=== PATIENT | female | born 1950 | race Caucasian/White ===

== ENCOUNTER 2016-09-11 10:51 | Inpatient (IN) | payer MEDICARE, OTHER ==
[~2016-09-11] VITALS: Ht 165.1 cm; Wt 36.0 kg
[2016-09-11] MEDS: LEVETIRACETAM IV 500 MG in DEXTROSE 5% 100 ML IVPB SCH (05:14)
[~2016-09-11 10:51] MED LIST: ACET500C5 PO; CALC-143 PO; CARV12.579 GTB; CLON-379 PO; DOCU-144 GTB; ESOM20CA PO; FER325 GTB; HEPA100D39 IV; INDA2.5T GTB; INSU100C SQ; LACTINEX PO; LANT3I SC; LEVE-5 PO; LISI20TA11 PO; METF500T4 PO; MIN25 GTB; MORP1DIS4 IV; ONDA4SOL IV*; PANT40TA3 PO; PARO40TA79 PO; SENN-53 PO
[2016-09-11 11:08] VITALS: Ht 165.1 cm; Wt 36.0 kg
--- NOTE | 2016-09-11 12:29 | RADRPT ---
PROCEDURE: XR Abdomen. CLINICAL INDICATION: Check gastrostomy tube position. TECHNIQUE: AP supine abdomen x-ray. The image was obtained following injection of 60 ml of Gastrog rafin into the gastrostomy tube. COMPARISON: None. FINDINGS: There is a Rubio catheter with the tip in the transverse colon. Contrast is present in the catheter and the transverse colon. The bowel gas pattern is normal with no evidence of obstruction. There are degenerative changes of the spine. IMPRESSION: 1. Rubio catheter tip in the transverse colon. Call report: A call report of the findings was made to Dr. Gonsalez on 09/11/2016 at 1220 hours. RPTAT: QQ .Shahid Archer MD, MD Date Time Electronically viewed and signed by .Shahid Archer MD, on 09/11/2016 12:29 .R/
[2016-09-11 12:53] LABS: ADD SCAN DIFF NO
[2016-09-11 12:55] LABS: BASOPHILS % 0.3 % (0.0-2.0); EOSINOPHILS # 0.4 10^3/ul (0.0-0.5); EOSINOPHILS % 3.3 % (0.0-7.0); HEMOGLOBIN 7.8 g/dl (12.0-16.0); LYMPHOCYTES # 2.4 10^3/ul (0.8-2.9); LYMPHOCYTES % 20.8 % (15.0-51.0); MEAN CORPUSCULAR HEMOGLOBIN 30.6 pg (29.0-33.0); MEAN PLATELET VOLUME 11.7 fl (7.4-10.4); MONOCYTE # 1.1 10^3/ul (0.3-0.9); MONOCYTES % 9.6 % (0.0-11.0); NEUTROPHIL # 7.6 10^3/ul (1.6-7.5); NEUTROPHILS % 65.3 % (39.0-77.0); PLATELET COUNT 599 10^3/UL (140-415); RED BLOOD COUNT 2.55 10^6/ul (4.20-5.40); RED CELL DISTRIBUTION WIDTH 14.6 % (11.5-14.5); WHITE BLOOD COUNT 11.7 10^3/ul (4.8-10.8)
[2016-09-11] MEDS ORDERED: ACETAMINOPHEN 325 MG TAB PO PRN (13:00)
[2016-09-11] MEDS ORDERED: ONDANSETRON 4 MG INJ IV PRN ×2 (13:00→14:00)
[2016-09-11 13:08] LABS: INR 1.11; POTASSIUM 3.8 mmol/L (3.5-5.1); PROTIME 14.3 Sec (12.2-14.2); PT RATIO 1.1
[2016-09-11 13:11] LABS: CREATININE 1.8 mg/dl (0.44-1.00)
[2016-09-11 13:12] LABS: CALCIUM 8.5 mg/dl (8.4-10.2)
[2016-09-11 13:23] LABS: TROPONIN-I 0.015 ng/ml (0.00-0.12)
[2016-09-11] MEDS ORDERED: SOD CHLORIDE 0.9% 1,000 ML IV STA ×2 (13:27)
[2016-09-11] MEDS ORDERED: SOD CHLORIDE 0.9% 250 ML IV ONE (13:36)
[2016-09-11] MEDS ORDERED: NS + KCL 20 MEQ 1,000 ML IV SCH (13:42)
--- NOTE | 2016-09-11 13:42 | ERA ---
ER Documentation Chief Complaint Date/Time DATE: 09/11/16 TIME: 13:37 Chief Complaint g-tube leaking need new replacement HPI Basement. Please note the history and physical exam is limited secondary to the patient's mental status at baseline. The patient had a leaking 20 Chinese G- tube and was sent for G-tube replacement. She is a full code. I cannot obtain history otherwise. Her primary doctor is Dr. Simon Graff. ROS All systems reviewed and are negative except as per history of present illness. Medications Home Meds Active Scripts Metformin* (Glucophage*) 500 Mg Tab, 500 MG PO WITH BREAKFAST, #30 TAB Prov:ALAINA OVIEDO V. DISEASE INTERVENTION SPECIALIST 08/18/15 Reported Medications Esomeprazole Mag Trihydrate (Nexium) 20 Mg Capsule.dr, 20 MG PO AC BREAKFAST, # 30 CAP 03/28/16 Calcium Citrate/Vitamin D (Citracal-Vitamin D 200 MG-250) 1 Each Tablet, 1 EACH PO DAILY, TAB 03/28/16 Sennosides* (Senna Lax*) 8.6 Mg Tablet, 1 TAB PO BID, TAB 03/28/16 Paroxetine Hcl* (Paroxetine*) 40 Mg Tablet, 40 MG PO DAILY, TAB 03/28/16 Ondansetron Hcl* (Ondansetron Hcl* Liq) 4 Mg/5 Ml Solution, 4 MG IV* Q6H Y for NAUSEA AND/OR VOMITING, ML 03/28/16 Morphine (Morphine) 1 Mg/1 Ml Disp.syrin, 2 MG IV Q2H Y for PAIN, EA 2-6 MG Q2H PRN 03/28/16 Levetiracetam* (Keppra*) 500 Mg Tablet, 500 MG PO BID, TAB 03/28/16 Insulin Lispro (Humalog) 100 Unit/1 Ml Cartridge, 5 UNIT SQ TID 03/28/16 Insulin Lispro (Humalog) 100 Unit/1 Ml Cartridge, 12 UNIT SQ QID 150-200=2units 201-250=4units 251-300=6units 301-350=8units 351-400=10units 400=12units 03/28/16 Insulin Glargine* (Lantus*) 100 Unit/Ml Soln, 15 UNIT SC QHS, #1 VIAL 03/28/16 Indapamide* (Indapamide*) 2.5 Mg Tablet, 2.5 MG PO DAILY, TAB 03/28/16 Heparin Sodium,Porcine/Pf (Heparin 1,000 Unit/10 (100/ml)) 1,000 Unit/10 Ml Syringe, 5000 UNIT IV BID 03/28/16 Ferrous Sulfate* (Ferrous Sulfate*) 325 Mg Tabec, 325 MG PO TID, TAB 03/28/16 Clonidine Hcl* (Clonidine Hcl*) 0.1 Mg Tab, 0.1 MG PO QHS, TAB 03/28/16 Acetaminophen* (Tylophen*) 500 Mg Capsule, 1000 MG PO Q4 Y for FOR PAIN, TAB 11/08/15 Pantoprazole* (Protonix*) 40 Mg Tablet.dr, 40 MG PO DAILY, TAB 08/17/15 Minoxidil* (Lonitin*) 2.5 Mg Tab, 2.5 MG PO DAILY, TAB HOLD IF SBP BELOW 110, HR BELOW 60 1TAB 08/17/15 Lactobacillus Acidophilus* (Lactinex*) 1 Tab Chew, 1 TAB PO BID, TAB 08/17/15 Docusate Sodium* (Colace*) 100 Mg Capsule, 100 MG PO BID, #30 CAP 08/17/15 Carvedilol* (Carvedilol*) 12.5 Mg Tablet, 12.5 MG PO BID, #60 TAB 08/17/15 Lisinopril* (Lisinopril*) 20 Mg Tablet, 20 MG PO DAILY, #30 TAB 08/17/15 Allergies Allergies: Coded Allergies: No Known Drug Allergy (Verified Allergy, Mild, 03/28/16) PMhx/Soc History of Surgery: Yes (AVF placement ) Hx Neurological Disorder: Yes (Chronic encephalopathy, dysphagia, dementia, hemiplegia, hx of CVA L side) Hx Respiratory Disorders: Yes (Hx. of acute pulmonary edema ) Hx Cardiac Disorders: Yes (hx of CAD with NSTEMI, HTN, cardiomegaly) Hx Psychiatric Problems: Yes (Dementia, depression, ENCEPHALOPATHY ) Hx Miscellaneous Medical Probl: No Smoking Status: Unknown if ever smoked FmHx Unable to obtain Physical Exam Vitals Vital Signs Date Time Temp Pulse Resp B/P Pulse Ox O2 Delivery O2 Flow Rate FiO2 09/11/16 11:08 98.2 98 18 102/53 99 Physical Exam Const: Pale and cachectic Head: Atraumatic Eyes: Normal Conjunctiva ENT: Normal External Ears, Nose and Mouth. Neck: Full range of motion..~ No meningismus. Resp: Clear to auscultation bilaterally Cardio: Regular rate and rhythm, no murmurs Abd: G-tube in place with leakage around it appears to be tube feeding Skin: Pale Back: No midline or flank tenderness Ext: No cyanosis, or edema Neur: Awake but encephalopathic at baseline Result Diagram: 09/11/16 1245 09/11/16 1245 Results 24 hrs Laboratory Tests Test 09/11/16 12:45 White Blood Count 11.710^3/ul Red Blood Count 2.5510^6/ul Hemoglobin 7.8g/dl Hematocrit 26.0% Mean Corpuscular Volume 102.0fl Mean Corpuscular Hemoglobin 30.6pg Mean Corpuscular Hemoglobin Concent 30.0g/dl Red Cell Distribution Width 14.6% Platelet Count 51518^3/UL Mean Platelet Volume 11.7fl Neutrophils % 65.3% Lymphocytes % 20.8% Monocytes % 9.6% Eosinophils % 3.3% Basophils % 0.3% Nucleated Red Blood Cells % 0.0/100WBC Neutrophils # 7.610^3/ul Lymphocytes # 2.410^3/ul Monocytes # 1.110^3/ul Eosinophils # 0.410^3/ul Basophils # 0.010^3/ul Nucleated Red Blood Cells # 0.010^3/ul Prothrombin Time 14.3Sec Prothrombin Time Ratio 1.1 INR International Normalized Ratio 1.11 Activated Partial Thromboplast Time 23.0Sec Sodium Level 160mmol/L Potassium Level 3.8mmol/L Chloride Level 114mmol/L Carbon Dioxide Level 27mmol/L Anion Gap 23 Blood Urea Nitrogen 92mg/dl Creatinine 1.80mg/dl Glucose Level 189mg/dl Calcium Level 8.5mg/dl Troponin I 0.015ng/ml Current Medications Medications (Trade) Dose Ordered Sig/Candace Route PRN Reason Start Time Stop Time Status Last Admin Dose Admin Ondansetron HCl (Zofran Inj) 4 mg BRIDGE ORDER PRN IV NAUSEA AND/OR VOMITING 09/11/16 13:00 09/12/16 12:59 Acetaminophen 650 mg 650 mg ER BRIDGE PRN PO MILD PAIN/FEVER 09/11/16 13:00 09/12/16 12:59 Sodium Chloride 1,000 ml @ 1,000 mls/hr Q1H STAT IV 09/11/16 13:27 09/11/16 14:26 Sodium Chloride 1,000 ml @ 1,000 mls/hr Q1H STAT IV 09/11/16 13:27 09/11/16 14:26 Sodium Chloride (NS) 250 ml @ 0 mls/hr Q0M ONCE IV 09/11/16 13:36 09/11/16 13:37 DC Procedures/MDM G-tube Insertion by me: Sterile technique, local prep and lubrication, time out performed. Location: Epigastrum Device: 20 Chinese G-tube Technique: Ann pressure with twisting motion. Balloon inflation Results: Tube feeding contents expressed. Compl: On x-ray the G-tube appears to be in the transverse colon X-ray Abdomen 1V Interpreted by me: Free Air: None Bowel Gas: Nonspecific Contrast: Unfortunately it appears that the G-tube is in the transverse colon Chest x-ray pending. EKG read by me: Rate/Rhythm: Regular rate and rhythm at a normal rate Intervals: Normal Impression: No evidence of ischemia or arrhythmia Patient is a 66-year-old female presents for G-tube replacement. I replaced the G-tube at the bedside and a confirmatory x-ray shows that the G-tube is actually in the transverse colon. Unfortunately I believe that when the G-tube was placed recently and must been placed erroneously in the transverse colon. I looked back at previous visits to the hospital and I do not see that this G- tube was placed at [facility]. Therefore I spoke with Dr. Louis our general surgeon on-call who will see the patient in consultation. The patient had laboratory studies done which show hypernatremia and dehydration most likely because this patient has been getting tube feedings into her colon and is not being nourished correctly. The patient will be given 2 L of normal saline for fluid resuscitation. She was also found to have anemia with a hemoglobin of 7.8 and will require transfusion. I have ordered 2 units of packed red blood cells. The patient will be admitted to the care of Dr. Dimas from the panel team to a medical surgical bed. Critical Care: Time: 35 minutes excluding all billable procedures. Treatments/Evaluations: Close monitoring and treatment of unstable vital signs, cardiorespiratory, and neurologic status, while maintaining tight balance of fluid, respiratory, and cardiac interventions. Departure Diagnosis: Primary Impression: Hypernatremia Additional Impressions: Gastrostomy tube dysfunction Anemia Qualified Code: D64.9 - Anemia, unspecified type Encounter for feeding tube placement Dehydration Condition: Fair Patient Instructions: Feeding Tube Replacement Referrals: SIMON GRAFF MD (PCP) Additional Instructions: Llame al doctor MAANA y nicole linda NITZA PARA DENTRO DE 1-2 KHOURY.Dgale a la secretaria que nosotros le instruimos hacer esta nitza.Avise o llame si page condicin se empeora antes de la nitza. Regresa aqui si peor o no mejor. KWABENA HORAN MD Sep 11, 2016 13:42
[2016-09-11] MEDS ORDERED: NACL 0.9% 3 ML SYG IV SCH (14:00)
[2016-09-11] MEDS ORDERED: morphine 2 MG INJ IV PRN (14:00)
[2016-09-11] MEDS: INSULIN ASPART [NOVOLOG] 3 ML PEN SC SCH ×3 (14:00→18:00)
[2016-09-11] MEDS ORDERED: LATA2.5D9 BOTH EYES (14:06)
--- NOTE | 2016-09-11 14:06 | RADRPT ---
PROCEDURE: XR Chest. CLINICAL INDICATION: Shortness of breath. TECHNIQUE: Single frontal view. COMPARISON: 01/27/2016. FINDINGS: The lungs are clear. The heart is enlarged. There is no pleural effusion or pneumothorax. Surgical clips are present in the left upper extremity soft tissues medially. IMPRESSION: 1. Cardiomegaly. 2. Prior left arm surgery. 3. Otherwise normal chest radiograph. 4. No change from 03/28/2016. RPTAT: QQ .Shahid Archer MD, MD Date Time Electronically viewed and signed by .Shahid Archer MD, MD on 09/11/2016 14:06 .R/
[2016-09-11] MEDS ORDERED: CRAN3875 GTB (14:08)
[2016-09-11] MEDS ORDERED: ACET-2047 GTB (14:10)
[2016-09-11] MEDS ORDERED: OMEP20CA16 GTB (14:10)
[2016-09-11] MEDS ORDERED: MULTI GTB (14:11)
[2016-09-11] MEDS ORDERED: BENA5TAB2 GTB (14:12)
[2016-09-11] MEDS ORDERED: MAGN400O4 PO (14:12)
[2016-09-11] MEDS ORDERED: LEVE-5 GTB (14:13)
[2016-09-11] MEDS ORDERED: NA P135E RC (14:16)
[2016-09-11] MEDS ORDERED: FAMO20TA18 GTB (14:17)
[2016-09-11] MEDS ORDERED: LACT1CAP4 GTB (14:19)
[2016-09-11] MEDS ORDERED: DULR PR (14:21)
[2016-09-11] MEDS ORDERED: CRAN425C GTB (14:21)
[2016-09-11] MEDS ORDERED: ACET-141 GTB (14:23)
[2016-09-11] MEDS ORDERED: CLON-379 GTB (14:24)
[2016-09-11] MEDS ORDERED: AMIN30LI GTB (14:27)
[2016-09-11] MEDS ORDERED: DEXTROSE 50% 50 ML SYRINGE IV PRN ×2 (14:30)
[2016-09-11] MEDS ORDERED: GLUCOSE GEL 15 GRAM TUBE BUCCAL PRN (14:30)
[2016-09-11] MEDS ORDERED: GLUCAGON 1 MG INJ IM PRN (14:30)
[2016-09-11] MEDS ORDERED: GLUCOSE GEL 15 GRAM TUBE PO PRN ×2 (14:30)
[2016-09-11] MEDS: POTASSIUM CHLORIDE 10 MEQ in SOD CHLORIDE 0.45% 1,000 ML IV SCH (15:00)
[2016-09-11] MEDS: FAMOTIDINE 20 MG INJ IV SCH (15:00)
[2016-09-11] MEDS ORDERED: FERR220S3 GTB (15:42)
[2016-09-11 16:30] LABS: IRON 28 ug/dl (35-150)
[2016-09-11 16:40] LABS: TOTAL IRON BINDING CAPACITY 213 ug/dl (241-421)
--- NOTE | 2016-09-11 16:41 | HP ---
DATE OF ADMISSION: 09/11/2016 TIME OF EVALUATION: 1300 REASON FOR ADMISSION: [facility] because of G- tube site. CONSULTATIONS: Dr. Yunior Louis, surgery. HISTORY OF PRESENT ILLNESS: This is a 66-year-old female with chronic encephalopathy who is bedbound along with dysphagia status post G-tube placement , also with a past medical history of essential hypertension, type 2 diabetes mellitus, pulmonary hypertension, chronic kidney disease, seizure disorder and left hemiparesis secondary to subdural hematoma who is a alf resident who was transferred from [facility] to [facility] for further evaluation of leaking G-tube. In the emergency room, the patient underwent an abdominal x-ray that showed tip of the G-tube in the transverse colon. As per reports this G-tube was recently placed on September 02 2016 at [facility]. The patient's lab work showed that the patient has some anemia with a hemoglobin and hematocrit of 7.8 and 26.0 respectively. The patient was noticed to have hypernatremia with a sodium of 160. After review of the patient 's abdominal x-ray, the ER physician has called the surgeon diamond cutter regarding the G-tube misplacement. PAST MEDICAL HISTORY: Type 2 diabetes mellitus, dysphagia, essential hypertension, pulmonary hypertension, chronic kidney disease, CAD, subdural hematoma, seizure disorder, chronic encephalopathy. PAST SURGICAL HISTORY: G-tube placement. CORRECTION MEDICATIONS 1. Metformin 500 mg via G-tube with breakfast and dinner. 2. Nexium 20 mg p.o. before breakfast. 3. Calcium citrate 1 tablet via G-tube daily. 4. Paroxetine 40 mg via G-tube daily. 5. Keppra 500 mg via G-tube b.i.d. 6. Humalog insulin as per sliding scale. 7. Lantus insulin 15 units subcutaneous at bedtime. 8. Indapamide 2.5 mg via G-tube daily. 9. Ferrous sulfate 325 mg via G-tube t.i.d. 10. Minoxidil 2.5 mg via G-tube daily. 11. Coreg 12.5 mg via G-tube b.i.d. 12. Lisinopril 20 mg via G-tube daily. ALLERGIES: NO KNOWN DRUG ALLERGIES. SOCIAL HISTORY: The patient is a alf resident. The patient has chronic encephalopathy. REVIEW OF SYSTEMS: Unable to obtain a review of systems because of underlying encephalopathy. PHYSICAL EXAMINATION: VITAL SIGNS: Temperature 98.2, pulse rate 90, respiratory rate 18, blood pressure 102/53, oxygen saturation 97% on room air. GENERAL: This is a thin frail-looking female lying in bed in no apparent distress. HEENT: Head normocephalic and atraumatic. Eyes: Anicteric sclerae. Conjunctivae clear. ENT: Nasal septum is midline. Oral mucosa is dry. NECK: Supple. No JVD noticed. RESPIRATORY: Bilaterally diminished breath sounds. No adventitious breath sounds. No use of accessory muscles of respiration. CARDIAC: Regular rate and rhythm. S1, S2 heard. ABDOMEN: Left-sided G-tube in place with leaking around the G-tube site. Bowel sounds positive in all 4 quadrants. GENITOURINARY: Deferred. EXTREMITIES: No cyanosis, no clubbing, no edema. Peripheral pulses palpable. Muscle wasting of bilateral upper and lower extremities. NEUROLOGIC: The patient is awake. non-verbal. LABORATORY AND DIAGNOSTIC DATA: WBC 11.7, hemoglobin 7.8, hematocrit 26.0, platelet 599. Sodium 160, potassium 3.8, chloride 114, carbon dioxide 27, anion gap 10, BUN 92, creatinine 1.80, glucose 189, calcium 8.5. Troponin 0.015, PT 14.3, INR 1.18, PTT 23.0. Abdominal x-ray: Tip of the G-tube in the transverse colon. Chest x-ray: Cardiomegaly. Prior left arm surgery. ASSESSMENT AND PLAN: 1. Leaking G-tube site. Malposition of the G-tube evident on radiographic examination. We will hold any G-tube feedings or medications through the G- tube. General surgery consult has been called regarding this. 2. Essential hypertension. The patient will be maintained on p.r.n. antihypertensives. The patient's routine antihypertensives will be put on hold. 3. Dysphagia. The patient will be maintained on n.p.o. Will avoid any G-tube feedings because of the malposition of the G-tube. 4. Hypernatremia, most probably secondary to dehydration. The patient will be provided with IV fluid half normal saline. 5. Type 2 diabetes mellitus. Random blood glucose 189. The patient will be started on sliding scale insulin. Will avoid any dextrose containing fluids because of the current hyperglycemia. 6. Chronic kidney disease. We will monitor BUN and creatinine closely. We will avoid nephrotoxic medications. 7. Seizure disorder. The patient will be maintained on anticonvulsants. 8. Pulmonary hypertension. The patient will be maintained on supplemental oxygen. PA pressure of 42 mmHg as per 2D echocardiogram on 11/09/2015. 9. Macrocytic anemia. Hemoglobin and hematocrit of 7.8 and 26.0 respectively. We will order an iron panel on this patient. The ER physician has ordered blood transfusion on this patient. No evidence of any acute bleeding. Plan. The patient will be admitted to inpatient medical/surgical floor. The patient will be kept n.p.o. The patient will be started on IV fluids. The patient will remain a FULL CODE. The patient's POLST was reviewed and the patient is a FULL CODE as per the POLST. The patient will be started on DVT prophylaxis and gastrointestinal prophylaxis. The rest of the patient's management will be based on clinical course, the results of diagnostic studies and inputs from the consultants. Based on the patient's clinical presentation, she most probably requires at least 2 midnights' stay for further management and evaluation of her clinical presentation. The case and management of this patient was fully discussed with Dr. Lang. RIGOBERTO LANG MD, AM/LIZBET Conf#: [id number] DID#: [id number] MTDD
--- NOTE | 2016-09-11 20:52 | CONS ---
[facility] INITIAL INPATIENT CONSULTATION NOTE PLACE OF SERVICE: [facility] Emergency Department DATE OF CONSULTATION: 09/11/2016 ASSESSMENT AND PLAN: A very pleasant but unfortunate 66-year-old lady with multiple comorbid issues including chronic encephalopathy and complete dependence of activities of daily living, living in a alf and dependent on tube feeding, appears to have had a tube placed in the transverse colon. This tube certainly cannot be used for feedings and needs to be removed. A new gastrostomy tube, likely with the help of gastroenterology as well as interventional radiology should be placed. 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 The patient has a few electrolyte issues that need to be stabilized prior to intervention. The appropriate consultations with gastroenterology as well as discussions with interventional radiology needs to be held. I do not believe that this will require surgical intervention, but if it does, we are certainly available and capable of carrying this out. I discussed this with the ER staff and conveyed my thoughts and answered all questions. The patient herself is noncommunicative and therefore, I did not have any current discussions with her and I did not have a chance to discuss with family. With above assessment, I have recommend the followin. Agree with admission. 2. Gastroenterology consultation for PEG placement in conjunction with interventional radiology. 3. Once electrolyte abnormalities have been corrected, medical issues have been optimized and adequate time (e.g. one more week) has passed we can plan on readmitting the patient inhouse for removal of the transverse colon tube to observe and make sure there is no leak or abscess/problems post removal. 4. I will continue to follow the patient along with you. Thank you again for allowing us to participate in the care of this very pleasant but unfortunate lady and I am certain her wonderful family. If there are any questions, please call me at [phone]. TOTAL VISIT TIME: 45 minutes of which more than half was spent at bedside as well as coordination of care between multiple physicians and providers. UPDATED CLINICAL HISTORY: The patient is a very pleasant but unfortunate 66- year-old lady with comorbidities including a BMI of 16.5 as well as history of chronic encephalopathy and debility who was found to have a G-tube placement, unfortunately, into her transverse colon when she was seen in our emergency department today for replacement of a displaced G-tube. COMORBIDITIES: 1. BMI 16.5. 2. Chronic encephalopathy. 3. Diabetes mellitus type 2. 4. Dysphagia. 5. Essential hypertension. 6. Pulmonary hypertension. 7. Chronic kidney disease. 8. Coronary artery disease. 9. Subdural hematoma. 10. Seizure disorder. 11. Chronic encephalopathy. DATE OF ADMISSION: 09/11/2016 HISTORY OF PRESENT ILLNESS: The patient is a very pleasant 66-year-old lady with multiple comorbid issues as mentioned above who I was kindly asked to consult regarding management of newly discovered G-tube that appears to have been placed in the transverse colon. She was evaluated in our emergency department for a displaced G-tube and on reinsertion and checking of the tube, it appears that the transverse colon is opacified at the location where the G- tube is inserted. The G-tube does not appear to be in the stomach. I was kindly asked to consult. At my visit, the patient did not have any family present at bedside. She was transferred from [facility] to [facility]. She is encephalopathic and noncommunicative and I gathered my information through discussions with colleagues as well as careful review of the available data. ALLERGIES: NO KNOWN DRUG ALLERGIES. MEDICATIONS: Include metformin, Nexium, calcium citrate, paroxetine, Keppra, Humalog, Lantus, indapamide, ferrous sulfate, minoxidil, Coreg and lisinopril. SOCIAL HISTORY: The patient is living in a alf and is completely dependent on all activities of daily living. She is chronically encephalopathic. There is no report of issues with chronic smoking, drinking, or intravenous drug use. REVIEW OF SYSTEMS: Unable to obtain due to patient's mental status. PHYSICAL EXAMINATION: GENERAL: The patient appears to be a very pleasant and frail lady of descent, appearing older than stated age, lying in bed comfortably and in no acute distress. BMI is 16.5. VITAL SIGNS: She is afebrile with temperature of 96.0, blood pressure 146/66, pulse 96, respiratory rate 20, pulse oximetry 100% on 3 liters of nasal cannula. HEENT: Normocephalic and atraumatic. Extraocular muscles and hearing are grossly intact bilaterally and symmetrically. Sclerae are nonicteric. Oral cavity is clear; oral mucosa appeared to be pink and moist. Dentition: poor. NECK: Supple. There is no lymphadenopathy or JVD. There is no submental, submandibular or supraclavicular lymphadenopathy. CHEST: Rises symmetrically with each breath; patient is breathing comfortably. There are no audible wheezes, rales or rhonchi on the gross exam. HEART: Pulse is regular and palpable on the left wrist. Capillary refill was normal. Carotid pulses are palpable bilaterally and symmetrically in the neck. EXTREMITIES: Lower extremities contain no pitting edema around the ankles bilaterally and symmetrically. ABDOMEN: Soft, nontender and nondistended. There is a new tube that is coming out of the anterior abdominal wall and there is no erythema or edema around the tube itself. There are no peritoneal signs or guarding. SKIN: Appears to be pink and feels warm to touch. NEUROLOGIC: Awake, alert, and follows commands appropriately. LABORATORY DATA: White blood cell count 11.7, hemoglobin 7.8, platelets 599. Electrolytes show sodium 160, potassium 3.8, chloride 114, CO2 27, creatinine 1.80. INR 1.11. IMAGING: Abdominal x-rays as above and reviewed by me personally. I agree in general with their overall reported findings. Dictated By: YOSEPH PATEL/LIZBET Conf#: [id number] DID#: [id number] MTDD
[2016-09-11 22:00] VITALS: TEMP 98
[2016-09-12 05:05] LABS: ADD SCAN DIFF NO
[2016-09-12 05:13] LABS: BASOPHIL # 0.1 10^3/ul (0.0-0.1); BASOPHILS % 0.6 % (0.0-2.0); EOSINOPHILS # 0.6 10^3/ul (0.0-0.5); EOSINOPHILS % 5.8 % (0.0-7.0); HEMATOCRIT 36.6 % (37.0-47.0); HEMOGLOBIN 11.6 g/dl (12.0-16.0); LYMPHOCYTES # 2.6 10^3/ul (0.8-2.9); LYMPHOCYTES % 24.9 % (15.0-51.0); MEAN CORPUSCULAR HEMOGLOBIN 29.4 pg (29.0-33.0); MEAN CORPUSCULAR HGB CONC 31.7 g/dl (32.0-37.0); MEAN CORPUSCULAR VOLUME 92.7 fl (82.0-101.0); MEAN PLATELET VOLUME 11.2 fl (7.4-10.4); MONOCYTE # 0.9 10^3/ul (0.3-0.9); MONOCYTES % 8.3 % (0.0-11.0); NEUTROPHIL # 6.3 10^3/ul (1.6-7.5); NEUTROPHILS % 59.6 % (39.0-77.0); PLATELET COUNT 613 10^3/UL (140-415); RED BLOOD COUNT 3.95 10^6/ul (4.20-5.40); RED CELL DISTRIBUTION WIDTH 18.5 % (11.5-14.5); WHITE BLOOD COUNT 10.6 10^3/ul (4.8-10.8)
[2016-09-12] MEDS: POTASSIUM CHLORIDE 10 MEQ in SOD CHLORIDE 0.45% 1,000 ML IV SCH (05:39)
[2016-09-12] MEDS: INSULIN ASPART [NOVOLOG] 3 ML PEN SC SCH ×5 (06:00→20:56)
[2016-09-12 06:40] LABS: ALBUMIN 2.9 g/dl (3.3-4.9); POTASSIUM 3.8 mmol/L (3.5-5.1)
[2016-09-12 06:42] LABS: BILIRUBIN,INDIRECT 0.1 mg/dl (0-1.1); BILIRUBIN,TOTAL 0.1 mg/dl (0.2-1.3); CREATININE 1.31 mg/dl (0.44-1.00)
[2016-09-12 06:43] LABS: ALBUMIN/GLOBULIN RATIO 0.67; TOTAL PROTEIN 7.2 g/dl (6.1-8.1)
[2016-09-12 07:05] LABS: PHOSPHORUS 4.9 mg/dl (2.5-4.9)
[2016-09-12 07:06] LABS: CHOL/HDL RATIO 4.1 RATIO
[2016-09-12 07:35] LABS: THYROID STIMULATING HORMONE 0.653 MIU/L (0.465-4.680)
[2016-09-12 08:18] VITALS: BP 143/68; RESP 16
[2016-09-12] MEDS: FAMOTIDINE 20 MG INJ IV SCH (10:02)
[2016-09-12] MEDS: LEVETIRACETAM IV 500 MG in DEXTROSE 5% 100 ML IVPB SCH ×2 (10:02→20:55)
[2016-09-12] MEDS: POTASSIUM CHLORIDE 10 MEQ in DEXTROSE 5% 1,000 ML IV SCH (14:28)
[2016-09-12] MEDS: INSULIN GLARGINE [LANtus] 3 ML PEN SC SCH (14:31)
--- NOTE | 2016-09-12 16:47 | PN ---
DATE: 09/12/2016 TIME OF EVALUATION: 1300. SUBJECTIVE DATA: The patient's blood sugars have been running high. No other changes in the patient's clinical status. OBJECTIVE DATA: VITAL SIGNS: Temperature 98.2, pulse rate 94, respiratory rate 16, blood pressure 142/68, oxygen saturation 94% on low flow O2. GENERAL: This is a thin, frail-looking, malnourished female, lying in bed in no apparent distress. HEENT: Head is normocephalic and atraumatic. Eyes, anicteric sclerae. Conjunctivae are clear. ENT: Nasal septum is midline. Oral mucosa is dry. NECK: Supple. No JVD noticed. RESPIRATORY: Bilaterally diminished breath sounds. No adventitious breath sounds heard. No use of accessory muscles of respiration. CARDIAC: Regular rate and rhythm. S1 and S2 heard. ABDOMEN: Left-sided G-tube in place, with leaking from the G-tube site. Bowel sounds are hypoactive in all 4 quadrants. GENITOURINARY: Deferred. EXTREMITIES: No cyanosis, no clubbing, no edema. Peripheral pulses palpable. Muscle wasting of the bilateral upper and lower extremities. NEUROLOGIC: The patient is awake and alert. Nonverbal. LABORATORY AND DIAGNOSTIC DATA: WBC 10.6, hemoglobin 11.6, hematocrit 36.6, platelet count 613. Sodium 164, potassium 3.8, chloride 123, carbon dioxide 23 , anion gap 22, BUN 75, creatinine 1.2, glucose 231, calcium 9.0. ASSESSMENT AND PLAN: 1. Leaking of G-tube site. Malposition of the G-tube evident on radiographic examination. G-tube feedings and medications on hold. A general surgery consult has been obtained. General surgery recommending a gastroenterology evaluation for a new PEG tube placement in conjunction with interventional radiology and removal of the G-tube from the transverse colon once the patient' s electrolyte abnormalities are corrected and when the patient is more stable. Hence, a gastroenterology consult will be obtained. 2. Essential hypertension. The patient will be maintained on p.r.n. antihypertensives. The patient's routine antihypertensives are on hold. 3. Dysphagia. The patient will be continued n.p.o., including any G-tube feedings because of malposition of the G-tube. 4. Hypernatremia, most probably secondary to dehydration. The patient is currently on half normal saline. This will be switched to D5W. A nephrology consult will be obtained. 5. Type 2 diabetes mellitus, uncontrolled. Hemoglobin A1c is 8.2. The patient is currently on sliding scale insulin. The patient will also be started on basal insulin and the patient's sliding scale will be changed to q.4h. 6. Chronic kidney disease. Will monitor the BUN and creatinine closely. Will avoid nephrotoxic medications. 7. Seizure disorder. The patient will be maintained on anticonvulsants. 8. Pulmonary hypertension. PA pressure of 42 mmHg as per 2D echocardiogram on 11/09/2015. Continue supplemental oxygen. 9. Macrocytic anemia. Status post 2 units of PRBC transfusion, with improvement in the patient's H and H. The patient's iron panel is showing iron deficiency. Will start the patient on iron supplements. 10. Iron deficiency. Will start the patient on iron supplements. 11. Dyslipidemia. Fasting lipid panel is showing suboptimal triglycerides and suboptimal HDL. Will resume the patient's statins once the patient's G-tube malpositioning is corrected. 12. History of coronary artery disease, with details unclear. Will avoid any aspirin at this time because of underlying anemia. 13. Fluids, electrolytes and nutrition. N.p.o. IV fluids as per nephrology. 14. Deep vein thrombosis prophylaxis. We will add bilateral sequential compression devices. 15. Gastrointestinal prophylaxis with intravenous histamine 2 receptor blockers. 16. Plan. Obtain a gastroenterology evaluation and a nephrology evaluation. Keep the patient in house. Change IV fluids to dextrose containing fluids. The case was discussed with Dr. Lang. RIGOBERTO LANG MD, AM/LIZBET Conf#: [id number] DID#: [id number] MTDD
--- NOTE | 2016-09-12 16:59 | PN ---
Date/Time of Note Date/Time of Note DATE: 09/12/16 TIME: 16:55 Assessment/Plan Lines/Catheters IV Catheter Type (from [facility]): Peripheral IV Rubio in Place (from [facility]): No Assessment/Plan Assessment/Plan [facility] Progress Note Date of Service: 09/12/16 Today's Impression & Plan: Overall remained stable. I spoke with Dr. Forman and updated him on my thought process. Since the tube was placed approximately a week ago per report, I would like to keep the tube in place for at least another week to make sure that there is no leakage of stool material freely in the intraperitoneal cavity. In the meantime, the patient will need access to her stomach in order to feed as well as to get medications. For this reason, the patient will need evaluation for attempt at PEG placement. Currently there is no indication for acute surgical intervention. No family present during my visit with the patient. With above assessment, I've recommended the following for today: 1. GI evaluation (much appreciated Dr. Forman's input) 2. Consideration for PEG placement 3. Keep the existing percutaneous tube in place but do not use 4. I will follow the patient with you Thank you again for your great care of this very pleasant patient and wonderful family. If there are any questions, please feel free to call me at [phone]. TOTAL VISIT TIME: 20 minutes of which more than half was spent in [id number] discussion with the patient, possibly including family, as well as coordination of care between multiple physicians and providers. Disclaimer: Inadvertent spelling or grammatical errors are likely due to EHR/ dictation software use and do not reflect on the overall quality of patient care. Updated Clinical Summary: The patient is a very pleasant but unfortunate 66-year-old lady with comorbidities including a BMI of 16.5 as well as history of chronic encephalopathy and debility who was found to have a G-tube placement, unfortunately, into her transverse colon when she was seen in our emergency department today for replacement of a displaced G-tube. COMORBIDITIES: 1. BMI 16.5. 2. Chronic encephalopathy. 3. Diabetes mellitus type 2. 4. Dysphagia. 5. Essential hypertension. 6. Pulmonary hypertension. 7. Chronic kidney disease. 8. Coronary artery disease. 9. Subdural hematoma. 10. Seizure disorder. 11. Chronic encephalopathy. Subjective: No major events or complaints per report. Patient remains noncommunicative. Indicates he has 2 questions regarding abdominal pain presents. - BM; - activity Objective: Vitals: See below Exam: GENERAL: On exam, the patient was laying in bed and appeared to be comfortable and in no acute distress. ABDOMEN: Soft, nontender and nondistended. Percutaneous drain in place and skin around it nonerythematous. There are no peritoneal signs or guarding. SKIN: Skin appears to be pink and feels warm to touch. NEUROLOGIC: Patient is awake, alert, and does not follow commands appropriately. Exam/Review of Systems Vital Signs Vitals Vital Signs Date Time Temp Pulse Resp B/P Pulse Ox O2 Delivery O2 Flow Rate FiO2 09/12/16 08:18 98.2 94 16 143/68 95 09/11/16 23:08 Nasal Cannula 2.0 Results Result Diagram: 09/12/16 0451 09/12/16 0451 YOSEPH TALAMANTES M.D. Sep 12, 2016 16:59
--- NOTE | 2016-09-12 18:23 | CONS ---
DATE OF ADMISSION: 09/11/2016 DATE OF CONSULTATION: 09/12/2016 REFERRING PHYSICIAN: Dr. Peck TYPE OF CONSULTATION: Nephrology. REASON FOR CONSULTATION: Acute hypernatremia, sodium 164, BUN 75, acute kidney injury. HISTORY OF PRESENT ILLNESS: This is a 66-year-old female who has a past medical history of chronic encephalopathy who is bed bound along with dysphagia status post G-tube placement. 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 The patient was sent from [employer] to [facility] because of G-tube site malfunction. The patient is noted to have a n x-ray abdomen which showed that the tip of the G-tube was in the transverse colon. The patient muhammad d a hemoglobin of 7.8, with a hematocrit 26. She was also noted to have hypernatremia with a sodiu m of 168. She gets admitted to the telemetry floor by hospitalist team. General surgery, Dr. Chivo Louis has been consulted and renal was consulted because of having acute kidney injury, acute hyp ernatremia with a sodium of 168. REVIEW OF SYSTEMS: Unable to obtain from the patient since the patient has chronic encephalopathy. PAST MEDICAL HISTORY: Notable for hypertension, type 2 diabetes mellitus, pulmonary hypertension, p ossible history of chronic kidney disease secondary to diabetic nephropathy, coronary artery disease , history of a left hemiparesis secondary to subdural hematoma, seizure disorder, chronic encephalop athy. PAST SURGICAL HISTORY: G-tube placement. INTERMEDIATE MEDICATIONS: Include: 1. Metformin. 2. Nexium. 3. Calcium acetate. 4. Paroxetine. 5. Keppra. 6. Humalog insulin. 7. Lantus insulin. 8. Indapamide. 9. Ferrous sulfate. 10. Minoxidil. 11. Coreg. 12. Lisinopril. ALLERGIES: NO KNOWN DRUG ALLERGIES. 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 REVIEW OF SYSTEMS: Unable to obtain from the patient because of underlying chronic encephalopathy. PHYSICAL EXAMINATION: VITAL SIGNS: Temperature 98.2, heart rate 94, respirations 16, blood pressure 143/68, saturation is 95% on 3 liters nasal cannula. GENERAL: This is a thin, frail-looking female lying in bed in no apparent distress. HEENT: Normocephalic, atraumatic. Anicteric sclerae. Conjunctivae clear. NECK: Supple, no JVD. ENT: Nasal septum is midline. Oral mucosa is dry. RESPIRATORY: Bilaterally diminished breath sounds. No adventitious breath sounds. Bilateral bases with wheezing present. HEART: S1, S2, tachycardia, no murmur. ABDOMEN: Soft, left-sided G-tube in place with leaking around the G-tube site. Bowel sounds are po sitive in all 4 quadrants. GENITOURINARY: Deferred. EXTREMITIES: The patient has a muscle resting of her bilateral upper and lower extremities. Periph eral pulses are palpable. No clubbing, no cyanosis. NEUROLOGICAL: The patient is awake, alert, and oriented to self, but not oriented to the place and person. SKIN: Not able to assess due to currently getting studies done. LABORATORY DATA/DIAGNOSTIC IMAGIN. Sodium 164, potassium 3.8, chloride 123, bicarbonate 23, BUN 75, creatinine 1.3, glucose 231, ca lcium 9.9. 2. LFTs are normal. Alkaline phosphatase 130, albumin 2.9. 3. PT 14.3, PTT 23, INR 1.1. 4. WBC 10.6, hemoglobin 11.6, platelet count 6.3. 5. Urinalysis shows a ____ and sodium is 135. 6. Chest x-ray shows cardiomegaly, prior left arm surgery, otherwise normal chest radiograph. 7. Abdominal x-ray shows a possible G-tube in the transverse colon. 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 because of having a G-tube malfunction and she is noted to have a G-tube in the transverse colon. General surg anny and GI has been consulted. The patient is also noted to have acute kidney injury with hypernatr emia, sodium of 164. 1. Acute hypernatremia, likely secondary to severe prerenal state causing large volume of free wate r deficits. 2. Acute kidney injury on chronic kidney disease secondary to severe prerenal azotemia causing isch emic acute tubular necrosis. 3. History of chronic kidney disease, unknown stage, undiagnosed secondary to diabetic nephropathy. 4. History of hypertension. 5. History of hyperlipidemia. 6. History of left hemiparesis secondary to subdural hematoma. 7. 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 PLAN: 1. Thank you, Dr. Peck, for this consultation. I will order the patient's urine studies including a urine sodium, urine osmolality, serum osmolality, TSH, free T4, and cortisol. 2. I will continue the patient on D5W with potassium chloride 10 to 20 mEq to run at 75 mL per hour . 3. Other medications have been changed to IV due to the G-tube malfunction. 4. I will also order a uric acid and CK total, with a.m. labs. 5. The patient is expecting to have her BUN and creatinine improvement with IV fluid hydration, hussain ecially the D5W due to large free water deficits. I will also order the patient's renal ultrasounds since she has no other history of workup done and diagnosis of any chronic kidney disease. The patient is currently seen on the telemetry floor and she will be followed up along with her cour se in the hospital. Total time spent in this patient's evaluation, making assessment and plan, updating the patient's f amily at bedside, communicating with the nursing staff to more than 90 minutes and more than 50% of time spent in education. Dictated By: EDY MACARIO MD, KP/LIZBET Conf#: [id number] DID#: [id number]
--- NOTE | 2016-09-12 19:08 | RADRPT ---
PROCEDURE: Renal US. CLINICAL INDICATION: Renal dysfunction. TECHNIQUE: Multiple sonographic images of the kidneys and urinary bladder were obtained. The imag es were reviewed on a PACS workstation. COMPARISON: No prior studies are available for comparison. FINDINGS: The right kidney measures 9.7 x 4.0 x 3.6 cm. The left kidney measures 9.6 x 4.3 x 5.3 cm. There is no renal mass. There is mild bilateral hydronephrosis. There is no renal calculus. Both kidneys are hyperechoic consistent with medical renal disease. The perirenal regions are normal with no fluid collection or mass. The urinary bladder is unremarkable. IMPRESSION: 1. Bilateral hyperechoic kidneys consistent with medical renal disease. 2. Mild bilateral hydronephrosis. Clinical correlation advised. 3. Otherwise normal renal ultrasound. RPTAT: QQ .Shahid Archer MD, Date Time Electronically viewed and signed by .Shahid Archer MD, on 09/12/2016 19:08 .R/
--- NOTE | 2016-09-12 19:48 | CONS ---
Date/Time of Note Date/Time of Note DATE: 09/12/16 TIME: 19:48 Consultation Date/Type/Reason Admit Date/Time Sep 11, 2016 at 12:47 Social History Smoking Status: Unknown if ever smoked Exam/Review of Systems Vital Signs Vitals Vital Signs Date Time Temp Pulse Resp B/P Pulse Ox O2 Delivery O2 Flow Rate FiO2 09/12/16 08:18 98.2 94 16 143/68 95 09/11/16 23:08 Nasal Cannula 2.0 Results Result Diagram: 09/12/16 0451 09/12/16 0451 Results 24 hrs Laboratory Tests Test 09/12/16 02:42 09/12/16 04:51 09/12/16 05:58 09/12/16 12:00 Bedside Glucose 220 105 244 H White Blood Count 10.6 Red Blood Count 3.95 #L Hemoglobin 11.6 #L Hematocrit 36.6 #L Mean Corpuscular Volume 92.7 Mean Corpuscular Hemoglobin 29.4 Mean Corpuscular Hemoglobin Concent 31.7 L Red Cell Distribution Width 18.5 #H Platelet Count 613 H Mean Platelet Volume 11.2 H Neutrophils % 59.6 Lymphocytes % 24.9 Monocytes % 8.3 Eosinophils % 5.8 Basophils % 0.6 Nucleated Red Blood Cells % 0.0 Neutrophils # 6.3 Lymphocytes # 2.6 Monocytes # 0.9 Eosinophils # 0.6 H Basophils # 0.1 Nucleated Red Blood Cells # 0.0 Sodium Level 164 *H Potassium Level 3.8 Chloride Level 123 H Carbon Dioxide Level 23 Anion Gap 22 H Blood Urea Nitrogen 75 H Creatinine 1.31 H Glucose Level 231 H Hemoglobin A1c 8.2 H Calcium Level 9.0 Phosphorus Level 4.9 Magnesium Level 3.0 H Total Bilirubin 0.1 L Direct Bilirubin 0.00 Indirect Bilirubin 0.1 Aspartate Amino Transf (AST/SGOT) 30 Alanine Aminotransferase (ALT/SGPT) 19 Alkaline Phosphatase 130 H Total Protein 7.2 Albumin 2.9 L Globulin 4.30 H Albumin/Globulin Ratio 0.67 Triglycerides Level 169 H Cholesterol Level 121 LDL Cholesterol, Calculated 58 HDL Cholesterol 29 L Cholesterol/HDL Ratio 4.1 Thyroid Stimulating Hormone (TSH) 0.653 Free Thyroxine 1.61 Test 09/12/16 14:55 09/12/16 16:05 Urine Random Sodium 135 H Bedside Glucose 197 Medications Medications Current Medications Ondansetron HCl (Zofran Inj) 4 mg Q6H PRN IV NAUSEA AND/OR VOMITING; Start at 14:00 Morphine Sulfate (morphine) 2 mg Q4H PRN IV SEVERE PAIN LEVEL 7-10; Start 09/11 at 14:00 Famotidine (Pepcid Iv) 20 mg DAILY IV Last administered on 09/12/16 10:02; Admin Dose 20 MG; Start 09/11/16 at 14:00 Hydralazine HCl (Apresoline) 10 mg Q6H PRN IV SBP>160; Start 09/11/16 at 14:00 Miscellaneous Information 1 ea NOTE XX ; Start 09/11/16 at 14:30 Glucose (Glutose) 15 gm Q15M PRN PO DECREASED GLUCOSE; Start 09/11/16 at 14:30 Glucose (Glutose) 22.5 gm Q15M PRN PO DECREASED GLUCOSE; Start 09/11/16 at 14: 30 Dextrose (D50w Syringe) 25 ml Q15M PRN IV DECREASED GLUCOSE; Start 09/11/16 at 14:30 Dextrose (D50w Syringe) 50 ml Q15M PRN IV DECREASED GLUCOSE; Start 09/11/16 at 14:30 Glucagon (Glucagen) 1 mg Q15M PRN IM DECREASED GLUCOSE; Start 09/11/16 at 14:30 Glucose 15 gm 15 gm Q15M PRN BUCCAL DECREASED GLUCOSE; Start 09/11/16 at 14:30 Levetiracetam/ Dextrose (Keppra Iv/D5W) 105 ml @ 420 mls/hr Q12 IVPB Last administered on 09/12/16 10:02; Admin Dose 420 MLS/HR; Start 09/11/16 at 21:00 Influenza Virus Vaccine (Fluzone) 0.5 ml ONCE ONCE IM* ; Start 09/14/16 at 09:00 ; Stop 09/14/16 at 09:01 Insulin Aspart (Novolog Insulin Pen) NOVOLOG *MILD* ALGORITHM Q4H SC Last administered on 09/12/16 16:12; Admin Dose 2 UNIT; Start 09/12/16 at 16:00 Insulin Glargine 7 unit 7 unit DAILY@08 SC Last administered on 09/12/16 14:31 ; Admin Dose 7 UNIT; Start 09/12/16 at 12:30 Potassium Chloride/Dextrose (KCl/D5W) 1,005 ml @ 75 mls/hr [id number] IV Last administered on 09/12/16t 14:28; Admin Dose 75 MLS/HR; Start 09/12/16 at 13:30 KIMBERLEY PACK Sep 12, 2016 19:48
--- NOTE | 2016-09-12 19:57 | CONS ---
Date/Time of Note Date/Time of Note DATE: 09/12/16 TIME: 19:55 Assessment/Plan Assessment/Plan Additional Assessment/Plan Dysphagia Order Nutrition consult to determine rate and type of G tube feed EGD + PEG, pt's son advised of R/B/A of procedure and provides informed consent to procedures Monitor tube feed Q6hrs, hold for residuals greater 150 mL Cleanse site and change dressing daily G-tube malfunction Per x-ray abdomen, Rubio catheter tip in the transverse colon. Surgery following History of seizure disorder Management per Primary Hypertension Management per Primary Type 2 diabetes Management per Primary Further recommendations depend on clinical course Patient seen in collaboration with Dr. Forman Consultation Date/Type/Reason Admit Date/Time Sep 11, 2016 at 12:47 Hx of Present Illness Mrs Astorga is a 66-year-old woman that was transferred from from [employer] [facility] to [facility] because of G-tube site malfunction. Per family, patient had G-tube placed 1 week ago at [facility] with . Per medical record, uneventful PEG + EGD was completed. Presently x-ray of abdomen notes: Rubio catheter tip in the transverse colon. Presently, patient not receiving any nourishment. EGD plus PEG recommended by Dr. Forman after consultation with . 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 Advised patient son of recommendation for EGD plus PEG and he provides informed consent to proceed with procedure. Past Medical History Medical History: diabetes, hypertension, other Social History Alcohol Use: none Smoking Status: Unknown if ever smoked Exam/Review of Systems Vital Signs Vitals Vital Signs Date Time Temp Pulse Resp B/P Pulse Ox O2 Delivery O2 Flow Rate FiO2 09/12/16 08:18 98.2 94 16 143/68 95 09/11/16 23:08 Nasal Cannula 2.0 Exam Constitutional: Confused, awake Psych: nl mood/affect Head: normocephalic Eyes: EOMI, nl conjunctiva, nl lids ENMT: nl external ears & nose, nl lips & teeth, nl nasal mucosa & septum Respiratory: clear to auscultation, normal air movement Cardiovascular: regular rate and rhythm Gastrointestinal: soft, non-tender Musculoskeletal: nl extremities to inspection Results Result Diagram: 09/12/16 0451 09/12/16 0451 Results 24 hrs Laboratory Tests Test 09/12/16 02:42 09/12/16 04:51 09/12/16 05:58 09/12/16 12:00 Bedside Glucose 220 105 244 H White Blood Count 10.6 Red Blood Count 3.95 #L Hemoglobin 11.6 #L Hematocrit 36.6 #L Mean Corpuscular Volume 92.7 Mean Corpuscular Hemoglobin 29.4 Mean Corpuscular Hemoglobin Concent 31.7 L Red Cell Distribution Width 18.5 #H Platelet Count 613 H Mean Platelet Volume 11.2 H Neutrophils % 59.6 Lymphocytes % 24.9 Monocytes % 8.3 Eosinophils % 5.8 Basophils % 0.6 Nucleated Red Blood Cells % 0.0 Neutrophils # 6.3 Lymphocytes # 2.6 Monocytes # 0.9 Eosinophils # 0.6 H Basophils # 0.1 Nucleated Red Blood Cells # 0.0 Sodium Level 164 *H Potassium Level 3.8 Chloride Level 123 H Carbon Dioxide Level 23 Anion Gap 22 H Blood Urea Nitrogen 75 H Creatinine 1.31 H Glucose Level 231 H Hemoglobin A1c 8.2 H Calcium Level 9.0 Phosphorus Level 4.9 Magnesium Level 3.0 H Total Bilirubin 0.1 L Direct Bilirubin 0.00 Indirect Bilirubin 0.1 Aspartate Amino Transf (AST/SGOT) 30 Alanine Aminotransferase (ALT/SGPT) 19 Alkaline Phosphatase 130 H Total Protein 7.2 Albumin 2.9 L Globulin 4.30 H Albumin/Globulin Ratio 0.67 Triglycerides Level 169 H Cholesterol Level 121 LDL Cholesterol, Calculated 58 HDL Cholesterol 29 L Cholesterol/HDL Ratio 4.1 Thyroid Stimulating Hormone (TSH) 0.653 Free Thyroxine 1.61 Test 09/12/16 14:55 09/12/16 16:05 Urine Random Sodium 135 H Bedside Glucose 197 Medications Medications Current Medications Ondansetron HCl (Zofran Inj) 4 mg Q6H PRN IV NAUSEA AND/OR VOMITING; Start at 14:00 Morphine Sulfate (morphine) 2 mg Q4H PRN IV SEVERE PAIN LEVEL 7-10; Start 09/11 at 14:00 Famotidine (Pepcid Iv) 20 mg DAILY IV Last administered on 09/12/16t 10:02; Admin Dose 20 MG; Start 09/11/16 at 14:00 Hydralazine HCl (Apresoline) 10 mg Q6H PRN IV SBP>160; Start 09/11/16 at 14:00 Miscellaneous Information 1 ea NOTE XX ; Start 09/11/16 at 14:30 Glucose (Glutose) 15 gm Q15M PRN PO DECREASED GLUCOSE; Start 09/11/16 at 14:30 Glucose (Glutose) 22.5 gm Q15M PRN PO DECREASED GLUCOSE; Start 09/11/16 at 14: 30 Dextrose (D50w Syringe) 25 ml Q15M PRN IV DECREASED GLUCOSE; Start 09/11/16 at 14:30 Dextrose (D50w Syringe) 50 ml Q15M PRN IV DECREASED GLUCOSE; Start 09/11/16 at 14:30 Glucagon (Glucagen) 1 mg Q15M PRN IM DECREASED GLUCOSE; Start 09/11/16 at 14:30 Glucose 15 gm 15 gm Q15M PRN BUCCAL DECREASED GLUCOSE; Start 09/11/16 at 14:30 Levetiracetam/ Dextrose (Keppra Iv/D5W) 105 ml @ 420 mls/hr Q12 IVPB Last administered on 09/12/16 10:02; Admin Dose 420 MLS/HR; Start 09/11/16 at 21:00 Influenza Virus Vaccine (Fluzone) 0.5 ml ONCE ONCE IM* ; Start 09/14/16 at 09:00 ; Stop 09/14/16 at 09:01 Insulin Aspart (Novolog Insulin Pen) NOVOLOG *MILD* ALGORITHM Q4H SC Last administered on 09/12/16 16:12; Admin Dose 2 UNIT; Start 09/12/16 at 16:00 Insulin Glargine 7 unit 7 unit DAILY@08 SC Last administered on 09/12/16 14:31 ; Admin Dose 7 UNIT; Start 09/12/16 at 12:30 Potassium Chloride/Dextrose (KCl/D5W) 1,005 ml @ 75 mls/hr [id number] IV Last administered on 09/12/16 14:28; Admin Dose 75 MLS/HR; Start 09/12/16 at 13:30 KIMBERLEY PACK Sep 12, 2016 19:57 KIMBERLEY PACK Sep 12, 2016 19:57
[2016-09-12 20:18] VITALS: BP 198/93; RESP 16
[2016-09-12] MEDS: hydrALAzine 20 MG INJ IV PRN (20:55)
[2016-09-12 21:30] VITALS: BP 156/74; PULSE 76
[2016-09-13] VITALS (21 sets, daily range): BP systolic 134–197; BP diastolic 60–86; PULSE 70–86; RESP 16–30
[2016-09-13] MEDS: INSULIN ASPART [NOVOLOG] 3 ML PEN SC SCH ×6 (04:24→20:00)
[2016-09-13] MEDS: POTASSIUM CHLORIDE 10 MEQ in DEXTROSE 5% 1,000 ML IV SCH ×2 (04:27→16:18)
[2016-09-13 05:52] LABS: ADD SCAN DIFF NO
[2016-09-13 06:12] LABS: BASOPHILS % 0.4 % (0.0-2.0); EOSINOPHILS # 0.9 10^3/ul (0.0-0.5); HEMATOCRIT 37.8 % (37.0-47.0); HEMOGLOBIN 11.9 g/dl (12.0-16.0); INR 1.06; LYMPHOCYTES # 2.6 10^3/ul (0.8-2.9); MEAN CORPUSCULAR HEMOGLOBIN 29.6 pg (29.0-33.0); MEAN CORPUSCULAR HGB CONC 31.5 g/dl (32.0-37.0); MEAN PLATELET VOLUME 11.5 fl (7.4-10.4); MONOCYTE # 0.8 10^3/ul (0.3-0.9); MONOCYTES % 8.3 % (0.0-11.0); NEUTROPHIL # 4.7 10^3/ul (1.6-7.5); NEUTROPHILS % 51.4 % (39.0-77.0); PLATELET COUNT 554 10^3/UL (140-415); PROTIME 13.8 Sec (12.2-14.2); PT RATIO 1.1; RED BLOOD COUNT 4.02 10^6/ul (4.20-5.40); RED CELL DISTRIBUTION WIDTH 17.7 % (11.5-14.5); WHITE BLOOD COUNT 9.1 10^3/ul (4.8-10.8)
[2016-09-13 06:13] LABS: PARTIAL THROMBOPLASTIN TIME 34.9 Sec (25.0-35.0)
[2016-09-13 06:17] LABS: CREATININE 0.9 mg/dl (0.44-1.00)
[2016-09-13 06:18] LABS: CALCIUM 8.9 mg/dl (8.4-10.2)
[2016-09-13 06:24] LABS: URIC ACID 9.9 mg/dl (3.1-7.9)
[2016-09-13 07:40] LABS: MAGNESIUM 2.6 mg/dl (1.7-2.5); PHOSPHORUS 2.8 mg/dl (2.5-4.9)
[2016-09-13] MEDS: FAMOTIDINE 20 MG INJ IV SCH (08:39)
[2016-09-13] MEDS: hydrALAzine 20 MG INJ IV PRN ×2 (08:40→19:56)
[2016-09-13] MEDS: INSULIN GLARGINE [LANtus] 3 ML PEN SC SCH (08:42)
[2016-09-13] MEDS: LEVETIRACETAM IV 500 MG in DEXTROSE 5% 100 ML IVPB SCH ×2 (08:52→22:07)
[2016-09-13 09:12] LABS: THYROID STIMULATING HORMONE 2.33 MIU/L (0.465-4.680)
[2016-09-13] MEDS ORDERED: NPH, HUMAN INSULIN ISOPHANE 3ML VIAL SC ONE (10:30)
--- NOTE | 2016-09-13 10:38 | PN ---
Date/Time of Note Date/Time of Note DATE: 09/13/16 TIME: 10:32 Assessment/Plan VTE Prophylaxis VTE Prophylaxis Intervention: SCD's Lines/Catheters IV [facility]atheter Type (from [facility]): Peripheral IV Urinary Cath still in place: No Assessment/Plan Chief Complaint/Hosp Course 1. Leaking of G-tube site. Malposition of the G-tube evident on radiographic examination. G-tube feedings and medications on hold. General surgery consult has been obtained. General surgery recommended gastroenterology evaluation for a new PEG tube placement in conjunction with interventional radiology and removal of the G-tube from the transverse colon once the patient's electrolyte abnormalities are corrected and when the patient is more stable. Hence, a gastroenterology consult was obtained. The patient is scheduled for PEG tube placement. 2. Essential hypertension. The patient will be maintained on p.r.n. antihypertensives. The patient's routine antihypertensives are on hold. 3. Dysphagia. The patient will be continued n.p.o. Hold any G-tube feedings because of malposition of the G-tube. 4. Hypernatremia, most probably secondary to dehydration. Improving with correction of free water deficit. 5. Type 2 diabetes mellitus, uncontrolled. Hemoglobin A1c is 8.2. The patient is currently on sliding scale insulin and basal insulin. The patient's insulin dosing will be adjusted to obtain optimal blood sugar control. 6. Acute on chronic kidney disease. Will monitor the BUN and creatinine closely. Will avoid nephrotoxic medications. 7. Seizure disorder. The patient will be maintained on anticonvulsants. 8. Pulmonary hypertension. PA pressure of 42 mmHg as per 2D echocardiogram on 11/09/2015. Continue supplemental oxygen. 9. Macrocytic anemia. Status post 2 units of PRBC transfusion, with improvement in the patient's H and H. The patient's iron panel is showing iron deficiency. Will continue the patient on iron supplements. 10. Iron deficiency. Will continue the patient on iron supplements. 11. Dyslipidemia. Fasting lipid panel showing suboptimal triglycerides and suboptimal HDL. Will resume the patient's statins once the patient's NG tube malpositioning is corrected. 12. History of coronary artery disease, with details unclear. Will avoid any aspirin at this time because of underlying anemia. 13. Fluids, electrolytes and nutrition. N.p.o. IV fluids as per nephrology. 14. Deep vein thrombosis prophylaxis. Continue bilateral sequential compression devices. 15. Gastrointestinal prophylaxis with intravenous histamine 2 receptor blockers. 16. Plan. Await G-tube placement. Monitoring in-house. The case was discussed with Dr. Peck. Problems: Subjective 24 Hr Interval Summary Free Text/Dictation No changes in status. Exam/Review of Systems Vital Signs Vitals Vital Signs Date Time Temp Pulse Resp B/P Pulse Ox O2 Delivery O2 Flow Rate FiO2 09/13/16 08:54 98.3 85 16 189/86 96 09/11/16 23:08 Nasal Cannula 2.0 Intake and Output 09/12/16 09/12/16 09/13/16 15:00 23:00 07:00 Intake Total 405 ml 255 ml 895 ml Balance 405 ml 255 ml 895 ml Exam GENERAL: This is a thin, frail-looking, malnourished female, lying in bed in no apparent distress. HEENT: Head is normocephalic and atraumatic. Eyes, anicteric sclerae. Conjunctivae are clear. ENT: Nasal septum is midline. Oral mucosa is dry. NECK: Supple. No JVD noticed. RESPIRATORY: Bilaterally diminished breath sounds. No adventitious breath sounds heard. No use of accessory muscles of respiration. CARDIAC: Regular rate and rhythm. S1 and S2 heard. ABDOMEN: Left-sided G-tube in place, with leaking from the G-tube site. Bowel sounds are hypoactive in all 4 quadrants. GENITOURINARY: Deferred. EXTREMITIES: No cyanosis, no clubbing, no edema. Peripheral pulses palpable. Muscle wasting of the bilateral upper and lower extremities. NEUROLOGIC: The patient is awake and alert. Nonverbal. Results Result Diagram: 09/13/16 0450 09/13/16 0450 Results 24 hrs Laboratory Tests Test 09/12/16 12:00 09/12/16 14:55 09/12/16 16:05 09/12/16 20:34 Bedside Glucose 244 H 197 184 Urine Osmolality 642 Urine Random Sodium 135 H Test 09/13/16 00:45 09/13/16 04:20 09/13/16 04:50 09/13/16 08:33 Bedside Glucose 178 248 H 272 H White Blood Count 9.1 Red Blood Count 4.02 L Hemoglobin 11.9 L Hematocrit 37.8 Mean Corpuscular Volume 94.0 Mean Corpuscular Hemoglobin 29.6 Mean Corpuscular Hemoglobin Concent 31.5 L Red Cell Distribution Width 17.7 H Platelet Count 554 H Mean Platelet Volume 11.5 H Neutrophils % 51.4 Lymphocytes % 29.0 Monocytes % 8.3 Eosinophils % 10.0 H Basophils % 0.4 Nucleated Red Blood Cells % 0.0 Neutrophils # 4.7 Lymphocytes # 2.6 Monocytes # 0.8 Eosinophils # 0.9 H Basophils # 0.0 Nucleated Red Blood Cells # 0.0 Prothrombin Time 13.8 Prothrombin Time Ratio 1.1 INR International Normalized Ratio 1.06 Activated Partial Thromboplast Time 34.9 Sodium Level 158 H Potassium Level 4.0 Chloride Level 120 H Carbon Dioxide Level 25 Anion Gap 17 H Blood Urea Nitrogen 50 H Creatinine 0.90 Glucose Level 259 H Osmolality 340 H Uric Acid 9.9 H Calcium Level 8.9 Phosphorus Level 2.8 # Magnesium Level 2.6 H Creatine Kinase 42 Thyroid Stimulating Hormone (TSH) 2.330 Free Thyroxine 1.82 Random Cortisol 19.3 Medications Medications Current Medications Ondansetron HCl (Zofran Inj) 4 mg Q6H PRN IV NAUSEA AND/OR VOMITING; Start at 14:00 Morphine Sulfate (morphine) 2 mg Q4H PRN IV SEVERE PAIN LEVEL 7-10; Start 09/11 at 14:00 Famotidine (Pepcid Iv) 20 mg DAILY IV Last administered on 09/13/16 08:39; Admin Dose 20 MG; Start 09/11/16 at 14:00 Hydralazine HCl (Apresoline) 10 mg Q6H PRN IV SBP>160 Last administered on 09/13 08:40; Admin Dose 10 MG; Start 09/11/16 at 14:00 Miscellaneous Information 1 ea NOTE XX ; Start 09/11/16 at 14:30 Glucose (Glutose) 15 gm Q15M PRN PO DECREASED GLUCOSE; Start 09/11/16 at 14:30 Glucose (Glutose) 22.5 gm Q15M PRN PO DECREASED GLUCOSE; Start 09/11/16 at 14: 30 Dextrose (D50w Syringe) 25 ml Q15M PRN IV DECREASED GLUCOSE; Start 09/11/16 at 14:30 Dextrose (D50w Syringe) 50 ml Q15M PRN IV DECREASED GLUCOSE; Start 09/11/16 at 14:30 Glucagon (Glucagen) 1 mg Q15M PRN IM DECREASED GLUCOSE; Start 09/11/16 at 14:30 Glucose 15 gm 15 gm Q15M PRN BUCCAL DECREASED GLUCOSE; Start 09/11/16 at 14:30 Levetiracetam/ Dextrose (Keppra Iv/D5W) 105 ml @ 420 mls/hr Q12 IVPB Last administered on 09/13/16 08:52; Admin Dose 420 MLS/HR; Start 09/11/16 at 21:00 Influenza Virus Vaccine (Fluzone) 0.5 ml ONCE ONCE IM* ; Start 09/14/16 at 09:00 ; Stop 09/14/16 at 09:01 Insulin Aspart (Novolog Insulin Pen) NOVOLOG *MILD* ALGORITHM Q4H SC Last administered on 09/13/16 08:42; Admin Dose 4 UNIT; Start 09/12/16 at 16:00 Insulin Glargine 7 unit 7 unit DAILY@08 SC Last administered on 09/13/16 08:42 ; Admin Dose 7 UNIT; Start 09/12/16 at 12:30 Potassium Chloride/Dextrose (KCl/D5W) 1,005 ml @ 75 mls/hr [id number] IV Last administered on 09/13/16 04:27; Admin Dose 75 MLS/HR; Start 09/12/16 at 13:30 RIGOBERTO JORDAN NP Sep 13, 2016 10:38
--- NOTE | 2016-09-13 10:57 | CONS ---
Date/Time of Note Date/Time of Note DATE: 09/13/16 TIME: 10:54 Assessment/Plan Assessment/Plan Additional Assessment/Plan 1. Acute hypernatremia, likely secondary to severe prerenal state causing large volume of free water deficits. 2. Acute kidney injury on chronic kidney disease secondary to severe prerenal azotemia causing ischemic acute tubular necrosis. 3. History of chronic kidney disease, unknown stage, undiagnosed secondary to diabetic nephropathy. 4. History of hypertension. 5. History of hyperlipidemia. 6. History of left hemiparesis secondary to subdural hematoma. 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 PLAN: continue D5W with KCL, Cr improved much better plan for PEG replacement will follow up and monitor Na Consultation Date/Type/Reason Admit Date/Time Sep 11, 2016 at 12:47 Initial Consult Date Type of Consultation: NEPHROLOGY Reason for Consultation Hypernatermia Referring Provider: MARY VILLANUEVA MD 24 HR Interval Summary Free Text/Dictation Na 158, BP stable Exam/Review of Systems Vital Signs Vitals Vital Signs Date Time Temp Pulse Resp B/P Pulse Ox O2 Delivery O2 Flow Rate FiO2 09/13/16 08:54 98.3 85 16 189/86 96 09/11/16 23:08 Nasal Cannula 2.0 Intake and Output 09/12/16 09/12/16 09/13/16 15:00 23:00 07:00 Intake Total 405 ml 255 ml 895 ml Balance 405 ml 255 ml 895 ml Exam GENERAL: This is a thin, frail-looking female lying in bed in no apparent distress. HEENT: Normocephalic, atraumatic. Anicteric sclerae. Conjunctivae clear. NECK: Supple, no JVD. ENT: Nasal septum is midline. Oral mucosa is dry. RESPIRATORY: Bilaterally diminished breath sounds. No adventitious breath sounds. Bilateral bases with wheezing present. HEART: S1, S2, tachycardia, no murmur. ABDOMEN: Soft, left-sided G-tube in place with leaking around the G-tube site. Bowel sounds are positive in all 4 quadrants. GENITOURINARY: Deferred. EXTREMITIES: The patient has a muscle resting of her bilateral upper and lower extremities. Peripheral pulses are palpable. No clubbing, no cyanosis. NEUROLOGICAL: The patient is awake, alert, and oriented to self, but not oriented to the place and person. Results Result Diagram: 09/13/16 0450 09/13/16 0450 Results 24 hrs Laboratory Tests Test 09/12/16 12:00 09/12/16 14:55 09/12/16 16:05 09/12/16 20:34 Bedside Glucose 244 H 197 184 Urine Osmolality 642 Urine Random Sodium 135 H Test 09/13/16 00:45 09/13/16 04:20 09/13/16 04:50 09/13/16 08:33 Bedside Glucose 178 248 H 272 H White Blood Count 9.1 Red Blood Count 4.02 L Hemoglobin 11.9 L Hematocrit 37.8 Mean Corpuscular Volume 94.0 Mean Corpuscular Hemoglobin 29.6 Mean Corpuscular Hemoglobin Concent 31.5 L Red Cell Distribution Width 17.7 H Platelet Count 554 H Mean Platelet Volume 11.5 H Neutrophils % 51.4 Lymphocytes % 29.0 Monocytes % 8.3 Eosinophils % 10.0 H Basophils % 0.4 Nucleated Red Blood Cells % 0.0 Neutrophils # 4.7 Lymphocytes # 2.6 Monocytes # 0.8 Eosinophils # 0.9 H Basophils # 0.0 Nucleated Red Blood Cells # 0.0 Prothrombin Time 13.8 Prothrombin Time Ratio 1.1 INR International Normalized Ratio 1.06 Activated Partial Thromboplast Time 34.9 Sodium Level 158 H Potassium Level 4.0 Chloride Level 120 H Carbon Dioxide Level 25 Anion Gap 17 H Blood Urea Nitrogen 50 H Creatinine 0.90 Glucose Level 259 H Osmolality 340 H Uric Acid 9.9 H Calcium Level 8.9 Phosphorus Level 2.8 # Magnesium Level 2.6 H Creatine Kinase 42 Thyroid Stimulating Hormone (TSH) 2.330 Free Thyroxine 1.82 Random Cortisol 19.3 Medications Medications Current Medications Ondansetron HCl (Zofran Inj) 4 mg Q6H PRN IV NAUSEA AND/OR VOMITING; Start at 14:00 Morphine Sulfate (morphine) 2 mg Q4H PRN IV SEVERE PAIN LEVEL 7-10; Start 09/11 at 14:00 Famotidine (Pepcid Iv) 20 mg DAILY IV Last administered on 09/13/16 08:39; Admin Dose 20 MG; Start 09/11/16 at 14:00 Hydralazine HCl (Apresoline) 10 mg Q6H PRN IV SBP>160 Last administered on 3/24 /17at 08:40; Admin Dose 10 MG; Start 09/11/16 at 14:00 Miscellaneous Information 1 ea NOTE XX ; Start 09/11/16 at 14:30 Glucose (Glutose) 15 gm Q15M PRN PO DECREASED GLUCOSE; Start 09/11/16 at 14:30 Glucose (Glutose) 22.5 gm Q15M PRN PO DECREASED GLUCOSE; Start 09/11/16 at 14: 30 Dextrose (D50w Syringe) 25 ml Q15M PRN IV DECREASED GLUCOSE; Start 09/11/16 at 14:30 Dextrose (D50w Syringe) 50 ml Q15M PRN IV DECREASED GLUCOSE; Start 09/11/16 at 14:30 Glucagon (Glucagen) 1 mg Q15M PRN IM DECREASED GLUCOSE; Start 09/11/16 at 14:30 Glucose 15 gm 15 gm Q15M PRN BUCCAL DECREASED GLUCOSE; Start 09/11/16 at 14:30 Levetiracetam/ Dextrose (Keppra Iv/D5W) 105 ml @ 420 mls/hr Q12 IVPB Last administered on 09/13/16 08:52; Admin Dose 420 MLS/HR; Start 09/11/16 at 21:00 Influenza Virus Vaccine (Fluzone) 0.5 ml ONCE ONCE IM* ; Start 09/14/16 at 09:00 ; Stop 09/14/16 at 09:01 Insulin Aspart NOVOLOG *MILD* ALGORITHM Q4H SC Last administered on 09/13/16 08:42; Admin Dose 4 UNIT; Start 09/12/16 at 16:00 Potassium Chloride/Dextrose (KCl/D5W) 1,005 ml @ 75 mls/hr [id number] IV Last administered on 09/13/16 04:27; Admin Dose 75 MLS/HR; Start 09/12/16 at 13:30 Insulin Glargine (Lantus) 9 unit DAILY@08 SC ; Start 09/14/16 at 08:00 EDY MACARIO MD Sep 13, 2016 10:57
[2016-09-13] MEDS ORDERED: CEFAZOLIN 1 GM/50 ML (PMX) 50 ML IVPB ONE (14:00)
--- NOTE | 2016-09-13 16:36 | PN ---
Date/Time of Note Date/Time of Note DATE: 09/12/16 TIME: 16:33 Assessment/Plan Lines/Catheters IV Catheter Type (from Nrsg): Peripheral IV Rubio in Place (from Nrsg): No Assessment/Plan Assessment/Plan [facility] Progress Note (late entry) Date of Service: 09/12/16 Today's Impression & Plan: Overall stable. No indication for acute surgical intervention. Discussed case with Dr. Forman. With above assessment, I've recommended the following for today: 1. PEG placement 2. Keep old feeding tube in but not use 3. Once medically stable, d/c back to SNF with plans to readmit for removal of old tube from transverse colon with observation overnight or longer to make sure patient is stable and fistula is controlled prior to d/c back to SNF Thank you again for your great care of this very pleasant patient and wonderful family. If there are any questions, please feel free to call me at [phone]. TOTAL VISIT TIME: 20 minutes of which more than half was spent in [id number] discussion with the patient, possibly including family, as well as coordination of care between multiple physicians and providers. Disclaimer: Inadvertent spelling or grammatical errors are likely due to EHR/ dictation software use and do not reflect on the overall quality of patient care. Updated Clinical Summary: The patient is a very pleasant but unfortunate 66-year-old lady with comorbidities including a BMI of 16.5 as well as history of chronic encephalopathy and debility who was found to have a G-tube placement, unfortunately, into her transverse colon when she was seen in our emergency department today for replacement of a displaced G-tube. COMORBIDITIES: 1. BMI 16.5. 2. Chronic encephalopathy. 3. Diabetes mellitus type 2. 4. Dysphagia. 5. Essential hypertension. 6. Pulmonary hypertension. 7. Chronic kidney disease. 8. Coronary artery disease. 9. Subdural hematoma. 10. Seizure disorder. 11. Chronic encephalopathy. Subjective: No major events or complaints; no major reported abd pain and appears to be under control with medications; no reported n/v/d; no reported sob or cp; + bowel activity; - activity Objective: Vitals: See below Exam: GENERAL: On exam, the patient was laying in bed and appeared to be comfortable and in no acute distress. ABDOMEN: Soft, nontender and nondistended. Perc tube dressing clean. There are no peritoneal signs or guarding. SKIN: Skin appears to be pink and feels warm to touch. NEUROLOGIC: Patient is awake, alert, and does not follow simple commands appropriately. Exam/Review of Systems Vital Signs Vitals Vital Signs Date Time Temp Pulse Resp B/P Pulse Ox O2 Delivery O2 Flow Rate FiO2 09/13/16 09:19 70 134/60 09/13/16 08:54 98.3 16 96 09/11/16 23:08 Nasal Cannula 2.0 Intake and Output 09/12/16 09/12/16 09/13/16 15:00 23:00 07:00 Intake Total 405 ml 255 ml 895 ml Balance 405 ml 255 ml 895 ml Results Result Diagram: 09/13/16 0450 09/13/16 0450 YOSEPH TALAMANTES M.D. Sep 13, 2016 16:36
--- NOTE | 2016-09-13 16:37 | PN ---
Date/Time of Note Date/Time of Note DATE: 09/13/16 TIME: 16:36 Assessment/Plan Lines/Catheters IV Catheter Type (from Nrs): Peripheral IV Rubio in Place (from Nrs): No Assessment/Plan Assessment/Plan [facility] Progress Note Date of Service: 09/13/16 Today's Impression & Plan: Overall stable. No indication for acute surgical intervention. Discussed case with patient's family and answered all questions. With above assessment, I've recommended the following for today: 1. PEG placement 2. Keep old feeding tube in but not use 3. Once medically stable, d/c back to SNF with plans to readmit for removal of old tube from transverse colon with observation overnight or longer to make sure patient is stable and fistula is controlled prior to d/c back to SNF Thank you again for your great care of this very pleasant patient and wonderful family. If there are any questions, please feel free to call me at [phone]. TOTAL VISIT TIME: 20 minutes of which more than half was spent in [id number] discussion with the patient, possibly including family, as well as coordination of care between multiple physicians and providers. Disclaimer: Inadvertent spelling or grammatical errors are likely due to EHR/ dictation software use and do not reflect on the overall quality of patient care. Updated Clinical Summary: The patient is a very pleasant but unfortunate 66-year-old lady with comorbidities including a BMI of 16.5 as well as history of chronic encephalopathy and debility who was found to have a G-tube placement, unfortunately, into her transverse colon when she was seen in our emergency department today for replacement of a displaced G-tube. COMORBIDITIES: 1. BMI 16.5. 2. Chronic encephalopathy. 3. Diabetes mellitus type 2. 4. Dysphagia. 5. Essential hypertension. 6. Pulmonary hypertension. 7. Chronic kidney disease. 8. Coronary artery disease. 9. Subdural hematoma. 10. Seizure disorder. 11. Chronic encephalopathy. Subjective: No major events or complaints; no major reported abd pain and appears to be under control with medications; no reported n/v/d; no reported sob or cp; + bowel activity; - activity Objective: Vitals: See below Exam: GENERAL: On exam, the patient was laying in bed and appeared to be comfortable and in no acute distress. ABDOMEN: Soft, nontender and nondistended. Perc tube dressing clean. There are no peritoneal signs or guarding. SKIN: Skin appears to be pink and feels warm to touch. NEUROLOGIC: Patient is awake, alert, and does not follow simple commands appropriately. Patient at baseline neurologic state per family. Exam/Review of Systems Vital Signs Vitals Vital Signs Date Time Temp Pulse Resp B/P Pulse Ox O2 Delivery O2 Flow Rate FiO2 09/13/16 09:19 70 134/60 09/13/16 08:54 98.3 16 96 09/11/16 23:08 Nasal Cannula 2.0 Intake and Output 09/12/16 09/12/16 09/13/16 15:00 23:00 07:00 Intake Total 405 ml 255 ml 895 ml Balance 405 ml 255 ml 895 ml Results Result Diagram: 09/13/16 0450 09/13/16 0450 YOSEPH TALAMANTES M.D. Sep 13, 2016 16:37
[2016-09-13] MEDS ORDERED: FENTAnyl 50 MCG/ML VIAL ONE (18:11)
[2016-09-13] MEDS ORDERED: PROPOFOL 20 ML ONE (18:13)
[2016-09-13] MEDS: SOD FERRIC GLUC COMPLX 125 MG in SOD CHLORIDE 0.9% 100 ML IVPB SCH (20:44)
[2016-09-14] MEDS ORDERED: INSULIN ASPART [NOVOLOG] 3 ML PEN SC SCH
[2016-09-14] MEDS: Insulin NOVOLOG SS MILD Algorithm (NPO/TPN/ENTERAL FEEDS) SC SCH ×4 (00:03→17:06)
[2016-09-14] MEDS: ACETAMINOPHEN 650MG/20.3ML CUP GTB PRN ×2 (00:20→20:48)
[2016-09-14] MEDS: POTASSIUM CHLORIDE 10 MEQ in DEXTROSE 5% 1,000 ML IV SCH ×3 (02:12→20:49)
[2016-09-14 06:03] LABS: ADD SCAN DIFF NO
[2016-09-14 06:04] LABS: BASOPHILS % 0.3 % (0.0-2.0); EOSINOPHILS # 1.2 10^3/ul (0.0-0.5); EOSINOPHILS % 11.8 % (0.0-7.0); HEMATOCRIT 35.8 % (37.0-47.0); HEMOGLOBIN 11.4 g/dl (12.0-16.0); LYMPHOCYTES # 2.6 10^3/ul (0.8-2.9); MEAN CORPUSCULAR HEMOGLOBIN 29.9 pg (29.0-33.0); MEAN CORPUSCULAR HGB CONC 31.8 g/dl (32.0-37.0); MEAN PLATELET VOLUME 10.9 fl (7.4-10.4); MONOCYTE # 0.5 10^3/ul (0.3-0.9); MONOCYTES % 4.8 % (0.0-11.0); NEUTROPHILS % 57.5 % (39.0-77.0); PLATELET COUNT 505 10^3/UL (140-415); RED BLOOD COUNT 3.81 10^6/ul (4.20-5.40); RED CELL DISTRIBUTION WIDTH 16.3 % (11.5-14.5); WHITE BLOOD COUNT 10.3 10^3/ul (4.8-10.8)
[2016-09-14 06:25] LABS: POTASSIUM 3.8 mmol/L (3.5-5.1)
[2016-09-14 06:27] LABS: CREATININE 0.85 mg/dl (0.44-1.00)
[2016-09-14 06:28] LABS: CALCIUM 8.3 mg/dl (8.4-10.2)
[2016-09-14] MEDS ORDERED: INSULIN GLARGINE [LANtus] 3 ML PEN SC SCH (08:00)
[2016-09-14 08:18] VITALS: BP 139/63; PULSE 65; RESP 20
[2016-09-14] MEDS: FAMOTIDINE 20 MG INJ IV SCH (08:23)
[2016-09-14] MEDS: LEVETIRACETAM IV 500 MG in DEXTROSE 5% 100 ML IVPB SCH ×2 (08:26→21:00)
[2016-09-14] MEDS ORDERED: INFLUENZA VIRUS VACCINE 0.5 ML (DISPENSING) IM* ONE (09:00)
--- NOTE | 2016-09-14 11:22 | PN ---
Date/Time of Note Date/Time of Note DATE: 09/14/16 TIME: 11:17 Assessment/Plan VTE Prophylaxis VTE Prophylaxis Intervention: SCD's Lines/Catheters IV [facility]ter [facility] (from [facility] Peripheral IV Urinary Cath still in place: No Assessment/Plan Chief Complaint/Hosp Course 1. Leaking of G-tube site. Malposition of the G-tube evident on radiographic examination. G-tube feedings and medications on hold. General surgery consult has been obtained. General surgery recommended gastroenterology evaluation for a new PEG tube placement in conjunction with interventional radiology and removal of the G-tube from the transverse colon once the patient's electrolyte abnormalities are corrected and when the patient is more stable. Hence, a gastroenterology consult was obtained. The patient is status post a new PEG tube placement on 09/13/2016. Plan is to discharge patient to care home facility with tube feedings through the new PEG tube and to bring the patient back for removal of the old G-tube from the transverse colon. 2. Essential hypertension. The patient will be maintained on p.r.n. antihypertensives. The patient's routine antihypertensives will be resumed. 3. Dysphagia. Continue G-tube feedings. 4. Hypernatremia, most probably secondary to dehydration. Improving with correction of free water deficit. 5. Type 2 diabetes mellitus, uncontrolled. Hemoglobin A1c is 8.2. The patient is currently on sliding scale insulin and basal insulin. The patient's insulin dosing will be adjusted to obtain optimal blood sugar control. 6. Acute on chronic kidney disease. Will monitor the BUN and creatinine closely. Will avoid nephrotoxic medications. 7. Seizure disorder. The patient will be maintained on anticonvulsants. 8. Pulmonary hypertension. PA pressure of 42 mmHg as per 2D echocardiogram on 11/09/2015. Continue supplemental oxygen. 9. Macrocytic anemia. Status post 2 units of PRBC transfusion, with improvement in the patient's H and H. The patient's iron panel is showing iron deficiency. Will continue the patient on iron supplements. 10. Iron deficiency. Will continue the patient on iron supplements. 11. Dyslipidemia. Fasting lipid panel showing suboptimal triglycerides and suboptimal HDL. Will resume the patient's statins. 12. History of coronary artery disease, with details unclear. Will avoid any aspirin at this time because of underlying anemia. 13. Fluids, electrolytes and nutrition. Continue G-tube feedings. Increase the rate to attain the goal. 14. Deep vein thrombosis prophylaxis. Continue bilateral sequential compression devices. 15. Gastrointestinal prophylaxis with intravenous histamine 2 receptor blockers. 16. Plan. Plan is to discharge patient to care home facility with tube feedings through the new PEG tube and to bring the patient back for removal of the old G-tube from the transverse colon. Await until the patient has reached the tube feeding goal rate. Resume routine medications. The case was discussed with Dr. Peck. Problems: Subjective 24 Hr Interval Summary Free Text/Dictation Patient getting tube feedings through the new G-tube. So far tolerating the tube feedings. Exam/Review of Systems Vital Signs Vitals Vital Signs Date Time Temp Pulse Resp B/P Pulse Ox O2 Delivery O2 Flow Rate FiO2 09/14/16 08:18 98.8 65 20 139/63 93 Room Air 09/13/16 18:37 10 Intake and Output 09/13/16 09/13/16 09/14/16 15:00 23:00 07:00 Intake Total 105 ml 1115 ml 1485 ml Balance 105 ml 1115 ml 1485 ml Exam GENERAL: This is a thin, frail-looking, malnourished female, lying in bed in no apparent distress. HEENT: Head is normocephalic and atraumatic. Eyes, anicteric sclerae. Conjunctivae are clear. ENT: Nasal septum is midline. Oral mucosa is dry. NECK: Supple. No JVD noticed. RESPIRATORY: Bilaterally diminished breath sounds. No adventitious breath sounds heard. No use of accessory muscles of respiration. CARDIAC: Regular rate and rhythm. S1 and S2 heard. ABDOMEN: New G-tube with dressings clean, dry, and intact. Left-sided G-tube in place, with leaking from the G-tube site. Bowel sounds are hypoactive in all 4 quadrants. GENITOURINARY: Deferred. EXTREMITIES: No cyanosis, no clubbing, no edema. Peripheral pulses palpable. Muscle wasting of the bilateral upper and lower extremities. NEUROLOGIC: The patient is awake and alert. Nonverbal. Results Result Diagram: 09/14/16 0453 09/14/16 0453 Results 24 hrs Laboratory Tests Test 09/13/16 12:31 09/13/16 16:25 09/13/16 20:00 09/13/16 20:38 Bedside Glucose 218 182 105 98 Test 09/13/16 23:59 09/14/16 04:53 09/14/16 05:43 09/14/16 07:48 Bedside Glucose 188 224 H 190 White Blood Count 10.3 Red Blood Count 3.81 L Hemoglobin 11.4 L Hematocrit 35.8 L Mean Corpuscular Volume 94.0 Mean Corpuscular Hemoglobin 29.9 Mean Corpuscular Hemoglobin Concent 31.8 L Red Cell Distribution Width 16.3 H Platelet Count 505 H Mean Platelet Volume 10.9 H Neutrophils % 57.5 Lymphocytes % 25.0 Monocytes % 4.8 Eosinophils % 11.8 H Basophils % 0.3 Nucleated Red Blood Cells % 0.0 Neutrophils # 6.0 Lymphocytes # 2.6 Monocytes # 0.5 Eosinophils # 1.2 H Basophils # 0.0 Nucleated Red Blood Cells # 0.0 Sodium Level 145 H Potassium Level 3.8 Chloride Level 112 H Carbon Dioxide Level 23 Anion Gap 14 Blood Urea Nitrogen 36 #H Creatinine 0.85 Glucose Level 253 H Calcium Level 8.3 L Magnesium Level 2.2 Medications Medications Current Medications Ondansetron HCl (Zofran Inj) 4 mg Q6H PRN IV NAUSEA AND/OR VOMITING; Start at 14:00 Morphine Sulfate (morphine) 2 mg Q4H PRN IV SEVERE PAIN LEVEL 7-10 Last administered on 09/13/16 23:17; Admin Dose 2 MG; Start 09/11/16 at 14:00 Famotidine (Pepcid Iv) 20 mg DAILY IV Last administered on 09/14/16 08:23; Admin Dose 20 MG; Start 09/11/16 at 14:00 Hydralazine HCl (Apresoline) 10 mg Q6H PRN IV SBP>160 Last administered on 09/13 19:56; Admin Dose 10 MG; Start 09/11/16 at 14:00 Miscellaneous Information 1 ea NOTE XX ; Start 09/11/16 at 14:30 Glucose (Glutose) 15 gm Q15M PRN PO DECREASED GLUCOSE; Start 09/11/16 at 14:30 Glucose (Glutose) 22.5 gm Q15M PRN PO DECREASED GLUCOSE; Start 09/11/16 at 14: 30 Dextrose (D50w Syringe) 25 ml Q15M PRN IV DECREASED GLUCOSE; Start 09/11/16 at 14:30 Dextrose (D50w Syringe) 50 ml Q15M PRN IV DECREASED GLUCOSE; Start 09/11/16 at 14:30 Glucagon (Glucagen) 1 mg Q15M PRN IM DECREASED GLUCOSE; Start 09/11/16 at 14:30 Glucose 15 gm 15 gm Q15M PRN BUCCAL DECREASED GLUCOSE; Start 09/11/16 at 14:30 Levetiracetam 500 mg/Dextrose 105 ml @ 420 mls/hr Q12 IVPB Last administered on 09/14/16 08:26; Admin Dose 420 MLS/HR; Start 09/11/16 at 21:00 Potassium Chloride/Dextrose (KCl/D5W) 1,005 ml @ 75 mls/hr [id number] IV Last administered on 09/14/16 02:12; Admin Dose 75 MLS/HR; Start 09/12/16 at 13:30 Insulin Glargine 9 unit 9 unit DAILY@08 SC Last administered on 09/14/16 08:24 ; Admin Dose 9 UNIT; Start 09/14/16 at 08:00 Ferric Sodium Gluconate Complex/ Sodium Chloride (Ferrlecit/NS) 110 ml @ 100 mls/hr Q24H IVPB Last administered on 09/13/16 20:44; Admin Dose 100 MLS/HR; Start 09/13/16 at 17:00; Stop 09/15/16 at 18:05 Insulin Aspart (Novolog Insulin Pen) (Adult SC Insulin - Mild Algorithm)... Q6 SC Last administered on 09/14/16 05:47; Admin Dose 3 UNIT; Start 09/14/16 at 00:00 Acetaminophen (Tylenol Liquid) 650 mg Q6H PRN GTB PAIN AND OR ELEVATED TEMP Last administered on 09/14/16 00:20; Admin Dose 650 MG; Start 09/14/16 at 00:30 RIGOBERTO JORDAN NP Sep 14, 2016 11:22
[2016-09-14] MEDS ORDERED: BISACODYL 10 MG SUPP PR PRN (11:30)
--- NOTE | 2016-09-14 12:06 | CONS ---
Date/Time of Note Date/Time of Note DATE: 09/14/16 TIME: 12:04 Assessment/Plan Assessment/Plan Additional Assessment/Plan 1. Acute hypernatremia, likely secondary to severe prerenal state causing large volume of free water deficits. 2. Acute kidney injury on chronic kidney disease secondary to severe prerenal azotemia causing ischemic acute tubular necrosis. 3. History of chronic kidney disease, unknown stage, undiagnosed secondary to diabetic nephropathy. 4. History of hypertension. 5. History of hyperlipidemia. 6. History of left hemiparesis secondary to subdural hematoma. 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 PLAN: continue D5W with KCL, Cr improved much better ,Na 145 PEG will follow up and monitor Na plan is to d/c IVF on friday Consultation Date/Type/Reason Admit Date/Time Sep 11, 2016 at 12:47 Type of Consultation: NEPHROLOGY Referring Provider: MARY VILLANUEVA MD 24 HR Interval Summary Free Text/Dictation Na 145,K 3.8, BP stable Exam/Review of Systems Vital Signs Vitals Vital Signs Date Time Temp Pulse Resp B/P Pulse Ox O2 Delivery O2 Flow Rate FiO2 09/14/16 08:18 98.8 65 20 139/63 93 Room Air 09/13/16 18:37 10 Intake and Output 09/13/16 09/13/16 09/14/16 15:00 23:00 07:00 Intake Total 105 ml 1115 ml 1485 ml Balance 105 ml 1115 ml 1485 ml Exam GENERAL: This is a thin, frail-looking female lying in bed in no apparent distress. HEENT: Normocephalic, atraumatic. Anicteric sclerae. Conjunctivae clear. NECK: Supple, no JVD. ENT: Nasal septum is midline. Oral mucosa is dry. RESPIRATORY: Bilaterally diminished breath sounds. No adventitious breath sounds. Bilateral bases with wheezing present. HEART: S1, S2, tachycardia, no murmur. ABDOMEN: Soft, left-sided G-tube in place with leaking around the G-tube site. Bowel sounds are positive in all 4 quadrants. GENITOURINARY: Deferred. EXTREMITIES: The patient has a muscle resting of her bilateral upper and lower extremities. Peripheral pulses are palpable. No clubbing, no cyanosis. NEUROLOGICAL: The patient is awake, alert, and oriented to self, but not oriented to the place and person. Results Result Diagram: 09/14/16 0453 09/14/16 0453 Results 24 hrs Laboratory Tests Test 09/13/16 12:31 09/13/16 16:25 09/13/16 20:00 09/13/16 20:38 Bedside Glucose 218 182 105 98 Test 09/13/16 23:59 09/14/16 04:53 09/14/16 05:43 09/14/16 07:48 Bedside Glucose 188 224 H 190 White Blood Count 10.3 Red Blood Count 3.81 L Hemoglobin 11.4 L Hematocrit 35.8 L Mean Corpuscular Volume 94.0 Mean Corpuscular Hemoglobin 29.9 Mean Corpuscular Hemoglobin Concent 31.8 L Red Cell Distribution Width 16.3 H Platelet Count 505 H Mean Platelet Volume 10.9 H Neutrophils % 57.5 Lymphocytes % 25.0 Monocytes % 4.8 Eosinophils % 11.8 H Basophils % 0.3 Nucleated Red Blood Cells % 0.0 Neutrophils # 6.0 Lymphocytes # 2.6 Monocytes # 0.5 Eosinophils # 1.2 H Basophils # 0.0 Nucleated Red Blood Cells # 0.0 Sodium Level 145 H Potassium Level 3.8 Chloride Level 112 H Carbon Dioxide Level 23 Anion Gap 14 Blood Urea Nitrogen 36 #H Creatinine 0.85 Glucose Level 253 H Calcium Level 8.3 L Magnesium Level 2.2 Test 09/14/16 11:30 Bedside Glucose 239 H Medications Medications Current Medications Ondansetron HCl (Zofran Inj) 4 mg Q6H PRN IV NAUSEA AND/OR VOMITING; Start at 14:00 Morphine Sulfate (morphine) 2 mg Q4H PRN IV SEVERE PAIN LEVEL 7-10 Last administered on 09/13/16 23:17; Admin Dose 2 MG; Start 09/11/16 at 14:00 Famotidine (Pepcid Iv) 20 mg DAILY IV Last administered on 09/14/16 08:23; Admin Dose 20 MG; Start 09/11/16 at 14:00 Hydralazine HCl (Apresoline) 10 mg Q6H PRN IV SBP>160 Last administered on 09/13 19:56; Admin Dose 10 MG; Start 09/11/16 at 14:00 Miscellaneous Information 1 ea NOTE XX ; Start 09/11/16 at 14:30 Glucose (Glutose) 15 gm Q15M PRN PO DECREASED GLUCOSE; Start 09/11/16 at 14:30 Glucose (Glutose) 22.5 gm Q15M PRN PO DECREASED GLUCOSE; Start 09/11/16 at 14: 30 Dextrose (D50w Syringe) 25 ml Q15M PRN IV DECREASED GLUCOSE; Start 09/11/16 at 14:30 Dextrose (D50w Syringe) 50 ml Q15M PRN IV DECREASED GLUCOSE; Start 09/11/16 at 14:30 Glucagon (Glucagen) 1 mg Q15M PRN IM DECREASED GLUCOSE; Start 09/11/16 at 14:30 Glucose 15 gm 15 gm Q15M PRN BUCCAL DECREASED GLUCOSE; Start 09/11/16 at 14:30 Levetiracetam 500 mg/Dextrose 105 ml @ 420 mls/hr Q12 IVPB Last administered on 09/14/16 08:26; Admin Dose 420 MLS/HR; Start 09/11/16 at 21:00 Potassium Chloride 10 meq/ Dextrose 1,005 ml @ 75 mls/hr [id number] IV Last administered on 09/14/16 02:12; Admin Dose 75 MLS/HR; Start 09/12/16 at 13:30 Ferric Sodium Gluconate Complex/ Sodium Chloride (Ferrlecit/NS) 110 ml @ 100 mls/hr Q24H IVPB Last administered on 09/13/16 20:44; Admin Dose 100 MLS/HR; Start 09/13/16 at 17:00; Stop 09/15/16 at 18:05 Insulin Aspart (Novolog Insulin Pen) (Adult SC Insulin - Mild Algorithm)... Q6 SC Last administered on 09/14/16 11:32; Admin Dose 3 UNIT; Start 09/14/16 at 00:00 Acetaminophen (Tylenol Liquid) 650 mg Q6H PRN GTB PAIN AND OR ELEVATED TEMP Last administered on 09/14/16 00:20; Admin Dose 650 MG; Start 09/14/16 at 00:30 Benazepril HCl (Lotensin) 5 mg BID GTB ; Start 09/14/16 at 21:00 Bisacodyl (Dulcolax Supp) 10 mg PRN PRN [place] CONSTIPATION; Start 09/14/16 at 11: 30 Carvedilol (Coreg) 12.5 mg BID GTB ; Start 09/14/16 at 21:00 Ferrous Sulfate (Feosol Liquid Cup) 300 mg DAILY GTB ; Start 09/16/16 at 09:00 Latanoprost (Xalatan) 1 drop QHS BOTH EYES ; Start 09/14/16 at 21:00 Minoxidil (Loniten) 2.5 mg DAILY GTB ; Start 09/15/16 at 09:00 Multivitamins Therapeutic (Theragran) 1 tab DAILY GTB ; Start 09/15/16 at 09:00 Atorvastatin Calcium (Lipitor) 20 mg HS GTB ; Start 09/14/16 at 21:00 Insulin Glargine (Lantus) 10 unit DAILY@08 SC ; Start 09/15/16 at 08:00 EDY MACARIO MD Sep 14, 2016 12:06
--- NOTE | 2016-09-14 15:21 | CONS ---
Date/Time of Note Date/Time of Note DATE: 09/14/16 TIME: 15:17 Assessment/Plan Assessment/Plan Chief Complaint/Hosp Course Mrs Astorga is a 66-year-old woman that was transferred from from [facility] to [facility] because of G-tube site malfunction. Per family, patient had G-tube placed 1 week ago at [facility] with . Per medical record, uneventful PEG + EGD was completed. Presently x-ray of abdomen notes: Rubio catheter tip in the transverse colon. Presently, patient not receiving any nourishment. EGD plus PEG recommended by Dr. Forman after consultation with . 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 Advised patient son of recommendation for EGD plus PEG and he provides informed consent to proceed with procedure. Problems: Additional Assessment/Plan Dysphagia Order Nutrition consult to determine rate and type of G tube feed EGD + PEG 09-13-16: 1. Evidence of previous ostomy partially close, uneventful PEG, plan start feeding in a.m. Monitor tube feed Q6hrs, hold for residuals greater 150 mL Cleanse site and change dressing daily G-tube malfunction Per x-ray abdomen, Rubio catheter tip in the transverse colon. Surgery following History of seizure disorder Management per Primary Hypertension Management per Primary Type 2 diabetes Management per Primary Further recommendations depend on clinical course Patient seen in collaboration with Dr. Forman Consultation Date/Type/Reason Admit Date/Time Sep 11, 2016 at 12:47 Initial Consult Date Type of Consultation: Gi Referring Provider: MARY VILLANUEVA MD 24 HR Interval Summary Free Text/Dictation Tube feed restarted Minimal residual noted Exam/Review of Systems Vital Signs Vitals Vital Signs Date Time Temp Pulse Resp B/P Pulse Ox O2 Delivery O2 Flow Rate FiO2 09/14/16 08:18 98.8 65 20 139/63 93 Room Air 09/13/16 18:37 10 Intake and Output 09/13/16 09/13/16 09/14/16 15:00 23:00 07:00 Intake Total 105 ml 1115 ml 1485 ml Balance 105 ml 1115 ml 1485 ml Exam Constitutional: Confused, awake Psych: nl mood/affect Head: normocephalic Eyes: EOMI, nl conjunctiva, nl lids ENMT: nl external ears & nose, nl lips & teeth, nl nasal mucosa & septum Respiratory: clear to auscultation, normal air movement Cardiovascular: regular rate and rhythm Gastrointestinal: soft, non-tender Musculoskeletal: nl extremities to inspection Results Result Diagram: 09/14/16 0453 09/14/16 0453 Results 24 hrs Laboratory Tests Test 09/13/16 16:25 09/13/16 20:00 09/13/16 20:38 09/13/16 23:59 Bedside Glucose 182 105 98 188 Test 09/14/16 04:53 09/14/16 05:43 09/14/16 07:48 09/14/16 11:30 White Blood Count 10.3 Red Blood Count 3.81 L Hemoglobin 11.4 L Hematocrit 35.8 L Mean Corpuscular Volume 94.0 Mean Corpuscular Hemoglobin 29.9 Mean Corpuscular Hemoglobin Concent 31.8 L Red Cell Distribution Width 16.3 H Platelet Count 505 H Mean Platelet Volume 10.9 H Neutrophils % 57.5 Lymphocytes % 25.0 Monocytes % 4.8 Eosinophils % 11.8 H Basophils % 0.3 Nucleated Red Blood Cells % 0.0 Neutrophils # 6.0 Lymphocytes # 2.6 Monocytes # 0.5 Eosinophils # 1.2 H Basophils # 0.0 Nucleated Red Blood Cells # 0.0 Sodium Level 145 H Potassium Level 3.8 Chloride Level 112 H Carbon Dioxide Level 23 Anion Gap 14 Blood Urea Nitrogen 36 #H Creatinine 0.85 Glucose Level 253 H Calcium Level 8.3 L Magnesium Level 2.2 Bedside Glucose 224 H 190 239 H Medications Medications Current Medications Ondansetron HCl (Zofran Inj) 4 mg Q6H PRN IV NAUSEA AND/OR VOMITING; Start at 14:00 Morphine Sulfate (morphine) 2 mg Q4H PRN IV SEVERE PAIN LEVEL 7-10 Last administered on 09/13/16 23:17; Admin Dose 2 MG; Start 09/11/16 at 14:00 Famotidine (Pepcid Iv) 20 mg DAILY IV Last administered on 09/14/16 08:23; Admin Dose 20 MG; Start 09/11/16 at 14:00 Hydralazine HCl (Apresoline) 10 mg Q6H PRN IV SBP>160 Last administered on 09/13 19:56; Admin Dose 10 MG; Start 09/11/16 at 14:00 Miscellaneous Information 1 ea NOTE XX ; Start 09/11/16 at 14:30 Glucose (Glutose) 15 gm Q15M PRN PO DECREASED GLUCOSE; Start 09/11/16 at 14:30 Glucose (Glutose) 22.5 gm Q15M PRN PO DECREASED GLUCOSE; Start 09/11/16 at 14: 30 Dextrose (D50w Syringe) 25 ml Q15M PRN IV DECREASED GLUCOSE; Start 09/11/16 at 14:30 Dextrose (D50w Syringe) 50 ml Q15M PRN IV DECREASED GLUCOSE; Start 09/11/16 at 14:30 Glucagon (Glucagen) 1 mg Q15M PRN IM DECREASED GLUCOSE; Start 09/11/16 at 14:30 Glucose 15 gm 15 gm Q15M PRN BUCCAL DECREASED GLUCOSE; Start 09/11/16 at 14:30 Levetiracetam 500 mg/Dextrose 105 ml @ 420 mls/hr Q12 IVPB Last administered on 09/14/16 08:26; Admin Dose 420 MLS/HR; Start 09/11/16 at 21:00 Potassium Chloride 10 meq/ Dextrose 1,005 ml @ 75 mls/hr [id number] IV Last administered on 09/14/16 02:12; Admin Dose 75 MLS/HR; Start 09/12/16 at 13:30 Ferric Sodium Gluconate Complex/ Sodium Chloride (Ferrlecit/NS) 110 ml @ 100 mls/hr Q24H IVPB Last administered on 09/13/16 20:44; Admin Dose 100 MLS/HR; Start 09/13/16 at 17:00; Stop 09/15/16 at 18:05 Insulin Aspart (Novolog Insulin Pen) (Adult SC Insulin - Mild Algorithm)... Q6 SC Last administered on 09/14/16 11:32; Admin Dose 3 UNIT; Start 09/14/16 at 00:00 Acetaminophen (Tylenol Liquid) 650 mg Q6H PRN GTB PAIN AND OR ELEVATED TEMP Last administered on 09/14/16 00:20; Admin Dose 650 MG; Start 09/14/16 at 00:30 Benazepril HCl (Lotensin) 5 mg BID GTB ; Start 09/14/16 at 21:00 Bisacodyl (Dulcolax Supp) 10 mg PRN PRN [place] CONSTIPATION; Start 09/14/16 at 11: 30 Carvedilol (Coreg) 12.5 mg BID GTB ; Start 09/14/16 at 21:00 Ferrous Sulfate (Feosol Liquid Cup) 300 mg DAILY GTB ; Start 09/16/16 at 09:00 Latanoprost (Xalatan) 1 drop QHS BOTH EYES ; Start 09/14/16 at 21:00 Minoxidil (Loniten) 2.5 mg DAILY GTB ; Start 09/15/16 at 09:00 Multivitamins Therapeutic (Theragran) 1 tab DAILY GTB ; Start 09/15/16 at 09:00 Atorvastatin Calcium (Lipitor) 20 mg HS GTB ; Start 09/14/16 at 21:00 Insulin Glargine (Lantus) 10 unit DAILY@08 SC ; Start 09/15/16 at 08:00 KIMBERLEY PACK Sep 14, 2016 15:21
--- NOTE | 2016-09-14 16:02 | RADRPT ---
PROCEDURE: Upper GI series. 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 TECHNIQUE: Music Minister radiograph prior to upper GI series. COMPARISON: Plain film dated 09/11/2016. FINDINGS: There is residual contrast throughout the colon to the level of the rectum, which will obscure evalu ation of the upper GI tract and not allow for proper evaluation of a gastrocolonic fistula. IMPRESSION: 1. Residual contrast material throughout the colon to the level of the rectum, which will obscure th e upper GI series for evaluation of the gastrocolonic fistula. Therefore, upper GI series was not p erformed. Follow-up plain film in 1-2 days is recommended to assess for movement of contrast and to assess if an upper GI series can be performed. RPTAT: QQ .Antoine Langley MD, Date Time Electronically viewed and signed by .Antoine Langley MD, on 09/14/2016 16:02 .P/
[2016-09-14] MEDS: SOD FERRIC GLUC COMPLX 125 MG in SOD CHLORIDE 0.9% 100 ML IVPB SCH (17:07)
--- NOTE | 2016-09-14 17:13 | PN ---
Date/Time of Note Date/Time of Note DATE: 09/14/16 TIME: 17:11 Assessment/Plan Lines/Catheters IV Catheter Type (from Nrs): Peripheral IV Rubio in Place (from Nrs): No Assessment/Plan Assessment/Plan [facility] Progress Note Date of Service: 09/14/16 Today's Impression & Plan: Overall stable. No indication for acute surgical intervention. Seems to have tolerated PEG. I tightened the original tube a bit to see if it would help with decreasing the stool leak around it. Patient other carranza doing reasonably well. With above assessment, I've recommended the following for today: 1. Agree with upper GI through PEG 2. Keep old feeding tube in but not use 3. Once medically stable, d/c back to SNF with plans to readmit for removal of old tube from transverse colon with observation overnight or longer to make sure patient is stable and fistula is controlled prior to d/c back to SNF Thank you again for your great care of this very pleasant patient and wonderful family. If there are any questions, please feel free to call me at [phone]. TOTAL VISIT TIME: 20 minutes of which more than half was spent in [id number] discussion with the patient, possibly including family, as well as coordination of care between multiple physicians and providers. Disclaimer: Inadvertent spelling or grammatical errors are likely due to EHR/ dictation software use and do not reflect on the overall quality of patient care. Updated Clinical Summary: The patient is a very pleasant but unfortunate 66-year-old lady with comorbidities including a BMI of 16.5 as well as history of chronic encephalopathy and debility who was found to have a G-tube placement, unfortunately, into her transverse colon when she was seen in our emergency department today for replacement of a displaced G-tube. COMORBIDITIES: 1. BMI 16.5. 2. Chronic encephalopathy. 3. Diabetes mellitus type 2. 4. Dysphagia. 5. Essential hypertension. 6. Pulmonary hypertension. 7. Chronic kidney disease. 8. Coronary artery disease. 9. Subdural hematoma. 10. Seizure disorder. 11. Chronic encephalopathy. Subjective: No major events or complaints; no major reported abd pain and appears to be under control with medications; no reported n/v/d; no reported sob or cp; + bowel activity; - activity Objective: Vitals: See below Exam: GENERAL: On exam, the patient was laying in bed and appeared to be comfortable and in no acute distress. ABDOMEN: Soft, nontender and nondistended. Original perc tube dressing clean; I tightened the tube slightly to make it snug against the abdominal wall. New PEG tube dressing c/d/i. There are no peritoneal signs or guarding. SKIN: Skin appears to be pink and feels warm to touch. NEUROLOGIC: Patient is awake, alert, and does not follow simple commands appropriately. Exam/Review of Systems Vital Signs Vitals Vital Signs Date Time Temp Pulse Resp B/P Pulse Ox O2 Delivery O2 Flow Rate FiO2 09/14/16 08:18 98.8 65 20 139/63 93 Room Air 09/13/16 18:37 10 Intake and Output 09/13/16 09/13/16 09/14/16 15:00 23:00 07:00 Intake Total 105 ml 1115 ml 1485 ml Balance 105 ml 1115 ml 1485 ml Results Result Diagram: 09/14/16 0453 09/14/16 0453 YOSEPH TALAMANTES M.D. Sep 14, 2016 17:13
[2016-09-14 20:08] VITALS: BP 149/66; RESP 18
[2016-09-14] MEDS: BENAZEPRIL 5 MG TAB GTB SCH (20:47)
[2016-09-14] MEDS ORDERED: LATANOPROST 0.005% 2.5 ML OPH BOTH EYES SCH (21:00)
[2016-09-14] MEDS ORDERED: ATORVASTATIN 20 MG TAB GTB SCH (21:00)
[2016-09-15] MEDS: Insulin NOVOLOG SS MILD Algorithm (NPO/TPN/ENTERAL FEEDS) SC SCH ×3 (00:18→11:45)
[2016-09-15] MEDS ORDERED: INSULIN GLARGINE [LANtus] 3 ML PEN SC SCH (08:00)
[2016-09-15] MEDS: FAMOTIDINE 20 MG INJ IV SCH (08:42)
[2016-09-15] MEDS: LEVETIRACETAM IV 500 MG in DEXTROSE 5% 100 ML IVPB SCH (08:42)
[2016-09-15 08:47] VITALS: BP 140/61; RESP 20
[2016-09-15] MEDS: BENAZEPRIL 5 MG TAB GTB SCH (08:50)
[2016-09-15] MEDS ORDERED: MULTIVITAMINS THERAPEUTIC TAB GTB SCH (09:00)
[2016-09-15] MEDS ORDERED: MINOXIDIL 2.5 MG TAB GTB SCH (09:00)
[2016-09-15 09:09] LABS: ADD SCAN DIFF NO
[2016-09-15 09:20] LABS: BASOPHILS % 0.2 % (0.0-2.0); EOSINOPHILS # 1.1 10^3/ul (0.0-0.5); EOSINOPHILS % 9.8 % (0.0-7.0); HEMATOCRIT 37.2 % (37.0-47.0); HEMOGLOBIN 11.6 g/dl (12.0-16.0); LYMPHOCYTES # 2.5 10^3/ul (0.8-2.9); LYMPHOCYTES % 21.7 % (15.0-51.0); MEAN CORPUSCULAR HEMOGLOBIN 29.2 pg (29.0-33.0); MEAN CORPUSCULAR HGB CONC 31.2 g/dl (32.0-37.0); MEAN CORPUSCULAR VOLUME 93.7 fl (82.0-101.0); MEAN PLATELET VOLUME 11.1 fl (7.4-10.4); MONOCYTE # 0.7 10^3/ul (0.3-0.9); MONOCYTES % 6.2 % (0.0-11.0); NEUTROPHIL # 6.9 10^3/ul (1.6-7.5); PLATELET COUNT 382 10^3/UL (140-415); RED BLOOD COUNT 3.97 10^6/ul (4.20-5.40); RED CELL DISTRIBUTION WIDTH 15.3 % (11.5-14.5); WHITE BLOOD COUNT 11.4 10^3/ul (4.8-10.8)
[2016-09-15 09:41] LABS: CREATININE 0.69 mg/dl (0.44-1.00)
[2016-09-15 09:42] LABS: CALCIUM 8.6 mg/dl (8.4-10.2)
--- NOTE | 2016-09-15 09:48 | PN ---
Date/Time of Note Date/Time of Note DATE: 09/15/16 TIME: 09:46 Assessment/Plan Lines/Catheters IV Catheter Type (from Nrs): Peripheral IV Rubio in Place (from Nrs): No Assessment/Plan Assessment/Plan [facility] Progress Note Date of Service: 09/15/16 Today's Impression & Plan: Overall stable. No indication for acute surgical intervention. No further reported stool leak around old tube after tightening yesterday. With above assessment, I've recommended the following for today: 1. Awaiting upper GI through PEG 2. Keep old feeding tube in but not use 3. Once medically stable, d/c back to SNF with plans to readmit for removal of old tube from transverse colon with observation overnight or longer to make sure patient is stable and fistula is controlled prior to d/c back to SNF Thank you again for your great care of this very pleasant patient and wonderful family. If there are any questions, please feel free to call me at [phone]. TOTAL VISIT TIME: 20 minutes of which more than half was spent in [id number] discussion with the patient, possibly including family, as well as coordination of care between multiple physicians and providers. Disclaimer: Inadvertent spelling or grammatical errors are likely due to EHR/ dictation software use and do not reflect on the overall quality of patient care. Updated Clinical Summary: The patient is a very pleasant but unfortunate 66-year-old lady with comorbidities including a BMI of 16.5 as well as history of chronic encephalopathy and debility who was found to have a G-tube placement, unfortunately, into her transverse colon when she was seen in our emergency department today for replacement of a displaced G-tube. COMORBIDITIES: 1. BMI 16.5. 2. Chronic encephalopathy. 3. Diabetes mellitus type 2. 4. Dysphagia. 5. Essential hypertension. 6. Pulmonary hypertension. 7. Chronic kidney disease. 8. Coronary artery disease. 9. Subdural hematoma. 10. Seizure disorder. 11. Chronic encephalopathy. Subjective: No major events or complaints; no major reported abd pain and appears to be under control with medications; no reported n/v/d; no reported sob or cp; + bowel activity; - activity Objective: Vitals: See below Exam: GENERAL: On exam, the patient was laying in bed and appeared to be comfortable and in no acute distress. ABDOMEN: Soft, nontender and nondistended. Original perc tube dressing clean. New PEG tube dressing c/d/i. There are no peritoneal signs or guarding. SKIN: Skin appears to be pink and feels warm to touch. NEUROLOGIC: Patient is awake, alert, and does not follow simple commands appropriately. Exam/Review of Systems Vital Signs Vitals Vital Signs Date Time Temp Pulse Resp B/P Pulse Ox O2 Delivery O2 Flow Rate FiO2 09/15/16 08:47 98.7 70 20 140/61 95 09/14/16 08:18 Room Air 09/13/16 18:37 10 Intake and Output 09/14/16 09/14/16 09/15/16 15:00 23:00 07:00 Intake Total 855 ml 1655 ml 830 ml Balance 855 ml 1655 ml 830 ml Results Result Diagram: 09/14/16 0453 09/15/16 0850 YOSEPH TALAMANTES M.D. Sep 15, 2016 09:48
--- NOTE | 2016-09-15 11:10 | CONS ---
Date/Time of Note Date/Time of Note DATE: 09/15/16 TIME: 11:07 Assessment/Plan Assessment/Plan Additional Assessment/Plan 1. Acute hypernatremia, likely secondary to severe prerenal state causing large volume of free water deficits. 2. Acute kidney injury on chronic kidney disease secondary to severe prerenal azotemia causing ischemic acute tubular necrosis. 3. History of chronic kidney disease, unknown stage, undiagnosed secondary to diabetic nephropathy. 4. History of hypertension. 5. History of hyperlipidemia. 6. History of left hemiparesis secondary to subdural hematoma. 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 PLAN: d/leroy IVF D5W, Cr improved much better ,Na normal s/p new PEG Tube will follow up and monitor Na Consultation Date/Type/Reason Admit Date/Time Sep 11, 2016 at 12:47 Type of Consultation: NEPHROLOGY Referring Provider: MARY VILLANUEVA MD 24 HR Interval Summary Free Text/Dictation Na improving, G tube changed Exam/Review of Systems Vital Signs Vitals Vital Signs Date Time Temp Pulse Resp B/P Pulse Ox O2 Delivery O2 Flow Rate FiO2 09/15/16 08:47 98.7 70 20 140/61 95 09/14/16 08:18 Room Air 09/13/16 18:37 10 Intake and Output 09/14/16 09/14/16 09/15/16 15:00 23:00 07:00 Intake Total 855 ml 1655 ml 830 ml Balance 855 ml 1655 ml 830 ml Exam GENERAL: This is a thin, frail-looking female lying in bed in no apparent distress. HEENT: Normocephalic, atraumatic. Anicteric sclerae. Conjunctivae clear. NECK: Supple, no JVD. ENT: Nasal septum is midline. Oral mucosa is dry. RESPIRATORY: Bilaterally diminished breath sounds. No adventitious breath sounds. Bilateral bases with wheezing present. HEART: S1, S2, tachycardia, no murmur. ABDOMEN: Soft, left-sided G-tube in place with leaking around the G-tube site. Bowel sounds are positive in all 4 quadrants. GENITOURINARY: Deferred. EXTREMITIES: The patient has a muscle resting of her bilateral upper and lower extremities. Peripheral pulses are palpable. No clubbing, no cyanosis. NEUROLOGICAL: The patient is awake, alert, and oriented to self, but not oriented to the place and person. Results Result Diagram: 09/15/16 0850 09/15/16 0850 Results 24 hrs Laboratory Tests Test 09/14/16 11:30 09/14/16 16:53 09/15/16 00:16 09/15/16 05:22 Bedside Glucose 239 H 150 221 H 164 Test 09/15/16 07:55 09/15/16 08:50 Bedside Glucose 215 White Blood Count 11.4 H Red Blood Count 3.97 L Hemoglobin 11.6 L Hematocrit 37.2 Mean Corpuscular Volume 93.7 Mean Corpuscular Hemoglobin 29.2 Mean Corpuscular Hemoglobin Concent 31.2 L Red Cell Distribution Width 15.3 H Platelet Count 382 # Mean Platelet Volume 11.1 H Neutrophils % 61.0 Lymphocytes % 21.7 Monocytes % 6.2 Eosinophils % 9.8 H Basophils % 0.2 Nucleated Red Blood Cells % 0.0 Neutrophils # 6.9 Lymphocytes # 2.5 Monocytes # 0.7 Eosinophils # 1.1 H Basophils # 0.0 Nucleated Red Blood Cells # 0.0 Sodium Level 137 Potassium Level 5.0 Chloride Level 106 Carbon Dioxide Level 24 Anion Gap 12 Blood Urea Nitrogen 28 H Creatinine 0.69 Glucose Level 260 H Calcium Level 8.6 Magnesium Level 2.1 Medications Medications Current Medications Ondansetron HCl (Zofran Inj) 4 mg Q6H PRN IV NAUSEA AND/OR VOMITING; Start at 14:00 Morphine Sulfate (morphine) 2 mg Q4H PRN IV SEVERE PAIN LEVEL 7-10 Last administered on 09/13/16 23:17; Admin Dose 2 MG; Start 09/11/16 at 14:00 Famotidine (Pepcid Iv) 20 mg DAILY IV Last administered on 09/15/16 08:42; Admin Dose 20 MG; Start 09/11/16 at 14:00 Hydralazine HCl (Apresoline) 10 mg Q6H PRN IV SBP>160 Last administered on 09/13 19:56; Admin Dose 10 MG; Start 09/11/16 at 14:00 Miscellaneous Information 1 ea NOTE XX ; Start 09/11/16 at 14:30 Glucose (Glutose) 15 gm Q15M PRN PO DECREASED GLUCOSE; Start 09/11/16 at 14:30 Glucose (Glutose) 22.5 gm Q15M PRN PO DECREASED GLUCOSE; Start 09/11/16 at 14: 30 Dextrose (D50w Syringe) 25 ml Q15M PRN IV DECREASED GLUCOSE; Start 09/11/16 at 14:30 Dextrose (D50w Syringe) 50 ml Q15M PRN IV DECREASED GLUCOSE; Start 09/11/16 at 14:30 Glucagon (Glucagen) 1 mg Q15M PRN IM DECREASED GLUCOSE; Start 09/11/16 at 14:30 Glucose 15 gm 15 gm Q15M PRN BUCCAL DECREASED GLUCOSE; Start 09/11/16 at 14:30 Levetiracetam 500 mg/Dextrose 105 ml @ 420 mls/hr Q12 IVPB Last administered on 09/15/16 08:42; Admin Dose 420 MLS/HR; Start 09/11/16 at 21:00 Ferric Sodium Gluconate Complex/ Sodium Chloride (Ferrlecit/NS) 110 ml @ 100 mls/hr Q24H IVPB Last administered on 09/14/16 17:07; Admin Dose 100 MLS/HR; Start 09/13/16 at 17:00; Stop 09/15/16 at 18:05 Insulin Aspart (Novolog Insulin Pen) (Adult SC Insulin - Mild Algorithm)... Q6 SC Last administered on 09/15/16 05:24; Admin Dose 1 UNIT; Start 09/14/16 at 00:00 Acetaminophen (Tylenol Liquid) 650 mg Q6H PRN GTB PAIN AND OR ELEVATED TEMP Last administered on 09/14/16 20:48; Admin Dose 650 MG; Start 09/14/16 at 00:30 Benazepril HCl (Lotensin) 5 mg BID GTB Last administered on 09/15/16 08:50; Admin Dose 5 MG; Start 09/14/16 at 21:00 Bisacodyl (Dulcolax Supp) 10 mg PRN PRN [place] CONSTIPATION; Start 09/14/16 at 11: 30 Carvedilol (Coreg) 12.5 mg BID GTB Last administered on 09/15/16 08:50; Admin Dose 12.5 MG; Start 09/14/16 at 21:00 Ferrous Sulfate (Feosol Liquid Cup) 300 mg DAILY GTB ; Start 09/16/16 at 09:00 Latanoprost (Xalatan) 1 drop QHS BOTH EYES Last administered on 09/14/16 20:47 ; Admin Dose 1 DROP; Start 09/14/16 at 21:00 Minoxidil (Loniten) 2.5 mg DAILY GTB Last administered on 09/15/16 08:49; Admin Dose 2.5 MG; Start 09/15/16 at 09:00 Multivitamins Therapeutic (Theragran) 1 tab DAILY GTB Last administered on 09/15 08:42; Admin Dose 1 TAB; Start 09/15/16 at 09:00 Atorvastatin Calcium (Lipitor) 20 mg HS GTB Last administered on 09/14/16 20: 47; Admin Dose 20 MG; Start 09/14/16 at 21:00 Insulin Glargine (Lantus) 10 unit DAILY@08 SC Last administered on 09/15/16 08 :45; Admin Dose 10 UNIT; Start 09/15/16 at 08:00 Diphenhydramine HCl (Benadryl) 25 mg Q6H PRN IV Pruritus; Start 09/15/16 at 11: 30 EDY MACARIO MD Sep 15, 2016 11:10
[2016-09-15] MEDS ORDERED: DIPHENHYDRAMINE 50 MG INJ IV PRN (11:30)
--- NOTE | 2016-09-15 11:54 | PDOCDIS ---
Discharge Instructions DIAGNOSIS Discharge Diagnosis: Displaced G-tube. CONDITION Patient Condition: Stable HOME CARE INSTRUCTIONS: Special Diet: Gtube feeding OTHER ORDERS: Other Orders: 1. Resume medications. Use the G-tube in the stomach for medications and feedings. Do not use the G-tube in the transverse colon. 2. The patient needs to come back to [facility] in 1 week for removal of the G-tube from the transverse colon. RIGOBERTO JORDAN NP Sep 15, 2016 11:54
--- NOTE | 2016-09-15 13:19 | PN ---
Date/Time of Note Date/Time of Note DATE: 09/15/16 TIME: 13:17 Assessment/Plan VTE Prophylaxis VTE Prophylaxis Intervention: SCD's Lines/Catheters IV Catheter Type (from [facility] Peripheral IV Urinary Cath still in place: No Assessment/Plan Chief Complaint/Hosp Course 1. Leaking of G-tube site. Malposition of the G-tube evident on radiographic examination. G-tube feedings and medications on hold. General surgery consult has been obtained. General surgery recommended gastroenterology evaluation for a new PEG tube placement in conjunction with interventional radiology and removal of the G-tube from the transverse colon once the patient's electrolyte abnormalities are corrected and when the patient is more stable. Hence, a gastroenterology consult was obtained. The patient is status post a new PEG tube placement on 09/13/2016. Plan is to [facility] with tube feedings through the new PEG tube and to bring the patient back for removal of the old G-tube from the transverse colon. 2. Essential hypertension. Continue antihypertensives. 3. Dysphagia. Continue G-tube feedings. 4. Hypernatremia, most probably secondary to dehydration. Resolved. 5. Type 2 diabetes mellitus, uncontrolled. Hemoglobin A1c is 8.2. The patient is currently on sliding scale insulin and basal insulin. The patient's insulin dosing will be adjusted to obtain optimal blood sugar control. 6. Acute on chronic kidney disease. Will monitor the BUN and creatinine closely. Will avoid nephrotoxic medications. 7. Seizure disorder. The patient will be maintained on anticonvulsants. 8. Pulmonary hypertension. PA pressure of 42 mmHg as per 2D echocardiogram on 11/09/2015. Continue supplemental oxygen. 9. Macrocytic anemia. Status post 2 units of PRBC transfusion, with improvement in the patient's H and H. The patient's iron panel is showing iron deficiency. Will continue the patient on iron supplements. 10. Iron deficiency. Will continue the patient on iron supplements. 11. Dyslipidemia. Fasting lipid panel showing suboptimal triglycerides and suboptimal HDL. Continue statins. 12. History of coronary artery disease, with details unclear. Will avoid any aspirin at this time because of underlying anemia. 13. Fluids, electrolytes and nutrition. Continue G-tube feedings. Increase the rate to attain the goal. 14. Deep vein thrombosis prophylaxis. Continue bilateral sequential compression devices. 15. Gastrointestinal prophylaxis with intravenous histamine 2 receptor blockers. 16. Plan. Plan is to [facility] with tube feedings through the new PEG tube and to bring the patient back for removal of the old G-tube from the transverse colon. The case was discussed with Dr. Peck. Problems: Subjective 24 Hr Interval Summary Free Text/Dictation Patient tolerating G-tube feeds. Exam/Review of Systems Vital Signs Vitals Vital Signs Date Time Temp Pulse Resp B/P Pulse Ox O2 Delivery O2 Flow Rate FiO2 09/15/16 08:47 98.7 70 20 140/61 95 09/14/16 08:18 Room Air 09/13/16 18:37 10 Intake and Output 09/14/16 09/14/16 09/15/16 15:00 23:00 07:00 Intake Total 855 ml 1655 ml 830 ml Balance 855 ml 1655 ml 830 ml Exam GENERAL: This is a thin, frail-looking, malnourished female, lying in bed in no apparent distress. HEENT: Head is normocephalic and atraumatic. Eyes, anicteric sclerae. Conjunctivae are clear. ENT: Nasal septum is midline. Oral mucosa is dry. NECK: Supple. No JVD noticed. RESPIRATORY: Bilaterally diminished breath sounds. No adventitious breath sounds heard. No use of accessory muscles of respiration. CARDIAC: Regular rate and rhythm. S1 and S2 heard. ABDOMEN: New G-tube with dressings clean, dry, and intact. Left-sided G-tube in place, with leaking from the G-tube site. Bowel sounds are hypoactive in all 4 quadrants. GENITOURINARY: Deferred. EXTREMITIES: No cyanosis, no clubbing, no edema. Peripheral pulses palpable. Muscle wasting of the bilateral upper and lower extremities. NEUROLOGIC: The patient is awake and alert. Nonverbal. Results Result Diagram: 09/15/16 0850 09/15/16 0850 Results 24 hrs Laboratory Tests Test 09/14/16 16:53 09/15/16 00:16 09/15/16 05:22 09/15/16 07:55 Bedside Glucose 150 221 H 164 215 Test 09/15/16 08:50 09/15/16 11:27 White Blood Count 11.4 H Red Blood Count 3.97 L Hemoglobin 11.6 L Hematocrit 37.2 Mean Corpuscular Volume 93.7 Mean Corpuscular Hemoglobin 29.2 Mean Corpuscular Hemoglobin Concent 31.2 L Red Cell Distribution Width 15.3 H Platelet Count 382 # Mean Platelet Volume 11.1 H Neutrophils % 61.0 Lymphocytes % 21.7 Monocytes % 6.2 Eosinophils % 9.8 H Basophils % 0.2 Nucleated Red Blood Cells % 0.0 Neutrophils # 6.9 Lymphocytes # 2.5 Monocytes # 0.7 Eosinophils # 1.1 H Basophils # 0.0 Nucleated Red Blood Cells # 0.0 Sodium Level 137 Potassium Level 5.0 Chloride Level 106 Carbon Dioxide Level 24 Anion Gap 12 Blood Urea Nitrogen 28 H Creatinine 0.69 Glucose Level 260 H Calcium Level 8.6 Magnesium Level 2.1 Bedside Glucose 243 H Medications Medications Current Medications Ondansetron HCl (Zofran Inj) 4 mg Q6H PRN IV NAUSEA AND/OR VOMITING; Start at 14:00 Morphine Sulfate (morphine) 2 mg Q4H PRN IV SEVERE PAIN LEVEL 7-10 Last administered on 09/13/16 23:17; Admin Dose 2 MG; Start 09/11/16 at 14:00 Famotidine (Pepcid Iv) 20 mg DAILY IV Last administered on 09/15/16 08:42; Admin Dose 20 MG; Start 09/11/16 at 14:00 Hydralazine HCl (Apresoline) 10 mg Q6H PRN IV SBP>160 Last administered on 09/13 19:56; Admin Dose 10 MG; Start 09/11/16 at 14:00 Miscellaneous Information 1 ea NOTE XX ; Start 09/11/16 at 14:30 Glucose (Glutose) 15 gm Q15M PRN PO DECREASED GLUCOSE; Start 09/11/16 at 14:30 Glucose (Glutose) 22.5 gm Q15M PRN PO DECREASED GLUCOSE; Start 09/11/16 at 14: 30 Dextrose (D50w Syringe) 25 ml Q15M PRN IV DECREASED GLUCOSE; Start 09/11/16 at 14:30 Dextrose (D50w Syringe) 50 ml Q15M PRN IV DECREASED GLUCOSE; Start 09/11/16 at 14:30 Glucagon (Glucagen) 1 mg Q15M PRN IM DECREASED GLUCOSE; Start 09/11/16 at 14:30 Glucose 15 gm 15 gm Q15M PRN BUCCAL DECREASED GLUCOSE; Start 09/11/16 at 14:30 Levetiracetam 500 mg/Dextrose 105 ml @ 420 mls/hr Q12 IVPB Last administered on 09/15/16 08:42; Admin Dose 420 MLS/HR; Start 09/11/16 at 21:00 Ferric Sodium Gluconate Complex/ Sodium Chloride (Ferrlecit/NS) 110 ml @ 100 mls/hr Q24H IVPB Last administered on 09/14/16 17:07; Admin Dose 100 MLS/HR; Start 09/13/16 at 17:00; Stop 09/15/16 at 18:05 Insulin Aspart (Novolog Insulin Pen) (Adult SC Insulin - Mild Algorithm)... Q6 SC Last administered on 09/15/16 11:45; Admin Dose 3 UNIT; Start 09/14/16 at 00:00 Acetaminophen (Tylenol Liquid) 650 mg Q6H PRN GTB PAIN AND OR ELEVATED TEMP Last administered on 09/14/16 20:48; Admin Dose 650 MG; Start 09/14/16 at 00:30 Benazepril HCl (Lotensin) 5 mg BID GTB Last administered on 09/15/16 08:50; Admin Dose 5 MG; Start 09/14/16 at 21:00 Bisacodyl (Dulcolax Supp) 10 mg PRN PRN [place] CONSTIPATION; Start 09/14/16 at 11: 30 Carvedilol (Coreg) 12.5 mg BID GTB Last administered on 09/15/16 08:50; Admin Dose 12.5 MG; Start 09/14/16 at 21:00 Ferrous Sulfate (Feosol Liquid Cup) 300 mg DAILY GTB ; Start 09/16/16 at 09:00 Latanoprost (Xalatan) 1 drop QHS BOTH EYES Last administered on 09/14/16 20:47 ; Admin Dose 1 DROP; Start 09/14/16 at 21:00 Minoxidil (Loniten) 2.5 mg DAILY GTB Last administered on 09/15/16 08:49; Admin Dose 2.5 MG; Start 09/15/16 at 09:00 Multivitamins Therapeutic (Theragran) 1 tab DAILY GTB Last administered on 09/15 08:42; Admin Dose 1 TAB; Start 09/15/16 at 09:00 Atorvastatin Calcium (Lipitor) 20 mg HS GTB Last administered on 09/14/16 20: 47; Admin Dose 20 MG; Start 09/14/16 at 21:00 Insulin Glargine (Lantus) 10 unit DAILY@08 SC Last administered on 09/15/16 08 :45; Admin Dose 10 UNIT; Start 09/15/16 at 08:00 Diphenhydramine HCl (Benadryl) 25 mg Q6H PRN IV Pruritus; Start 09/15/16 at 11: 30 RIGOBERTO JORDAN NP Sep 15, 2016 13:19
--- NOTE | 2016-09-15 14:55 | DS ---
DATE OF ADMISSION: 09/11/2016 DATE OF DISCHARGE: 09/15/2016 FINAL DIAGNOSES: 1. Malpositioning of gastrostomy tube. Status post insertion of a new gastrostomy tube. Malpositioned G-tube to be removed at a later date. 2. Essential hypertension. 3. Dysphagia. 4. Hypernatremia, resolved. 5. Type 2 diabetes mellitus. 6. Acute on chronic kidney disease. 7. Seizure disorder. 8. Pulmonary hypertension. 9. Macrocytic anemia. 10. Iron deficiency. 11. Dyslipidemia. 12. History of coronary artery disease with details unclear. 13. History of subdural hemorrhage with chronic bedbound condition. 14. Chronic encephalopathy. CONSULTANTS: 1. Yunior Louis MD, general surgery. 2. Liz Forman, gastroenterology. 3. Shelton Graff MD, nephrology. HOSPITAL COURSE: This is a 66-year-old female with chronic encephalopathy who is bedbound, along with dysphagia status post G-tube placement, also with a past medical history of essential hypertension, type 2 diabetes mellitus, pulmonary hypertension, chronic kidney disease, seizure disorder and left hemiparesis secondary to subdural hematoma who is a [facility] resident and was transferred from [facility] to [facility] for further evaluation of a leaking G- tube. In the emergency room, the patient underwent an abdominal x-ray that showed the tip of the G-tube in the transverse colon. As per report, this G- tube was recently placed on 09/02/2016, at [facility]. The patient' s lab work also showed that the patient has some anemia with hemoglobin and hematocrit of 7.6 and 26.0 respectively. The patient was noticed to have hypernatremia with a sodium of 160. After review of the patient's abdominal x- ray, the ER physician called the surgeon on-call regarding the G-tube displacement. The patient was admitted to inpatient medical/surgical floor. All the G-tube feedings were put on hold. No medications were given through the G-tube. All the medications were changed to parenteral form, as necessary. General surgery evaluated the patient and recommended insertion of a G-tube into the stomach and to keep the G-tube in the transverse colon, and to wait 1 week before removing this from the transverse colon. The patient also had some electrolyte imbalances that made her not an appropriate candidate for any emergent surgical intervention. Because of this, a gastroenterology consult was called. The patient had a G- tube placed on 09/13/2016. The patient was started on feedings via the new G- tube. The patient's feeding rate was increased slowly to obtain the goal rate. The patient had no evidence of any leakage from the new G-tube site. Meanwhile, a nephrology consult was called on this patient because of the patient's acute kidney injury, as well as significant hypernatremia. The patient was initially maintained on half-NS which was later switched to D5W with improvement in the patient's sodium. The patient's hypernatremia could have been most probably secondary to free water deficit. The patient has history of chronic kidney disease with evidence of worsening kidney function. This was improved with hydration and avoidance of any nephrotoxic medications. The patient also had anemia on arrival, and the patient received 2 units of PRBCs. The patient was also noted to have iron deficiency. Hence, the patient was maintained on parenteral iron supplements. The patient's H and H remained stable after the patient's blood transfusion. The patient has underlying history of subdural hematoma with left hemiparesis. The patient was on anticonvulsants for the same. The patient's anticonvulsants were switched to parenteral form because the old G-tube could not be used. The patient has underlying pulmonary hypertension with a PA pressure of 42 mmHg on 2D echocardiogram on 11/09/2015. The patient was maintained on supplemental oxygen. The patient has underlying dyslipidemia. The patient's fasting lipid panel showed suboptimal triglycerides and suboptimal HDL. The patient's statin was resumed once the patient had a new G-tube in place. The patient has history of coronary artery disease, with details unclear. Aspirin was avoided in this patient because of underlying anemia that required blood transfusion. The patient had a stable hospital course. The patient was cleared by consultants to be discharged provided the patient needs to be brought back to the hospital in 1 week for removal of the G-tube that is in the transverse colon. DISCHARGE DISPOSITION/PLAN: The patient will be discharged to [facility] nursing [facility]. The patient will resume her medications through the new G-tube. The old G-tube will not be used. This will be clamped and labeled "not be used." This was discussed with nursing and supportive employment case manager to inform the patient's [facility] about the presence of 2 G-tubes, only 1 of which is malpositioned, and not to be used for any medications or feeding. Nursing and case management were instructed that the patient needs to be brought back to the hospital for removal of G-tube from the transverse colon. CONDITION AT DISCHARGE: Stable. DISCHARGE MEDICATIONS: 1. Benazepril 5 mg via G-tube b.i.d. 2. Coreg 12.5 mg via G-tube b.i.d. 3. Clonidine 1 mg via G-tube q.6 hours p.r.n. elevated blood pressure. 4. Iron sulfate 330 mg via G-tube daily. 5. Heparin 5000 units subcutaneously b.i.d. 6. Indapamide 2.5 mg via G-tube daily. 7. Insulin Lantus 9 units subcutaneous at bedtime. 8. Humalog insulin subcutaneously q.i.d. as per sliding scale. 9. Keppra 500 mg via G-tube b.i.d. 10. Minoxidil 2.5 mg via G-tube daily. PERTINENT LABORATORY, DIAGNOSTIC DATA AND PROCEDURES: 1. Insertion of PEG tube on 09/13/2016. 2. Abdominal x-ray on 09/16/2016; catheter tip in the transverse colon. 3. Renal ultrasound; mild bilateral hyperechoic kidneys, consistent with medicorenal disease. Mild bilateral hydronephrosis. 4. Latest CBC: WBC 11.4, hemoglobin 11.6, hematocrit 37.2, platelet count 82. 5. Latest BMP: Sodium 137, potassium 5.0, chloride 106, carbon dioxide 25, BUN 20, creatinine 0.67, glucose 250. 6. Hemoglobin A1c 8.3. 7. Lipid panel: Triglycerides 169, total cholesterol 121, LDL 58, HDL 29. At this time, I would like to thank all the consultants for seeing the patient, doing the necessary procedures, and providing clinical recommendations. The case and management of this patient was fully discussed with Dr. Lang. Approximately 40 minutes were spent on coordinating the discharge of this patient. RIGOBERTO LANG MD, AM/LIZBET Conf#: [id number] DID#: [id number] MTDD
--- NOTE | 2016-09-15 14:57 | CONS ---
Date/Time of Note Date/Time of Note DATE: 09/15/16 TIME: 14:53 Assessment/Plan Assessment/Plan Chief Complaint/Hosp Course Mrs Astorga is a 66-year-old woman that was transferred from from [facility] to [facility] because of G-tube site malfunction. Per family, patient had G-tube placed 1 week ago at [facility] with . Per medical record, uneventful PEG + EGD was completed. Presently x-ray of abdomen notes: Rubio catheter tip in the transverse colon. Presently, patient not receiving any nourishment. EGD plus PEG recommended by Dr. Forman after consultation with . 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 Advised patient son of recommendation for EGD plus PEG and he provides informed consent to proceed with procedure. Problems: Additional Assessment/Plan Dysphagia EGD + PEG 09-13-16: 1. Evidence of previous ostomy partially close, uneventful PEG, plan start feeding in a.m. Monitor tube feed Q6hrs, hold for residuals greater 150 mL Cleanse site and change dressing daily G-tube malfunction Per x-ray abdomen, Rubio catheter tip in the transverse colon. Surgery following History of seizure disorder Management per Primary Hypertension Management per Primary Type 2 diabetes Management per Primary Further recommendations depend on clinical course Patient seen in collaboration with Dr. Forman Consultation Date/Type/Reason Admit Date/Time Sep 11, 2016 at 12:47 Type of Consultation: GI Referring Provider: MARY VILLANUEVA MD 24 HR Interval Summary Free Text/Dictation Status post EGD plus PEG Tube feed running with minimal residual Plan to check discharge to SNF Exam/Review of Systems Vital Signs Vitals Vital Signs Date Time Temp Pulse Resp B/P Pulse Ox O2 Delivery O2 Flow Rate FiO2 09/15/16 08:47 98.7 70 20 140/61 95 09/14/16 08:18 Room Air 09/13/16 18:37 10 Intake and Output 09/14/16 09/14/16 09/15/16 15:00 23:00 07:00 Intake Total 855 ml 1655 ml 830 ml Balance 855 ml 1655 ml 830 ml Exam Constitutional: Confused, awake Psych: nl mood/affect Head: normocephalic Eyes: EOMI, nl conjunctiva, nl lids ENMT: nl external ears & nose, nl lips & teeth, nl nasal mucosa & septum Respiratory: clear to auscultation, normal air movement Cardiovascular: regular rate and rhythm Gastrointestinal: soft, non-tender Musculoskeletal: nl extremities to inspection Results Result Diagram: 09/15/16 0850 09/15/16 0850 Results 24 hrs Laboratory Tests Test 09/14/16 16:53 09/15/16 00:16 09/15/16 05:22 09/15/16 07:55 Bedside Glucose 150 221 H 164 215 Test 09/15/16 08:50 09/15/16 11:27 White Blood Count 11.4 H Red Blood Count 3.97 L Hemoglobin 11.6 L Hematocrit 37.2 Mean Corpuscular Volume 93.7 Mean Corpuscular Hemoglobin 29.2 Mean Corpuscular Hemoglobin Concent 31.2 L Red Cell Distribution Width 15.3 H Platelet Count 382 # Mean Platelet Volume 11.1 H Neutrophils % 61.0 Lymphocytes % 21.7 Monocytes % 6.2 Eosinophils % 9.8 H Basophils % 0.2 Nucleated Red Blood Cells % 0.0 Neutrophils # 6.9 Lymphocytes # 2.5 Monocytes # 0.7 Eosinophils # 1.1 H Basophils # 0.0 Nucleated Red Blood Cells # 0.0 Sodium Level 137 Potassium Level 5.0 Chloride Level 106 Carbon Dioxide Level 24 Anion Gap 12 Blood Urea Nitrogen 28 H Creatinine 0.69 Glucose Level 260 H Calcium Level 8.6 Magnesium Level 2.1 Bedside Glucose 243 H Medications Medications Current Medications Ondansetron HCl (Zofran Inj) 4 mg Q6H PRN IV NAUSEA AND/OR VOMITING; Start at 14:00 Morphine Sulfate (morphine) 2 mg Q4H PRN IV SEVERE PAIN LEVEL 7-10 Last administered on 09/13/16 23:17; Admin Dose 2 MG; Start 09/11/16 at 14:00 Famotidine (Pepcid Iv) 20 mg DAILY IV Last administered on 09/15/16 08:42; Admin Dose 20 MG; Start 09/11/16 at 14:00 Hydralazine HCl (Apresoline) 10 mg Q6H PRN IV SBP>160 Last administered on 09/13 19:56; Admin Dose 10 MG; Start 09/11/16 at 14:00 Miscellaneous Information 1 ea NOTE XX ; Start 09/11/16 at 14:30 Glucose (Glutose) 15 gm Q15M PRN PO DECREASED GLUCOSE; Start 09/11/16 at 14:30 Glucose (Glutose) 22.5 gm Q15M PRN PO DECREASED GLUCOSE; Start 09/11/16 at 14: 30 Dextrose (D50w Syringe) 25 ml Q15M PRN IV DECREASED GLUCOSE; Start 09/11/16 at 14:30 Dextrose (D50w Syringe) 50 ml Q15M PRN IV DECREASED GLUCOSE; Start 09/11/16 at 14:30 Glucagon (Glucagen) 1 mg Q15M PRN IM DECREASED GLUCOSE; Start 09/11/16 at 14:30 Glucose 15 gm 15 gm Q15M PRN BUCCAL DECREASED GLUCOSE; Start 09/11/16 at 14:30 Levetiracetam 500 mg/Dextrose 105 ml @ 420 mls/hr Q12 IVPB Last administered on 09/15/16 08:42; Admin Dose 420 MLS/HR; Start 09/11/16 at 21:00 Ferric Sodium Gluconate Complex/ Sodium Chloride (Ferrlecit/NS) 110 ml @ 100 mls/hr Q24H IVPB Last administered on 09/14/16 17:07; Admin Dose 100 MLS/HR; Start 09/13/16 at 17:00; Stop 09/15/16 at 18:05 Insulin Aspart (Novolog Insulin Pen) (Adult SC Insulin - Mild Algorithm)... Q6 SC Last administered on 09/15/16 11:45; Admin Dose 3 UNIT; Start 09/14/16 at 00:00 Acetaminophen (Tylenol Liquid) 650 mg Q6H PRN GTB PAIN AND OR ELEVATED TEMP Last administered on 09/14/16 20:48; Admin Dose 650 MG; Start 09/14/16 at 00:30 Benazepril HCl (Lotensin) 5 mg BID GTB Last administered on 09/15/16 08:50; Admin Dose 5 MG; Start 09/14/16 at 21:00 Bisacodyl (Dulcolax Supp) 10 mg PRN PRN RI CONSTIPATION; Start 09/14/16 at 11: 30 Carvedilol (Coreg) 12.5 mg BID GTB Last administered on 09/15/16 08:50; Admin Dose 12.5 MG; Start 09/14/16 at 21:00 Ferrous Sulfate (Feosol Liquid Cup) 300 mg DAILY GTB ; Start 09/16/16 at 09:00 Latanoprost (Xalatan) 1 drop QHS BOTH EYES Last administered on 09/14/16 20:47 ; Admin Dose 1 DROP; Start 09/14/16 at 21:00 Minoxidil (Loniten) 2.5 mg DAILY GTB Last administered on 09/15/16 08:49; Admin Dose 2.5 MG; Start 09/15/16 at 09:00 Multivitamins Therapeutic (Theragran) 1 tab DAILY GTB Last administered on 09/15 08:42; Admin Dose 1 TAB; Start 09/15/16 at 09:00 Atorvastatin Calcium (Lipitor) 20 mg HS GTB Last administered on 09/14/16 20: 47; Admin Dose 20 MG; Start 09/14/16 at 21:00 Insulin Glargine (Lantus) 10 unit DAILY@08 SC Last administered on 09/15/16 08 :45; Admin Dose 10 UNIT; Start 09/15/16 at 08:00 Diphenhydramine HCl (Benadryl) 25 mg Q6H PRN IV Pruritus Last administered on 14:46; Admin Dose 25 MG; Start 09/15/16 at 11:30 KIMBERLEY PACK Sep 15, 2016 14:57
[2016-09-16] MEDS ORDERED: FERROUS SULFATE 60 MG/ML 5ML CUP GTB SCH (09:00)
--- NOTE | 2016-09-17 04:01 | GILP ---
DATE OF PROCEDURE: 09/13/2016 PROCEDURE: Esophagogastroduodenoscopy with percutaneous endoscopic gastrostomy tube placement. BRIEF HISTORY AND INDICATIONS: The patient has been noticed to have gastrostomy tube replaced which is located in what appears to be the colon. PREMEDICATION: Monitored anesthesia care by anesthesiologist. SURGEON: Liz Forman MD. TECHNIQUE: After informed consent, with the patient and/or family members understanding the procedur e, its indications, potential risks and complications, including but not limited to: allergic reacti on, bleeding, perforation, infection or leakage, and after all pertinent questions were answered to the patient and/or family members satisfaction, the patient and/or family member signed witnessed in formed consent. Following this, premedication was administered slowly IV push, under careful cardiovascular and resp iratory monitoring with pulse oximetry, blood pressure and court monitor. Once the sedative effect was achieved the patient was place in the supine position, the panendoscope was introduced and advanced under visual guidance. Careful examination of the upper gastrointestinal tract, on insertion as well as withdrawal of the i nstrument disclosed the following findings: ESOPHAGUS: The mucosa of the entire esophagus appears within normal limits. There is no evidence of esophagitis, varices, neoplasm or stricture. STOMACH: Upon entrance to the stomach, air was insufflated, the gastric todd distended normally. There is an area that appears to represent a previous ostomy which is partially healed and closed. PYLORUS: The pylorus appears patent and within normal limits, with no evidence of gastric outlet ob struction. DUODENUM: The duodenal mucosa was carefully examined in the duodenal bulb as well as the second por tion of the duodenum and appears unremarkable with no evidence of duodenitis, ulcer or neoplasm. The instrument was then brought back to the stomach and the anterior wall mid-body was identified by transillumination and "finger indentation", this area was then marked in the anterior wall of the a bdomen, it was cleansed with Betadine and infiltrated with Xylocaine 1%. Following this a trocar nee dle was introduced into the gastric lumen under visual control with the endoscope, once in the gastr ic lumen a guide wire was advanced and secured with a polypectomy snare, at this point the endoscope was withdrawn bringing the guide wire out through the patients mouth. Following this a gastrostomy tube was introduced over the guide wire, with the Karen-Jean technique without difficulty, a small incision was performed in the skin to allow easy passage of the G-tube, once the position of the gas trostomy tube was confirmed, the external stopper and connectors were installed, and a clean dressin g applied. The patient tolerated the procedure well and was transferred out of the endoscopy suite awake, and i n good condition to continue recovery under observation, feedings will started in the next 12-24h an d gastrostomy care will be instituted. IMPRESSION: 1. Evidence of previous ostomy which is partially healed. 2. Uneventful percutaneous endoscopic gastrostomy tube placement. PLAN: An upper GI series will be obtained to rule out gastric colonic fistula. Once we have this i nformation, feedings will be started. Further recommendation will depend on the patient's clinical course. Eventually the tube in the colon needs to be removed as per the direction of the surgeon, Quincy Louis. Dictated By: LIZ MALDONADO Conf#: [id number] DID#: [id number]
== END 2016-09-15 17:20 | DRG 393 ==
LOC: E/R 10:51 → PP2 12:47
PROVIDERS: ADMIT Family Medicine; ATTEND Family Medicine
PROC: 30233N1 Transfusion of Nonautologous Red Blood Cells into Peripheral Vein, Percutaneous Approach (ICD-10-PCS; 2016-09-11)
PROC: 0DH63UZ Insertion of Feeding Device into Stomach, Percutaneous Approach (ICD-10-PCS; principal; 2016-09-13 22:30)
DX: Z43.1 Encounter for attention to gastrostomy (principal); G93.40 Encephalopathy, unspecified; N17.0 Acute kidney failure with tubular necrosis; E87.0 Hyperosmolality and hypernatremia; Z68.1 Body mass index [BMI] 19.9 or less, adult; I69.854 Hemiplegia and hemiparesis following other cerebrovascular disease affecting left non-dominant side; Z46.59 Encounter for fitting and adjustment of other gastrointestinal appliance and device; E86.0 Dehydration; E11.22 Type 2 diabetes mellitus with diabetic chronic kidney disease; I12.9 Hypertensive chronic kidney disease with stage 1 through stage 4 chronic kidney disease, or unspecified chronic kidney disease; N18.9 Chronic kidney disease, unspecified; I27.2 Other secondary pulmonary hypertension; G40.909 Epilepsy, unspecified, not intractable, without status epilepticus
CPT/HCPCS: 36430; 71010; 74000; 74240; 76775; 80048; 80053; 80061; 82533; 82550; 82553; 82728; 82962; 83036; 83540; 83735; 83930; 83935; 84100; 84300; 84439; 84443; 84484; 84560; 85025; 85610; 85730; 86850; 86900; 86901; 86920; 87070; 90686; 93005; 96372; 96374; A4310; J0360; J0690; J1200; J1815; J1953; J2270; J2916; J3010; J3480; J7030; J7040; J7070; P9016

== ENCOUNTER 2016-09-24 17:26 | Inpatient (IN) | payer MEDICARE, OTHER ==
[~2016-09-24] VITALS: Ht 165.1 cm; Wt 34.0 kg
[~2016-09-24 17:26] MED LIST changes: +ACET-141 GTB; +ACET-2047 GTB; -ACET500C5 PO; +AMIN30LI GTB; +BENA5TAB2 GTB; +BISA10SU75 PR; -CALC-143 PO; +CLON-379 GTB; -CLON-379 PO; +CRAN3875 GTB; +CRAN425C GTB; -ESOM20CA PO; +FAMO20TA18 GTB; -FER325 GTB; +FERR220S3 GTB; +LACT1CAP4 GTB; -LACTINEX PO; +LATA2.5D9 BOTH EYES; +LEVE-5 GTB; -LEVE-5 PO; -LISI20TA11 PO; +MAGN400O4 PO; -METF500T4 PO; -MIN25 GTB; +MINO2.5T16 GTB; -MORP1DIS4 IV; +MULTI GTB; +NA P135E RC; +OMEP20CA16 GTB; -PANT40TA3 PO; -PARO40TA79 PO; -SENN-53 PO
[2016-09-25 13:17] VITALS: BP 109/55; PULSE 90; RESP 18
[2016-09-25] MEDS ORDERED: D5W-0.45 NACL + KCL 20 MEQ 1,000 ML IV SCH (16:15)
[2016-09-25] MEDS ORDERED: BISACODYL 10 MG SUPP PR PRN (16:30)
[2016-09-25] MEDS ORDERED: INSULIN ASPART [NOVOLOG] 3 ML PEN SC SCH (16:30)
[2016-09-25] MEDS ORDERED: HYDROmorphONE 1 MG/ML SYG IV PRN ×2 (16:30)
[2016-09-25] MEDS ORDERED: HYDROCODONE/APAP (5/325) TAB PO PRN ×2 (16:30)
[2016-09-25] MEDS ORDERED: DOCUSATE SODIUM 100 MG CAP PO PRN (16:30)
[2016-09-25] MEDS ORDERED: hydrALAzine 20 MG INJ IV PRN (16:30)
[2016-09-25] MEDS ORDERED: NA PHOSPHATE/BIPHOS 133 ML ENEMA PR PRN (16:30)
[2016-09-25] MEDS: Insulin NOVOLOG SS MILD Algorithm (NPO/TPN/ENTERAL FEEDS) SC SCH ×2 (17:00→20:26)
--- NOTE | 2016-09-25 17:36 | CONS ---
DATE OF ADMISSION: 09/25/2016 DATE OF CONSULTATION: 09/25/2016 CONSULTING PHYSICIAN: Dr. Ash Lang from internal medicine. REQUESTING PHYSICIAN: Dr. Yunior Louis, general surgery. REASON FOR CONSULTATION: Medical management. HISTORY OF PRESENT ILLNESS: This is a 66-year-old female with chronic encephalopathy who is bedbound along with dysphagia status post G-tube placement , also with past medical history of essential hypertension, type 2 diabetes mellitus, pulmonary hypertension, chronic kidney disease, seizure disorder and left hemiparesis secondary to subdural hematoma who is a [facility] resident who was recently admitted to [facility] from 09/11/2016 to because of a malpositioned gastrostomy tube. The patient's gastrostomy tube that was inserted at [facility] on 09/02/2016, was found to be in the transverse colon. During the previous admission to [facility], a clinical decision was made to insert a new G-tube for feeding the patient and transfer the patient to [facility] and bring her back for removal of the misplaced tube that was in the colon. Hence, the patient is coming back today on 09/25/2016 for removal of the misplaced G-tube by the surgeon. PAST MEDICAL HISTORY: Type 2 diabetes mellitus, dysphagia, essential hypertension, pulmonary hypertension, chronic kidney disease, CAD, subdural hematoma, seizure disorder, chronic encephalopathy. PAST SURGICAL HISTORY: G-tube placement. GROUP HOME MEDICATIONS: 1. Metformin 500 mg via G-tube with breakfast and dinner. 2. Nexium 20 mg via G-tube before breakfast. 3. Calcium citrate 1 tablet via G-tube daily. 4. Paroxetine 40 mg via G-tube daily. 5. Keppra 500 mg via G-tube b.i.d. 6. Humalog insulin sliding scale insulin. 7. Lantus insulin 15 units subcutaneous at bedtime. 8. Indapamide 2.5 mg via G-tube daily. 9. Ferrous sulfate 325 mg via G-tube t.i.d. 10. Minoxidil 2.5 mg via G-tube daily. 11. Coreg 12.5 mg via G-tube b.i.d. 12. Lisinopril 20 mg via G-tube daily. ALLERGIES: NO KNOWN DRUG ALLERGIES. SOCIAL HISTORY: The patient is a [facility] resident. The patient has chronic encephalopathy. REVIEW OF SYSTEMS: Unable to obtain review of systems because of underlying encephalopathy. PHYSICAL EXAMINATION: GENERAL: This is a thin, frail-looking female lying in bed in no apparent distress. HEENT: Head normocephalic and atraumatic. Anicteric sclerae. Conjunctivae clear. ENT: Nasal septum is midline. Oral mucosa is dry. Right parotid area swelling with erythema and tenderness. NECK: Supple. No JVD noticed. RESPIRATORY: Bilaterally diminished breath sounds. No adventitious breath sounds. No use of accessory muscles of respiration. CARDIAC: Regular rate and rhythm. S1, S2 heard. ABDOMEN: Left-sided G-tube in place with a second G-tube. Both the G-tubes are clamped. One of the G-tubes is draining brown color fluid. GENITOURINARY: Deferred. EXTREMITIES: No cyanosis, no clubbing, no edema. Peripheral pulses palpable. Muscle wasting of bilateral upper and lower extremities. NEUROLOGIC: The patient is in awake. The patient is nonverbal. LABORATORY AND DIAGNOSTIC DATA: None. IMPRESSION: This is a 66-year-old female with multiple comorbidities who happened to have a misplaced G-tube in the transverse colon, who is [facility] of the G-tube. ASSESSMENT AND PLAN: 1. Malpositioned G-tube. Radiographic examination showing evidence of G-tube in the transverse colon. General surgery on board. 2. Essential hypertension. The patient will be maintained on p.r.n. antihypertensives. The patient's routine antihypertensives will be put on hold. 3. Dysphagia. The patient will be maintained n.p.o. We will avoid NG tube feedings since the patient is scheduled for removal of G-tube. 4. Type 2 diabetes mellitus. The patient will be started on sliding scale insulin with Lantus insulin. 5. Chronic kidney disease. We will monitor the BUN and creatinine closely. We will avoid nephrotoxic medications. 6. Seizure disorder. The patient will be maintained on parental anticonvulsants. 7. Pulmonary hypertension. The patient has a PA pressure of 42 mmHg as per 2D echocardiogram finding 11/09/2015. The patient will be provided with supplemental oxygen. 8. Macrocytic anemia. The patient has evidence of iron deficiency. The patient's H and H will be monitored closely. The patient will transfuse as needed. Additional diagnostic and therapeutic orders will be as clinically indicated. The case and management of this patient was fully discussed with Dr. Lang. We will continue to follow the patient along with you. Thank you for the consult. RIGOBERTO LANG MD, AM/LIZBET Conf#: [id number] DID#: [id number] MTDD
[2016-09-25] MEDS ORDERED: PENDING SANTYL ORDER FOR WOUND CARE XX PRN (19:30)
[2016-09-25 19:40] LABS: ADD SCAN DIFF NO
[2016-09-25 19:42] LABS: ABNORMAL IP MESSAGE 1; MEAN CORPUSCULAR HEMOGLOBIN 29.4 pg (29.0-33.0); MEAN CORPUSCULAR HGB CONC 30.8 g/dl (32.0-37.0); MEAN CORPUSCULAR VOLUME 95.6 fl (82.0-101.0); MEAN PLATELET VOLUME 12.1 fl (7.4-10.4); RED BLOOD COUNT 4.08 10^6/ul (4.20-5.40); RED CELL DISTRIBUTION WIDTH 15.2 % (11.5-14.5); WHITE BLOOD COUNT 35.2 10^3/ul (4.8-10.8)
[2016-09-25 19:51] LABS: INR 1.1; PARTIAL THROMBOPLASTIN TIME 25.2 Sec (25.0-35.0); POTASSIUM 4.1 mmol/L (3.5-5.1); PROTIME 14.2 Sec (12.2-14.2); PT RATIO 1.1
[2016-09-25 19:54] LABS: CREATININE 1.07 mg/dl (0.44-1.00)
[2016-09-25 19:55] LABS: CALCIUM 9.2 mg/dl (8.4-10.2); MAGNESIUM 2.8 mg/dl (1.7-2.5); PHOSPHORUS 4.1 mg/dl (2.5-4.9)
[2016-09-25 20:26] LABS: PLATELET COUNT 238 10^3/UL (140-415)
[2016-09-25] MEDS: INSULIN GLARGINE [LANtus] 3 ML PEN SC SCH (20:29)
--- NOTE | 2016-09-25 20:45 | HP ---
Date/Time of Note Date/Time of Note DATE: 09/25/16 TIME: 20:39 Assessment/Plan VTE Prophylaxis VTE Prophylaxis Intervention: heparin (N) Assessment/Plan Assessment/Plan [facility] INITIAL INPATIENT CONSULTATION NOTE PLACE OF SERVICE: [facility] Emergency Department DATE OF CONSULTATION: 09/25/2016 ASSESSMENT AND PLAN: A very pleasant but unfortunate 66-year-old lady, well known to me from prior admission, being admitted for observed removal of transverse colon percutaneous tube. With above assessment, I have recommend the followin. Remove perc tube from transverse colon (done at bedside today) 2. Observe carefully inhouse for any signs of sepsis or ongoing stool leak from the skin opening 3. Hope to d/c home after a few days of observation and if no evidence of sepsis Thank you again for allowing us to participate in the care of this very pleasant but unfortunate lady and I am certain her wonderful family. If there are any questions, please call me at [phone]. TOTAL VISIT TIME: 45 minutes of which more than half was spent at bedside as well as coordination of care between multiple physicians and providers. UPDATED CLINICAL HISTORY: The patient is a very pleasant but unfortunate 66- year-old lady with comorbidities including a BMI of 16.5 as well as history of chronic encephalopathy and debility who was found to have a G-tube placement, unfortunately, into her transverse colon when she was seen in our emergency department today for replacement of a displaced G-tube. S/p PEG 09/13/16. COMORBIDITIES: 1. BMI 16.5. 2. Chronic encephalopathy. 3. Diabetes mellitus type 2. 4. Dysphagia. 5. Essential hypertension. 6. Pulmonary hypertension. 7. Chronic kidney disease. 8. Coronary artery disease. 9. Subdural hematoma. 10. Seizure disorder. 11. Chronic encephalopathy. DATE OF ADMISSION: 09/25/2016 HISTORY OF PRESENT ILLNESS: The patient is a very pleasant but unfortunate 66- year-old lady, well known to me from prior admission, being admitted for observed removal of transverse colon percutaneous tube. She is encephalopathic and noncommunicative and I gathered my information through discussions with colleagues as well as careful review of the available data. ALLERGIES: NO KNOWN DRUG ALLERGIES. MEDICATIONS: Include metformin, Nexium, calcium citrate, paroxetine, Keppra, Humalog, Lantus, indapamide, ferrous sulfate, minoxidil, Coreg and lisinopril. SOCIAL HISTORY: The patient is living in a [facility] and is completely dependent on all activities of daily living. She is chronically encephalopathic. There is no report of issues with chronic smoking, drinking, or intravenous drug use. REVIEW OF SYSTEMS: Unable to obtain due to patient's mental status. PHYSICAL EXAMINATION: GENERAL: The patient appears to be a very pleasant and frail lady of descent, appearing older than stated age, lying in bed comfortably and in no acute distress. BMI is 16.5. VITAL SIGNS: AVSS HEENT: Normocephalic and atraumatic. Extraocular muscles and hearing are grossly intact bilaterally and symmetrically. Sclerae are nonicteric. Oral cavity is clear; oral mucosa appeared to be pink and moist. Dentition: poor. NECK: Supple. There is no lymphadenopathy or JVD. There is no submental, submandibular or supraclavicular lymphadenopathy. CHEST: Rises symmetrically with each breath; patient is breathing comfortably. There are no audible wheezes, rales or rhonchi on the gross exam. HEART: Pulse is regular and palpable on the left wrist. Capillary refill was normal. Carotid pulses are palpable bilaterally and symmetrically in the neck. EXTREMITIES: Lower extremities contain no pitting edema around the ankles bilaterally and symmetrically. ABDOMEN: Soft, nontender and nondistended. There is a new tube that is coming out of the anterior abdominal wall and there is no erythema or edema around the tube itself. There are no peritoneal signs or guarding. SKIN: Appears to be pink and feels warm to touch. NEUROLOGIC: Awake, alert, and follows commands appropriately. LABORATORY DATA: See EHR; previously in august 2016: White blood cell count 11.7 , hemoglobin 7.8, platelets 599. Electrolytes show sodium 160, potassium 3.8, chloride 114, CO2 27, creatinine 1.80. INR 1.11. IMAGING: None today. HPI/ROS Admit Date/Time Admit Date/Time Sep 25, 2016 at 12:16 PMH/Family/Social Social History Smoking Status: Unknown if ever smoked Exam/Review of Systems Vital Signs Vitals Vital Signs Date Time Temp Pulse Resp B/P Pulse Ox O2 Delivery O2 Flow Rate FiO2 09/25/16 13:17 97.2 90 18 109/55 95 Nasal Cannula 3.0 Labs Result Diagram: 09/25/16192909/25/161929 Medications Medications Current Medications Potassium Chloride/Dextrose/ Sod Cl (D5-1/2ns + KCl 20 Meq) 1,000 ml @ 100 mls/ hr Q10H IV Last administered on 09/25/16 18:13; Admin Dose 100 MLS/HR; Start at 16:15 Acetaminophen/ Hydrocodone Bitart (Apison (5/325)) 1 tab Q4H PRN PO PAIN LEVEL 4 -7; Start 09/25/16 at 16:30 Acetaminophen/ Hydrocodone Bitart (Apison (5/325)) 2 tab Q4H PRN PO PAIN LEVEL 7 -10; Start 09/25/16 at 16:30 Hydromorphone HCl (Dilaudid) 0.5 mg Q2 PRN IV PAIN; Start 09/25/16 at 16:30 Hydromorphone HCl (Dilaudid) 1 mg Q2 PRN IV PAIN; Start 09/25/16 at 16:30 Docusate Sodium (Colace) 100 mg BID PRN PO CONSTIPATION; Start 09/25/16 at 16:30 Bisacodyl (Dulcolax Supp) 10 mg BID PRN [place] CONSTIPATION; Start 09/25/16 at 16:30 Sodium Biphosphate/ Sodium Phosphate (Fleet Enema) 133 ml BID PRN [place] CONSTIPATION; Start 09/25/16 at 16:30 Famotidine (Pepcid Iv) 20 mg DAILY IV ; Start 09/26/16 at 09:00 Enoxaparin Sodium (Lovenox) 40 mg DAILY SC ; Start 09/26/16 at 09:00 Insulin Glargine (Lantus) 9 unit DAILY@20 SC Last administered on 09/25/16 20: 29; Admin Dose 9 UNIT; Start 09/25/16 at 20:00 Hydralazine HCl (Apresoline) 10 mg Q6H PRN IV SBP>160; Start 09/25/16 at 16:30 Insulin Aspart (Adult SC Insulin - Mild Algorithm)... Q4 SC Last administered on 09/25/16 20:26; Admin Dose 7 UNIT; Start 09/25/16 at 17:00 Levetiracetam (Keppra 500 Mg/ 100ml (Pmx)) 100 ml @ 400 mls/hr Q12 IVPB ; Start 09/25/16 at 21:00 Miscellaneous Information (Pending Santyl Order For Wound Care) This patient muhammad... PRN PRN XX WOUND CARE; Start 09/25/16 at 19:30 YOSEPH TALAMANTES M.D. Sep 25, 2016 20:45
[2016-09-25 20:52] VITALS: BP 137/62; RESP 19
[2016-09-25] MEDS ORDERED: INSULIN GLARGINE [LANtus] 3 ML PEN SC ONE (21:00)
[2016-09-25] MEDS: LEVETIRACETAM 500 MG (PMX) 100 ML IVPB SCH (21:25)
[2016-09-25 21:53] LABS: LYMPHOCYTES # 1.4 10^3/ul (0.8-2.9); MONOCYTE # 1.4 10^3/ul (0.3-0.9); NEUTROPHIL # 31.7 10^3/ul (1.6-7.5)
[2016-09-25 21:54] LABS: ANISOCYTOSIS 1+
[2016-09-25 21:55] LABS: PLATELET ESTIMATE PLT APPEAR ADEQUATE
[2016-09-25] MEDS: 1/2 NS + KCL 20 MEQ 1,000 ML IV SCH (22:52)
[2016-09-26] MEDS: Insulin NOVOLOG SS MILD Algorithm (NPO/TPN/ENTERAL FEEDS) SC SCH ×7 (01:00→21:51)
[2016-09-26 05:18] LABS: ADD SCAN DIFF NO
[2016-09-26 05:30] LABS: ABNORMAL IP MESSAGE 1; HEMATOCRIT 37.4 % (37.0-47.0); HEMOGLOBIN 11.6 g/dl (12.0-16.0); MEAN CORPUSCULAR VOLUME 96.6 fl (82.0-101.0); MEAN PLATELET VOLUME 12.2 fl (7.4-10.4); PLATELET COUNT 251 10^3/UL (140-415); RED BLOOD COUNT 3.87 10^6/ul (4.20-5.40); RED CELL DISTRIBUTION WIDTH 15.1 % (11.5-14.5); WHITE BLOOD COUNT 36.7 10^3/ul (4.8-10.8)
[2016-09-26 05:49] LABS: PHOSPHORUS 3.1 mg/dl (2.5-4.9)
[2016-09-26 05:50] LABS: MAGNESIUM 2.8 mg/dl (1.7-2.5)
[2016-09-26 05:55] LABS: POTASSIUM 3.8 mmol/L (3.5-5.1)
[2016-09-26 05:58] LABS: CREATININE 1.13 mg/dl (0.44-1.00)
[2016-09-26 05:59] LABS: CALCIUM 9.4 mg/dl (8.4-10.2)
[2016-09-26] MEDS ORDERED: GLUCOSE GEL 15 GRAM TUBE BUCCAL PRN (07:00)
[2016-09-26] MEDS ORDERED: GLUCAGON 1 MG INJ IM PRN (07:00)
[2016-09-26] MEDS ORDERED: DEXTROSE 50% 50 ML SYRINGE IV PRN ×2 (07:00)
[2016-09-26] MEDS ORDERED: GLUCOSE GEL 15 GRAM TUBE PO PRN ×2 (07:00)
[2016-09-26 07:27] VITALS: BP 150/68; RESP 18
[2016-09-26] MEDS: FAMOTIDINE 20 MG INJ IV SCH (08:44)
[2016-09-26] MEDS: ENOXAPARIN 40 MG/0.4 ML SYG SC SCH (08:46)
[2016-09-26] MEDS: LEVETIRACETAM 500 MG (PMX) 100 ML IVPB SCH ×2 (10:30→21:52)
--- NOTE | 2016-09-26 12:40 | PN ---
Date/Time of Note Date/Time of Note DATE: 09/26/16 TIME: 12:36 Assessment/Plan Assessment/Plan Assessment/Plan [facility] Progress Note Date of Service: 09/26/16 Today's Impression & Plan: Overall stable but with continued altered mental status as well as elevated white blood cell count. Her right side of the face is swollen and is suspicious for an infection. Abdomen remains benign and there is no drainage from the previous percutaneous tube that was removed from the transverse colon yesterday by me. No major wound problems. With above assessment, I've recommended the following for today: 1. Broad-spectrum antimicrobials 2. Head and neck CT, and will do abdomen and pelvis without contrast as well 3. Possible need for ENT consultation after above 4. Continue careful observation in hospital low threshold to transfer to telemetry 5. Labs in a.m. Thank you again for your great care of this very pleasant patient and wonderful family. If there are any questions, please feel free to call me at [phone]. TOTAL VISIT TIME: 20 minutes of which more than half was spent in [id number] discussion with the patient, possibly including family, as well as coordination of care between multiple physicians and providers. Disclaimer: Inadvertent spelling or grammatical errors are likely due to EHR/ dictation software use and do not reflect on the overall quality of patient care. UPDATED CLINICAL HISTORY: The patient is a very pleasant but unfortunate 66- year-old lady with comorbidities including a BMI of 16.5 as well as history of chronic encephalopathy and debility who was found to have a G-tube placement, unfortunately, into her transverse colon when she was seen in our emergency department today for replacement of a displaced G-tube. S/p PEG 09/13/16. Readmitted to the hospital electively 09/25/2016 for removal of old percutaneous tube that was in the transverse colon (done by me at bedside on 09/25/2016). White blood cell count elevation noted with swollen right side of the face and broad-spectrum antimicrobials and workup started. COMORBIDITIES: 1. BMI 16.5. 2. Chronic encephalopathy. 3. Diabetes mellitus type 2. 4. Dysphagia. 5. Essential hypertension. 6. Pulmonary hypertension. 7. Chronic kidney disease. 8. Coronary artery disease. 9. Subdural hematoma. 10. Seizure disorder. 11. Chronic encephalopathy. Subjective: No major reported events or complaints; no abd pain or drainage; no n/v/d; no sob or cp; + signs of bowel activity; - activity; family worried about the right side of the face Objective: Vitals: See below Exam: GENERAL: On exam, the patient was laying in bed and not communicative but otherwise appeared to be comfortable and in no acute distress. ABDOMEN: Soft, nontender and nondistended. Site of previous percutaneous drain without any significant drainage and mild staining on the dressings. There are no peritoneal signs or guarding. SKIN: Skin appears to be pink and feels warm to touch. NEUROLOGIC: Patient is not awake, not alert, and does not follow commands appropriately. Right side of face appears to be swollen and there appears to be some tenderness in the region Exam/Review of Systems Vital Signs Vitals Vital Signs Date Time Temp Pulse Resp B/P Pulse Ox O2 Delivery O2 Flow Rate FiO2 09/26/16 09:03 2.0 09/26/16 07:27 99.8 98 18 150/68 92 09/25/16 13:17 Nasal Cannula Intake and Output 09/25/16 09/25/16 09/26/16 15:00 23:00 07:00 Intake Total 400 ml 1080 ml Balance 400 ml 1080 ml Results Result Diagram: 09/26/16 0443 09/26/16 0444 YOSEPH TALAMANTES M.D. Sep 26, 2016 12:40
[2016-09-26 12:44] LABS: EOSINOPHILS # 0.7 10^3/ul (0.0-0.5); LYMPHOCYTES # 3.7 10^3/ul (0.8-2.9); MONOCYTE # 1.1 10^3/ul (0.3-0.9); NEUTROPHIL # 28.6 10^3/ul (1.6-7.5)
[2016-09-26] MEDS ORDERED: VANCOMYCIN IV PER PHARMACY XX SCH (14:00)
--- NOTE | 2016-09-26 14:04 | CONS ---
DATE OF ADMISSION: 09/25/2016 DATE OF CONSULTATION: 09/26/2016 TYPE OF CONSULTATION: Infectious disease. REASON FOR CONSULTATION: Antibiotic management. HISTORY OF PRESENT ILLNESS: Joceline Astorga is a 66-year-old female who was admitted with numerous problems and is being seen for antibiotic management. Past problems include: 1. Adult-onset diabetes mellitus. 2. Dysphagia, status post G-tube placement. 3. Essential hypertension. 4. Pulmonary hypertension. 5. Chronic renal disease. 6. Coronary artery disease. 7. Subdural hematoma. 8. Seizure disorders. 9. Chronic encephalopathy. The patient is bed-bound, with aforementioned problems. The gastrostomy tube that was inserted at [facility] was found to be in the transverse colon. During the previous admission to [facility] a decision was made to insert a new G-tube for feeding the patient and transfer the patient t o a residential and bring her back for removal of the misplaced tube. She comes back on 09/25/2016 for removal of the misplaced G-tube. She is seen by Dr. Yunior Louis. The patient is stable. Th e right side of her face is swollen, suspicious for infection. The abdomen remains benign. There is no drainage from the previous percutaneous tube that was removed from the transverse colon on 09/25 by myself, Dr. Louis. The patient is on broad-spectrum antimicrobials. Head and neck CT an d will do abdomen and pelvis without contrast as well. Possible need for ENT consultation. [facility] Zosyn. White count on admission was 35.2, H and H of 12 and 39, platelet count of 238,000. Today white count 36.7, significantly elevated. BUN and creatinine are 75/1.07, and g lucose on admission was 438. PAST MEDICAL HISTORY: Operations as outlined. FAMILY HISTORY: Noncontributory. SOCIAL HISTORY: She does lives in a residential; has chronic encephalopathy. PHYSICAL EXAMINATION: GENERAL: She is a thin, frail female lying in bed, in no acute distress. VITAL SIGNS: Stable. She is afebrile. SKIN: Without generalized rash. HEENT: Within normal limits. Her face, as noted, she has some facial swelling on the right side. Ot herwise within normal limits. NECK: Supple. LYMPH NODES: None palpable. CHEST: Decreased breath sounds at the bases. HEART: Without murmur or gallop. ABDOMEN: Soft, nontender, without organosplenomegaly or masses. She has a G-tube in place. One G-t ube has been removed from the transverse colon. EXTREMITIES: Without cyanosis, clubbing, or edema. RECTAL AND GENITAL EXAM: Deferred. NEUROLOGIC EVALUATION: No focal neurological abnormality. IMPRESSION AND PLAN: The patient had a misplaced G-tube in the transverse colon. Now she has what appears to be some swelling of the facial area. We may want to add vancomycin to her regimen. I wi ll dictate my findings to Dr. Louis and the hospitalist. Dictated By: CARON CARDOZA MD, JD/LIZBET Conf#: [id number] DID#: [id number]
[2016-09-26] MEDS ORDERED: VANCOMYCIN 750 MG in SOD CHLORIDE 0.9% 150 ML IVPB SCH (15:00)
[2016-09-26] MEDS: ACETAMINOPHEN 500 MG TAB PO PRN (15:18)
[2016-09-26] MEDS: PIPER-TAZO 3.375 GM IV (PMX) 100 ML IVPB SCH ×2 (15:18→21:43)
[2016-09-26] MEDS: 1/2 NS + KCL 20 MEQ 1,000 ML IV SCH (16:03)
[2016-09-26] MEDS ORDERED: BISACODYL 10 MG SUPP PR PRN (16:30)
--- NOTE | 2016-09-26 16:40 | PN ---
DATE: 09/26/2016 SUBJECTIVE DATA: The patient continues to have a fever. WBC trending up. Blood pressure within normal limits. OBJECTIVE DATA: VITAL SIGNS: Temperature 98.8, pulse rate 90, respiratory rate 18, blood pressure 130/68, oxygen saturation 98% on low flow O2. GENERAL: This is a thin, frail-looking female lying in bed in no apparent distress. HEENT: Head normocephalic and atraumatic. Right parotid area enlargement with erythema and redness. ENT: Nasal septum is midline. Oral mucosa is dry. NECK: Supple. The swelling and erythema is on the right side. RESPIRATORY: Bilaterally diminished breath sounds. No adventitious breath sounds. No use of accessory muscles of respiration. CARDIAC: Regular rate and rhythm. S1 and S2 heard. ABDOMEN: Left-sided G-tube in place. The second G-tube has been removed. GENITOURINARY: Deferred. EXTREMITIES: No cyanosis, clubbing, no edema. Peripheral pulses palpable. Muscle wasting of bilateral upper and lower extremities. NEUROLOGIC: The patient is awake. The patient is nonverbal. SKIN: Multiple maculopapular rashes on her trunk and bilateral upper and lower extremities. LABORATORY AND DIAGNOSTIC DATA: WBC 36.7, hemoglobin 11.6, hematocrit 37.4, platelet count 251. Sodium 140, potassium 3.8, chloride 99, carbon dioxide 33, anion gap 20, BUN 79, creatinine 1.13, glucose 138, calcium 9.4. ASSESSMENT AND PLAN: 1. Systemic inflammatory response syndrome with leukocytosis and febrile illness. Etiology unclear. Pancultures ordered. The patient was started on empiric antibiotics. An infectious disease consult was called. We will obtain a chest x-ray to evaluate for any underlying respiratory involvement. The patient has a swelling over the parotid area. We will order imaging studies to evaluate for any underlying infectious etiology. 3. Malpositioned G-tube. Radiographic examination showing G-tube in the transverse colon. Status post removal by general surgery. 4. Essential hypertension. The patient will be maintained on antihypertensives including p.r.n. antihypertensives for any systolic blood pressure readings greater than 160 mmHg. 5. Dysphagia. The patient will be continued on G-tube feedings. 6. Type 2 diabetes mellitus, uncontrolled. Hemoglobin A1c from last visit on 09/11/2016 was 8.2. Adjust insulin dosing to obtain optimal blood sugar control. 7. Chronic kidney disease. We will monitor BUN and creatinine closely. Avoid nephrotoxic medications. 8. Seizure disorder. Continue anticonvulsants. 9. Pulmonary hypertension. Continue supplemental oxygen 10. Microcytic anemia with underlying iron deficiency. Continue iron supplements. Monitor hemoglobin and hematocrit closely. Transfuse as needed. 11. Chronic encephalopathy. Continue supportive care. 12. Fluid, electrolytes and nutrition. Continue G-tube feedings. 13. Deep venous thrombosis prophylaxis. Bilateral sequential compression devices. 14. Gastrointestinal prophylaxis. Histamine 2 receptor blockers. PLAN: Continue empiric antibiotics. Await pancultures. Obtain a CT scan of the face and head. Obtain infectious disease consult. The case was discussed with Dr. Lang. The case was discussed with the patient's surgeon. RIGOBERTO LANG MD, AM/LIZBET Conf#: [id number] DID#: [id number] MTDD
--- NOTE | 2016-09-26 19:31 | RADRPT ---
PROCEDURE: CT Brain without contrast. CLINICAL INDICATION: Neurologic deficit TECHNIQUE: A CT of the brain was performed on multidetector high-resolution CT scanner utilizing a xial sections from the skull base through the vertex without contrast. One or more of the following dose reduction techniques were used: Automated exposure control, Adjustment of the mA and/or kV acc ording to patient size, and/or use of iterative reconstruction technique. DOSE: CTDI = 44 mGy and the DLP = 720 mGy-cm. COMPARISON: Head CT 08/17/2015 FINDINGS: No acute intracranial hemorrhage, significant mass effect or midline shift. Patchy hypoattenuation o f the cerebral white matter is compatible with moderate to severe chronic microvascular ischemic iris nges. Chronic right cerebral cortical infarction involving the right frontal lobe, right parietal lo be, right operculum and right temporal lobe. Vascular calcifications. Prominence of the cortical page lci and ventricles are related to moderate cerebral volume loss. Paranasal sinus mucosal thickening with opacified left sphenoid sinus and chronic red-osteogenesis of the left sphenoid sinus IMPRESSION: No significant interval change identified. No acute intracranial hemorrhage or significant mass effect. Moderate to severe chronic microvascular disease and intracranial atherosclerosis. Chronic right cerebral infarction. 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 RPTAT: AA .Houston Fajardo MD, MD Date Time Electronically viewed and signed by .Houston Fajardo MD, on 09/26/2016 19:30 .T/
--- NOTE | 2016-09-26 19:45 | RADRPT ---
PROCEDURE: CT scan of the neck without contrast. CLINICAL INDICATION: Neck swelling TECHNIQUE: CT scan of the neck was performed. The patient was examined without the use of intrave nous iodinated contrast. No reported complications occurred. One or more of the following dose re duction techniques were used: Automated exposure control, Adjustment of the mA and/or kV according t o patient size, and/or use of iterative reconstruction technique. DOSE: CTDI = 9 mGy and the DLP = 169 mGy-cm. COMPARISON: None available FINDINGS: Evaluation of the soft tissues and vasculature is limited without contrast. Marked enlargement of the right parotid gland. No obstructing stone is seen within the right paroti d duct. There is extensive inflammatory stranding extending to involve the subcutaneous soft tissue s of the submental region and the anterior neck. There is an abnormal thickened and edematous appea neto of the epiglottis and right aryepiglottic fold with effacement of the right piriform sinus and edema of the right pharyngeal space. There is resulting mild narrowing of the lower right orophary nx and hypopharynx. No significant tracheal narrowing is visualized. Inflammatory stranding also in volves the submandibular space bilaterally. Prominent right greater than left cervical lymph nodes are seen which are probably reactive. There is a small amount of fluid in the retropharyngeal space . The left parotid gland is unremarkable The thyroid gland is unremarkable. Opacified left sphenoid sinus with chronic red-osteogenesis. There is also trace fluid in the right mastoid. The mastoids tips are sclerotic bilaterally. Left upper lobe pleural parenchymal nodularity is incompletely imaged. IMPRESSION: Right parotitis and right neck cellulitis extends to the deep spaces of the neck. There is also an a bnormal thickened and edematous appearance of the epiglottis and right aryepiglottic fold. An underl cayden mucosal based mass or acute epiglottitis is not excluded. Consider correlation with direct visu alization. There is resulting mild narrowing of the lower right oropharynx and hypopharynx. There is a small amount of fluid in the retropharyngeal space. No significant tracheal narrowing is visualized. Prominent right greater than left cervical lymph nodes are seen which are probably reactive. Left upper lobe pleural parenchymal nodularity is incompletely imaged. Chest CT would be helpful for further evaluation. Chronic left sphenoid sinusitis. RPTAT: AA .Houston Fajardo MD, MD Date Time Electronically viewed and signed by .Houston Fajardo MD, MD on 09/26/2016 19:45 .T/
--- NOTE | 2016-09-26 19:48 | RADRPT ---
PROCEDURE: CT abdomen and pelvis without IV contrast. CLINICAL INDICATION: Abdominal pain TECHNIQUE: CT scan of the abdomen and pelvis without contrast was performed on the [employer] volumetric [address] scanner. The patient was scanned without intravenous contrast. Coronal and sagittal refo rmatted images were obtained from the axial source images. The CTDI vol is 7.56 mGy and the DLP is 3 67.56 mGy-cm. COMPARISON: None. FINDINGS: CT abdomen: Bibasilar air space disease is seen. Aortic and coronary vascular calcifications are seen. The heart size is mild enlarged and is without pericardial thickening or effusion. The liver is normal in size and density and is without focal mass or intrahepatic biliary dilatation . The spleen is normal in size and homogeneous in density. A gastrostomy tube is seen. The stomach is otherwise grossly unremarkable. The pancreas as visualized is normal. The gallbladder and bilia ry tree are unremarkable and there is no evidence for common bile duct dilatation. The adrenal glan ds are symmetric and normal. The kidneys are symmetrically unremarkable as well. No renal calculus or obstructive uropathy or mass lesion is seen. The aorta is of normal in caliber. Aortic calcifications are seen. There is no retroperitoneal lymph adenopathy. The paddy hepatis region is clear. The large bowel is stool-filled. The small and larg e bowel and mesentery, as visualized, are otherwise unremarkable. No inflammatory changes in the per iappendiceal region is seen. CT pelvis: The uterus is absent. A fat containing right inguinal hernia is seen with mild inflammatory changes in the fat. The pelvic sidewalls are clear. No pelvic mass, lymphadenopathy, or free fluid is seen . No acute inflammation is seen. The urinary bladder is within normal limits. Diffuse osteopenia is seen. Degenerative spondylosis of the lumbar spine is seen. No osteolytic or osteoblastic lesion is detected. IMPRESSION: 1. Bibasilar air space disease. 2. Fat-containing right inguinal hernia with inflammatory changes within the inguinal fat. 3. Stool filled large bowel. 4. Gastrostomy tube identified. RPTAT: HPNM Physician [place]by Date Time Electronically viewed and signed by Garrett Ferrer Physician on 09/26/2016 19:48 /
[2016-09-26 21:00] VITALS: BP 89/54; RESP 18
[2016-09-26] MEDS: BENAZEPRIL 5 MG TAB GTB SCH (21:00)
[2016-09-26] MEDS: LATANOPROST 0.005% 2.5 ML OPH BOTH EYES SCH (21:47)
[2016-09-26] MEDS: INSULIN GLARGINE [LANtus] 3 ML PEN SC SCH (21:50)
[2016-09-27] MEDS: PIPER-TAZO 3.375 GM IV (PMX) 100 ML IVPB SCH ×4 (00:07→17:36)
[2016-09-27] MEDS: Insulin NOVOLOG SS MILD Algorithm (NPO/TPN/ENTERAL FEEDS) SC SCH ×6 (01:30→20:59)
[2016-09-27 05:49] LABS: ADD SCAN DIFF NO
[2016-09-27 05:54] LABS: BASOPHILS % 0.2 % (0.0-2.0); EOSINOPHILS # 0.2 10^3/ul (0.0-0.5); EOSINOPHILS % 0.9 % (0.0-7.0); HEMATOCRIT 38.6 % (37.0-47.0); HEMOGLOBIN 11.6 g/dl (12.0-16.0); LYMPHOCYTES # 1.4 10^3/ul (0.8-2.9); LYMPHOCYTES % 8.6 % (15.0-51.0); MEAN CORPUSCULAR HEMOGLOBIN 29.8 pg (29.0-33.0); MEAN CORPUSCULAR HGB CONC 30.1 g/dl (32.0-37.0); MEAN CORPUSCULAR VOLUME 99.2 fl (82.0-101.0); MEAN PLATELET VOLUME 12.6 fl (7.4-10.4); MONOCYTE # 0.5 10^3/ul (0.3-0.9); MONOCYTES % 3.2 % (0.0-11.0); NEUTROPHIL # 14.4 10^3/ul (1.6-7.5); PLATELET COUNT 188 10^3/UL (140-415); RED BLOOD COUNT 3.89 10^6/ul (4.20-5.40); RED CELL DISTRIBUTION WIDTH 15.4 % (11.5-14.5); WHITE BLOOD COUNT 16.7 10^3/ul (4.8-10.8)
[2016-09-27 06:02] LABS: INR 1.03; PROTIME 13.5 Sec (12.2-14.2); PT RATIO 1.1
[2016-09-27 06:03] LABS: PARTIAL THROMBOPLASTIN TIME 33.7 Sec (25.0-35.0)
[2016-09-27 07:22] VITALS: BP 137/64; RESP 18
[2016-09-27 07:28] LABS: ALBUMIN 3.1 g/dl (3.3-4.9); ALBUMIN/GLOBULIN RATIO 0.7; BILIRUBIN,INDIRECT 0.2 mg/dl (0-1.1); BILIRUBIN,TOTAL 0.2 mg/dl (0.2-1.3); CALCIUM 8.7 mg/dl (8.4-10.2); CREATININE 0.82 mg/dl (0.44-1.00); MAGNESIUM 2.8 mg/dl (1.7-2.5); PHOSPHORUS 2.6 mg/dl (2.5-4.9); POTASSIUM 4.6 mmol/L (3.5-5.1); TOTAL PROTEIN 7.5 g/dl (6.1-8.1)
[2016-09-27] MEDS: ACETAMINOPHEN 500 MG TAB PO PRN (08:28)
[2016-09-27] MEDS: FAMOTIDINE 20 MG INJ IV SCH (08:28)
[2016-09-27] MEDS: ENOXAPARIN 40 MG/0.4 ML SYG SC SCH (08:28)
[2016-09-27] MEDS: BENAZEPRIL 5 MG TAB GTB SCH ×2 (08:29→21:12)
[2016-09-27] MEDS: MULTIVITAMINS 5 ML CUP GTB SCH (08:30)
[2016-09-27] MEDS: LEVETIRACETAM 500 MG (PMX) 100 ML IVPB SCH ×2 (08:31→20:59)
[2016-09-27] MEDS: FERROUS SULFATE 60 MG/ML 5ML CUP GTB SCH (08:31)
[2016-09-27] MEDS ORDERED: INDAPAMIDE 2.5 MG GTB SCH (09:00)
[2016-09-27] MEDS ORDERED: MULTIVITAMINS THERAPEUTIC TAB GTB SCH (09:00)
--- NOTE | 2016-09-27 09:43 | PN ---
Date/Time of Note Date/Time of Note DATE: 09/27/16 TIME: 09:38 Assessment/Plan Lines/Catheters IV Catheter Type (from Nrs): Peripheral IV Assessment/Plan Assessment/Plan [facility] Progress Note Date of Service: 09/27/16 Today's Impression & Plan: Overall stable and slightly improved. WBC down with antimicrobial coverage. Abd remains benign, but some drainage of stool noted from prior tube placement site. Her right side of the face is swollen and is suspicious for an infection. With above assessment, I've recommended the following for today: 1. Cont broad-spectrum antimicrobials (appreciate Dr. Jackson and team's input) 2. Chest CT as recommended for eval nodularity seen in upper lung freeman from neck CT 3. ENT consultation 4. Continue careful observation in hospital low threshold to transfer to telemetry 5. Labs in a.m. 6. Possible surgical intervention next week if drainage of stool from the old drain site continues Thank you again for your great care of this very pleasant patient and wonderful family. If there are any questions, please feel free to call me at [phone]. TOTAL VISIT TIME: 20 minutes of which more than half was spent in [id number] discussion with the patient, possibly including family, as well as coordination of care between multiple physicians and providers. Disclaimer: Inadvertent spelling or grammatical errors are likely due to EHR/ dictation software use and do not reflect on the overall quality of patient care. UPDATED CLINICAL HISTORY: The patient is a very pleasant but unfortunate 66- year-old lady with comorbidities including a BMI of 16.5 as well as history of chronic encephalopathy and debility who was found to have a G-tube placement, unfortunately, into her transverse colon when she was seen in our emergency department today for replacement of a displaced G-tube. S/p PEG 09/13/16. Readmitted to the hospital electively 09/25/2016 for removal of old percutaneous tube that was in the transverse colon (done by me at bedside on 09/25/2016). White blood cell count elevation noted with swollen right side of the face and broad-spectrum antimicrobials and workup started. Head and neck CT scan demonstrated enlarged glands in the right side of the face and possibility of malignancy could not be ruled out but it was more consistent with an infection. Patient's white blood cell count came down with initiation of broad-spectrum antimicrobial coverage. Nodularities in lung freeman were noted on the neck CT and therefore chest CT was ordered. Patient started having some stool drainage from the prior percutaneous tube placement site but abdomen remained benign. COMORBIDITIES: 1. BMI 16.5. 2. Chronic encephalopathy. 3. Diabetes mellitus type 2. 4. Dysphagia. 5. Essential hypertension. 6. Pulmonary hypertension. 7. Chronic kidney disease. 8. Coronary artery disease. 9. Subdural hematoma. 10. Seizure disorder. 11. Chronic encephalopathy. Subjective: No major reported events or complaints other than above; no abd pain with drainage noted from the old drain site; no n/v/d; no sob or cp; + signs of bowel activity; - activity Objective: Vitals: See below Exam: GENERAL: On exam, the patient was laying in bed and not communicative but otherwise appeared to be comfortable and in no acute distress. ABDOMEN: Soft, nontender and nondistended. Site of previous percutaneous drain with staining on the dressings. Skin around it is slightly erythematous. There are no peritoneal signs or guarding. SKIN: Skin appears to be pink and feels warm to touch. NEUROLOGIC: Patient is not awake, not alert, and does not follow commands appropriately. Right side of face appears to be swollen and there appears to be some tenderness in the region Exam/Review of Systems Vital Signs Vitals Vital Signs Date Time Temp Pulse Resp B/P Pulse Ox O2 Delivery O2 Flow Rate FiO2 09/27/16 07:22 101.7 98 18 137/64 94 09/26/16 20:00 2.0 09/25/16 13:17 Nasal Cannula Intake and Output 09/26/16 09/26/16 09/27/16 15:00 23:00 07:00 Intake Total 100 ml 1650 ml 1630 ml Balance 100 ml 1650 ml 1630 ml Results Result Diagram: 09/27/16 0420 09/27/16 0420 YOSEPH TALAMANTES M.D. Sep 27, 2016 09:43
--- NOTE | 2016-09-27 12:48 | PN ---
Date/Time of Note Date/Time of Note DATE: 09/27/16 TIME: 12:48 Assessment/Plan VTE Prophylaxis VTE Prophylaxis Intervention: LMWH Lines/Catheters IV Catheter Type (from [facility]): Peripheral IV Assessment/Plan Chief Complaint/Hosp Course 1. Sepsis secondary to underlying urinary tract infection and aspiration pneumonia along with right parotitis. Continue antibiotics as per infectious diseases. No evidence of any septic shock. 2. Right parotitis and right neck cellulitis. Continue antibiotics as per infectious diseases. ENT consult was called. 3. Malpositioned G-tube. Radiographic examination showing G-tube in the transverse colon. Status post removal by general surgery. 4. Essential hypertension. The patient will be maintained on antihypertensives including p.r.n. antihypertensives for any systolic blood pressure readings greater than 160 mmHg. 5. Dysphagia. The patient will be continued on G-tube feedings. 6. Type 2 diabetes mellitus, uncontrolled. Hemoglobin A1c from last visit on 09/11/2016 was 8.2. Adjust insulin dosing to obtain optimal blood sugar control. 7. Chronic kidney disease. We will monitor BUN and creatinine closely. Avoid nephrotoxic medications. 8. Seizure disorder. Continue anticonvulsants. 9. Pulmonary hypertension. Continue supplemental oxygen 10. Microcytic anemia with underlying iron deficiency. Continue iron supplements. Monitor hemoglobin and hematocrit closely. Transfuse as needed. 11. Chronic encephalopathy. Continue supportive care. 12. Fluid, electrolytes and nutrition. Continue G-tube feedings. 13. Deep venous thrombosis prophylaxis. Subcutaneous Lovenox. 14. Gastrointestinal prophylaxis. Histamine 2 receptor blockers. PLAN: Continue antibiotics as per infectious diseases. Monitor in house. Obtain ENT consult. ENT consult was called with the ENT panel on 09/27/2016 at around 8:45 AM. The case was discussed with Dr. Peck. Problems: Subjective 24 Hr Interval Summary Free Text/Dictation The patient continues to have febrile episodes. Exam/Review of Systems Vital Signs Vitals Vital Signs Date Time Temp Pulse Resp B/P Pulse Ox O2 Delivery O2 Flow Rate FiO2 09/27/16 09:14 2.0 09/27/16 07:22 101.7 98 18 137/64 94 09/25/16 13:17 Nasal Cannula Intake and Output 09/26/16 09/26/16 09/27/16 15:00 23:00 07:00 Intake Total 100 ml 1650 ml 1630 ml Balance 100 ml 1650 ml 1630 ml Exam GENERAL: This is a thin, frail-looking female lying in bed in no apparent distress. HEENT: Head normocephalic and atraumatic. Right parotid area enlargement with erythema and redness. ENT: Nasal septum is midline. Oral mucosa is dry. NECK: Supple. There is erythema and edema on the right side. RESPIRATORY: Bilaterally diminished breath sounds. No adventitious breath sounds. No use of accessory muscles of respiration. CARDIAC: Regular rate and rhythm. S1 and S2 heard. ABDOMEN: Left-sided G-tube in place. The second G-tube has been removed. GENITOURINARY: Deferred. EXTREMITIES: No cyanosis, clubbing, no edema. Peripheral pulses palpable. Muscle wasting of bilateral upper and lower extremities. NEUROLOGIC: The patient is awake. The patient is nonverbal. SKIN: Multiple maculopapular rashes on her trunk and bilateral upper and lower extremities. Results Result Diagram: 09/27/16 0420 09/27/16 0420 Results 24 hrs Laboratory Tests Test 09/26/16 17:21 09/26/16 18:10 09/26/16 21:49 09/27/16 01:20 Bedside Glucose 285 H 257 H 264 H Lactic Acid Level 1.4 Test 09/27/16 04:20 09/27/16 05:24 09/27/16 08:24 09/27/16 12:14 White Blood Count 16.7 #H Red Blood Count 3.89 L Hemoglobin 11.6 L Hematocrit 38.6 Mean Corpuscular Volume 99.2 Mean Corpuscular Hemoglobin 29.8 Mean Corpuscular Hemoglobin Concent 30.1 L Red Cell Distribution Width 15.4 H Platelet Count 188 # Mean Platelet Volume 12.6 H Neutrophils % 86.0 H Lymphocytes % 8.6 L Monocytes % 3.2 Eosinophils % 0.9 Basophils % 0.2 Nucleated Red Blood Cells % 0.0 Neutrophils # 14.4 H Lymphocytes # 1.4 Monocytes # 0.5 Eosinophils # 0.2 Basophils # 0.0 Nucleated Red Blood Cells # 0.0 Prothrombin Time 13.5 Prothrombin Time Ratio 1.1 INR International Normalized Ratio 1.03 Activated Partial Thromboplast Time 33.7 Sodium Level 142 Potassium Level 4.6 Chloride Level 103 Carbon Dioxide Level 29 Anion Gap 15 Blood Urea Nitrogen 66 H Creatinine 0.82 Glucose Level 297 #H Lactic Acid Level 2.8 H Calcium Level 8.7 Phosphorus Level 2.6 Magnesium Level 2.8 H Total Bilirubin 0.2 Direct Bilirubin 0.00 Indirect Bilirubin 0.2 Aspartate Amino Transf (AST/SGOT) 52 H Alanine Aminotransferase (ALT/SGPT) 17 Alkaline Phosphatase 150 H B-Type Natriuretic Peptide 1080 H Total Protein 7.5 Albumin 3.1 L Globulin 4.40 H Albumin/Globulin Ratio 0.70 Bedside Glucose 265 H 261 H 155 Medications Medications Current Medications Acetaminophen/ Hydrocodone Bitart ([place] (5/325)) 1 tab Q4H PRN PO PAIN LEVEL 4 -7; Start 09/25/16 at 16:30 Acetaminophen/ Hydrocodone Bitart ([place] (5/325)) 2 tab Q4H PRN PO PAIN LEVEL 7 -10; Start 09/25/16 at 16:30 Hydromorphone HCl (Dilaudid) 0.5 mg Q2 PRN IV PAIN; Start 09/25/16 at 16:30 Hydromorphone HCl (Dilaudid) 1 mg Q2 PRN IV PAIN; Start 09/25/16 at 16:30 Docusate Sodium (Colace) 100 mg BID PRN PO CONSTIPATION; Start 09/25/16 at 16:30 Bisacodyl (Dulcolax Supp) 10 mg BID PRN MO CONSTIPATION; Start 09/25/16 at 16:30 Sodium Biphosphate/ Sodium Phosphate (Fleet Enema) 133 ml BID PRN MO CONSTIPATION; Start 09/25/16 at 16:30 Famotidine (Pepcid Iv) 20 mg DAILY IV Last administered on 09/27/16 08:28; Admin Dose 20 MG; Start 09/26/16 at 09:00 Enoxaparin Sodium (Lovenox) 40 mg DAILY SC Last administered on 09/27/16 08:28 ; Admin Dose 40 MG; Start 09/26/16 at 09:00 Insulin Glargine (Lantus) 9 unit DAILY@20 SC Last administered on 09/26/16 21: 50; Admin Dose 9 UNIT; Start 09/25/16 at 20:00 Hydralazine HCl (Apresoline) 10 mg Q6H PRN IV SBP>160; Start 09/25/16 at 16:30 Insulin Aspart (Adult SC Insulin - Mild Algorithm)... Q4 SC Last administered on 09/27/16 12:19; Admin Dose 1 UNIT; Start 09/25/16 at 17:00 Levetiracetam (Keppra 500 Mg/ 100ml (Pmx)) 100 ml @ 400 mls/hr Q12 IVPB Last administered on 09/27/16 08:31; Admin Dose 400 MLS/HR; Start 09/25/16 at 21:00 Miscellaneous Information This patient muhammad... PRN PRN XX WOUND CARE; Start at 19:30 Potassium Chloride/Sodium Chloride (1/2 NS + KCl 20 Meq) 1,000 ml @ 50 mls/hr Q20H IV Last administered on 09/26/16 16:03; Admin Dose 50 MLS/HR; Start at 22:00 Miscellaneous Information 1 ea NOTE XX ; Start 09/26/16 at 07:00 Glucose (Glutose) 15 gm Q15M PRN PO DECREASED GLUCOSE; Start 09/26/16 at 07:00 Glucose (Glutose) 22.5 gm Q15M PRN PO DECREASED GLUCOSE; Start 09/26/16 at 07:00 Dextrose (D50w Syringe) 25 ml Q15M PRN IV DECREASED GLUCOSE; Start 09/26/16 at 07:00 Dextrose (D50w Syringe) 50 ml Q15M PRN IV DECREASED GLUCOSE; Start 09/26/16 at 07:00 Glucagon (Glucagen) 1 mg Q15M PRN IM DECREASED GLUCOSE; Start 09/26/16 at 07:00 Glucose 15 gm 15 gm Q15M PRN BUCCAL DECREASED GLUCOSE; Start 09/26/16 at 07:00 Piperacillin Sod/ Tazobactam Sod 100 ml @ 200 mls/hr Q6 IVPB Last administered on 09/27/16 12:19; Admin Dose 200 MLS/HR; Start 09/26/16 at 13:00 Vancomycin HCl (Vancocin) 100 ml @ 100 mls/hr Q24H IVPB ; Start 09/27/16 at 16: 00 Acetaminophen (Tylenol Tab) 500 mg Q6H PRN PO PAIN AND OR ELEVATED TEMP Last administered on 09/27/16 08:28; Admin Dose 500 MG; Start 09/26/16 at 15:30 Benazepril HCl (Lotensin) 5 mg BID GTB Last administered on 09/27/16 08:29; Admin Dose 5 MG; Start 09/26/16 at 21:00 Carvedilol (Coreg) 12.5 mg BID GTB Last administered on 09/27/16 08:29; Admin Dose 12.5 MG; Start 09/26/16 at 21:00 Ferrous Sulfate (Feosol Liquid Cup) 300 mg DAILY GTB Last administered on 08:31; Admin Dose 300 MG; Start 09/27/16 at 09:00 Latanoprost (Xalatan) 1 drop QHS BOTH EYES Last administered on 09/26/16 21:47 ; Admin Dose 1 DROP; Start 09/26/16 at 21:00 Multivitamins (Thera-Plus) 5 ml DAILY GTB Last administered on 09/27/16 08:30; Admin Dose 5 ML; Start 09/27/16 at 09:00 RIGOBERTO JORDAN NP Sep 27, 2016 12:48
[2016-09-27] MEDS: 1/2 NS + KCL 20 MEQ 1,000 ML IV SCH (13:12)
--- NOTE | 2016-09-27 15:44 | RADRPT ---
PROCEDURE: CT Chest. CLINICAL INDICATION: Dyspnea and shortness of breath TECHNIQUE: CT scan of the chest without contrast was performed on the [employer] [place] volumetric [address] [facility] without contrast. Coronal and sagittal reformatted images were obtained from the axial source images. The CTDI vol is 3.89 mGy and the DLP is 157.22 mGy-cm. COMPARISON: CT chest from 11/08/2015 FINDINGS: Complete opacification of the left lung is seen secondary to consolidation with air bronchograms as well as a left pleural effusion. Leftward mediastinal shift is seen. Very mild right lower lobe ate lectasis is seen. The mediastinum and hilum are unremarkable without evidence for mass or lymphaden opathy. Aortic and coronary vascular calcifications are seen. The vascular structures of the medias tinum are otherwise unremarkable in course and caliber. The heart size is borderline in size and is without evidence for pericardial thickening or effusion. The axillary regions, subpectoral regions , and supraclavicular regions are all unremarkable. A gastrostomy tube is identified. Imaging obtain ed through the upper abdomen reveals no acute abnormality. Degenerative spondylosis of the thoracic spine is seen. No osteolytic or osteoblastic lesion is detected. IMPRESSION: 1. Complete opacification of the left lung secondary to consolidation as well as a left pleural eff usion with left lower mediastinal shift. 2. Gastrostomy tube identified. RPTAT: HPNM Physician Fabby Date Time Electronically viewed and signed by Physician Fabby on 09/27/2016 15:44 /
[2016-09-27] MEDS ORDERED: VANCOMYCIN 500MG/NS (PMX) 100 ML IVPB SCH (16:00)
--- NOTE | 2016-09-27 16:04 | PN ---
DATE: 09/27/2016 SUBJECTIVE: No acute changes. The patient is lying comfortably in bed, spiking fevers with a temperature of 101.7. LABORATORY DATA: WBC 16.7, H and H 11.6 and 38.6, platelets 188, neutrophils 86 , no bands. BUN 66, creatinine 0.82. MICROBIOLOGY: Nares swab positive for MRSA. Urine culture growing gram- negative rods. Blood cultures negative. Sputum culture growing Staphylococcus aureus and gram-negative rods. DIAGNOSTICS: Neck CT revealed right parotitis and right neck cellulitis extending to the deep spaces of the neck. There is also abnormal thickened and edematous appearance of epiglottitis and right epiglottic fold. No significant tracheal narrowing. CT of the brain revealed no acute intracranial hemorrhage or significant mass effect. 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 CT of the abdomen and pelvis revealed bibasilar airspace disease, stool filled large bowel, NG tube. ANTIMICROBIALS: The patient is on: 1. IV vancomycin. 2. Topical Bactroban to nares. 3. Zosyn. INDWELLINGS: The patient has PEG. PHYSICAL EXAMINATION: GENERAL: This is a chronically ill-appearing, cachectic, elderly woman who is lying comfortably in bed. HEENT: Head atraumatic, normocephalic. Sclerae anicteric. Buccal mucosa dry. NECK: Supple, trachea midline. The patient has right-sided jaw swelling and erythema extending to the neck. CHEST: Rise symmetrical. Breath sounds diminished to bases. ABDOMEN: Soft. G-tube site clear. Bowel sounds present. EXTREMITIES: Without cyanosis. SKIN: With multiple scratches and maculopapular rash in of various stages of healing. ASSESSMENT: 1. Sepsis. 2. Right parotitis with right neck cellulitis and possible abscess. 3. Methicillin-resistant Staphylococcus aureus nares colonization. 4. Gram-negative rods urinary tract infection. 5. Rash, possible scabies. 6. Fecal impaction. 7. Dysphagia. 8. Diabetes. 9. Hypertension. PLAN: We are going to treat with Elimite cream tonight and give her a dose of ivermectin. Continue on current antibiotics. Continue Bactroban to nares. Follow surgical recommendations and await for ENT evaluation. Dictated By: MEL OLEARY PRODUCE WEIGHER for CARON OLIVIA/LIZBET Conf#: [id number] [facility]#: [id number] MTDD
[2016-09-27] MEDS ORDERED: IVERMECTIN 3 MG TAB PO ONE (17:00)
[2016-09-27] MEDS: MUPIROCIN 2% 22 GM OINT TOP SCH (17:36)
[2016-09-27] MEDS ORDERED: INSULIN GLARGINE [LANtus] 3 ML PEN SC SCH (20:00)
[2016-09-27 20:01] VITALS: BP 147/62; RESP 18
[2016-09-27] MEDS ORDERED: PERMETHRIN 5% 60 GM CR TOP ONE (21:00)
[2016-09-27] MEDS: LATANOPROST 0.005% 2.5 ML OPH BOTH EYES SCH (21:00)
[2016-09-28] MEDS: PIPER-TAZO 3.375 GM IV (PMX) 100 ML IVPB SCH ×2 (00:40→06:00)
[2016-09-28] MEDS: MUPIROCIN 2% 22 GM OINT TOP SCH ×3 (00:41→21:42)
[2016-09-28] MEDS: Insulin NOVOLOG SS MILD Algorithm (NPO/TPN/ENTERAL FEEDS) SC SCH ×6 (00:45→20:58)
[2016-09-28] MEDS: DIPHENHYDRAMINE 50 MG INJ IV PRN (04:26)
[2016-09-28 05:19] LABS: ADD SCAN DIFF NO
[2016-09-28 05:30] LABS: ABNORMAL IP MESSAGE 1; BASOPHILS % 0.2 % (0.0-2.0); EOSINOPHILS # 0.9 10^3/ul (0.0-0.5); EOSINOPHILS % 9.4 % (0.0-7.0); HEMATOCRIT 38.5 % (37.0-47.0); HEMOGLOBIN 11.6 g/dl (12.0-16.0); LYMPHOCYTES # 1.5 10^3/ul (0.8-2.9); LYMPHOCYTES % 15.9 % (15.0-51.0); MEAN CORPUSCULAR HEMOGLOBIN 29.5 pg (29.0-33.0); MEAN CORPUSCULAR HGB CONC 30.1 g/dl (32.0-37.0); MEAN PLATELET VOLUME 12.4 fl (7.4-10.4); MONOCYTE # 0.5 10^3/ul (0.3-0.9); NEUTROPHIL # 6.5 10^3/ul (1.6-7.5); NEUTROPHILS % 69.1 % (39.0-77.0); PLATELET COUNT 235 10^3/UL (140-415); RED BLOOD COUNT 3.93 10^6/ul (4.20-5.40); RED CELL DISTRIBUTION WIDTH 15.2 % (11.5-14.5); WHITE BLOOD COUNT 9.4 10^3/ul (4.8-10.8)
[2016-09-28 05:37] LABS: POTASSIUM 3.8 mmol/L (3.5-5.1)
[2016-09-28 05:39] LABS: CREATININE 0.76 mg/dl (0.44-1.00)
[2016-09-28 05:40] LABS: CALCIUM 8.5 mg/dl (8.4-10.2)
--- NOTE | 2016-09-28 05:44 | CONS ---
DATE OF ADMISSION: 09/27/2016 DATE OF CONSULTATION: 09/27/2016 TYPE OF CONSULTATION: Ear, Nose and Throat REFERRING PHYSICIAN: Dr. Louis REASON FOR CONSULTATION: Parotitis and cellulitis. INDICATIONS FOR PROCEDURE: The patient is a 66-year-old female who was admitted for numerous problems and who was found to have right facial swelling and pain. A CT scan was obtained which demonstrated a scan consistent with a right parotitis, lymphadenitis and cellulitis of the right neck. There was also some concern of airway edema and ENT was consulted. The patient is unable to give any history and the consultation is based upon chart review. PAST MEDICAL HISTORY: Diabetes, dysphagia with G-tube, hypertension, chronic renal disease, coronary artery disease, history of subdural hematoma, history of seizures, history of encephalopathy. PAST SURGICAL HISTORY: G-tube. ALLERGIES: NO KNOWN DRUG ALLERGIES. MEDICATIONS: 1. Insulin. 2. Vancomycin. 3. Mupirocin 4. Ivermectin. 5. Benazepril. 6. Carvedilol. 7. Zosyn. 8. Pepcid. FAMILY HISTORY: Noncontributory. SOCIAL HISTORY: The patient was in a assisted for chronic encephalopathy. PHYSICAL EXAMINATION: GENERAL: The patient is awake, not oriented, and mildly cachectic. She is in no acute distress. EARS: Exam demonstrates patent external canals. No auricular swelling or drainage from either ear canal. NOSE: Nasal exam with patent nares bilaterally, no epistaxis or purulence. MOUTH: Oral cavity with minimal saliva seen emanating from the right Stensen duct. No pus is seen emanating from right Stensen duct. NECK: Shows a tense and tender right parotid with mild to moderate erythema overlying the right parotid gland. There is slightly less induration and erythema extending down with some palpable adenopathy, right greater than left. PROCEDURE: Flexible laryngoscopy was performed. Lidocaine and Afrin nasal spray were placed in the patient's nares. The flexible laryngoscope was advanced down into the larynx. The exam is limited due to patient noncompliance , but the supraglottis was noted to be minimally edematous with no significant obstruction of the airway. ASSESSMENT: The patient is a 66-year-old female with right parotitis with adjacent cellulitis and lymphadenitis. There is minimal to no airway obstruction from her infection. Continue IV antibiotics per infectious disease consultation. The likely etiology for the parotitis is poor oral hygiene in an encephalopathic patient in a assisted. There is the possibility of mumps. However, even if the titer was elevated for mumps, I would still likely recommend continued IV antibiotics due to the concern that there may be a bacterial superinfection. I will continue to follow, to ensure that her cellulitis resolves and that abscess formation does not occur. At this time, there are no current surgical indications in this patient. Thank you for referring this patient. Dictated By: ART GROVER MD, [facility]/LIZBET Conf#: [id number] DID#: [id number] MTDD
[2016-09-28 07:41] VITALS: BP 152/66; RESP 19
[2016-09-28 07:45] LABS: MAGNESIUM 2.5 mg/dl (1.7-2.5); PHOSPHORUS 1.5 mg/dl (2.5-4.9)
[2016-09-28] MEDS: ENOXAPARIN 40 MG/0.4 ML SYG SC SCH (08:44)
[2016-09-28] MEDS: MULTIVITAMINS 5 ML CUP GTB SCH (08:45)
[2016-09-28] MEDS: FERROUS SULFATE 60 MG/ML 5ML CUP GTB SCH (08:45)
[2016-09-28] MEDS: FAMOTIDINE 20 MG INJ IV SCH (08:46)
[2016-09-28] MEDS: BENAZEPRIL 5 MG TAB GTB SCH ×2 (08:46→21:41)
[2016-09-28] MEDS: LEVETIRACETAM 500 MG (PMX) 100 ML IVPB SCH ×2 (12:31→21:00)
[2016-09-28] MEDS: 1/2 NS + KCL 20 MEQ 1,000 ML IV SCH (12:32)
--- NOTE | 2016-09-28 13:20 | PN ---
Date/Time of Note Date/Time of Note DATE: 09/28/16 TIME: 13:13 Assessment/Plan VTE Prophylaxis VTE Prophylaxis Intervention: LMWH Lines/Catheters IV Catheter Type (from [facility]): Peripheral IV Assessment/Plan Chief Complaint/Hosp Course 1. Sepsis secondary to underlying urinary tract infection and aspiration pneumonia along with right parotitis. Continue antibiotics as per infectious diseases. No evidence of any septic shock. 2. Aspiration pneumonia with E. coli ESBL. Continue antibiotics as per infectious diseases. Isolation precautions. 3. Right parotitis and right neck cellulitis. Continue antibiotics as per infectious diseases. S/P ENT evaluation. Continue antibiotics. 4. Malpositioned G-tube. Radiographic examination showing G-tube in the transverse colon. Status post removal by general surgery. 5. Essential hypertension. The patient will be maintained on antihypertensives including p.r.n. antihypertensives for any systolic blood pressure readings greater than 160 mmHg. 6. Complete opacification of the left lung with underlying consolidation. Will involve pulmonology on the case. Continue antibiotics as per ID. 7. Dysphagia. The patient will be continued on G-tube feedings. 8. Type 2 diabetes mellitus, uncontrolled. Hemoglobin A1c from last visit on 09/11/2016 was 8.2. Adjust insulin dosing to obtain optimal blood sugar control. 9. Chronic kidney disease. We will monitor BUN and creatinine closely. Avoid nephrotoxic medications. 10. Seizure disorder. Continue anticonvulsants. 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 Continue Bactroban. 12. Pulmonary hypertension. Continue supplemental oxygen 13. Microcytic anemia with underlying iron deficiency. Continue iron supplements. Monitor hemoglobin and hematocrit closely. Transfuse as needed. 14. Chronic encephalopathy. Continue supportive care. 15. Fluid, electrolytes and nutrition. Continue G-tube feedings. 16. Deep venous thrombosis prophylaxis. Subcutaneous Lovenox. 17. Gastrointestinal prophylaxis. Histamine 2 receptor blockers. PLAN: Continue antibiotics as per infectious diseases. Monitor in house. Obtain pulmonary consult. Obtain a PICC line because of poor IV access. The case was discussed with Dr. Peck. Problems: Subjective 24 Hr Interval Summary Free Text/Dictation Low grade fever in the AM. Exam/Review of Systems Vital Signs Vitals Vital Signs Date Time Temp Pulse Resp B/P Pulse Ox O2 Delivery O2 Flow Rate FiO2 09/28/16 10:40 2.0 09/28/16 07:41 99.7 70 19 152/66 99 4/5/17 13:17 Nasal Cannula Intake and Output 09/27/16 09/27/16 09/28/16 15:00 23:00 07:00 Intake Total 500 ml 1400 ml 1300 ml Balance 500 ml 1400 ml 1300 ml Exam GENERAL: This is a thin, frail-looking female lying in bed in no apparent distress. HEENT: Head normocephalic and atraumatic. Right parotid area enlargement with erythema and redness. ENT: Nasal septum is midline. Oral mucosa is dry. NECK: Supple. There is erythema and edema on the right side. RESPIRATORY: Bilaterally diminished breath sounds. No adventitious breath sounds. No use of accessory muscles of respiration. CARDIAC: Regular rate and rhythm. S1 and S2 heard. ABDOMEN: Left-sided G-tube in place. The second G-tube has been removed. GENITOURINARY: Deferred. EXTREMITIES: No cyanosis, clubbing, no edema. Peripheral pulses palpable. Muscle wasting of bilateral upper and lower extremities. NEUROLOGIC: The patient is awake. The patient is nonverbal. SKIN: Multiple maculopapular rashes on her trunk and bilateral upper and lower extremities. Results Result Diagram: 09/28/16 0420 09/28/16 0420 Results 24 hrs Laboratory Tests Test 09/27/16 16:47 09/27/16 20:53 09/28/16 00:43 09/28/16 04:20 Bedside Glucose 275 H 354 H 285 H White Blood Count 9.4 # Red Blood Count 3.93 L Hemoglobin 11.6 L Hematocrit 38.5 Mean Corpuscular Volume 98.0 Mean Corpuscular Hemoglobin 29.5 Mean Corpuscular Hemoglobin Concent 30.1 L Red Cell Distribution Width 15.2 H Platelet Count 235 # Mean Platelet Volume 12.4 H Neutrophils % 69.1 Lymphocytes % 15.9 Monocytes % 5.0 Eosinophils % 9.4 H Basophils % 0.2 Nucleated Red Blood Cells % 0.0 Neutrophils # 6.5 Lymphocytes # 1.5 Monocytes # 0.5 Eosinophils # 0.9 H Basophils # 0.0 Nucleated Red Blood Cells # 0.0 Sodium Level 147 H Potassium Level 3.8 Chloride Level 104 Carbon Dioxide Level 30 Anion Gap 17 H Blood Urea Nitrogen 45 #H Creatinine 0.76 Glucose Level 203 Calcium Level 8.5 Phosphorus Level 1.5 #L Magnesium Level 2.5 Test 09/28/16 05:42 09/28/16 08:31 09/28/16 12:53 Bedside Glucose 223 H 159 208 Medications Medications Current Medications Acetaminophen/ Hydrocodone Bitart ([place] (5/325)) 1 tab Q4H PRN PO PAIN LEVEL 4 -7; Start 09/25/16 at 16:30 Acetaminophen/ Hydrocodone Bitart ([place] (5/325)) 2 tab Q4H PRN PO PAIN LEVEL 7 -10; Start 09/25/16 at 16:30 Hydromorphone HCl (Dilaudid) 0.5 mg Q2 PRN IV PAIN; Start 09/25/16 at 16:30 Hydromorphone HCl (Dilaudid) 1 mg Q2 PRN IV PAIN; Start 09/25/16 at 16:30 Docusate Sodium (Colace) 100 mg BID PRN PO CONSTIPATION; Start 09/25/16 at 16:30 Bisacodyl (Dulcolax Supp) 10 mg BID PRN [place] CONSTIPATION; Start 09/25/16 at 16:30 Sodium Biphosphate/ Sodium Phosphate (Fleet Enema) 133 ml BID PRN [place] CONSTIPATION; Start 09/25/16 at 16:30 Famotidine (Pepcid Iv) 20 mg DAILY IV Last administered on 09/27/16 08:28; Admin Dose 20 MG; Start 09/26/16 at 09:00 Enoxaparin Sodium (Lovenox) 40 mg DAILY SC Last administered on 09/28/16 08:44 ; Admin Dose 40 MG; Start 09/26/16 at 09:00 Hydralazine HCl (Apresoline) 10 mg Q6H PRN IV SBP>160; Start 09/25/16 at 16:30 Insulin Aspart (Adult SC Insulin - Mild Algorithm)... Q4 SC Last administered on 09/28/16 13:01; Admin Dose 2 UNIT; Start 09/25/16 at 17:00 Levetiracetam (Keppra 500 Mg/ 100ml (Pmx)) 100 ml @ 400 mls/hr Q12 IVPB Last administered on 09/28/16 12:31; Admin Dose 400 MLS/HR; Start 09/25/16 at 21:00 Miscellaneous Information This patient muhammad... PRN PRN XX WOUND CARE; Start at 19:30 Potassium Chloride/Sodium Chloride (1/2 NS + KCl 20 Meq) 1,000 ml @ 50 mls/hr Q20H IV Last administered on 09/28/16 12:32; Admin Dose 50 MLS/HR; Start at 22:00 Miscellaneous Information 1 ea NOTE XX ; Start 09/26/16 at 07:00 Glucose (Glutose) 15 gm Q15M PRN PO DECREASED GLUCOSE; Start 09/26/16 at 07:00 Glucose (Glutose) 22.5 gm Q15M PRN PO DECREASED GLUCOSE; Start 09/26/16 at 07:00 Dextrose (D50w Syringe) 25 ml Q15M PRN IV DECREASED GLUCOSE; Start 09/26/16 at 07:00 Dextrose (D50w Syringe) 50 ml Q15M PRN IV DECREASED GLUCOSE; Start 09/26/16 at 07:00 Glucagon (Glucagen) 1 mg Q15M PRN IM DECREASED GLUCOSE; Start 09/26/16 at 07:00 Glucose 15 gm 15 gm Q15M PRN BUCCAL DECREASED GLUCOSE; Start 09/26/16 at 07:00 Vancomycin HCl (Vancocin) 100 ml @ 100 mls/hr Q24H IVPB Last administered on 17:02; Admin Dose 100 MLS/HR; Start 09/27/16 at 16:00 Acetaminophen (Tylenol Tab) 500 mg Q6H PRN PO PAIN AND OR ELEVATED TEMP Last administered on 09/27/16 08:28; Admin Dose 500 MG; Start 09/26/16 at 15:30 Benazepril HCl (Lotensin) 5 mg BID GTB Last administered on 09/28/16 08:46; Admin Dose 5 MG; Start 09/26/16 at 21:00 Carvedilol (Coreg) 12.5 mg BID GTB Last administered on 09/28/16 08:46; Admin Dose 12.5 MG; Start 09/26/16 at 21:00 Ferrous Sulfate (Feosol Liquid Cup) 300 mg DAILY GTB Last administered on 08:45; Admin Dose 300 MG; Start 09/27/16 at 09:00 Latanoprost (Xalatan) 1 drop QHS BOTH EYES Last administered on 09/27/16 21:00 ; Admin Dose 1 DROP; Start 09/26/16 at 21:00 Multivitamins (Thera-Plus) 5 ml DAILY GTB Last administered on 09/28/16 08:45; Admin Dose 5 ML; Start 09/27/16 at 09:00 Insulin Glargine (Lantus) 11 unit DAILY@20 SC Last administered on 09/27/16 20: 58; Admin Dose 11 UNIT; Start 09/27/16 at 20:00 Mupirocin (Bactroban) 1 applic BID TOP Last administered on 09/28/16 08:48; Admin Dose 1 APPLIC; Start 09/27/16 at 15:00 Diphenhydramine HCl 25 mg 25 mg Q4H PRN IV itching Last administered on 04:26; Admin Dose 25 MG; Start 09/28/16 at 04:00 Piperacillin Sod/ Tazobactam Sod (Zosyn 3.375gm/ 100 ml (Pmx)) 100 ml @ 200 mls /hr Q8 IVPB ; Start 09/28/16 at 14:00 RIGOBERTO JORDAN JAWBONE PULLER Sep 28, 2016 13:20
--- NOTE | 2016-09-28 13:49 | PN ---
Date/Time of Note Date/Time of Note DATE: 09/28/16 TIME: 13:44 Assessment/Plan Lines/Catheters IV [facility]ter Type (from [facility]): Peripheral IV Assessment/Plan Assessment/Plan [facility] Progress Note Date of Service: 09/28/16 Today's Impression & Plan: Overall stable and improving. Antimicrobial therapy seems to be helping with R face infection as well as E-coli UTI; sputum also with multiple organisms. Abd remains benign, but some drainage of stool noted from prior tube placement site. Appreciate Dr. Doan's input. Discussed with her sister and answered all questions. With above assessment, I've recommended the following for today: 1. Cont broad-spectrum targeted antimicrobial therapy 2. Continue careful observation in hospital low threshold to transfer to telemetry 3. Labs in a.m. 4. Continued non-surgical management of the old perc tube site (most will heal spontaneously with adequate care and nutrition) Thank you again for your great care of this very pleasant patient and wonderful family. If there are any questions, please feel free to call me at [phone]. TOTAL VISIT TIME: 20 minutes of which more than half was spent in [id number] discussion with the patient, possibly including family, as well as coordination of care between multiple physicians and providers. Disclaimer: Inadvertent spelling or grammatical errors are likely due to EHR/ dictation software use and do not reflect on the overall quality of patient care. UPDATED CLINICAL HISTORY: The patient is a very pleasant but unfortunate 66- year-old lady with comorbidities including a BMI of 16.5 as well as history of chronic encephalopathy and debility who was found to have a G-tube placement, unfortunately, into her transverse colon when she was seen in our emergency department today for replacement of a displaced G-tube. S/p PEG 09/13/16. Readmitted to the hospital electively 09/25/2016 for removal of old percutaneous tube that was in the transverse colon (done by me at bedside on 09/25/2016). White blood cell count elevation noted with swollen right side of the face and broad-spectrum antimicrobials and workup started. Head and neck CT scan demonstrated enlarged glands in the right side of the face and possibility of malignancy could not be ruled out but it was more consistent with an infection. Patient's white blood cell count came down with initiation of broad-spectrum antimicrobial coverage. Nodularities in lung freeman were noted on the neck CT and therefore chest CT was ordered. Patient started having some stool drainage from the prior percutaneous tube placement site but abdomen remained benign. COMORBIDITIES: 1. BMI 16.5. 2. Chronic encephalopathy. 3. Diabetes mellitus type 2. 4. Dysphagia. 5. Essential hypertension. 6. Pulmonary hypertension. 7. Chronic kidney disease. 8. Coronary artery disease. 9. Subdural hematoma. 10. Seizure disorder. 11. Chronic encephalopathy. Subjective: No major reported events or complaints other than above; no abd pain with drainage noted from the old drain site; no n/v/d; no sob or cp; + signs of bowel activity; - activity Objective: Vitals: See below Exam: GENERAL: On exam, the patient was laying in bed and not communicative but otherwise appeared to be comfortable and in no acute distress. ABDOMEN: Soft, nontender and nondistended. Site of previous percutaneous drain with staining on the dressings. Skin around it is slightly erythematous. There are no peritoneal signs or guarding. SKIN: Skin appears to be pink and feels warm to touch. NEUROLOGIC: Patient is more awake than the last 2 days, more alert, and does not follow commands appropriately. Right side of face appears to be less swollen and there appears to be some tenderness in the region Exam/Review of Systems Vital Signs Vitals Vital Signs Date Time Temp Pulse Resp B/P Pulse Ox O2 Delivery O2 Flow Rate FiO2 09/28/16 10:40 2.0 09/28/16 07:41 99.7 70 19 152/66 99 09/25/16 13:17 Nasal Cannula Intake and Output 09/27/16 09/27/16 09/28/16 15:00 23:00 07:00 Intake Total 500 ml 1400 ml 1300 ml Balance 500 ml 1400 ml 1300 ml Results Result Diagram: 09/28/16 0420 09/28/16 0420 YOSEPH TALAMANTES M.D. Sep 28, 2016 13:49
[2016-09-28] MEDS ORDERED: PIPER-TAZO 3.375 GM IV (PMX) 100 ML IVPB SCH (14:00)
[2016-09-28] MEDS ORDERED: LIDOCAINE 1% (MDV) 20 ML INJ SC ONE (14:30)
[2016-09-28] MEDS ORDERED: POTASSIUM PHOSPHATE 15 MM in SOD CHLORIDE 0.9% 250 ML IVPB ONE (14:30)
[2016-09-28] MEDS ORDERED: FOSFOMYCIN 3 GM PACKET GTB ONE (15:30)
--- NOTE | 2016-09-28 15:46 | CONS ---
Date/Time of Note Date/Time of Note DATE: 09/28/16 TIME: 15:18 Assessment/Plan Assessment/Plan Chief Complaint/Hosp Course ID PROGRESS NOTE CURRENT ABX=> Vanco IV + Zosyn s/p Elimite/ ivermectin x1 09/27/16 24H INTERVAL SUMMARY * Low grade temps, lost peripheral IV access, not been able to administer IV ABX , RN paged me for recommendations * s/p Elimite for pruritic rash presumptive scabies, (+)Peg + (+) NGT * CT CHEST: IMPRESSION:1. Complete opacification of the left lung secondary to consolidation as well as a left pleural effusion with left lower mediastinal shift. 2. Gastrostomy tube identified. * CT ABD: IMPRESSION:1. Bibasilar air space disease.2. Fat-containing right inguinal hernia with inflammatory changes within the inguinal fat.3. Stool filled large bowel.4. Gastrostomy tube identified. * MICRO RESULTS * Urine (+) E.Coli, Sputum (+)MRSA + E.Coli-ESBL * RESPIRATORY CULTURE Preliminary Organism 1 ESCHERICHIA COLI (ESBL) QUANTITY SCANT GROWTH Organism 2 METHICILLIN RESISTANT S.AUREUS QUANTITY 3+ PHYSICAL EXAMINATION: GENERAL: VSS, NAD, Afebrile HEENT: Unremarkable NECK: Supple, trachea midline. CHEST: Rise symmetrical, without dyspnea on observation HEART: Pulse RRR ABDOMEN: Soft (+)Peg EXTREMITIES: Warm + multiple scratches and maculopapular rash in of various stages of healing. ID ASSESSMENT 66 yo M admit with: 1. Sepsis w/fevers, leukocytosis on admission due to below 2. Right parotitis with right neck cellulitis and possible abscess. 3. HCAP w/(+)MRSA=resistant to Clindamycin, and (+)E.Coli ESBL = "Scant" 4. Gram-negative rods urinary tract infection = E.Coli (not MDRO) 5. Rash, possible scabies. 6. PEG malfx-> stool drainage from the prior percutaneous tube placement 7. Dysphagia. 8. Diabetes. 9. Hypertension. 10. Fecal impaction. (+)MRSA Nares ->Bactroban INVASIVES: PIV ABX ALLERGY: KNDA CURRENT ABX: Vanco IV + Zosyn => DC Today s/p Elimite/ ivermectin x1 09/27/16 ID RECOMMENDATIONS 1. DC IV ABX at this time => Pt lost IV access * Rx either Doxy vs Zyvox per GT whichever is least toxic drug-drug interactions for MRSA COVERAGE * Start Colistin INH for concern E.Coli-ESBL sputum cx 2. Give Fosfomycin 3gm via NGT vs GT x1 today to treat E.Coli UTI 3. Follow surgical recommendations and await for ENT evaluation. 4. Hibiclens bath head-toe QPM x 3 days 5. Bactroban to bilateral nares . Problems: Consultation Date/Type/Reason Admit Date/Time Sep 27, 2016 at 14:07 Initial Consult Date Exam/Review of Systems Vital Signs Vitals Vital Signs Date Time Temp Pulse Resp B/P Pulse Ox O2 Delivery O2 Flow Rate FiO2 09/28/16 10:40 2.0 09/28/16 07:41 99.7 70 19 152/66 99 09/25/16 13:17 Nasal Cannula Intake and Output 09/27/16 09/27/16 09/28/16 15:00 23:00 07:00 Intake Total 500 ml 1400 ml 1300 ml Balance 500 ml 1400 ml 1300 ml Results Result Diagram: 09/28/16 0420 09/28/16 0420 Results 24 hrs Laboratory Tests Test 09/27/16 16:47 09/27/16 20:53 09/28/16 00:43 09/28/16 04:20 Bedside Glucose 275 H 354 H 285 H White Blood Count 9.4 # Red Blood Count 3.93 L Hemoglobin 11.6 L Hematocrit 38.5 Mean Corpuscular Volume 98.0 Mean Corpuscular Hemoglobin 29.5 Mean Corpuscular Hemoglobin Concent 30.1 L Red Cell Distribution Width 15.2 H Platelet Count 235 # Mean Platelet Volume 12.4 H Neutrophils % 69.1 Lymphocytes % 15.9 Monocytes % 5.0 Eosinophils % 9.4 H Basophils % 0.2 Nucleated Red Blood Cells % 0.0 Neutrophils # 6.5 Lymphocytes # 1.5 Monocytes # 0.5 Eosinophils # 0.9 H Basophils # 0.0 Nucleated Red Blood Cells # 0.0 Sodium Level 147 H Potassium Level 3.8 Chloride Level 104 Carbon Dioxide Level 30 Anion Gap 17 H Blood Urea Nitrogen 45 #H Creatinine 0.76 Glucose Level 203 Calcium Level 8.5 Phosphorus Level 1.5 #L Magnesium Level 2.5 Test 09/28/16 05:42 09/28/16 08:31 09/28/16 12:53 Bedside Glucose 223 H 159 208 Medications Medications Current Medications Acetaminophen/ Hydrocodone Bitart ([place] (5/325)) 1 tab Q4H PRN PO PAIN LEVEL 4 -7; Start 09/25/16 at 16:30 Acetaminophen/ Hydrocodone Bitart ([place] (5/325)) 2 tab Q4H PRN PO PAIN LEVEL 7 -10; Start 09/25/16 at 16:30 Hydromorphone HCl (Dilaudid) 0.5 mg Q2 PRN IV PAIN; Start 09/25/16 at 16:30 Hydromorphone HCl (Dilaudid) 1 mg Q2 PRN IV PAIN; Start 09/25/16 at 16:30 Docusate Sodium (Colace) 100 mg BID PRN PO CONSTIPATION; Start 09/25/16 at 16:30 Bisacodyl (Dulcolax Supp) 10 mg BID PRN [place] CONSTIPATION; Start 09/25/16 at 16:30 Sodium Biphosphate/ Sodium Phosphate (Fleet Enema) 133 ml BID PRN [place] CONSTIPATION; Start 09/25/16 at 16:30 Famotidine (Pepcid Iv) 20 mg DAILY IV Last administered on 09/27/16 08:28; Admin Dose 20 MG; Start 09/26/16 at 09:00 Enoxaparin Sodium (Lovenox) 40 mg DAILY SC Last administered on 09/28/16 08:44 ; Admin Dose 40 MG; Start 09/26/16 at 09:00 Hydralazine HCl (Apresoline) 10 mg Q6H PRN IV SBP>160; Start 09/25/16 at 16:30 Insulin Aspart (Adult SC Insulin - Mild Algorithm)... Q4 SC Last administered on 09/28/16 13:01; Admin Dose 2 UNIT; Start 09/25/16 at 17:00 Levetiracetam (Keppra 500 Mg/ 100ml (Pmx)) 100 ml @ 400 mls/hr Q12 IVPB Last administered on 09/28/16 12:31; Admin Dose 400 MLS/HR; Start 09/25/16 at 21:00 Miscellaneous Information This patient muhammad... PRN PRN XX WOUND CARE; Start at 19:30 Potassium Chloride/Sodium Chloride (1/2 NS + KCl 20 Meq) 1,000 ml @ 50 mls/hr Q20H IV Last administered on 09/28/16 12:32; Admin Dose 50 MLS/HR; Start at 22:00 Miscellaneous Information 1 ea NOTE XX ; Start 09/26/16 at 07:00 Glucose (Glutose) 15 gm Q15M PRN PO DECREASED GLUCOSE; Start 09/26/16 at 07:00 Glucose (Glutose) 22.5 gm Q15M PRN PO DECREASED GLUCOSE; Start 09/26/16 at 07:00 Dextrose (D50w Syringe) 25 ml Q15M PRN IV DECREASED GLUCOSE; Start 09/26/16 at 07:00 Dextrose (D50w Syringe) 50 ml Q15M PRN IV DECREASED GLUCOSE; Start 09/26/16 at 07:00 Glucagon (Glucagen) 1 mg Q15M PRN IM DECREASED GLUCOSE; Start 09/26/16 at 07:00 Glucose 15 gm 15 gm Q15M PRN BUCCAL DECREASED GLUCOSE; Start 09/26/16 at 07:00 Vancomycin HCl (Vancocin) 100 ml @ 100 mls/hr Q24H IVPB Last administered on 17:02; Admin Dose 100 MLS/HR; Start 09/27/16 at 16:00 Acetaminophen (Tylenol Tab) 500 mg Q6H PRN PO PAIN AND OR ELEVATED TEMP Last administered on 09/27/16 08:28; Admin Dose 500 MG; Start 09/26/16 at 15:30 Benazepril HCl (Lotensin) 5 mg BID GTB Last administered on 09/28/16 08:46; Admin Dose 5 MG; Start 09/26/16 at 21:00 Carvedilol (Coreg) 12.5 mg BID GTB Last administered on 09/28/16 08:46; Admin Dose 12.5 MG; Start 09/26/16 at 21:00 Ferrous Sulfate (Feosol Liquid Cup) 300 mg DAILY GTB Last administered on 08:45; Admin Dose 300 MG; Start 09/27/16 at 09:00 Latanoprost (Xalatan) 1 drop QHS BOTH EYES Last administered on 09/27/16 21:00 ; Admin Dose 1 DROP; Start 09/26/16 at 21:00 Multivitamins (Thera-Plus) 5 ml DAILY GTB Last administered on 09/28/16 08:45; Admin Dose 5 ML; Start 09/27/16 at 09:00 Mupirocin (Bactroban) 1 applic BID TOP Last administered on 09/28/16 08:48; Admin Dose 1 APPLIC; Start 09/27/16 at 15:00 Diphenhydramine HCl 25 mg 25 mg Q4H PRN IV itching Last administered on 04:26; Admin Dose 25 MG; Start 09/28/16 at 04:00 Piperacillin Sod/ Tazobactam Sod 100 ml @ 200 mls/hr Q8 IVPB ; Start 09/28/16 at 14:00 Potassium Phosphate/Sodium Chloride (K Phos (Mm)/NS) 255 ml @ 63.75 mls/ hr ONCE ONCE IVPB ; Start 09/28/16 at 14:30; Stop 09/28/16 at 18:29 Insulin Glargine (Lantus) 13 unit DAILY@20 SC ; Start 09/28/16 at 20:00 Miscellaneous Information (*Rx Drug Level Order Reminder*) VANCOMYCIN TROUGH 09/29 AT 1500 ONCE ONCE XX ; Start 09/29/16 at 15:00; Stop 09/29/16 at 15:01 RUBY ASHLEY NP Sep 28, 2016 15:28
[2016-09-28] MEDS ORDERED: INSULIN GLARGINE [LANtus] 3 ML PEN SC SCH (20:00)
[2016-09-28 20:01] VITALS: BP 163/72; RESP 18
--- NOTE | 2016-09-28 20:01 | CONS ---
Date/Time of Note Date/Time of Note DATE: 09/28/16 TIME: 19:59 Assessment/Plan Assessment/Plan Additional Assessment/Plan Right parotitis and cellulitis. Clinical improvement since yesterday's examination. Continue IV abx until erythema and induration have resolved. Consultation Date/Type/Reason Admit Date/Time Sep 27, 2016 at 14:07 Initial Consult Date Type of Consultation: ENT 24 HR Interval Summary Subjective hx not possible: pt non-verbal Exam/Review of Systems Vital Signs Vitals Vital Signs Date Time Temp Pulse Resp B/P Pulse Ox O2 Delivery O2 Flow Rate FiO2 09/28/16 10:40 2.0 09/28/16 07:41 99.7 70 19 152/66 99 09/25/16 13:17 Nasal Cannula Intake and Output 09/27/16 09/27/16 09/28/16 15:00 23:00 07:00 Intake Total 500 ml 1400 ml 1300 ml Balance 500 ml 1400 ml 1300 ml Exam Constitutional: non-verbal Head: atraumatic, normocephalic Eyes: EOMI, nl conjunctiva, nl sclera ENMT: other (Mild decrease in edema, erythema and induration of right parotid) Neck: non-tender, supple Results Result Diagram: 09/28/16 0420 09/28/16 0420 Results 24 hrs Laboratory Tests Test 09/27/16 20:53 09/28/16 00:43 09/28/16 04:20 09/28/16 05:42 Bedside Glucose 354 H 285 H 223 H White Blood Count 9.4 # Red Blood Count 3.93 L Hemoglobin 11.6 L Hematocrit 38.5 Mean Corpuscular Volume 98.0 Mean Corpuscular Hemoglobin 29.5 Mean Corpuscular Hemoglobin Concent 30.1 L Red Cell Distribution Width 15.2 H Platelet Count 235 # Mean Platelet Volume 12.4 H Neutrophils % 69.1 Lymphocytes % 15.9 Monocytes % 5.0 Eosinophils % 9.4 H Basophils % 0.2 Nucleated Red Blood Cells % 0.0 Neutrophils # 6.5 Lymphocytes # 1.5 Monocytes # 0.5 Eosinophils # 0.9 H Basophils # 0.0 Nucleated Red Blood Cells # 0.0 Sodium Level 147 H Potassium Level 3.8 Chloride Level 104 Carbon Dioxide Level 30 Anion Gap 17 H Blood Urea Nitrogen 45 #H Creatinine 0.76 Glucose Level 203 Calcium Level 8.5 Phosphorus Level 1.5 #L Magnesium Level 2.5 Test 09/28/16 08:31 09/28/16 12:53 09/28/16 17:49 Bedside Glucose 159 208 239 H Medications Medications Current Medications Acetaminophen/ Hydrocodone Bitart ([place] (5/325)) 1 tab Q4H PRN PO PAIN LEVEL 4 -7; Start 09/25/16 at 16:30 Acetaminophen/ Hydrocodone Bitart ([place] (5/325)) 2 tab Q4H PRN PO PAIN LEVEL 7 -10; Start 09/25/16 at 16:30 Hydromorphone HCl (Dilaudid) 0.5 mg Q2 PRN IV PAIN; Start 09/25/16 at 16:30 Hydromorphone HCl (Dilaudid) 1 mg Q2 PRN IV PAIN; Start 09/25/16 at 16:30 Docusate Sodium (Colace) 100 mg BID PRN PO CONSTIPATION; Start 09/25/16 at 16:30 Bisacodyl (Dulcolax Supp) 10 mg BID PRN [place] CONSTIPATION; Start 09/25/16 at 16:30 Sodium Biphosphate/ Sodium Phosphate (Fleet Enema) 133 ml BID PRN [place] CONSTIPATION; Start 09/25/16 at 16:30 Famotidine (Pepcid Iv) 20 mg DAILY IV Last administered on 09/27/16 08:28; Admin Dose 20 MG; Start 09/26/16 at 09:00 Enoxaparin Sodium (Lovenox) 40 mg DAILY SC Last administered on 09/28/16 08:44 ; Admin Dose 40 MG; Start 09/26/16 at 09:00 Hydralazine HCl (Apresoline) 10 mg Q6H PRN IV SBP>160; Start 09/25/16 at 16:30 Insulin Aspart (Adult SC Insulin - Mild Algorithm)... Q4 SC Last administered on 09/28/16 17:52; Admin Dose 3 UNIT; Start 09/25/16 at 17:00 Levetiracetam (Keppra 500 Mg/ 100ml (Pmx)) 100 ml @ 400 mls/hr Q12 IVPB Last administered on 09/28/16 12:31; Admin Dose 400 MLS/HR; Start 09/25/16 at 21:00 Miscellaneous Information This patient muhammad... PRN PRN XX WOUND CARE; Start at 19:30 Potassium Chloride/Sodium Chloride (1/2 NS + KCl 20 Meq) 1,000 ml @ 50 mls/hr Q20H IV Last administered on 09/28/16 12:32; Admin Dose 50 MLS/HR; Start at 22:00 Miscellaneous Information 1 ea NOTE XX ; Start 09/26/16 at 07:00 Glucose (Glutose) 15 gm Q15M PRN PO DECREASED GLUCOSE; Start 09/26/16 at 07:00 Glucose (Glutose) 22.5 gm Q15M PRN PO DECREASED GLUCOSE; Start 09/26/16 at 07:00 Dextrose (D50w Syringe) 25 ml Q15M PRN IV DECREASED GLUCOSE; Start 09/26/16 at 07:00 Dextrose (D50w Syringe) 50 ml Q15M PRN IV DECREASED GLUCOSE; Start 09/26/16 at 07:00 Glucagon (Glucagen) 1 mg Q15M PRN IM DECREASED GLUCOSE; Start 09/26/16 at 07:00 Glucose (Glutose) 15 gm Q15M PRN BUCCAL DECREASED GLUCOSE; Start 09/26/16 at 07: 00 Acetaminophen (Tylenol Tab) 500 mg Q6H PRN PO PAIN AND OR ELEVATED TEMP Last administered on 09/27/16 08:28; Admin Dose 500 MG; Start 09/26/16 at 15:30 Benazepril HCl (Lotensin) 5 mg BID GTB Last administered on 09/28/16 08:46; Admin Dose 5 MG; Start 09/26/16 at 21:00 Carvedilol (Coreg) 12.5 mg BID GTB Last administered on 09/28/16 08:46; Admin Dose 12.5 MG; Start 09/26/16 at 21:00 Ferrous Sulfate (Feosol Liquid Cup) 300 mg DAILY GTB Last administered on 08:45; Admin Dose 300 MG; Start 09/27/16 at 09:00 Latanoprost (Xalatan) 1 drop QHS BOTH EYES Last administered on 09/27/16 21:00 ; Admin Dose 1 DROP; Start 09/26/16 at 21:00 Multivitamins (Thera-Plus) 5 ml DAILY GTB Last administered on 09/28/16 08:45; Admin Dose 5 ML; Start 09/27/16 at 09:00 Mupirocin (Bactroban) 1 applic BID TOP Last administered on 09/28/16 08:48; Admin Dose 1 APPLIC; Start 09/27/16 at 15:00 Diphenhydramine HCl (Benadryl) 25 mg Q4H PRN IV itching Last administered on 04:26; Admin Dose 25 MG; Start 09/28/16 at 04:00 Insulin Glargine (Lantus) 13 unit DAILY@20 SC ; Start 09/28/16 at 20:00 Doxycycline Hyclate (Vibramycin) 100 mg BID GTB ; Start 09/28/16 at 21:00 Linezolid (Zyvox) 600 mg BID PEG ; Start 09/28/16 at 21:00 ART GROVER MD Sep 28, 2016 20:01
[2016-09-28] MEDS: COLISTIMETHATE (25 MG/ML INHAL SYG) NEB SCH (20:12)
[2016-09-28] MEDS: ALBUTEROL/IPRATROPIUM (NEB) 3 ML AMP HHN SCH (20:12)
[2016-09-28 20:35] VITALS: BP 154/70; PULSE 80; RESP 18
--- NOTE | 2016-09-28 20:53 | CONS ---
DATE OF ADMISSION: 09/27/2016 DATE OF CONSULTATION: 09/28/2016 TYPE OF CONSULTATION: Pulmonary. PRIMARY PHYSICIAN: Werner Logan NP REASON FOR CONSULTATION: Abnormal CT chest. HISTORY OF PRESENT ILLNESS: Briefly, this is a 66-year-old female, with numerous medical problems, including hypertension, chronic kidney disease, coronary artery disease, history of subdural hematom a with seizure disorders, chronic encephalopathy, pulmonary hypertension, who was admitted earlier, approximately 3 days ago, for sepsis likely related to right parotitis and right neck cellulitis. S he has been seen by ENT, infectious disease and has been improving on antibiotics. Of note, she had a CT chest done today, which showed acute change with a complete left hemithorax opacification, wit h ipsilateral mediastinal shift, consistent with acute atelectasis. PAST MEDICAL HISTORY: As noted above. PAST SURGICAL HISTORY: G-tube. ALLERGIES: NONE. MEDICATIONS: See MAR. SOCIAL HISTORY: Lives in a assisted. No tobacco, alcohol, illicit drug use. FAMILY HISTORY: Noncontributory. REVIEW OF SYSTEMS: Unable to obtain. PHYSICAL EXAMINATION VITAL SIGNS: Temperature is 99.7, blood pressure is 152/66, oxygen saturation is 99% on 2 L nasal c annula. HEENT: Normocephalic, atraumatic. NECK: Supple is supple with midline trachea. There is some mild erythema involving a right parotid gland, some mild induration and some adenopathy. CARDIOVASCULAR: Regular rate and rhythm, S1, S2. CHEST: Absent breath sounds of the left hemithorax. ABDOMEN: Soft, nontender. EXTREMITIES: No cyanosis, clubbing or edema. LABORATORY DATA: WBC is 9.4, hemoglobin is 11.6, BUN is 45, creatinine is 0.76. Sodium is 147. COMPUTED TOMOGRAPHY: Chest CT, as noted above, shows complete left hemithorax opacification with vo lume loss, likely due to this atelectasis. Additionally, there may be some underlying consolidation ; however, most of this abnormality, especially in light of the acute change and imaging findings, i s consistent with acute atelectasis. IMPRESSION: Complete left hemithorax opacification, with ipsilateral mediastinal shift, consistent with atelectasis - likely due to mucus plugging. Cannot rule out a component of underlying infectio n, possibly an aspiration. RECOMMENDATIONS: 1. Very-aggressive chest physiotherapy with q.4h.bronchodilators focusing on the left chest. 2. Aspiration precautions. 3. Continue antibiotics per ID. Dictated By: DAPHNE MODI MD [id number] Conf#: [id number] DID#: [id number] CC: QASIM VICTOR MD;*EndCC*
[2016-09-28] MEDS: ZYVOX 600 MG TAB PEG SCH (21:37)
[2016-09-28 21:45] VITALS: BP 142/76; PULSE 76; RESP 16
[2016-09-28] MEDS: LATANOPROST 0.005% 2.5 ML OPH BOTH EYES SCH (21:50)
[2016-09-28] MEDS: DOXYCYCLINE 100 MG TAB GTB SCH (21:52)
[2016-09-29] MEDS: Insulin NOVOLOG SS MILD Algorithm (NPO/TPN/ENTERAL FEEDS) SC SCH ×6 (01:41→21:00)
[2016-09-29] MEDS: 1/2 NS + KCL 20 MEQ 1,000 ML IV SCH (06:00)
[2016-09-29 06:13] LABS: ADD SCAN DIFF NO
[2016-09-29 06:26] LABS: BASOPHILS % 0.2 % (0.0-2.0); EOSINOPHILS # 1.7 10^3/ul (0.0-0.5); EOSINOPHILS % 13.9 % (0.0-7.0); HEMATOCRIT 35.5 % (37.0-47.0); HEMOGLOBIN 10.8 g/dl (12.0-16.0); LYMPHOCYTES % 15.9 % (15.0-51.0); MEAN CORPUSCULAR HEMOGLOBIN 29.9 pg (29.0-33.0); MEAN CORPUSCULAR HGB CONC 30.4 g/dl (32.0-37.0); MEAN CORPUSCULAR VOLUME 98.3 fl (82.0-101.0); MEAN PLATELET VOLUME 12.4 fl (7.4-10.4); MONOCYTE # 0.9 10^3/ul (0.3-0.9); MONOCYTES % 6.9 % (0.0-11.0); NEUTROPHIL # 7.8 10^3/ul (1.6-7.5); NEUTROPHILS % 62.4 % (39.0-77.0); PLATELET COUNT 256 10^3/UL (140-415); RED BLOOD COUNT 3.61 10^6/ul (4.20-5.40); RED CELL DISTRIBUTION WIDTH 15.3 % (11.5-14.5); WHITE BLOOD COUNT 12.5 10^3/ul (4.8-10.8)
[2016-09-29 06:30] LABS: MAGNESIUM 2.2 mg/dl (1.7-2.5); PHOSPHORUS 1.6 mg/dl (2.5-4.9)
[2016-09-29 06:42] LABS: POTASSIUM 3.4 mmol/L (3.5-5.1)
[2016-09-29 06:44] LABS: CREATININE 0.66 mg/dl (0.44-1.00)
[2016-09-29 06:45] LABS: CALCIUM 8.6 mg/dl (8.4-10.2)
[2016-09-29 07:05] VITALS: BP 168/84; RESP 18
[2016-09-29] MEDS: ALBUTEROL/IPRATROPIUM (NEB) 3 ML AMP HHN SCH ×4 (09:07→21:00)
[2016-09-29] MEDS: COLISTIMETHATE (25 MG/ML INHAL SYG) NEB SCH ×2 (09:19→20:41)
[2016-09-29] MEDS: ENOXAPARIN 40 MG/0.4 ML SYG SC SCH (09:27)
[2016-09-29] MEDS: MULTIVITAMINS 5 ML CUP GTB SCH (09:28)
[2016-09-29] MEDS: BENAZEPRIL 5 MG TAB GTB SCH ×2 (09:28→21:00)
[2016-09-29] MEDS: DOXYCYCLINE 100 MG TAB GTB SCH (09:28)
[2016-09-29] MEDS: FERROUS SULFATE 60 MG/ML 5ML CUP GTB SCH (09:28)
[2016-09-29] MEDS: ZYVOX 600 MG TAB PEG SCH ×2 (09:28→20:47)
[2016-09-29] MEDS: FAMOTIDINE 20 MG INJ IV SCH (09:29)
[2016-09-29] MEDS: LEVETIRACETAM 500 MG (PMX) 100 ML IVPB SCH ×2 (09:29→21:00)
[2016-09-29] MEDS: MUPIROCIN 2% 22 GM OINT TOP SCH ×2 (09:30→20:50)
--- NOTE | 2016-09-29 11:11 | PN ---
Date/Time of Note Date/Time of Note DATE: 09/29/16 TIME: 11:07 Assessment/Plan VTE Prophylaxis VTE Prophylaxis Intervention: LMWH Lines/Catheters IV [facility] Peripheral IV Assessment/Plan Chief Complaint/Hosp Course 1. Sepsis secondary to underlying urinary tract infection and aspiration pneumonia along with right parotitis. Continue antibiotics as per infectious diseases. No evidence of any septic shock. 2. Aspiration pneumonia with E. coli ESBL. Continue antibiotics as per infectious diseases. Isolation precautions. 3. Right parotitis and right neck cellulitis. Continue antibiotics as per infectious diseases. S/P ENT evaluation. Continue antibiotics. 4. Malpositioned G-tube. Radiographic examination showing G-tube in the transverse colon. Status post removal by general surgery. 5. Essential hypertension. The patient will be maintained on antihypertensives including p.r.n. antihypertensives for any systolic blood pressure readings greater than 160 mmHg. 6. Complete opacification of the left lung with underlying consolidation. Pulmonology following. Continue antibiotics as per ID. Pulmonology ordered aggressive chest physical therapy. 7. Dysphagia. The patient will be continued on G-tube feedings. 8. Type 2 diabetes mellitus, uncontrolled. Hemoglobin A1c from last visit on 09/11/2016 was 8.2. Adjust insulin dosing to obtain optimal blood sugar control. 9. Chronic kidney disease. We will monitor BUN and creatinine closely. Avoid nephrotoxic medications. 10. Seizure disorder. Continue anticonvulsants. 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 Continue Bactroban. 12. Pulmonary hypertension. Continue supplemental oxygen 13. Microcytic anemia with underlying iron deficiency. Continue iron supplements. Monitor hemoglobin and hematocrit closely. Transfuse as needed. 14. Chronic encephalopathy. Continue supportive care. 15. Fluid, electrolytes and nutrition. Continue G-tube feedings. 16. Deep venous thrombosis prophylaxis. Subcutaneous Lovenox. 17. Gastrointestinal prophylaxis. Histamine 2 receptor blockers. PLAN: Continue antibiotics as per infectious diseases. Monitor in house. Obtain a PICC line because of poor IV access. The case was discussed with Dr. Peck. Problems: Subjective 24 Hr Interval Summary Free Text/Dictation Patient remains afebrile. Exam/Review of Systems Vital Signs Vitals Vital Signs Date Time Temp Pulse Resp B/P Pulse Ox O2 Delivery O2 Flow Rate FiO2 09/29/16 09:04 74 20 95 Nasal Cannula 3.0 09/29/16 07:05 98.5 168/84 Intake and Output 09/28/16 09/28/16 09/29/16 14:59 22:59 06:59 Intake Total 100 ml 920 ml 920 ml Balance 100 ml 920 ml 920 ml Exam GENERAL: This is a thin, frail-looking female lying in bed in no apparent distress. HEENT: Head normocephalic and atraumatic. Right parotid area enlargement with erythema and redness. ENT: Nasal septum is midline. Oral mucosa is dry. NECK: Supple. There is erythema and edema on the right side. RESPIRATORY: Bilaterally diminished breath sounds. No adventitious breath sounds. No use of accessory muscles of respiration. CARDIAC: Regular rate and rhythm. S1 and S2 heard. ABDOMEN: Left-sided G-tube in place. The second G-tube has been removed. GENITOURINARY: Deferred. EXTREMITIES: No cyanosis, clubbing, no edema. Peripheral pulses palpable. Muscle wasting of bilateral upper and lower extremities. NEUROLOGIC: The patient is awake. The patient is nonverbal. SKIN: Multiple maculopapular rashes on her trunk and bilateral upper and lower extremities. Results Result Diagram: 09/29/16 0530 09/29/16 0530 Results 24 hrs Laboratory Tests Test 09/28/16 12:53 09/28/16 17:49 09/28/16 20:54 09/29/16 01:39 Bedside Glucose 208 239 H 235 H 249 H Test 09/29/16 05:20 09/29/16 05:30 09/29/16 08:26 Bedside Glucose 253 H 174 White Blood Count 12.5 #H Red Blood Count 3.61 L Hemoglobin 10.8 L Hematocrit 35.5 L Mean Corpuscular Volume 98.3 Mean Corpuscular Hemoglobin 29.9 Mean Corpuscular Hemoglobin Concent 30.4 L Red Cell Distribution Width 15.3 H Platelet Count 256 Mean Platelet Volume 12.4 H Neutrophils % 62.4 Lymphocytes % 15.9 Monocytes % 6.9 Eosinophils % 13.9 H Basophils % 0.2 Nucleated Red Blood Cells % 0.0 Neutrophils # 7.8 H Lymphocytes # 2.0 Monocytes # 0.9 Eosinophils # 1.7 H Basophils # 0.0 Nucleated Red Blood Cells # 0.0 Sodium Level 148 H Potassium Level 3.4 L Chloride Level 103 Carbon Dioxide Level 33 H Anion Gap 15 Blood Urea Nitrogen 38 H Creatinine 0.66 Glucose Level 260 H Calcium Level 8.6 Phosphorus Level 1.6 L Magnesium Level 2.2 Medications Medications Current Medications Acetaminophen/ Hydrocodone Bitart ([place] (5/325)) 1 tab Q4H PRN PO PAIN LEVEL 4 -7; Start 09/25/16 at 16:30 Acetaminophen/ Hydrocodone Bitart ([place] (5/325)) 2 tab Q4H PRN PO PAIN LEVEL 7 -10; Start 09/25/16 at 16:30 Hydromorphone HCl (Dilaudid) 0.5 mg Q2 PRN IV PAIN; Start 09/25/16 at 16:30 Hydromorphone HCl (Dilaudid) 1 mg Q2 PRN IV PAIN; Start 09/25/16 at 16:30 Docusate Sodium (Colace) 100 mg BID PRN PO CONSTIPATION; Start 09/25/16 at 16:30 Bisacodyl (Dulcolax Supp) 10 mg BID PRN [place] CONSTIPATION; Start 09/25/16 at 16:30 Sodium Biphosphate/ Sodium Phosphate (Fleet Enema) 133 ml BID PRN [place] CONSTIPATION; Start 09/25/16 at 16:30 Famotidine (Pepcid Iv) 20 mg DAILY IV Last administered on 09/29/16 09:29; Admin Dose 20 MG; Start 09/26/16 at 09:00 Enoxaparin Sodium (Lovenox) 40 mg DAILY SC Last administered on 09/29/16 09:27 ; Admin Dose 40 MG; Start 09/26/16 at 09:00 Hydralazine HCl (Apresoline) 10 mg Q6H PRN IV SBP>160; Start 09/25/16 at 16:30 Insulin Aspart (Adult SC Insulin - Mild Algorithm)... Q4 SC Last administered on 09/29/16 09:26; Admin Dose 1 UNIT; Start 09/25/16 at 17:00 Levetiracetam (Keppra 500 Mg/ 100ml (Pmx)) 100 ml @ 400 mls/hr Q12 IVPB Last administered on 09/29/16 09:29; Admin Dose 400 MLS/HR; Start 09/25/16 at 21:00 Miscellaneous Information This patient muhammad... PRN PRN XX WOUND CARE; Start at 19:30 Potassium Chloride/Sodium Chloride (1/2 NS + KCl 20 Meq) 1,000 ml @ 50 mls/hr Q20H IV Last administered on 09/28/16 12:32; Admin Dose 50 MLS/HR; Start at 22:00 Miscellaneous Information 1 ea NOTE XX ; Start 09/26/16 at 07:00 Glucose (Glutose) 15 gm Q15M PRN PO DECREASED GLUCOSE; Start 09/26/16 at 07:00 Glucose (Glutose) 22.5 gm Q15M PRN PO DECREASED GLUCOSE; Start 09/26/16 at 07:00 Dextrose (D50w Syringe) 25 ml Q15M PRN IV DECREASED GLUCOSE; Start 09/26/16 at 07:00 Dextrose (D50w Syringe) 50 ml Q15M PRN IV DECREASED GLUCOSE; Start 09/26/16 at 07:00 Glucagon (Glucagen) 1 mg Q15M PRN IM DECREASED GLUCOSE; Start 09/26/16 at 07:00 Glucose (Glutose) 15 gm Q15M PRN BUCCAL DECREASED GLUCOSE; Start 09/26/16 at 07: 00 Acetaminophen (Tylenol Tab) 500 mg Q6H PRN PO PAIN AND OR ELEVATED TEMP Last administered on 09/27/16 08:28; Admin Dose 500 MG; Start 09/26/16 at 15:30 Benazepril HCl (Lotensin) 5 mg BID GTB Last administered on 09/29/16 09:28; Admin Dose 5 MG; Start 09/26/16 at 21:00 Carvedilol (Coreg) 12.5 mg BID GTB Last administered on 09/29/16 09:29; Admin Dose 12.5 MG; Start 09/26/16 at 21:00 Ferrous Sulfate (Feosol Liquid Cup) 300 mg DAILY GTB Last administered on 09:28; Admin Dose 300 MG; Start 09/27/16 at 09:00 Latanoprost (Xalatan) 1 drop QHS BOTH EYES Last administered on 09/28/16 21:50 ; Admin Dose 1 DROP; Start 09/26/16 at 21:00 Multivitamins (Thera-Plus) 5 ml DAILY GTB Last administered on 09/29/16 09:28; Admin Dose 5 ML; Start 09/27/16 at 09:00 Mupirocin (Bactroban) 1 applic BID TOP Last administered on 09/29/16 09:30; Admin Dose 1 APPLIC; Start 09/27/16 at 15:00 Diphenhydramine HCl (Benadryl) 25 mg Q4H PRN IV itching Last administered on 04:26; Admin Dose 25 MG; Start 09/28/16 at 04:00 Insulin Glargine (Lantus) 13 unit DAILY@20 SC Last administered on 09/28/16 20: 57; Admin Dose 13 UNIT; Start 09/28/16 at 20:00 Doxycycline Hyclate (Vibramycin) 100 mg BID GTB Last administered on 09/29/16 09:28; Admin Dose 100 MG; Start 09/28/16 at 21:00 Linezolid (Zyvox) 600 mg BID PEG Last administered on 09/29/16 09:28; Admin Dose 600 MG; Start 09/28/16 at 21:00 RIGOBERTO JORDAN NP Sep 29, 2016 11:11
[2016-09-29] MEDS ORDERED: MAGNESIUM SULFATE 2 GM/50 ML 50 ML IVPB ONE (12:30)
[2016-09-29] MEDS ORDERED: POTASSIUM CHLORIDE 30 MEQ in SOD CHLORIDE 0.9% 150 ML IVPB ONE (12:30)
--- NOTE | 2016-09-29 14:27 | CONS ---
Date/Time of Note Date/Time of Note DATE: 09/29/16 TIME: 14:21 Assessment/Plan Assessment/Plan Chief Complaint/Hosp Course ID PROGRESS NOTE CURRENT ABX=> s/p Fosfomycin 3gm po x1 4/8 pm + Doxycycline GT #2 + Zyvox GT #2 + Colistin INH #2 [NOTE: Vanco IV + Zosyn=> DC'd 09/28 due to lack of IV access] s/p Elimite/ ivermectin x1 09/27/16 24H INTERVAL SUMMARY * 66 yo debilitated F, calm, lethargic, Low grade temps, lost peripheral IV access -- PICC LINE PLACEMENT TODAY in IR * s/p Elimite for pruritic rash presumptive scabies, (+)Peg + (+) NGT * CT CHEST: IMPRESSION:1. Complete opacification of the left lung secondary to consolidation as well as a left pleural effusion with left lower mediastinal shift. 2. Gastrostomy tube identified. * CT ABD: IMPRESSION:1. Bibasilar air space disease.2. Fat-containing right inguinal hernia with inflammatory changes within the inguinal fat.3. Stool filled large bowel.4. Gastrostomy tube identified. * MICRO RESULTS * Urine (+) E.Coli, Sputum (+)MRSA + E.Coli-ESBL * RESPIRATORY CULTURE Preliminary Organism 1 ESCHERICHIA COLI (ESBL) QUANTITY SCANT GROWTH Organism 2 METHICILLIN RESISTANT S.AUREUS QUANTITY 3+ PHYSICAL EXAMINATION: GENERAL: VSS, NAD, Afebrile HEENT: Unremarkable NECK: Supple, trachea midline. CHEST: Rise symmetrical, without dyspnea on observation HEART: Pulse RRR ABDOMEN: Soft (+)Peg EXTREMITIES: Warm + multiple scratches and maculopapular rash in of various stages of healing. ID ASSESSMENT 66 yo M admit with: 1. Sepsis w/fevers, leukocytosis on admission due to below 2. Right parotitis with right neck cellulitis and possible abscess. 3. HCAP w/(+)MRSA=resistant to Clindamycin, and (+)E.Coli ESBL = "Scant" 4. Gram-negative rods urinary tract infection = E.Coli (not MDRO) 5. Rash, possible scabies. 6. PEG malfx-> stool drainage from the prior percutaneous tube placement 7. Dysphagia. 8. Diabetes. 9. Hypertension. 10. Fecal impaction. (+)MRSA Nares ->Bactroban INVASIVES: PIV ABX ALLERGY: KNDA CURRENT ABX: CURRENT ABX=> s/p Fosfomycin 3gm po x1 4/8 pm + Zyvox GT #2 + Colistin INH #2 [NOTE: Vanco IV + Zosyn=> DC'd 09/28 due to lack of IV access] WILL DC Doxy and keep her on Zyvox for MRSA coverage Vanco IV + Zosyn => DC'd 09/28 s/p Elimite/ ivermectin x1 09/27/16 ID RECOMMENDATIONS 1. DC IV ABX at this time => Pt lost IV access == PICC LINE PLACEMENT TODAY IN IR * Rx Zyvox per GTfor MRSA COVERAGE * Start Colistin INH for concern E.Coli-ESBL sputum cx 2. Give Fosfomycin 3gm via NGT vs GT x1 today to treat E.Coli UTI 3. Follow surgical recommendations and await for ENT evaluation. 4. Hibiclens bath head-toe QPM x 3 days 5. Bactroban to bilateral nares . Problems: Consultation Date/Type/Reason Admit Date/Time Sep 27, 2016 at 14:07 Type of Consultation: ID Exam/Review of Systems Vital Signs Vitals Vital Signs Date Time Temp Pulse Resp B/P Pulse Ox O2 Delivery O2 Flow Rate FiO2 09/29/16 09:04 74 20 95 Nasal Cannula 3.0 09/29/16 07:05 98.5 168/84 Intake and Output 09/28/16 09/28/16 09/29/16 15:00 23:00 07:00 Intake Total 100 ml 920 ml 920 ml Balance 100 ml 920 ml 920 ml Results Result Diagram: 09/29/16 0530 09/29/16 0530 Results 24 hrs Laboratory Tests Test 09/28/16 17:49 09/28/16 20:54 09/29/16 01:39 09/29/16 05:20 Bedside Glucose 239 H 235 H 249 H 253 H Test 09/29/16 05:30 09/29/16 08:26 09/29/16 12:10 White Blood Count 12.5 #H Red Blood Count 3.61 L Hemoglobin 10.8 L Hematocrit 35.5 L Mean Corpuscular Volume 98.3 Mean Corpuscular Hemoglobin 29.9 Mean Corpuscular Hemoglobin Concent 30.4 L Red Cell Distribution Width 15.3 H Platelet Count 256 Mean Platelet Volume 12.4 H Neutrophils % 62.4 Lymphocytes % 15.9 Monocytes % 6.9 Eosinophils % 13.9 H Basophils % 0.2 Nucleated Red Blood Cells % 0.0 Neutrophils # 7.8 H Lymphocytes # 2.0 Monocytes # 0.9 Eosinophils # 1.7 H Basophils # 0.0 Nucleated Red Blood Cells # 0.0 Sodium Level 148 H Potassium Level 3.4 L Chloride Level 103 Carbon Dioxide Level 33 H Anion Gap 15 Blood Urea Nitrogen 38 H Creatinine 0.66 Glucose Level 260 H Calcium Level 8.6 Phosphorus Level 1.6 L Magnesium Level 2.2 Bedside Glucose 174 206 Medications Medications Current Medications Acetaminophen/ Hydrocodone Bitart ([place] (5/325)) 1 tab Q4H PRN PO PAIN LEVEL 4 -7; Start 09/25/16 at 16:30 Acetaminophen/ Hydrocodone Bitart ([place] (5/325)) 2 tab Q4H PRN PO PAIN LEVEL 7 -10; Start 09/25/16 at 16:30 Hydromorphone HCl (Dilaudid) 0.5 mg Q2 PRN IV PAIN; Start 09/25/16 at 16:30 Hydromorphone HCl (Dilaudid) 1 mg Q2 PRN IV PAIN; Start 09/25/16 at 16:30 Docusate Sodium (Colace) 100 mg BID PRN PO CONSTIPATION; Start 09/25/16 at 16:30 Bisacodyl (Dulcolax Supp) 10 mg BID PRN [place] CONSTIPATION; Start 09/25/16 at 16:30 Sodium Biphosphate/ Sodium Phosphate (Fleet Enema) 133 ml BID PRN [place] CONSTIPATION; Start 09/25/16 at 16:30 Famotidine (Pepcid Iv) 20 mg DAILY IV Last administered on 09/29/16 09:29; Admin Dose 20 MG; Start 09/26/16 at 09:00 Enoxaparin Sodium (Lovenox) 40 mg DAILY SC Last administered on 09/29/16 09:27 ; Admin Dose 40 MG; Start 09/26/16 at 09:00 Hydralazine HCl (Apresoline) 10 mg Q6H PRN IV SBP>160; Start 09/25/16 at 16:30 Insulin Aspart (Adult SC Insulin - Mild Algorithm)... Q4 SC Last administered on 09/29/16 12:12; Admin Dose 2 UNIT; Start 09/25/16 at 17:00 Levetiracetam (Keppra 500 Mg/ 100ml (Pmx)) 100 ml @ 400 mls/hr Q12 IVPB Last administered on 09/29/16 09:29; Admin Dose 400 MLS/HR; Start 09/25/16 at 21:00 Miscellaneous Information This patient muhammad... PRN PRN XX WOUND CARE; Start at 19:30 Potassium Chloride/Sodium Chloride (1/2 NS + KCl 20 Meq) 1,000 ml @ 50 mls/hr Q20H IV Last administered on 09/28/16 12:32; Admin Dose 50 MLS/HR; Start at 22:00 Miscellaneous Information 1 ea NOTE XX ; Start 09/26/16 at 07:00 Glucose (Glutose) 15 gm Q15M PRN PO DECREASED GLUCOSE; Start 09/26/16 at 07:00 Glucose (Glutose) 22.5 gm Q15M PRN PO DECREASED GLUCOSE; Start 09/26/16 at 07:00 Dextrose (D50w Syringe) 25 ml Q15M PRN IV DECREASED GLUCOSE; Start 09/26/16 at 07:00 Dextrose (D50w Syringe) 50 ml Q15M PRN IV DECREASED GLUCOSE; Start 09/26/16 at 07:00 Glucagon (Glucagen) 1 mg Q15M PRN IM DECREASED GLUCOSE; Start 09/26/16 at 07:00 Glucose (Glutose) 15 gm Q15M PRN BUCCAL DECREASED GLUCOSE; Start 09/26/16 at 07: 00 Acetaminophen (Tylenol Tab) 500 mg Q6H PRN PO PAIN AND OR ELEVATED TEMP Last administered on 09/27/16 08:28; Admin Dose 500 MG; Start 09/26/16 at 15:30 Benazepril HCl (Lotensin) 5 mg BID GTB Last administered on 09/29/16 09:28; Admin Dose 5 MG; Start 09/26/16 at 21:00 Carvedilol (Coreg) 12.5 mg BID GTB Last administered on 09/29/16 09:29; Admin Dose 12.5 MG; Start 09/26/16 at 21:00 Ferrous Sulfate (Feosol Liquid Cup) 300 mg DAILY GTB Last administered on 09:28; Admin Dose 300 MG; Start 09/27/16 at 09:00 Latanoprost (Xalatan) 1 drop QHS BOTH EYES Last administered on 09/28/16 21:50 ; Admin Dose 1 DROP; Start 09/26/16 at 21:00 Multivitamins (Thera-Plus) 5 ml DAILY GTB Last administered on 09/29/16 09:28; Admin Dose 5 ML; Start 09/27/16 at 09:00 Mupirocin (Bactroban) 1 applic BID TOP Last administered on 09/29/16 09:30; Admin Dose 1 APPLIC; Start 09/27/16 at 15:00 Diphenhydramine HCl (Benadryl) 25 mg Q4H PRN IV itching Last administered on 04:26; Admin Dose 25 MG; Start 09/28/16 at 04:00 Doxycycline Hyclate (Vibramycin) 100 mg BID GTB Last administered on 09/29/16 09:28; Admin Dose 100 MG; Start 09/28/16 at 21:00 Linezolid 600 mg 600 mg BID PEG Last administered on 09/29/16 09:28; Admin Dose 600 MG; Start 09/28/16 at 21:00 Magnesium Sulfate 50 ml @ 25 mls/hr ONCE ONCE IVPB ; Start 09/29/16 at 12:30; Stop 09/29/16 at 14:29 Potassium Chloride/Sodium Chloride (KCl/NS) 165 ml @ 55 mls/hr ONCE ONCE IVPB ; Start 09/29/16 at 12:30; Stop 09/29/16 at 15:29 Insulin Glargine (Lantus) 15 unit DAILY@20 SC ; Start 09/29/16 at 20:00 RUBY ASHLEY NP Sep 29, 2016 14:27
--- NOTE | 2016-09-29 14:53 | CONS ---
Date/Time of Note Date/Time of Note DATE: 09/29/16 TIME: 14:50 Consult Date/Type/Reason Admit Date/Time Sep 27, 2016 at 14:07 Initial Consult Date Type of Consultation: Pulm Subjective No events. Receiving aggressive CPT. Objective Vital Signs Date Time Temp Pulse Resp B/P Pulse Ox O2 Delivery O2 Flow Rate FiO2 09/29/16 09:04 74 20 95 Nasal Cannula 3.0 09/29/16 07:05 98.5 168/84 Intake and Output 09/28/16 09/28/16 09/29/16 15:00 23:00 07:00 Intake Total 100 ml 920 ml 920 ml Balance 100 ml 920 ml 920 ml Exam HEENT: Normocephalic, atraumatic. NECK: Supple is supple with midline trachea. There is some mild erythema involving a right parotid gland, some mild induration and some adenopathy. CARDIOVASCULAR: Regular rate and rhythm, S1, S2. CHEST: Slightly reduced breath sounds of the left hemithorax with rhonchi. ABDOMEN: Soft, nontender. EXTREMITIES: No cyanosis, clubbing or edema. Results/Medications Result Diagram: 09/29/16 0530 09/29/16 0530 Results 24 hrs Laboratory Tests Test 09/28/16 17:49 09/28/16 20:54 09/29/16 01:39 09/29/16 05:20 Bedside Glucose 239 H 235 H 249 H 253 H Test 09/29/16 05:30 09/29/16 08:26 09/29/16 12:10 White Blood Count 12.5 #H Red Blood Count 3.61 L Hemoglobin 10.8 L Hematocrit 35.5 L Mean Corpuscular Volume 98.3 Mean Corpuscular Hemoglobin 29.9 Mean Corpuscular Hemoglobin Concent 30.4 L Red Cell Distribution Width 15.3 H Platelet Count 256 Mean Platelet Volume 12.4 H Neutrophils % 62.4 Lymphocytes % 15.9 Monocytes % 6.9 Eosinophils % 13.9 H Basophils % 0.2 Nucleated Red Blood Cells % 0.0 Neutrophils # 7.8 H Lymphocytes # 2.0 Monocytes # 0.9 Eosinophils # 1.7 H Basophils # 0.0 Nucleated Red Blood Cells # 0.0 Sodium Level 148 H Potassium Level 3.4 L Chloride Level 103 Carbon Dioxide Level 33 H Anion Gap 15 Blood Urea Nitrogen 38 H Creatinine 0.66 Glucose Level 260 H Calcium Level 8.6 Phosphorus Level 1.6 L Magnesium Level 2.2 Bedside Glucose 174 206 Medications Current Medications Acetaminophen/ Hydrocodone Bitart ([place] (5/325)) 1 tab Q4H PRN PO PAIN LEVEL 4 -7; Start 09/25/16 at 16:30 Acetaminophen/ Hydrocodone Bitart ([place] (5/325)) 2 tab Q4H PRN PO PAIN LEVEL 7 -10; Start 09/25/16 at 16:30 Hydromorphone HCl (Dilaudid) 0.5 mg Q2 PRN IV PAIN; Start 09/25/16 at 16:30 Hydromorphone HCl (Dilaudid) 1 mg Q2 PRN IV PAIN; Start 09/25/16 at 16:30 Docusate Sodium (Colace) 100 mg BID PRN PO CONSTIPATION; Start 09/25/16 at 16:30 Bisacodyl (Dulcolax Supp) 10 mg BID PRN [place]STIP[place]; Start 09/25/16 at 16:30 Sodium Biphosphate/ Sodium Phosphate (Fleet Enema) 133 ml BID PRN [place] CONSTIPATION; Start 09/25/16 at 16:30 Enoxaparin Sodium (Lovenox) 40 mg DAILY SC Last administered on 09/29/16 09:27 ; Admin Dose 40 MG; Start 09/26/16 at 09:00 Hydralazine HCl (Apresoline) 10 mg Q6H PRN IV SBP>160; Start 09/25/16 at 16:30 Insulin Aspart (Adult SC Insulin - Mild Algorithm)... Q4 SC Last administered on 09/29/16 12:12; Admin Dose 2 UNIT; Start 09/25/16 at 17:00 Levetiracetam (Keppra 500 Mg/ 100ml (Pmx)) 100 ml @ 400 mls/hr Q12 IVPB Last administered on 09/29/16 09:29; Admin Dose 400 MLS/HR; Start 09/25/16 at 21:00 Miscellaneous Information This patient muhammad... PRN PRN XX WOUND CARE; Start at 19:30 Potassium Chloride/Sodium Chloride (1/2 NS + KCl 20 Meq) 1,000 ml @ 50 mls/hr Q20H IV Last administered on 09/28/16 12:32; Admin Dose 50 MLS/HR; Start at 22:00 Miscellaneous Information 1 ea NOTE XX ; Start 09/26/16 at 07:00 Glucose (Glutose) 15 gm Q15M PRN PO DECREASED GLUCOSE; Start 09/26/16 at 07:00 Glucose (Glutose) 22.5 gm Q15M PRN PO DECREASED GLUCOSE; Start 09/26/16 at 07:00 Dextrose (D50w Syringe) 25 ml Q15M PRN IV DECREASED GLUCOSE; Start 09/26/16 at 07:00 Dextrose (D50w Syringe) 50 ml Q15M PRN IV DECREASED GLUCOSE; Start 09/26/16 at 07:00 Glucagon (Glucagen) 1 mg Q15M PRN IM DECREASED GLUCOSE; Start 09/26/16 at 07:00 Glucose (Glutose) 15 gm Q15M PRN BUCCAL DECREASED GLUCOSE; Start 09/26/16 at 07: 00 Acetaminophen (Tylenol Tab) 500 mg Q6H PRN PO PAIN AND OR ELEVATED TEMP Last administered on 09/27/16 08:28; Admin Dose 500 MG; Start 09/26/16 at 15:30 Benazepril HCl (Lotensin) 5 mg BID GTB Last administered on 09/29/16 09:28; Admin Dose 5 MG; Start 09/26/16 at 21:00 Carvedilol (Coreg) 12.5 mg BID GTB Last administered on 09/29/16 09:29; Admin Dose 12.5 MG; Start 09/26/16 at 21:00 Ferrous Sulfate (Feosol Liquid Cup) 300 mg DAILY GTB Last administered on 09:28; Admin Dose 300 MG; Start 09/27/16 at 09:00 Latanoprost (Xalatan) 1 drop QHS BOTH EYES Last administered on 09/28/16 21:50 ; Admin Dose 1 DROP; Start 09/26/16 at 21:00 Multivitamins (Thera-Plus) 5 ml DAILY GTB Last administered on 09/29/16 09:28; Admin Dose 5 ML; Start 09/27/16 at 09:00 Mupirocin (Bactroban) 1 applic BID TOP Last administered on 09/29/16 09:30; Admin Dose 1 APPLIC; Start 09/27/16 at 15:00 Diphenhydramine HCl (Benadryl) 25 mg Q4H PRN IV itching Last administered on 04:26; Admin Dose 25 MG; Start 09/28/16 at 04:00 Linezolid 600 mg 600 mg BID PEG Last administered on 09/29/16 09:28; Admin Dose 600 MG; Start 09/28/16 at 21:00 Potassium Chloride/Sodium Chloride (KCl/NS) 165 ml @ 55 mls/hr ONCE ONCE IVPB ; Start 09/29/16 at 12:30; Stop 09/29/16 at 15:29 Insulin Glargine (Lantus) 15 unit DAILY@20 SC ; Start 09/29/16 at 20:00 Famotidine (Pepcid) 20 mg DAILY PO ; Start 09/30/16 at 09:00 Assessment/Plan Additional Assessment/Plan IMPRESSION: 1. s/p Complete left hemithorax opacification, with ipsilateral mediastinal shift, consistent with atelectasis - likely due to mucus plugging. Now significantly improved s/p CPT 2. Left sided pneumonia RECOMMENDATIONS: 1. I would continue aggressive chest physiotherapy with q.4h.bronchodilators focusing on the left chest. 2. Aspiration precautions. 3. Continue antibiotics per ID. 4. DAPHNE Velasquez MD Sep 29, 2016 14:53
[2016-09-29] MEDS: DIPHENHYDRAMINE 50 MG INJ IV PRN (17:32)
--- NOTE | 2016-09-29 17:52 | RADRPT ---
PROCEDURE: US guidance for PICC line CLINICAL INDICATION: PICC line placement TECHNIQUE: Multiple real-time images were acquired of the patient's arm utilizing a high resolutio n transducer. This was performed by the PICC line nurse for venous access. COMPARISON: None FINDINGS: Ultrasound guidance for PICC line placement. IMPRESSION: Ultrasound guidance for PICC line placement. RPTAT: AA .Harry Gutierrez MD, MD Date Time Electronically viewed and signed by .Harry Gutierrez MD, on 09/29/2016 17:51 .S/
--- NOTE | 2016-09-29 19:44 | RADRPT ---
PROCEDURE: XR Chest. CLINICAL INDICATION: Left lung atelectasis. TECHNIQUE: Chest x-ray, single view. COMPARISON: 09/11/2016. FINDINGS: The cardiac silhouette is slightly magnified. Patchy opacification of the left mid to lower lung is observed. There is obscuration of the left hemidiaphragm with volume loss within the left hemithor ax suggesting the presence of atelectasis. Patchy airspace disease may also be present. Skeletal s tructures and upper abdomen are unremarkable. IMPRESSION: Patchy opacification of the [id number] left lung with associated volume loss suggesting the presen ce of atelectasis. Patchy airspace disease may also be present. Follow-up recommended. RPTAT: HH .Dana Lozano MD, Date Time Electronically viewed and signed by .Dana Lozano MD, on 09/29/2016 19:44 .T/
--- NOTE | 2016-09-29 19:47 | RADRPT ---
PROCEDURE: XR Chest. CLINICAL INDICATION: PICC placement. TECHNIQUE: Chest x-ray, single view. COMPARISON: 09/11/2016. FINDINGS: The cardiac silhouette is slightly magnified. Patchy opacification of the [id number] left lung is observed. Associated volume loss is present suggesting atelectasis. Patchy airspace disease may a lso be present. A right upper extremity PICC is in place and terminates at the SVC/right atrial ju nction , which is satisfactory in position. Degenerative changes of the spine are present. IMPRESSION: Satisfactory positioning of right PICC. Patchy opacification of the [id number] left lung which may reflect a combination of air space dise ase and atelectasis. RPTAT: HH .Dana Lozano MD, Date Time Electronically viewed and signed by .Dana Lozano MD, MD on 09/29/2016 19:47 .T/
[2016-09-29] MEDS: LATANOPROST 0.005% 2.5 ML OPH BOTH EYES SCH (20:47)
[2016-09-29] MEDS: INSULIN GLARGINE [LANtus] 3 ML PEN SC SCH (20:59)
[2016-09-29 21:57] VITALS: BP 151/64; RESP 18
[2016-09-30] MEDS: Insulin NOVOLOG SS MILD Algorithm (NPO/TPN/ENTERAL FEEDS) SC SCH ×7 (01:00→21:38)
[2016-09-30] MEDS: 1/2 NS + KCL 20 MEQ 1,000 ML IV SCH ×2 (02:00→18:33)
[2016-09-30 05:24] LABS: ADD SCAN DIFF NO
[2016-09-30 05:30] LABS: BASOPHILS % 0.3 % (0.0-2.0); EOSINOPHILS # 1.4 10^3/ul (0.0-0.5); EOSINOPHILS % 13.5 % (0.0-7.0); HEMOGLOBIN 9.2 g/dl (12.0-16.0); LYMPHOCYTES # 1.8 10^3/ul (0.8-2.9); LYMPHOCYTES % 17.2 % (15.0-51.0); MEAN CORPUSCULAR HEMOGLOBIN 29.9 pg (29.0-33.0); MEAN CORPUSCULAR HGB CONC 30.7 g/dl (32.0-37.0); MEAN CORPUSCULAR VOLUME 97.4 fl (82.0-101.0); MEAN PLATELET VOLUME 11.9 fl (7.4-10.4); MONOCYTE # 0.8 10^3/ul (0.3-0.9); MONOCYTES % 7.5 % (0.0-11.0); NEUTROPHIL # 6.5 10^3/ul (1.6-7.5); NEUTROPHILS % 60.7 % (39.0-77.0); NUCLEATED RED BLOOD CELLS% 0.2 /100WBC (0.0-0.0); PLATELET COUNT 277 10^3/UL (140-415); RED BLOOD COUNT 3.08 10^6/ul (4.20-5.40); RED CELL DISTRIBUTION WIDTH 14.7 % (11.5-14.5); WHITE BLOOD COUNT 10.7 10^3/ul (4.8-10.8)
[2016-09-30 05:47] LABS: CALCIUM 8.2 mg/dl (8.4-10.2); CREATININE 0.63 mg/dl (0.44-1.00); POTASSIUM 4.3 mmol/L (3.5-5.1)
[2016-09-30 05:55] LABS: MAGNESIUM 2.6 mg/dl (1.7-2.5); PHOSPHORUS 1.5 mg/dl (2.5-4.9)
[2016-09-30] MEDS: BENAZEPRIL 5 MG TAB GTB SCH ×2 (08:40→21:32)
[2016-09-30] MEDS: FAMOTIDINE 20 MG TAB PO SCH (08:40)
[2016-09-30] MEDS: MULTIVITAMINS 5 ML CUP GTB SCH (08:40)
[2016-09-30] MEDS: FERROUS SULFATE 60 MG/ML 5ML CUP GTB SCH (08:40)
[2016-09-30] MEDS: ZYVOX 600 MG TAB PEG SCH ×2 (08:40→21:32)
[2016-09-30] MEDS: ENOXAPARIN 40 MG/0.4 ML SYG SC SCH (08:41)
[2016-09-30] MEDS: LEVETIRACETAM 500 MG (PMX) 100 ML IVPB SCH ×2 (08:43→21:33)
[2016-09-30 08:46] VITALS: BP 133/56; RESP 18
[2016-09-30] MEDS: ALBUTEROL/IPRATROPIUM (NEB) 3 ML AMP HHN SCH ×4 (08:57→20:14)
[2016-09-30] MEDS: COLISTIMETHATE (25 MG/ML INHAL SYG) NEB SCH ×2 (09:09→20:14)
[2016-09-30] MEDS: MUPIROCIN 2% 22 GM OINT TOP SCH ×2 (09:22→21:42)
--- NOTE | 2016-09-30 10:46 | PN ---
Date/Time of Note Date/Time of Note DATE: 09/30/16 TIME: 10:42 Assessment/Plan VTE Prophylaxis VTE Prophylaxis Intervention: LMWH Lines/Catheters IV Catheter Type (from Nrs): PICC Line Central line still needed: Yes Assessment/Plan Chief Complaint/Hosp Course Assessment and plan 1. Sepsis secondary to UTI and aspiration pneumonia along with right parotitis. ID following. Continue on antibiotic regimen. 2. Aspiration pneumonia with sputum culture with ESBL and MRSA. Patient remains in isolation precautions. Continue antibiotic regimen 3. Right parotitis and right neck cellulitis. Patient was evaluated by ENT. Continue on antibiotics 4. Malpositioned G-tube. cont with surgeon recs. 5. Essential hypertension. Continue on antihypertensives and adjust as needed 6. Opacification of left lung with underlying consolidation and atelectasis. Mushroom Cutter following. Continue on CPT per recommendations. Appears to be improving at present. 7. Dysphagia. Patient with PEG tube placed 8. Type 2 diabetes. A1c was noted at 8.2. Continue insulin regimen 9. CKD. Medications to be renally dosed. Monitor renal panel. 10. Seizure disorder. 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 History of pulmonary hypertension. Patient on O2 as needed 13. Iron deficiency anemia. Continue iron supplement 14. Chronic encephalopathy. On aspiration precautions. DVT prophylaxis: Lovenox GERD prophylaxis: H2 jayne Disposition and plan: Continue antibiotic regimen. Follow-up with consultants. Discharge when medically stable and cleared by consultants Discussed plan of care with Dr. Young Problems: Subjective 24 Hr Interval Summary Free Text/Dictation Nonverbal during visit. No apparent distress seen. Exam/Review of Systems Vital Signs Vitals Vital Signs Date Time Temp Pulse Resp B/P Pulse Ox O2 Delivery O2 Flow Rate FiO2 09/30/16 08:57 2.0 09/30/16 08:57 72 16 94 Nasal Cannula 09/30/16 08:46 97.9 133/56 Intake and Output 09/29/16 09/29/16 09/30/16 15:00 23:00 07:00 Intake Total 995 ml 1420 ml Balance 995 ml 1420 ml Exam General: Alert to verbal response. No purposeful response Eyes: Equal round Neck: No obvious JVD Cardiac: Regular rate Pulmonary: Diminished bases. No wheezing or rhonchi GI: PEG tube in place. Extremities: No edema seen bilateral lower extremities Skin: Some scabs seen bilateral lower extremities Neurologic: Alert. Not oriented to person place and time Results Result Diagram: 09/30/16 0417 09/30/16 0417 Results 24 hrs Laboratory Tests Test 09/29/16 12:10 09/29/16 17:31 09/29/16 20:52 09/30/16 02:27 Bedside Glucose 206 116 126 146 Test 09/30/16 04:17 09/30/16 05:32 09/30/16 07:39 09/30/16 09:07 White Blood Count 10.7 Red Blood Count 3.08 L Hemoglobin 9.2 L Hematocrit 30.0 L Mean Corpuscular Volume 97.4 Mean Corpuscular Hemoglobin 29.9 Mean Corpuscular Hemoglobin Concent 30.7 L Red Cell Distribution Width 14.7 H Platelet Count 277 Mean Platelet Volume 11.9 H Neutrophils % 60.7 Lymphocytes % 17.2 Monocytes % 7.5 Eosinophils % 13.5 H Basophils % 0.3 Nucleated Red Blood Cells % 0.2 H Neutrophils # 6.5 Lymphocytes # 1.8 Monocytes # 0.8 Eosinophils # 1.4 H Basophils # 0.0 Nucleated Red Blood Cells # 0.0 Sodium Level 142 Potassium Level 4.3 Chloride Level 107 Carbon Dioxide Level 31 Anion Gap 8 Blood Urea Nitrogen 31 H Creatinine 0.63 Glucose Level 152 # Calcium Level 8.2 L Phosphorus Level 1.5 L Magnesium Level 2.6 H Bedside Glucose 150 180 194 Medications Medications Current Medications Acetaminophen/ Hydrocodone Bitart ([place] (5/325)) 1 tab Q4H PRN PO PAIN LEVEL 4 -7; Start 09/25/16 at 16:30 Acetaminophen/ Hydrocodone Bitart ([place] (5/325)) 2 tab Q4H PRN PO PAIN LEVEL 7 -10; Start 09/25/16 at 16:30 Hydromorphone HCl (Dilaudid) 0.5 mg Q2 PRN IV PAIN; Start 09/25/16 at 16:30 Hydromorphone HCl (Dilaudid) 1 mg Q2 PRN IV PAIN; Start 09/25/16 at 16:30 Docusate Sodium (Colace) 100 mg BID PRN PO CONSTIPATION; Start 09/25/16 at 16:30 Bisacodyl (Dulcolax Supp) 10 mg BID PRN [place] CONSTIPATION; Start 09/25/16 at 16:30 Sodium Biphosphate/ Sodium Phosphate (Fleet Enema) 133 ml BID PRN [place] CONSTIPATION; Start 09/25/16 at 16:30 Enoxaparin Sodium (Lovenox) 40 mg DAILY SC Last administered on 09/30/16 08:41 ; Admin Dose 40 MG; Start 09/26/16 at 09:00 Hydralazine HCl (Apresoline) 10 mg Q6H PRN IV SBP>160; Start 09/25/16 at 16:30 Insulin Aspart (Adult SC Insulin - Mild Algorithm)... Q4 SC Last administered on 09/30/16 09:20; Admin Dose 2 UNIT; Start 09/25/16 at 17:00 Levetiracetam (Keppra 500 Mg/ 100ml (Pmx)) 100 ml @ 400 mls/hr Q12 IVPB Last administered on 09/30/16 08:43; Admin Dose 400 MLS/HR; Start 09/25/16 at 21:00 Miscellaneous Information This patient muhammad... PRN PRN XX WOUND CARE; Start at 19:30 Potassium Chloride/Sodium Chloride (1/2 NS + KCl 20 Meq) 1,000 ml @ 50 mls/hr Q20H IV Last administered on 09/28/16 12:32; Admin Dose 50 MLS/HR; Start at 22:00 Miscellaneous Information 1 ea NOTE XX ; Start 09/26/16 at 07:00 Glucose (Glutose) 15 gm Q15M PRN PO DECREASED GLUCOSE; Start 09/26/16 at 07:00 Glucose (Glutose) 22.5 gm Q15M PRN PO DECREASED GLUCOSE; Start 09/26/16 at 07:00 Dextrose (D50w Syringe) 25 ml Q15M PRN IV DECREASED GLUCOSE; Start 09/26/16 at 07:00 Dextrose (D50w Syringe) 50 ml Q15M PRN IV DECREASED GLUCOSE; Start 09/26/16 at 07:00 Glucagon (Glucagen) 1 mg Q15M PRN IM DECREASED GLUCOSE; Start 09/26/16 at 07:00 Glucose (Glutose) 15 gm Q15M PRN BUCCAL DECREASED GLUCOSE; Start 09/26/16 at 07: 00 Acetaminophen (Tylenol Tab) 500 mg Q6H PRN PO PAIN AND OR ELEVATED TEMP Last administered on 09/27/16 08:28; Admin Dose 500 MG; Start 09/26/16 at 15:30 Benazepril HCl (Lotensin) 5 mg BID GTB Last administered on 09/30/16 08:40; Admin Dose 5 MG; Start 09/26/16 at 21:00 Carvedilol (Coreg) 12.5 mg BID GTB Last administered on 09/30/16 09:17; Admin Dose 12.5 MG; Start 09/26/16 at 21:00 Ferrous Sulfate (Feosol Liquid Cup) 300 mg DAILY GTB Last administered on 08:40; Admin Dose 300 MG; Start 09/27/16 at 09:00 Latanoprost (Xalatan) 1 drop QHS BOTH EYES Last administered on 09/29/16 20:47 ; Admin Dose 1 DROP; Start 09/26/16 at 21:00 Multivitamins (Thera-Plus) 5 ml DAILY GTB Last administered on 09/30/16 08:40 ; Admin Dose 5 ML; Start 09/27/16 at 09:00 Mupirocin (Bactroban) 1 applic BID TOP Last administered on 09/30/16 09:22; Admin Dose 1 APPLIC; Start 09/27/16 at 15:00 Diphenhydramine HCl (Benadryl) 25 mg Q4H PRN IV itching Last administered on 17:32; Admin Dose 25 MG; Start 09/28/16 at 04:00 Linezolid (Zyvox) 600 mg BID PEG Last administered on 09/30/16 08:40; Admin Dose 600 MG; Start 09/28/16 at 21:00 Insulin Glargine (Lantus) 15 unit DAILY@20 SC Last administered on 09/29/16 20: 59; Admin Dose 15 UNIT; Start 09/29/16 at 20:00 Famotidine (Pepcid) 20 mg DAILY PO Last administered on 09/30/16 08:40; Admin Dose 20 MG; Start 09/30/16 at 09:00 ANITA DIAZ Sep 30, 2016 10:46
--- NOTE | 2016-09-30 15:05 | CONS ---
Date/Time of Note Date/Time of Note DATE: 09/30/16 TIME: 15:03 Assessment/Plan Assessment/Plan Additional Assessment/Plan Assessment recommendations; next 1. Patient admitted for left-sided pneumonia with complete opacification with significant radiological improvement. 2. Dementia. 3. History of hypertension, diabetes, UTI, and MRSA colonization of the nares. 4. Possibly scabies. Continue current treatment. Consultation Date/Type/Reason Admit Date/Time Sep 27, 2016 at 14:07 Initial Consult Date Type of Consultation: Pulm 24 HR Interval Summary Free Text/Dictation Patient condition stable. Remains awake but is not much cooperative for examination. General exam; elderly woman, currently in no distress. Exam/Review of Systems Vital Signs Vitals Vital Signs Date Time Temp Pulse Resp B/P Pulse Ox O2 Delivery O2 Flow Rate FiO2 09/30/16 12:09 70 18 94 Nasal Cannula 2.0 09/30/16 08:46 97.9 133/56 Intake and Output 09/29/16 09/29/16 09/30/16 15:00 23:00 07:00 Intake Total 995 ml 1420 ml Balance 995 ml 1420 ml Exam HEENT exam; supple neck, no JVD. No lymphadenopathy. Midline trachea. No neck masses. Patient is edentulous. Pupils are small bilaterally. Chest examination; diminished breath sounds left lung, right lung is clear to auscultation. S1-S2 audible, no murmurs. Regular rhythm. Abdomen examination; soft, G-tube in place. Bowel sounds audible. Nondistended abdomen nontender. Extremity exam is; there are excoriation singh in all 4 extremities. No peripheral edema. BOBBIN TRUCKER exam is; patient awake and follows very simple commands. There appears to be left-sided hemiparesis. Results Result Diagram: 09/30/16 0417 09/30/16 0417 Results 24 hrs Laboratory Tests Test 09/29/16 17:31 09/29/16 20:52 09/30/16 02:27 09/30/16 04:17 Bedside Glucose 116 126 146 White Blood Count 10.7 Red Blood Count 3.08 L Hemoglobin 9.2 L Hematocrit 30.0 L Mean Corpuscular Volume 97.4 Mean Corpuscular Hemoglobin 29.9 Mean Corpuscular Hemoglobin Concent 30.7 L Red Cell Distribution Width 14.7 H Platelet Count 277 Mean Platelet Volume 11.9 H Neutrophils % 60.7 Lymphocytes % 17.2 Monocytes % 7.5 Eosinophils % 13.5 H Basophils % 0.3 Nucleated Red Blood Cells % 0.2 H Neutrophils # 6.5 Lymphocytes # 1.8 Monocytes # 0.8 Eosinophils # 1.4 H Basophils # 0.0 Nucleated Red Blood Cells # 0.0 Sodium Level 142 Potassium Level 4.3 Chloride Level 107 Carbon Dioxide Level 31 Anion Gap 8 Blood Urea Nitrogen 31 H Creatinine 0.63 Glucose Level 152 # Calcium Level 8.2 L Phosphorus Level 1.5 L Magnesium Level 2.6 H Test 09/30/16 05:32 09/30/16 07:39 09/30/16 09:07 09/30/16 13:36 Bedside Glucose 150 180 194 226 H Medications Medications Current Medications Acetaminophen/ Hydrocodone Bitart ([place] (5/325)) 1 tab Q4H PRN PO PAIN LEVEL 4 -7; Start 09/25/16 at 16:30 Acetaminophen/ Hydrocodone Bitart ([place] (5/325)) 2 tab Q4H PRN PO PAIN LEVEL 7 -10; Start 09/25/16 at 16:30 Hydromorphone HCl (Dilaudid) 0.5 mg Q2 PRN IV PAIN; Start 09/25/16 at 16:30 Hydromorphone HCl (Dilaudid) 1 mg Q2 PRN IV PAIN; Start 09/25/16 at 16:30 Docusate Sodium (Colace) 100 mg BID PRN PO CONSTIPATION; Start 09/25/16 at 16:30 Bisacodyl (Dulcolax Supp) 10 mg BID PRN [place] CONSTIPATION; Start 09/25/16 at 16:30 Sodium Biphosphate/ Sodium Phosphate (Fleet Enema) 133 ml BID PRN [place] CONSTIPATION; Start 09/25/16 at 16:30 Enoxaparin Sodium (Lovenox) 40 mg DAILY SC Last administered on 09/30/16 08:41 ; Admin Dose 40 MG; Start 09/26/16 at 09:00 Hydralazine HCl (Apresoline) 10 mg Q6H PRN IV SBP>160; Start 09/25/16 at 16:30 Insulin Aspart (Adult SC Insulin - Mild Algorithm)... Q4 SC Last administered on 09/30/16 13:38; Admin Dose 3 UNIT; Start 09/25/16 at 17:00 Levetiracetam (Keppra 500 Mg/ 100ml (Pmx)) 100 ml @ 400 mls/hr Q12 IVPB Last administered on 09/30/16 08:43; Admin Dose 400 MLS/HR; Start 09/25/16 at 21:00 Miscellaneous Information This patient muhammad... PRN PRN XX WOUND CARE; Start at 19:30 Potassium Chloride/Sodium Chloride (1/2 NS + KCl 20 Meq) 1,000 ml @ 50 mls/hr Q20H IV Last administered on 09/28/16 12:32; Admin Dose 50 MLS/HR; Start at 22:00 Miscellaneous Information 1 ea NOTE XX ; Start 09/26/16 at 07:00 Glucose (Glutose) 15 gm Q15M PRN PO DECREASED GLUCOSE; Start 09/26/16 at 07:00 Glucose (Glutose) 22.5 gm Q15M PRN PO DECREASED GLUCOSE; Start 09/26/16 at 07:00 Dextrose (D50w Syringe) 25 ml Q15M PRN IV DECREASED GLUCOSE; Start 09/26/16 at 07:00 Dextrose (D50w Syringe) 50 ml Q15M PRN IV DECREASED GLUCOSE; Start 09/26/16 at 07:00 Glucagon (Glucagen) 1 mg Q15M PRN IM DECREASED GLUCOSE; Start 09/26/16 at 07:00 Glucose (Glutose) 15 gm Q15M PRN BUCCAL DECREASED GLUCOSE; Start 09/26/16 at 07: 00 Acetaminophen (Tylenol Tab) 500 mg Q6H PRN PO PAIN AND OR ELEVATED TEMP Last administered on 09/27/16 08:28; Admin Dose 500 MG; Start 09/26/16 at 15:30 Benazepril HCl (Lotensin) 5 mg BID GTB Last administered on 09/30/16 08:40; Admin Dose 5 MG; Start 09/26/16 at 21:00 Carvedilol (Coreg) 12.5 mg BID GTB Last administered on 09/30/16 09:17; Admin Dose 12.5 MG; Start 09/26/16 at 21:00 Ferrous Sulfate (Feosol Liquid Cup) 300 mg DAILY GTB Last administered on 08:40; Admin Dose 300 MG; Start 09/27/16 at 09:00 Latanoprost (Xalatan) 1 drop QHS BOTH EYES Last administered on 09/29/16 20:47 ; Admin Dose 1 DROP; Start 09/26/16 at 21:00 Multivitamins (Thera-Plus) 5 ml DAILY GTB Last administered on 09/30/16 08:40 ; Admin Dose 5 ML; Start 09/27/16 at 09:00 Mupirocin (Bactroban) 1 applic BID TOP Last administered on 09/30/16 09:22; Admin Dose 1 APPLIC; Start 09/27/16 at 15:00 Diphenhydramine HCl (Benadryl) 25 mg Q4H PRN IV itching Last administered on 17:32; Admin Dose 25 MG; Start 09/28/16 at 04:00 Linezolid (Zyvox) 600 mg BID PEG Last administered on 09/30/16 08:40; Admin Dose 600 MG; Start 09/28/16 at 21:00 Insulin Glargine (Lantus) 15 unit DAILY@20 SC Last administered on 09/29/16 20: 59; Admin Dose 15 UNIT; Start 09/29/16 at 20:00 Famotidine (Pepcid) 20 mg DAILY PO Last administered on 09/30/16 08:40; Admin Dose 20 MG; Start 09/30/16 at 09:00 PILLO PERRY Sep 30, 2016 15:05
[2016-09-30] MEDS: PIPER-TAZO 3.375 GM IV (PMX) 100 ML IVPB SCH ×2 (15:51→22:38)
--- NOTE | 2016-09-30 16:53 | PN ---
Date/Time of Note Date/Time of Note DATE: 09/30/16 TIME: 16:49 Assessment/Plan Lines/Catheters IV C[facility]ter Type (from [facility]): PICC Line Assessment/Plan Assessment/Plan [facility] Progress Note Date of Service: 09/30/16 Today's Impression & Plan: Overall stable and improving. Minimal output from old tube site and should heal without surgery. ? malignancy as underlying cause of R face mass. May need further w/u. Appreciate ENT's input. With above assessment, I've recommended the following for today: 1. Cont broad-spectrum targeted antimicrobial therapy and clarify outpatient treatment plans 2. ENT to please clarify outpatient treatment plans or further w/u inhouse 3. Labs in a.m. 4. Continued non-surgical management of the old perc tube site (most will heal spontaneously with adequate care and nutrition) 5. ? d/c planning after acute care needs have been met Thank you again for your great care of this very pleasant patient and wonderful family. If there are any questions, please feel free to call me at [phone]. TOTAL VISIT TIME: 20 minutes of which more than half was spent in [id number] discussion with the patient, possibly including family, as well as coordination of care between multiple physicians and providers. Disclaimer: Inadvertent spelling or grammatical errors are likely due to EHR/ dictation software use and do not reflect on the overall quality of patient care. UPDATED CLINICAL HISTORY: The patient is a very pleasant but unfortunate 66- year-old lady with comorbidities including a BMI of 16.5 as well as history of chronic encephalopathy and debility who was found to have a G-tube placement, unfortunately, into her transverse colon when she was seen in our emergency department today for replacement of a displaced G-tube. S/p PEG 09/13/16. Readmitted to the hospital electively 09/25/2016 for removal of old percutaneous tube that was in the transverse colon (done by me at bedside on 09/25/2016). White blood cell count elevation noted with swollen right side of the face and broad-spectrum antimicrobials and workup started. Head and neck CT scan demonstrated enlarged glands in the right side of the face and possibility of malignancy could not be ruled out but it was more consistent with an infection. Patient's white blood cell count came down with initiation of broad-spectrum antimicrobial coverage. Nodularities in lung freeman were noted on the neck CT and therefore chest CT was ordered. Patient started having some stool drainage from the prior percutaneous tube placement site but abdomen remained benign. Sig improvement with broad spec antimicrobial management. COMORBIDITIES: 1. BMI 16.5. 2. Chronic encephalopathy. 3. Diabetes mellitus type 2. 4. Dysphagia. 5. Essential hypertension. 6. Pulmonary hypertension. 7. Chronic kidney disease. 8. Coronary artery disease. 9. Subdural hematoma. 10. Seizure disorder. 11. Chronic encephalopathy. Subjective: No major reported events or complaints other than above; no abd pain with minimal drainage (staining of the dressing and no flow outside) noted from the old drain site; no n/v/d; no sob or cp; + signs of bowel activity; - activity Objective: Vitals: See below Exam: GENERAL: On exam, the patient was laying in bed and not communicative but otherwise appeared to be comfortable and in no acute distress. ABDOMEN: Soft, nontender and nondistended. Site of previous percutaneous drain with staining on the dressings. Skin around it slightly erythematous. There are no peritoneal signs or guarding. SKIN: Skin appears to be pink and feels warm to touch. NEUROLOGIC: Patient is more awake than the last 2 days, more alert, and does not follow commands appropriately. Right side of face appears to be less swollen and skin no longer erythematous Exam/Review of Systems Vital Signs Vitals Vital Signs Date Time Temp Pulse Resp B/P Pulse Ox O2 Delivery O2 Flow Rate FiO2 09/30/16 12:09 70 18 94 Nasal Cannula 2.0 09/30/16 08:46 97.9 133/56 Intake and Output 09/29/16 09/29/16 09/30/16 15:00 23:00 07:00 Intake Total 995 ml 1420 ml Balance 995 ml 1420 ml Results Result Diagram: 09/30/16 0417 09/30/16 0417 YOSEPH TALAMANTES M.D. Sep 30, 2016 16:53
--- NOTE | 2016-09-30 17:58 | PN ---
DATE: 09/30/2016 SUBJECTIVE: Infectious disease progress note. No acute changes overnight. The patient is lying co mfortably in bed. No fevers. WBC 10.7, platelet count 277, neutrophils 60.7, BUN 31, creatinine 0. 63. MICROBIOLOGY: Sputum culture grew E. coli ESBL, MRSA. Nnares swab came back positive for MRSA. Bl ood cultures remain negative. Urine culture grew E. coli. Stool for C. diff negative. ANTIMICROBIALS: The patient is on IV Zosyn and Zyvox. PHYSICAL EXAMINATION: GENERAL: This is a well-developed, elderly woman who is in no distress. HEENT: Head atraumatic, normocephalic. Sclerae anicteric. Buccal mucosa dry. NECK: Supple, trachea midline. CHEST: Rise symmetrical. Breath sounds diminished. HEART: S1, S2. ABDOMEN: Soft. Bowel tones present. EXTREMITIES: Without cyanosis. ASSESSMENT: 1. Resolving sepsis. 2. Pneumonia. 3. Right parotitis with facial and neck cellulitis, improving. 4. Urinary tract infection. 5. Rash, status post Elimite and ivermectin. 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 PLAN: The patient remains stable, overall improving on current antimicrobials. ENT on case. No re commendations for surgical intervention. We will continue her on current regimen, continue Bactroba n to nares. Monitor platelet count closely. Dictated By: MEL OLEARY PICU NURSE for CARON CARDOZA MD NI/NTS Conf#: [id number] DID#: [id number]
[2016-09-30] MEDS: DIPHENHYDRAMINE 50 MG INJ IV PRN (18:29)
[2016-09-30 20:28] VITALS: BP 131/91; RESP 60
[2016-09-30] MEDS: INSULIN GLARGINE [LANtus] 3 ML PEN SC SCH (21:31)
[2016-09-30] MEDS: LATANOPROST 0.005% 2.5 ML OPH BOTH EYES SCH (21:44)
[2016-10-01] MEDS: Insulin NOVOLOG SS MILD Algorithm (NPO/TPN/ENTERAL FEEDS) SC SCH ×6 (01:29→21:00)
[2016-10-01] MEDS: PIPER-TAZO 3.375 GM IV (PMX) 100 ML IVPB SCH (05:20)
--- NOTE | 2016-10-01 07:37 | PN ---
Date/Time of Note Date/Time of Note DATE: 10/01/16 TIME: 07:33 Assessment/Plan Lines/Catheters IV C[facility]ter Type (from [facility]): PICC Line Assessment/Plan Assessment/Plan [facility] Progress Note Date of Service: 10/01/16 Today's Impression & Plan: Overall stable and improving. Minimal output from old tube site and should heal without surgery. R face also improved. Patient approaching point of discharge from her abdominal standpoint. Will need a plan for outpatient management of her face swelling. Patient will follow up with me as an outpatient for her abdominal old drain site. With above assessment, I've recommended the following for today: 1. Continue current cares and please educate SNF nursing staff as to the care needed for the old drain site as well as the new PEG 2. Will need plan for R face infection/mass as well as outpatient antimicrobial coverage 3. D/c to SNF once we have above 4. Follow up with my office in 2-3 weeks Thank you again for your great care of this very pleasant patient and wonderful family. If there are any questions, please feel free to call me at [phone]. TOTAL VISIT TIME: 20 minutes of which more than half was spent in [id number] discussion with the patient, possibly including family, as well as coordination of care between multiple physicians and providers. Disclaimer: Inadvertent spelling or grammatical errors are likely due to EHR/ dictation software use and do not reflect on the overall quality of patient care. UPDATED CLINICAL HISTORY: The patient is a very pleasant but unfortunate 66- year-old lady with comorbidities including a BMI of 16.5 as well as history of chronic encephalopathy and debility who was found to have a G-tube placement, unfortunately, into her transverse colon when she was seen in our emergency department today for replacement of a displaced G-tube. S/p PEG 09/13/16. Readmitted to the hospital electively 09/25/2016 for removal of old percutaneous tube that was in the transverse colon (done by me at bedside on 09/25/2016). White blood cell count elevation noted with swollen right side of the face and broad-spectrum antimicrobials and workup started. Head and neck CT scan demonstrated enlarged glands in the right side of the face and possibility of malignancy could not be ruled out but it was more consistent with an infection. Patient's white blood cell count came down with initiation of broad-spectrum antimicrobial coverage. Nodularities in lung freeman were noted on the neck CT and therefore chest CT was ordered. Patient started having some stool drainage from the prior percutaneous tube placement site but abdomen remained benign. Sig improvement with broad spec antimicrobial management. COMORBIDITIES: 1. BMI 16.5. 2. Chronic encephalopathy. 3. Diabetes mellitus type 2. 4. Dysphagia. 5. Essential hypertension. 6. Pulmonary hypertension. 7. Chronic kidney disease. 8. Coronary artery disease. 9. Subdural hematoma. 10. Seizure disorder. 11. Chronic encephalopathy. Subjective: No major reported events or complaints other than above; no abd pain with minimal drainage (staining of the dressing and no flow outside) noted from the old drain site; no n/v/d; no sob or cp; + signs of bowel activity; - activity Objective: Vitals: See below Exam: GENERAL: On exam, the patient was laying in bed and not communicative but otherwise appeared to be comfortable and in no acute distress. ABDOMEN: Soft, nontender and nondistended. Site of previous percutaneous drain with staining on the dressings. Skin around it slightly erythematous. There are no peritoneal signs or guarding. SKIN: Skin appears to be pink and feels warm to touch. NEUROLOGIC: Patient is awake, alert, and even said a word or two when prompted by voice. Right side of face appears to be less swollen and skin not erythematous Exam/Review of Systems Vital Signs Vitals Vital Signs Date Time Temp Pulse Resp B/P Pulse Ox O2 Delivery O2 Flow Rate FiO2 10/01/16 00:06 2.0 09/30/16 20:29 72 18 95 Nasal Cannula 09/30/16 20:28 99.3 131/91 Intake and Output 09/30/16 09/30/16 10/01/16 15:00 23:00 07:00 Intake Total 100 ml 1470 ml 1645 ml Balance 100 ml 1470 ml 1645 ml Results Result Diagram: 09/30/16 0417 09/30/16 0417 YOSEPH TALAMANTES M.D. Oct 01, 2016 07:37
[2016-10-01] MEDS: NYSTATIN 30 GM POWDER BTL TOP SCH (09:00)
[2016-10-01] MEDS: MUPIROCIN 2% 22 GM OINT TOP SCH ×2 (09:00→20:18)
[2016-10-01] MEDS: ALBUTEROL/IPRATROPIUM (NEB) 3 ML AMP HHN SCH ×4 (09:09→20:42)
[2016-10-01] MEDS: COLISTIMETHATE (25 MG/ML INHAL SYG) NEB SCH ×2 (09:10→20:43)
[2016-10-01] MEDS: FERROUS SULFATE 60 MG/ML 5ML CUP GTB SCH (10:11)
[2016-10-01] MEDS: FAMOTIDINE 20 MG TAB PO SCH (10:11)
[2016-10-01] MEDS: BENAZEPRIL 5 MG TAB GTB SCH ×2 (10:12→20:17)
[2016-10-01] MEDS: ZYVOX 600 MG TAB PEG SCH ×2 (10:12→20:17)
[2016-10-01] MEDS: MULTIVITAMINS 5 ML CUP GTB SCH (10:12)
[2016-10-01] MEDS: ENOXAPARIN 40 MG/0.4 ML SYG SC SCH (10:13)
[2016-10-01] MEDS: LEVETIRACETAM 500 MG (PMX) 100 ML IVPB SCH ×2 (10:15→20:17)
[2016-10-01 10:19] VITALS: BP 144/64; PULSE 73; RESP 24
--- NOTE | 2016-10-01 10:50 | PN ---
Date/Time of Note Date/Time of Note DATE: 10/01/16 TIME: 10:46 Assessment/Plan VTE Prophylaxis VTE Prophylaxis Intervention: LMWH Lines/Catheters [facility] P[facility] Line Assessment/Plan Chief Complaint/Hosp Course Assessment and plan 1. Sepsis secondary to UTI and aspiration pneumonia along with right parotitis. ID following. Continue on antibiotic regimen. stable at present. Await ID recs for duration of abx 2. Aspiration pneumonia with sputum culture with ESBL and MRSA. Patient remains in isolation precautions. Continue antibiotic regimen per ID 3. Right parotitis and right neck cellulitis. Patient was evaluated by ENT. no plan for surgical intervention at this time. Continue on antibiotics 4. Malpositioned G-tube. now with new PEG. continue care. cont with surgeon recs. 5. Essential hypertension. Continue on antihypertensives and adjust as needed 6. Opacification of left lung with underlying consolidation and atelectasis. Resort Desk Clerk following. Continue on CPT per recommendations. Appears to be improving at present. 7. Dysphagia. Patient with PEG tube placed 8. Type 2 diabetes. A1c was noted at 8.2. Continue insulin regimen 9. CKD. Medications to be renally dosed. Monitor renal panel. 10. Seizure disorder. 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 History of pulmonary hypertension. Patient on O2 as needed 13. Iron deficiency anemia. Continue iron supplement 14. Chronic encephalopathy. On aspiration precautions. DVT prophylaxis: Lovenox GERD prophylaxis: H2 jayne Disposition and plan: Continue antibiotic regimen. await ID recs for abx duration. d/c planning. Discussed plan of care with Dr. Young Problems: Subjective 24 Hr Interval Summary Free Text/Dictation no s/s of distress Exam/Review of Systems Vital Signs Vitals Vital Signs Date Time Temp Pulse Resp B/P Pulse Ox O2 Delivery O2 Flow Rate FiO2 10/01/16 09:19 71 16 96 Nasal Cannula 2.0 09/30/16 20:28 99.3 131/91 Intake and Output 09/30/16 09/30/16 10/01/16 15:00 23:00 07:00 Intake Total 100 ml 1470 ml 1645 ml Balance 100 ml 1470 ml 1645 ml Exam General: Alert to verbal response. No purposeful response. no s/s of distress Eyes: Equal round. Face: noted with mass on right side of face (parotitis) Neck: No obvious JVD Cardiac: Regular rate Pulmonary: Diminished bases. No wheezing or rhonchi GI: PEG tube in place. Extremities: No edema seen bilateral lower extremities Skin: Some scabs seen bilateral lower extremities Neurologic: Alert. Not oriented to person place and time Results Result Diagram: 09/30/16 0417 09/30/16 0417 Results 24 hrs Laboratory Tests Test 09/30/16 13:36 09/30/16 16:33 09/30/16 21:27 10/01/16 01:16 Bedside Glucose 226 H 166 172 161 Test 10/01/16 05:13 10/01/16 07:42 Bedside Glucose 136 145 Medications Medications Current Medications Acetaminophen/ Hydrocodone Bitart ([place] (5/325)) 1 tab Q4H PRN PO PAIN LEVEL 4 -7; Start 09/25/16 at 16:30 Acetaminophen/ Hydrocodone Bitart ([place] (5/325)) 2 tab Q4H PRN PO PAIN LEVEL 7 -10; Start 09/25/16 at 16:30 Hydromorphone HCl (Dilaudid) 0.5 mg Q2 PRN IV PAIN; Start 09/25/16 at 16:30 Hydromorphone HCl (Dilaudid) 1 mg Q2 PRN IV PAIN; Start 09/25/16 at 16:30 Docusate Sodium (Colace) 100 mg BID PRN PO CONSTIPATION; Start 09/25/16 at 16:30 Bisacodyl (Dulcolax Supp) 10 mg BID PRN MS CONSTIPATION; Start 09/25/16 at 16:30 Sodium Biphosphate/ Sodium Phosphate (Fleet Enema) 133 ml BID PRN MS CONSTIPATION; Start 09/25/16 at 16:30 Enoxaparin Sodium (Lovenox) 40 mg DAILY SC Last administered on 10/01/16 10:13 ; Admin Dose 40 MG; Start 09/26/16 at 09:00 Hydralazine HCl (Apresoline) 10 mg Q6H PRN IV SBP>160; Start 09/25/16 at 16:30 Insulin Aspart (Adult SC Insulin - Mild Algorithm)... Q4 SC Last administered on 10/01/16 10:16; Admin Dose 1 UNIT; Start 09/25/16 at 17:00 Levetiracetam (Keppra 500 Mg/ 100ml (Pmx)) 100 ml @ 400 mls/hr Q12 IVPB Last administered on 10/01/16 10:15; Admin Dose 400 MLS/HR; Start 09/25/16 at 21:00 Miscellaneous Information This patient muhammad... PRN PRN XX WOUND CARE; Start at 19:30 Potassium Chloride/Sodium Chloride (1/2 NS + KCl 20 Meq) 1,000 ml @ 50 mls/hr Q20H IV Last administered on 09/30/16 18:33; Admin Dose 50 MLS/HR; Start at 22:00 Miscellaneous Information 1 ea NOTE XX ; Start 09/26/16 at 07:00 Glucose (Glutose) 15 gm Q15M PRN PO DECREASED GLUCOSE; Start 09/26/16 at 07:00 Glucose (Glutose) 22.5 gm Q15M PRN PO DECREASED GLUCOSE; Start 09/26/16 at 07:00 Dextrose (D50w Syringe) 25 ml Q15M PRN IV DECREASED GLUCOSE; Start 09/26/16 at 07:00 Dextrose (D50w Syringe) 50 ml Q15M PRN IV DECREASED GLUCOSE; Start 09/26/16 at 07:00 Glucagon (Glucagen) 1 mg Q15M PRN IM DECREASED GLUCOSE; Start 09/26/16 at 07:00 Glucose (Glutose) 15 gm Q15M PRN BUCCAL DECREASED GLUCOSE; Start 09/26/16 at 07: 00 Acetaminophen (Tylenol Tab) 500 mg Q6H PRN PO PAIN AND OR ELEVATED TEMP Last administered on 09/27/16 08:28; Admin Dose 500 MG; Start 09/26/16 at 15:30 Benazepril HCl (Lotensin) 5 mg BID GTB Last administered on 10/01/16 10:12; Admin Dose 5 MG; Start 09/26/16 at 21:00 Carvedilol (Coreg) 12.5 mg BID GTB Last administered on 10/01/16 10:12; Admin Dose 12.5 MG; Start 09/26/16 at 21:00 Ferrous Sulfate (Feosol Liquid Cup) 300 mg DAILY GTB Last administered on 10:11; Admin Dose 300 MG; Start 09/27/16 at 09:00 Latanoprost (Xalatan) 1 drop QHS BOTH EYES Last administered on 09/30/16 21:44 ; Admin Dose 1 DROP; Start 09/26/16 at 21:00 Multivitamins (Thera-Plus) 5 ml DAILY GTB Last administered on 10/01/16 10:12 ; Admin Dose 5 ML; Start 09/27/16 at 09:00 Mupirocin (Bactroban) 1 applic BID TOP Last administered on 10/01/16 09:00; Admin Dose 1 APPLIC; Start 09/27/16 at 15:00 Diphenhydramine HCl (Benadryl) 25 mg Q4H PRN IV itching Last administered on 18:29; Admin Dose 25 MG; Start 09/28/16 at 04:00 Linezolid (Zyvox) 600 mg BID PEG Last administered on 10/01/16 10:12; Admin Dose 600 MG; Start 09/28/16 at 21:00 Insulin Glargine (Lantus) 15 unit DAILY@20 SC Last administered on 09/30/16 21 :31; Admin Dose 15 UNIT; Start 09/29/16 at 20:00 Famotidine 20 mg 20 mg DAILY PO Last administered on 10/01/16 10:11; Admin Dose 20 MG; Start 09/30/16 at 09:00 Piperacillin Sod/ Tazobactam Sod (Zosyn 3.375gm/ 100 ml (Pmx)) 100 ml @ 200 mls /hr Q8 IVPB Last administered on 10/01/16 05:20; Admin Dose 200 MLS/HR; Start 09/30/16 at 15:00 Nystatin (Nystatin Powder) 1 applic DAILY TOP Last administered on 10/01/16 09 :00; Admin Dose 1 APPLIC; Start 10/01/16 at 09:00 ANITA DIAZ Oct 01, 2016 10:50
--- NOTE | 2016-10-01 11:22 | CONS ---
Date/Time of Note Date/Time of Note DATE: 10/01/16 TIME: 11:20 Assessment/Plan Assessment/Plan Additional Assessment/Plan Assessment recommendations; 1. Patient admitted with severe left-sided pneumonia with significant clinical and radiological improvement. 2. Dementia. 3. History of hypertension, diabetes and seizures. Continue current treatment. Will obtain follow-up chest x-ray. Consultation Date/Type/Reason Admit Date/Time Sep 27, 2016 at 14:07 Type of Consultation: Pulm 24 HR Interval Summary Free Text/Dictation Patient condition is stable. On account of underlying dementia she is not much responsive to any commands. Patient has remained hemodynamically stable. General exam; elderly woman, currently in no distress awake. Exam/Review of Systems Vital Signs Vitals Vital Signs Date Time Temp Pulse Resp B/P Pulse Ox O2 Delivery O2 Flow Rate FiO2 10/01/16 09:19 71 16 96 Nasal Cannula 2.0 09/30/16 20:28 99.3 131/91 Intake and Output 09/30/16 09/30/16 10/01/16 15:00 23:00 07:00 Intake Total 100 ml 1470 ml 1645 ml Balance 100 ml 1470 ml 1645 ml Exam HEENT exam is; supple neck, no JVD. No lymphadenopathy. Midline trachea. No thyromegaly. She is edentulous. Chest examination clear to auscultation. S1-S2 audible, no murmurs. Regular rhythm. Abdomen examination is soft, G-tube in place. No organomegaly. Bowel sounds audible. Extremity examination; no peripheral edema. SUBSTANCE ABUSE PREVENTION COORDINATOR examination; patient is awake but does not follow any commands. Results Result Diagram: 09/30/16 0417 09/30/16 0417 Results 24 hrs Laboratory Tests Test 09/30/16 13:36 09/30/16 16:33 09/30/16 21:27 10/01/16 01:16 Bedside Glucose 226 H 166 172 161 Test 10/01/16 05:13 10/01/16 07:42 Bedside Glucose 136 145 Medications Medications Current Medications Acetaminophen/ Hydrocodone Bitart ([place] (5/325)) 1 tab Q4H PRN PO PAIN LEVEL 4 -7; Start 09/25/16 at 16:30 Acetaminophen/ Hydrocodone Bitart ([place] (5/325)) 2 tab Q4H PRN PO PAIN LEVEL 7 -10; Start 09/25/16 at 16:30 Hydromorphone HCl (Dilaudid) 0.5 mg Q2 PRN IV PAIN; Start 09/25/16 at 16:30 Hydromorphone HCl (Dilaudid) 1 mg Q2 PRN IV PAIN; Start 09/25/16 at 16:30 Docusate Sodium (Colace) 100 mg BID PRN PO CONSTIPATION; Start 09/25/16 at 16:30 Bisacodyl (Dulcolax Supp) 10 mg BID PRN [place] CONSTIPATION; Start 09/25/16 at 16:30 Sodium Biphosphate/ Sodium Phosphate (Fleet Enema) 133 ml BID PRN CO CONSTIPATION; Start 09/25/16 at 16:30 Enoxaparin Sodium (Lovenox) 40 mg DAILY SC Last administered on 10/01/16 10:13 ; Admin Dose 40 MG; Start 09/26/16 at 09:00 Hydralazine HCl (Apresoline) 10 mg Q6H PRN IV SBP>160; Start 09/25/16 at 16:30 Insulin Aspart (Adult SC Insulin - Mild Algorithm)... Q4 SC Last administered on 10/01/16 10:16; Admin Dose 1 UNIT; Start 09/25/16 at 17:00 Levetiracetam (Keppra 500 Mg/ 100ml (Pmx)) 100 ml @ 400 mls/hr Q12 IVPB Last administered on 10/01/16 10:15; Admin Dose 400 MLS/HR; Start 09/25/16 at 21:00 Miscellaneous Information This patient muhammad... PRN PRN XX WOUND CARE; Start at 19:30 Potassium Chloride/Sodium Chloride (1/2 NS + KCl 20 Meq) 1,000 ml @ 50 mls/hr Q20H IV Last administered on 09/30/16 18:33; Admin Dose 50 MLS/HR; Start at 22:00 Miscellaneous Information 1 ea NOTE XX ; Start 09/26/16 at 07:00 Glucose (Glutose) 15 gm Q15M PRN PO DECREASED GLUCOSE; Start 09/26/16 at 07:00 Glucose (Glutose) 22.5 gm Q15M PRN PO DECREASED GLUCOSE; Start 09/26/16 at 07:00 Dextrose (D50w Syringe) 25 ml Q15M PRN IV DECREASED GLUCOSE; Start 09/26/16 at 07:00 Dextrose (D50w Syringe) 50 ml Q15M PRN IV DECREASED GLUCOSE; Start 09/26/16 at 07:00 Glucagon (Glucagen) 1 mg Q15M PRN IM DECREASED GLUCOSE; Start 09/26/16 at 07:00 Glucose (Glutose) 15 gm Q15M PRN BUCCAL DECREASED GLUCOSE; Start 09/26/16 at 07: 00 Acetaminophen (Tylenol Tab) 500 mg Q6H PRN PO PAIN AND OR ELEVATED TEMP Last administered on 09/27/16 08:28; Admin Dose 500 MG; Start 09/26/16 at 15:30 Benazepril HCl (Lotensin) 5 mg BID GTB Last administered on 10/01/16 10:12; Admin Dose 5 MG; Start 09/26/16 at 21:00 Carvedilol (Coreg) 12.5 mg BID GTB Last administered on 10/01/16 10:12; Admin Dose 12.5 MG; Start 09/26/16 at 21:00 Ferrous Sulfate (Feosol Liquid Cup) 300 mg DAILY GTB Last administered on 10:11; Admin Dose 300 MG; Start 09/27/16 at 09:00 Latanoprost (Xalatan) 1 drop QHS BOTH EYES Last administered on 09/30/16 21:44 ; Admin Dose 1 DROP; Start 09/26/16 at 21:00 Multivitamins (Thera-Plus) 5 ml DAILY GTB Last administered on 10/01/16 10:12 ; Admin Dose 5 ML; Start 09/27/16 at 09:00 Mupirocin (Bactroban) 1 applic BID TOP Last administered on 10/01/16 09:00; Admin Dose 1 APPLIC; Start 09/27/16 at 15:00 Diphenhydramine HCl (Benadryl) 25 mg Q4H PRN IV itching Last administered on 18:29; Admin Dose 25 MG; Start 09/28/16 at 04:00 Linezolid (Zyvox) 600 mg BID PEG Last administered on 10/01/16 10:12; Admin Dose 600 MG; Start 09/28/16 at 21:00 Insulin Glargine (Lantus) 15 unit DAILY@20 SC Last administered on 09/30/16 21 :31; Admin Dose 15 UNIT; Start 09/29/16 at 20:00 Famotidine 20 mg 20 mg DAILY PO Last administered on 10/01/16 10:11; Admin Dose 20 MG; Start 09/30/16 at 09:00 Piperacillin Sod/ Tazobactam Sod (Zosyn 3.375gm/ 100 ml (Pmx)) 100 ml @ 200 mls /hr Q8 IVPB Last administered on 10/01/16 05:20; Admin Dose 200 MLS/HR; Start 09/30/16 at 15:00 Nystatin (Nystatin Powder) 1 applic DAILY TOP Last administered on 10/01/16 09 :00; Admin Dose 1 APPLIC; Start 10/01/16 at 09:00 PILLO PERRY Oct 01, 2016 11:22
--- NOTE | 2016-10-01 13:11 | CONS ---
Date/Time of Note Date/Time of Note DATE: 10/01/16 TIME: 13:07 Assessment/Plan Assessment/Plan Chief Complaint/Hosp Course SUBJECTIVE: No acute changes overnight. The patient is lying comfortably in bed. No fevers. MICROBIOLOGY: Sputum culture grew E. coli ESBL, MRSA. nares swab came back positive for MRSA. Blood cultures remain negative. Urine culture grew E. coli. Stool for C. diff negative. ANTIMICROBIALS: The patient is on IV Zosyn and Zyvox. PHYSICAL EXAMINATION: GENERAL: This is a well-developed, elderly woman who is in no distress. HEENT: Head atraumatic, normocephalic. Sclerae anicteric. Buccal mucosa dry. NECK: Supple, trachea midline. CHEST: Rise symmetrical. Breath sounds diminished. HEART: S1, S2. ABDOMEN: Soft. Bowel tones present. EXTREMITIES: Without cyanosis. ASSESSMENT: 1. Resolving sepsis. 2. Pneumonia. 3. Right parotitis with facial and neck cellulitis, improving. 4. Urinary tract infection. 5. Rash, status post Elimite and ivermectin. 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 PLAN: The patient remains stable, rash persists, R sided facial/neck erythema improving, will change Zosyn to Merrem, add antihistamines and repeat Ivermectin and Elimite, continue other abx, monitor for SZ, continue antiSZ Rx [facility] staff Problems: Consultation Date/Type/Reason Admit Date/Time Sep 27, 2016 at 14:07 Initial Consult Date Type of Consultation: id Exam/Review of Systems Vital Signs Vitals Vital Signs Date Time Temp Pulse Resp B/P Pulse Ox O2 Delivery O2 Flow Rate FiO2 10/01/16 12:13 10.0 10/01/16 12:13 62 18 91 Simple Mask 09/30/16 20:28 99.3 131/91 Intake and Output 09/30/16 09/30/16 10/01/16 15:00 23:00 07:00 Intake Total 100 ml 1470 ml 1645 ml Balance 100 ml 1470 ml 1645 ml Results Result Diagram: 09/30/16 0417 09/30/16 0417 Results 24 hrs Laboratory Tests Test 09/30/16 13:36 09/30/16 16:33 09/30/16 21:27 10/01/16 01:16 Bedside Glucose 226 H 166 172 161 Test 10/01/16 05:13 10/01/16 07:42 10/01/16 12:04 Bedside Glucose 136 145 144 Medications Medications Current Medications Acetaminophen/ Hydrocodone Bitart ([place] (5/325)) 1 tab Q4H PRN PO PAIN LEVEL 4 -7; Start 09/25/16 at 16:30 Acetaminophen/ Hydrocodone Bitart ([place] (5/325)) 2 tab Q4H PRN PO PAIN LEVEL 7 -10; Start 09/25/16 at 16:30 Hydromorphone HCl (Dilaudid) 0.5 mg Q2 PRN IV PAIN; Start 09/25/16 at 16:30 Hydromorphone HCl (Dilaudid) 1 mg Q2 PRN IV PAIN; Start 09/25/16 at 16:30 Docusate Sodium (Colace) 100 mg BID PRN PO CONSTIPATION; Start 09/25/16 at 16:30 Bisacodyl (Dulcolax Supp) 10 mg BID PRN [place] CONSTIPATION; Start 09/25/16 at 16:30 Sodium Biphosphate/ Sodium Phosphate (Fleet Enema) 133 ml BID PRN [place] CONSTIPATION; Start 09/25/16 at 16:30 Enoxaparin Sodium (Lovenox) 40 mg DAILY SC Last administered on 10/01/16 10:13 ; Admin Dose 40 MG; Start 09/26/16 at 09:00 Hydralazine HCl (Apresoline) 10 mg Q6H PRN IV SBP>160; Start 09/25/16 at 16:30 Insulin Aspart (Adult SC Insulin - Mild Algorithm)... Q4 SC Last administered on 10/01/16 12:59; Admin Dose 1 UNIT; Start 09/25/16 at 17:00 Levetiracetam (Keppra 500 Mg/ 100ml (Pmx)) 100 ml @ 400 mls/hr Q12 IVPB Last administered on 10/01/16 10:15; Admin Dose 400 MLS/HR; Start 09/25/16 at 21:00 Miscellaneous Information This patient muhammad... PRN PRN XX WOUND CARE; Start at 19:30 Potassium Chloride/Sodium Chloride (1/2 NS + KCl 20 Meq) 1,000 ml @ 50 mls/hr Q20H IV Last administered on 09/30/16 18:33; Admin Dose 50 MLS/HR; Start at 22:00 Miscellaneous Information 1 ea NOTE XX ; Start 09/26/16 at 07:00 Glucose (Glutose) 15 gm Q15M PRN PO DECREASED GLUCOSE; Start 09/26/16 at 07:00 Glucose (Glutose) 22.5 gm Q15M PRN PO DECREASED GLUCOSE; Start 09/26/16 at 07:00 Dextrose (D50w Syringe) 25 ml Q15M PRN IV DECREASED GLUCOSE; Start 09/26/16 at 07:00 Dextrose (D50w Syringe) 50 ml Q15M PRN IV DECREASED GLUCOSE; Start 09/26/16 at 07:00 Glucagon (Glucagen) 1 mg Q15M PRN IM DECREASED GLUCOSE; Start 09/26/16 at 07:00 Glucose (Glutose) 15 gm Q15M PRN BUCCAL DECREASED GLUCOSE; Start 09/26/16 at 07: 00 Acetaminophen (Tylenol Tab) 500 mg Q6H PRN PO PAIN AND OR ELEVATED TEMP Last administered on 09/27/16 08:28; Admin Dose 500 MG; Start 09/26/16 at 15:30 Benazepril HCl (Lotensin) 5 mg BID GTB Last administered on 10/01/16 10:12; Admin Dose 5 MG; Start 09/26/16 at 21:00 Carvedilol (Coreg) 12.5 mg BID GTB Last administered on 10/01/16 10:12; Admin Dose 12.5 MG; Start 09/26/16 at 21:00 Ferrous Sulfate (Feosol Liquid Cup) 300 mg DAILY GTB Last administered on 10:11; Admin Dose 300 MG; Start 09/27/16 at 09:00 Latanoprost (Xalatan) 1 drop QHS BOTH EYES Last administered on 09/30/16 21:44 ; Admin Dose 1 DROP; Start 09/26/16 at 21:00 Multivitamins (Thera-Plus) 5 ml DAILY GTB Last administered on 10/01/16 10:12 ; Admin Dose 5 ML; Start 09/27/16 at 09:00 Mupirocin (Bactroban) 1 applic BID TOP Last administered on 10/01/16 09:00; Admin Dose 1 APPLIC; Start 09/27/16 at 15:00 Diphenhydramine HCl (Benadryl) 25 mg Q4H PRN IV itching Last administered on 18:29; Admin Dose 25 MG; Start 09/28/16 at 04:00 Linezolid (Zyvox) 600 mg BID PEG Last administered on 10/01/16 10:12; Admin Dose 600 MG; Start 09/28/16 at 21:00 Insulin Glargine (Lantus) 15 unit DAILY@20 SC Last administered on 09/30/16 21 :31; Admin Dose 15 UNIT; Start 09/29/16 at 20:00 Famotidine 20 mg 20 mg DAILY PO Last administered on 10/01/16 10:11; Admin Dose 20 MG; Start 09/30/16 at 09:00 Piperacillin Sod/ Tazobactam Sod (Zosyn 3.375gm/ 100 ml (Pmx)) 100 ml @ 200 mls /hr Q8 IVPB Last administered on 10/01/16 05:20; Admin Dose 200 MLS/HR; Start 09/30/16 at 15:00 Nystatin (Nystatin Powder) 1 applic DAILY TOP Last administered on 10/01/16 09 :00; Admin Dose 1 APPLIC; Start 10/01/16 at 09:00 MEL OLEARY NP Oct 01, 2016 13:11
[2016-10-01] MEDS ORDERED: IVERMECTIN 3 MG TAB PO ONE (13:30)
--- NOTE | 2016-10-01 14:32 | RADRPT ---
PROCEDURE: XR Chest. CLINICAL INDICATION: Shortness of breath. TECHNIQUE: Single frontal view. COMPARISON: 09/29/2016. FINDINGS: The right arm PICC line remains in satisfactory position with the tip in the right atrium. Patchy o pacification throughout the left mid and lower lung zones is unchanged. The lungs are otherwise elijah ar. The heart is enlarged. There is no pleural effusion. There is no pneumothorax. IMPRESSION: 1. No change from 09/29/2016. RPTAT: QQ .Shahid Archer MD, MD Date Time Electronically viewed and signed by .Shahid Archer MD, MD on 10/01/2016 14:32 .R/
[2016-10-01] MEDS: 1/2 NS + KCL 20 MEQ 1,000 ML IV SCH ×2 (15:16→17:20)
[2016-10-01] MEDS: LORATADINE 10 MG TAB PO SCH (15:16)
[2016-10-01 19:30] VITALS: BP 174/73; RESP 18
[2016-10-01] MEDS: LATANOPROST 0.005% 2.5 ML OPH BOTH EYES SCH (20:15)
[2016-10-01] MEDS: INSULIN GLARGINE [LANtus] 3 ML PEN SC SCH (20:19)
[2016-10-01] MEDS ORDERED: PERMETHRIN 5% 60 GM CR TOP SCH (21:00)
[2016-10-01] MEDS: MEROPENEM 500 MG/100 ML (PMX) 100 ML IVPB SCH (21:47)
[2016-10-01] MEDS: TRIAMCINOLONE ACET 0.1% 60 ML LOT TOP SCH (21:48)
[2016-10-01 23:00] VITALS: BP 141/64; PULSE 77
[2016-10-02] MEDS: Insulin NOVOLOG SS MILD Algorithm (NPO/TPN/ENTERAL FEEDS) SC SCH ×6 (01:19→20:25)
[2016-10-02] MEDS: ALBUTEROL/IPRATROPIUM (NEB) 3 ML AMP HHN SCH ×4 (07:45→21:21)
[2016-10-02] MEDS: COLISTIMETHATE (25 MG/ML INHAL SYG) NEB SCH ×2 (07:48→21:21)
[2016-10-02] MEDS: TRIAMCINOLONE ACET 0.1% 60 ML LOT TOP SCH ×3 (09:00→20:27)
[2016-10-02] MEDS: NYSTATIN 30 GM POWDER BTL TOP SCH (09:00)
[2016-10-02] MEDS: MUPIROCIN 2% 22 GM OINT TOP SCH ×2 (09:00→20:27)
--- NOTE | 2016-10-02 09:03 | PN ---
Date/Time of Note Date/Time of Note DATE: 10/02/16 TIME: 08:58 Assessment/Plan Lines/Catheters IV C[facility] Type (from [facility]): PICC Line Assessment/Plan Assessment/Plan [facility] Progress Note Date of Service: 10/02/16 Today's Impression & Plan: Overall stable and improving. No output from old tube site and should continue to heal without surgery. R face also improved, although still with a mass-like process. Appreciate ENT's input re further inpatient w/u and plans for outpatient management and follow up. Otherwise ok from my standpoint for patient to d/c. Patient will follow up with me as an outpatient for her abdominal old drain site. With above assessment, I've recommended the following for today: 1. Continue current cares and please educate SNF nursing staff as to the care needed for the old drain site as well as the new PEG 2. Will need plan for R face infection/mass as well as outpatient antimicrobial coverage 3. D/c to SNF once we have above 4. Follow up with my office in 2-3 weeks Thank you again for your great care of this very pleasant patient and wonderful family. If there are any questions, please feel free to call me at [phone]. TOTAL VISIT TIME: 20 minutes of which more than half was spent in [id number] discussion with the patient, possibly including family, as well as coordination of care between multiple physicians and providers. Disclaimer: Inadvertent spelling or grammatical errors are likely due to EHR/ dictation software use and do not reflect on the overall quality of patient care. UPDATED CLINICAL HISTORY: The patient is a very pleasant but unfortunate 66- year-old lady with comorbidities including a BMI of 16.5 as well as history of chronic encephalopathy and debility who was found to have a G-tube placement, unfortunately, into her transverse colon when she was seen in our emergency department today for replacement of a displaced G-tube. S/p PEG 09/13/16. Readmitted to the hospital electively 09/25/2016 for removal of old percutaneous tube that was in the transverse colon (done by me at bedside on 09/25/2016). White blood cell count elevation noted with swollen right side of the face and broad-spectrum antimicrobials and workup started. Head and neck CT scan demonstrated enlarged glands in the right side of the face and possibility of malignancy could not be ruled out but it was more consistent with an infection. Patient's white blood cell count came down with initiation of broad-spectrum antimicrobial coverage. Nodularities in lung freeman were noted on the neck CT and therefore chest CT was ordered. Patient started having some stool drainage from the prior percutaneous tube placement site but abdomen remained benign. Sig improvement with broad spec antimicrobial management. COMORBIDITIES: 1. BMI 16.5. 2. Chronic encephalopathy. 3. Diabetes mellitus type 2. 4. Dysphagia. 5. Essential hypertension. 6. Pulmonary hypertension. 7. Chronic kidney disease. 8. Coronary artery disease. 9. Subdural hematoma. 10. Seizure disorder. 11. Chronic encephalopathy. Subjective: No major reported events or complaints other than above; no abd pain with minimal drainage (no staining of the dressing and no flow outside noted from the old drain site); no n/v/d; no sob or cp; + signs of bowel activity; - activity; actually had a conversation with me today. Objective: Vitals: See below Exam: GENERAL: On exam, the patient was laying in bed and much more communicative than before and otherwise appeared to be comfortable and in no acute distress. ABDOMEN: Soft, nontender and nondistended. Site of previous percutaneous drain with no staining on the dressings. Skin around it slightly erythematous. There are no peritoneal signs or guarding. SKIN: Skin appears to be pink and feels warm to touch. NEUROLOGIC: Patient is awake, alert, and exchanged a few words with me at bedside. Right side of face appears to be less swollen and skin not erythematous, but with a clear mass that does not appear to be very tender to palpation. Exam/Review of Systems Vital Signs Vitals Vital Signs Date Time Temp Pulse Resp B/P Pulse Ox O2 Delivery O2 Flow Rate FiO2 10/02/16 07:53 80 18 100 Simple Mask 10.0 10/01/16 23:00 141/64 10/01/16 19:30 99.2 Intake and Output 10/01/16 10/01/16 10/02/16 14:59 22:59 06:59 Intake Total 100 ml 1120 ml 1595 ml Balance 100 ml 1120 ml 1595 ml Results Result Diagram: 09/30/16 0417 09/30/16 0417 YOSEPH TALAMANTES M.D. Oct 02, 2016 09:03
--- NOTE | 2016-10-02 09:19 | PDOCDIS ---
Discharge Instructions DIAGNOSIS Discharge Diagnosis: 1. sepsis from uti 2. right parotitis 3. aspiration pneumonia 4. malpositio CONDITION Patient Condition: Stable HOME CARE INSTRUCTIONS: Special Diet: tube feeding FOLLOW UP/APPOINTMENTS Appointments 1. follow up with Dr. Yunior Louis in 2-3 weeks 2. Follow up with Dr. Anmol Doan in 1-2 weeks OTHER ORDERS: Other Orders: WOUND CARE RECOMMENDATIONS: - Left lower abdomen old PEG site: Clean with normal saline. Pat dry. Dust peristoma skin with Nystatin powder. Then, seal with No Sting Skin Barrier. Cover with plaint alginate. and dry dressing. Change daily. - Continue low air loss surface. - Pillow between knee. Float heels off bed with pillows. - Reposition every 2 hours. ANITA DIAZ Oct 02, 2016 09:19
[2016-10-02] MEDS ORDERED: HYDR-3498 PO (09:34)
[2016-10-02] MEDS ORDERED: LATA2.5D2 BOTH EYES (09:34)
[2016-10-02] MEDS ORDERED: MERO500V2 IV (09:34)
[2016-10-02] MEDS ORDERED: IPRA3AMP HHN (09:34)
[2016-10-02] MEDS ORDERED: MULT473L10 GTB (09:34)
[2016-10-02] MEDS ORDERED: Pending Collagenase Order XX (09:34)
[2016-10-02] MEDS ORDERED: LINE600T6 PEG (09:34)
[2016-10-02] MEDS ORDERED: LORA10TA3 PO (09:34)
[2016-10-02] MEDS ORDERED: COLI150V7 NEB (09:34)
[2016-10-02] MEDS ORDERED: MUPI22OI2 TOP (09:34)
[2016-10-02] MEDS ORDERED: ENOX40DI2 SC (09:34)
[2016-10-02] MEDS ORDERED: BENA5TAB2 GTB (09:34)
[2016-10-02] MEDS ORDERED: UDFER GTB (09:34)
[2016-10-02] MEDS ORDERED: CARV12.579 GTB (09:34)
[2016-10-02] MEDS ORDERED: TR1B60 TOP (09:34)
[2016-10-02] MEDS ORDERED: NOVO3I SC (09:34)
[2016-10-02] MEDS ORDERED: LANT3I SC (09:34)
[2016-10-02] MEDS ORDERED: NYST15PO4 TOP (09:34)
[2016-10-02] MEDS: FERROUS SULFATE 60 MG/ML 5ML CUP GTB SCH (10:31)
[2016-10-02] MEDS: MULTIVITAMINS 5 ML CUP GTB SCH (10:31)
[2016-10-02] MEDS: ZYVOX 600 MG TAB PEG SCH ×2 (10:33→20:23)
[2016-10-02] MEDS: LORATADINE 10 MG TAB PO SCH (10:33)
[2016-10-02] MEDS: FAMOTIDINE 20 MG TAB PO SCH (10:33)
[2016-10-02] MEDS: BENAZEPRIL 5 MG TAB GTB SCH ×2 (10:33→20:29)
[2016-10-02] MEDS: ENOXAPARIN 40 MG/0.4 ML SYG SC SCH (10:35)
[2016-10-02] MEDS: MEROPENEM 500 MG/100 ML (PMX) 100 ML IVPB SCH ×2 (10:38→20:38)
[2016-10-02] MEDS: LEVETIRACETAM 500 MG (PMX) 100 ML IVPB SCH ×2 (10:38→20:03)
[2016-10-02 10:39] VITALS: BP 143/62; PULSE 82
--- NOTE | 2016-10-02 14:20 | CONS ---
Date/Time of Note Date/Time of Note DATE: 10/02/16 TIME: 14:17 Assessment/Plan Assessment/Plan Additional Assessment/Plan X-ray was reviewed from yesterday which is again showing left lower lobe infiltrate of changes. Assessment recommendations; 1. Patient admitted with severe left-sided pneumonia with significant clinical improvement. 2. Likely radiological lag. 3. Seizure disorder. 4. Dementia. Continue current treatment. Consultation Date/Type/Reason Admit Date/Time Sep 27, 2016 at 14:07 Type of Consultation: Pulmonary 24 HR Interval Summary Free Text/Dictation Condition stable. Remains awake alert. Denies any shortness of breath, sputum production. Next General exam; middle-aged woman awake alert currently in no distress. Exam/Review of Systems Vital Signs Vitals Vital Signs Date Time Temp Pulse Resp B/P Pulse Ox O2 Delivery O2 Flow Rate FiO2 10/02/16 10:39 82 143/62 10/02/16 07:53 18 100 Simple Mask 10.0 10/01/16 19:30 99.2 Intake and Output 10/01/16 10/01/16 10/02/16 15:00 23:00 07:00 Intake Total 100 ml 1120 ml 1595 ml Balance 100 ml 1120 ml 1595 ml Exam HEENT exam; supple neck, no JVD. No lymphadenopathy. Midline trachea. No thyromegaly. Pharynx is clear. Chest exam; decreased breath sounds right right lung with clear left lung. S1- S2 audible, no murmurs. Regular rhythm. Abdomen examination; soft, nondistended, nontender. No organomegaly. Bowel is audible. Extremity exam; no peripheral edema. [employer] exam; no obvious focal deficit. Results Result Diagram: 09/30/16 0417 09/30/16 0417 Results 24 hrs Laboratory Tests Test 10/01/16 16:29 10/01/16 20:12 10/02/16 01:12 10/02/16 05:12 Bedside Glucose 146 139 181 160 Test 10/02/16 08:05 10/02/16 12:12 Bedside Glucose 167 157 Medications Medications Current Medications Acetaminophen/ Hydrocodone Bitart ([place] (5/325)) 1 tab Q4H PRN PO PAIN LEVEL 4 -7; Start 09/25/16 at 16:30 Acetaminophen/ Hydrocodone Bitart ([place] (5/325)) 2 tab Q4H PRN PO PAIN LEVEL 7 -10; Start 09/25/16 at 16:30 Hydromorphone HCl (Dilaudid) 0.5 mg Q2 PRN IV PAIN; Start 09/25/16 at 16:30 Hydromorphone HCl (Dilaudid) 1 mg Q2 PRN IV PAIN; Start 09/25/16 at 16:30 Docusate Sodium (Colace) 100 mg BID PRN PO CONSTIPATION; Start 09/25/16 at 16:30 Bisacodyl (Dulcolax Supp) 10 mg BID PRN [place] CONSTIPATION; Start 09/25/16 at 16:30 Sodium Biphosphate/ Sodium Phosphate (Fleet Enema) 133 ml BID PRN [place] CONSTIPATION; Start 09/25/16 at 16:30 Enoxaparin Sodium (Lovenox) 40 mg DAILY SC Last administered on 10/02/16 10:35 ; Admin Dose 40 MG; Start 09/26/16 at 09:00 Hydralazine HCl (Apresoline) 10 mg Q6H PRN IV SBP>160; Start 09/25/16 at 16:30 Insulin Aspart (Adult SC Insulin - Mild Algorithm)... Q4 SC Last administered on 10/02/16 12:19; Admin Dose 1 UNIT; Start 09/25/16 at 17:00 Levetiracetam (Keppra 500 Mg/ 100ml (Pmx)) 100 ml @ 400 mls/hr Q12 IVPB Last administered on 10/02/16 10:38; Admin Dose 400 MLS/HR; Start 09/25/16 at 21:00 Miscellaneous Information This patient muhammad... PRN PRN XX WOUND CARE; Start at 19:30 Potassium Chloride/Sodium Chloride (1/2 NS + KCl 20 Meq) 1,000 ml @ 50 mls/hr Q20H IV Last administered on 10/01/16 15:16; Admin Dose 50 MLS/HR; Start at 22:00 Miscellaneous Information 1 ea NOTE XX ; Start 09/26/16 at 07:00 Glucose (Glutose) 15 gm Q15M PRN PO DECREASED GLUCOSE; Start 09/26/16 at 07:00 Glucose (Glutose) 22.5 gm Q15M PRN PO DECREASED GLUCOSE; Start 09/26/16 at 07:00 Dextrose (D50w Syringe) 25 ml Q15M PRN IV DECREASED GLUCOSE; Start 09/26/16 at 07:00 Dextrose (D50w Syringe) 50 ml Q15M PRN IV DECREASED GLUCOSE; Start 09/26/16 at 07:00 Glucagon (Glucagen) 1 mg Q15M PRN IM DECREASED GLUCOSE; Start 09/26/16 at 07:00 Glucose (Glutose) 15 gm Q15M PRN BUCCAL DECREASED GLUCOSE; Start 09/26/16 at 07: 00 Acetaminophen (Tylenol Tab) 500 mg Q6H PRN PO PAIN AND OR ELEVATED TEMP Last administered on 09/27/16 08:28; Admin Dose 500 MG; Start 09/26/16 at 15:30 Benazepril HCl (Lotensin) 5 mg BID GTB Last administered on 10/02/16 10:33; Admin Dose 5 MG; Start 09/26/16 at 21:00 Carvedilol (Coreg) 12.5 mg BID GTB Last administered on 10/02/16 10:34; Admin Dose 12.5 MG; Start 09/26/16 at 21:00 Ferrous Sulfate (Feosol Liquid Cup) 300 mg DAILY GTB Last administered on 10:31; Admin Dose 300 MG; Start 09/27/16 at 09:00 Latanoprost (Xalatan) 1 drop QHS BOTH EYES Last administered on 10/01/16 20:15 ; Admin Dose 1 DROP; Start 09/26/16 at 21:00 Multivitamins (Thera-Plus) 5 ml DAILY GTB Last administered on 10/02/16 10:31 ; Admin Dose 5 ML; Start 09/27/16 at 09:00 Mupirocin (Bactroban) 1 applic BID TOP Last administered on 10/02/16 09:00; Admin Dose 1 APPLIC; Start 09/27/16 at 15:00 Diphenhydramine HCl (Benadryl) 25 mg Q4H PRN IV itching Last administered on 18:29; Admin Dose 25 MG; Start 09/28/16 at 04:00 Linezolid (Zyvox) 600 mg BID PEG Last administered on 10/02/16 10:33; Admin Dose 600 MG; Start 09/28/16 at 21:00 Insulin Glargine (Lantus) 15 unit DAILY@20 SC Last administered on 10/01/16 20 :19; Admin Dose 15 UNIT; Start 09/29/16 at 20:00 Famotidine (Pepcid) 20 mg DAILY PO Last administered on 10/02/16 10:33; Admin Dose 20 MG; Start 09/30/16 at 09:00 Nystatin 1 applic 1 applic DAILY TOP Last administered on 10/02/16 09:00; Admin Dose 1 APPLIC; Start 10/01/16 at 09:00 Meropenem (Merrem 500 Mg/ 100 ml (Pmx)) 100 ml @ 200 mls/hr Q12 IVPB Last administered on 10/02/16 10:38; Admin Dose 200 MLS/HR; Start 10/01/16 at 21:00 Loratadine (Claritin) 10 mg DAILY PO Last administered on 10/02/16 10:33; Admin Dose 10 MG; Start 10/01/16 at 13:30 Triamcinolone (Kenalog 0.1% Lotion) 1 applic TID TOP Last administered on 12:15; Admin Dose 1 APPLIC; Start 10/01/16 at 21:00 PILLO PERRY Oct 02, 2016 14:20
--- NOTE | 2016-10-02 15:28 | CONS ---
Date/Time of Note Date/Time of Note DATE: 10/02/16 TIME: 15:27 Assessment/Plan Assessment/Plan Chief Complaint/Hosp Course SUBJECTIVE: No acute changes overnight. No fevers. MICROBIOLOGY: Sputum culture grew E. coli ESBL, MRSA, nares swab came back positive for MRSA. Blood cultures remain negative. Urine culture grew E. coli. Stool for C. diff negative. ANTIMICROBIALS: The patient is on Merrem and Zyvox. PHYSICAL EXAMINATION: GENERAL: This is a well-developed, elderly woman who is in no distress. HEENT: Head atraumatic, normocephalic. Sclerae anicteric. Buccal mucosa dry. NECK: Supple, trachea midline. CHEST: Rise symmetrical. Breath sounds diminished. HEART: S1, S2. ABDOMEN: Soft. Bowel tones present. EXTREMITIES: Without cyanosis. ASSESSMENT: 1. Resolving sepsis. 2. Pneumonia. 3. Right parotitis with facial and neck cellulitis, improving. 4. Urinary tract infection. 5. Rash, status post Elimite and ivermectin. 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 PLAN: The patient remains stable, R sided facial/neck erythema improving, continue abx, antihistamines, monitor for SZ, continue antiSZ Rx [facility] staff Problems: Consultation Date/Type/Reason Admit Date/Time Sep 27, 2016 at 14:07 Type of Consultation: id Exam/Review of Systems Vital Signs Vitals Vital Signs Date Time Temp Pulse Resp B/P Pulse Ox O2 Delivery O2 Flow Rate FiO2 10/02/16 14:26 99 3.0 10/02/16 14:26 76 18 Nasal Cannula 10/02/16 10:39 143/62 10/01/16 19:30 99.2 Intake and Output 10/01/16 10/01/16 10/02/16 15:00 23:00 07:00 Intake Total 100 ml 1120 ml 1595 ml Balance 100 ml 1120 ml 1595 ml Results Result Diagram: 09/30/16 0417 09/30/16 0417 Results 24 hrs Laboratory Tests Test 10/01/16 16:29 10/01/16 20:12 10/02/16 01:12 10/02/16 05:12 Bedside Glucose 146 139 181 160 Test 10/02/16 08:05 10/02/16 12:12 Bedside Glucose 167 157 Medications Medications Current Medications Acetaminophen/ Hydrocodone Bitart ([place] (5/325)) 1 tab Q4H PRN PO PAIN LEVEL 4 -7; Start 09/25/16 at 16:30 Acetaminophen/ Hydrocodone Bitart ([place] (5/325)) 2 tab Q4H PRN PO PAIN LEVEL 7 -10; Start 09/25/16 at 16:30 Hydromorphone HCl (Dilaudid) 0.5 mg Q2 PRN IV PAIN; Start 09/25/16 at 16:30 Hydromorphone HCl (Dilaudid) 1 mg Q2 PRN IV PAIN; Start 09/25/16 at 16:30 Docusate Sodium (Colace) 100 mg BID PRN PO CONSTIPATION; Start 09/25/16 at 16:30 Bisacodyl (Dulcolax Supp) 10 mg BID PRN [place] CONSTIPATION; Start 09/25/16 at 16:30 Sodium Biphosphate/ Sodium Phosphate (Fleet Enema) 133 ml BID PRN [place] CONSTIPATION; Start 09/25/16 at 16:30 Enoxaparin Sodium (Lovenox) 40 mg DAILY SC Last administered on 10/02/16 10:35 ; Admin Dose 40 MG; Start 09/26/16 at 09:00 Hydralazine HCl (Apresoline) 10 mg Q6H PRN IV SBP>160; Start 09/25/16 at 16:30 Insulin Aspart (Adult SC Insulin - Mild Algorithm)... Q4 SC Last administered on 10/02/16 12:19; Admin Dose 1 UNIT; Start 09/25/16 at 17:00 Levetiracetam (Keppra 500 Mg/ 100ml (Pmx)) 100 ml @ 400 mls/hr Q12 IVPB Last administered on 10/02/16 10:38; Admin Dose 400 MLS/HR; Start 09/25/16 at 21:00 Miscellaneous Information This patient muhammad... PRN PRN XX WOUND CARE; Start at 19:30 Potassium Chloride/Sodium Chloride (1/2 NS + KCl 20 Meq) 1,000 ml @ 50 mls/hr Q20H IV Last administered on 10/01/16 15:16; Admin Dose 50 MLS/HR; Start at 22:00 Miscellaneous Information 1 ea NOTE XX ; Start 09/26/16 at 07:00 Glucose (Glutose) 15 gm Q15M PRN PO DECREASED GLUCOSE; Start 09/26/16 at 07:00 Glucose (Glutose) 22.5 gm Q15M PRN PO DECREASED GLUCOSE; Start 09/26/16 at 07:00 Dextrose (D50w Syringe) 25 ml Q15M PRN IV DECREASED GLUCOSE; Start 09/26/16 at 07:00 Dextrose (D50w Syringe) 50 ml Q15M PRN IV DECREASED GLUCOSE; Start 09/26/16 at 07:00 Glucagon (Glucagen) 1 mg Q15M PRN IM DECREASED GLUCOSE; Start 09/26/16 at 07:00 Glucose (Glutose) 15 gm Q15M PRN BUCCAL DECREASED GLUCOSE; Start 09/26/16 at 07: 00 Acetaminophen (Tylenol Tab) 500 mg Q6H PRN PO PAIN AND OR ELEVATED TEMP Last administered on 09/27/16 08:28; Admin Dose 500 MG; Start 09/26/16 at 15:30 Benazepril HCl (Lotensin) 5 mg BID GTB Last administered on 10/02/16 10:33; Admin Dose 5 MG; Start 09/26/16 at 21:00 Carvedilol (Coreg) 12.5 mg BID GTB Last administered on 10/02/16 10:34; Admin Dose 12.5 MG; Start 09/26/16 at 21:00 Ferrous Sulfate (Feosol Liquid Cup) 300 mg DAILY GTB Last administered on 10:31; Admin Dose 300 MG; Start 09/27/16 at 09:00 Latanoprost (Xalatan) 1 drop QHS BOTH EYES Last administered on 10/01/16 20:15 ; Admin Dose 1 DROP; Start 09/26/16 at 21:00 Multivitamins (Thera-Plus) 5 ml DAILY GTB Last administered on 10/02/16 10:31 ; Admin Dose 5 ML; Start 09/27/16 at 09:00 Mupirocin (Bactroban) 1 applic BID TOP Last administered on 10/02/16 09:00; Admin Dose 1 APPLIC; Start 09/27/16 at 15:00 Diphenhydramine HCl (Benadryl) 25 mg Q4H PRN IV itching Last administered on 18:29; Admin Dose 25 MG; Start 09/28/16 at 04:00 Linezolid (Zyvox) 600 mg BID PEG Last administered on 10/02/16 10:33; Admin Dose 600 MG; Start 09/28/16 at 21:00 Insulin Glargine (Lantus) 15 unit DAILY@20 SC Last administered on 10/01/16 20 :19; Admin Dose 15 UNIT; Start 09/29/16 at 20:00 Famotidine (Pepcid) 20 mg DAILY PO Last administered on 10/02/16 10:33; Admin Dose 20 MG; Start 09/30/16 at 09:00 Nystatin 1 applic 1 applic DAILY TOP Last administered on 10/02/16 09:00; Admin Dose 1 APPLIC; Start 10/01/16 at 09:00 Meropenem (Merrem 500 Mg/ 100 ml (Pmx)) 100 ml @ 200 mls/hr Q12 IVPB Last administered on 10/02/16 10:38; Admin Dose 200 MLS/HR; Start 10/01/16 at 21:00 Loratadine (Claritin) 10 mg DAILY PO Last administered on 10/02/16 10:33; Admin Dose 10 MG; Start 10/01/16 at 13:30 Triamcinolone (Kenalog 0.1% Lotion) 1 applic TID TOP Last administered on 12:15; Admin Dose 1 APPLIC; Start 10/01/16 at 21:00 MEL OLEARY NP Oct 02, 2016 15:28
--- NOTE | 2016-10-02 16:14 | PN ---
Date/Time of Note Date/Time of Note DATE: 10/02/16 TIME: 16:14 Assessment/Plan VTE Prophylaxis VTE Prophylaxis Intervention: LMWH Lines/Catheters IV Catheter Type (from [facility]): PICC Line Assessment/Plan Chief Complaint/Hosp Course Assessment and plan 1. Sepsis secondary to UTI and aspiration pneumonia along with right parotitis. ID following. Continue on antibiotic regimen. stable at present. improving 2. Aspiration pneumonia with sputum culture with ESBL and MRSA. Patient remains in isolation precautions. Continue antibiotic regimen per ID . cont aspiration precautions 3. Right parotitis and right neck cellulitis. Patient was evaluated by ENT. no plan for surgical intervention at this time. Continue on antibiotics. appears to be improving 4. Malpositioned G-tube. now with new PEG. continue care. cont with surgeon recs. 5. Essential hypertension. Continue on antihypertensives and adjust as needed 6. Opacification of left lung with underlying consolidation and atelectasis. Transmission Worker following. Continue on CPT per recommendations. improved 7. Dysphagia. Patient with PEG tube placed 8. Type 2 diabetes. A1c was noted at 8.2. Continue insulin regimen 9. CKD. Medications to be renally dosed. Monitor renal panel. 10. Seizure disorder. 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 History of pulmonary hypertension. Patient on O2 as needed 13. Iron deficiency anemia. Continue iron supplement 14. Chronic encephalopathy. On aspiration precautions.. turn q2 and prn for pressure ulcer prevention DVT prophylaxis: Lovenox GERD prophylaxis: H2 jayne Disposition and plan: Continue antibiotic regimen. follow up with case management for d/c planning. urticaria seen LUE. not improved with topical steroid. trial IV steroid. follow up for d/c Discussed plan of care with Dr. Young Problems: Subjective 24 Hr Interval Summary Free Text/Dictation no s/s of distress Exam/Review of Systems Vital Signs Vitals Vital Signs Date Time Temp Pulse Resp B/P Pulse Ox O2 Delivery O2 Flow Rate FiO2 10/02/16 14:26 99 3.0 10/02/16 14:26 76 18 Nasal Cannula 10/02/16 10:39 143/62 10/01/16 19:30 99.2 Intake and Output 10/01/16 10/01/16 10/02/16 15:00 23:00 07:00 Intake Total 100 ml 1120 ml 1595 ml Balance 100 ml 1120 ml 1595 ml Exam General: no s/s of distress Eyes: Equal round. Face: noted with mass on right side of face (parotitis) Neck: No obvious JVD Cardiac: Regular rate Pulmonary: no adventitious lung sounds GI: PEG tube in place. Extremities: No edema seen bilateral lower extremities Skin: Some scabs seen bilateral lower extremities and upper extremities Neurologic: Alert. Not oriented to person place and time Results Result Diagram: 09/30/16 0417 09/30/16 0417 Results 24 hrs Laboratory Tests Test 10/01/16 16:29 10/01/16 20:12 10/02/16 01:12 10/02/16 05:12 Bedside Glucose 146 139 181 160 Test 10/02/16 08:05 10/02/16 12:12 Bedside Glucose 167 157 Medications Medications Current Medications Acetaminophen/ Hydrocodone Bitart ([place] (5/325)) 1 tab Q4H PRN PO PAIN LEVEL 4 -7; Start 09/25/16 at 16:30 Acetaminophen/ Hydrocodone Bitart ([place] (5/325)) 2 tab Q4H PRN PO PAIN LEVEL 7 -10; Start 09/25/16 at 16:30 Hydromorphone HCl (Dilaudid) 0.5 mg Q2 PRN IV PAIN; Start 09/25/16 at 16:30 Hydromorphone HCl (Dilaudid) 1 mg Q2 PRN IV PAIN; Start 09/25/16 at 16:30 Docusate Sodium (Colace) 100 mg BID PRN PO CONSTIPATION; Start 09/25/16 at 16:30 Bisacodyl (Dulcolax Supp) 10 mg BID PRN [place] CONSTIPATION; Start 09/25/16 at 16:30 Sodium Biphosphate/ Sodium Phosphate (Fleet Enema) 133 ml BID PRN [place] CONSTIPATION; Start 09/25/16 at 16:30 Enoxaparin Sodium (Lovenox) 40 mg DAILY SC Last administered on 10/02/16 10:35 ; Admin Dose 40 MG; Start 09/26/16 at 09:00 Hydralazine HCl (Apresoline) 10 mg Q6H PRN IV SBP>160; Start 09/25/16 at 16:30 Insulin Aspart (Adult SC Insulin - Mild Algorithm)... Q4 SC Last administered on 10/02/16 12:19; Admin Dose 1 UNIT; Start 09/25/16 at 17:00 Levetiracetam (Keppra 500 Mg/ 100ml (Pmx)) 100 ml @ 400 mls/hr Q12 IVPB Last administered on 10/02/16 10:38; Admin Dose 400 MLS/HR; Start 09/25/16 at 21:00 Miscellaneous Information This patient umhammad... PRN PRN XX WOUND CARE; Start at 19:30 Potassium Chloride/Sodium Chloride (1/2 NS + KCl 20 Meq) 1,000 ml @ 50 mls/hr Q20H IV Last administered on 10/01/16 15:16; Admin Dose 50 MLS/HR; Start at 22:00 Miscellaneous Information 1 ea NOTE XX ; Start 09/26/16 at 07:00 Glucose (Glutose) 15 gm Q15M PRN PO DECREASED GLUCOSE; Start 09/26/16 at 07:00 Glucose (Glutose) 22.5 gm Q15M PRN PO DECREASED GLUCOSE; Start 09/26/16 at 07:00 Dextrose (D50w Syringe) 25 ml Q15M PRN IV DECREASED GLUCOSE; Start 09/26/16 at 07:00 Dextrose (D50w Syringe) 50 ml Q15M PRN IV DECREASED GLUCOSE; Start 09/26/16 at 07:00 Glucagon (Glucagen) 1 mg Q15M PRN IM DECREASED GLUCOSE; Start 09/26/16 at 07:00 Glucose (Glutose) 15 gm Q15M PRN BUCCAL DECREASED GLUCOSE; Start 09/26/16 at 07: 00 Acetaminophen (Tylenol Tab) 500 mg Q6H PRN PO PAIN AND OR ELEVATED TEMP Last administered on 09/27/16 08:28; Admin Dose 500 MG; Start 09/26/16 at 15:30 Benazepril HCl (Lotensin) 5 mg BID GTB Last administered on 10/02/16 10:33; Admin Dose 5 MG; Start 09/26/16 at 21:00 Carvedilol (Coreg) 12.5 mg BID GTB Last administered on 10/02/16 10:34; Admin Dose 12.5 MG; Start 09/26/16 at 21:00 Ferrous Sulfate (Feosol Liquid Cup) 300 mg DAILY GTB Last administered on 10:31; Admin Dose 300 MG; Start 09/27/16 at 09:00 Latanoprost (Xalatan) 1 drop QHS BOTH EYES Last administered on 10/01/16 20:15 ; Admin Dose 1 DROP; Start 09/26/16 at 21:00 Multivitamins (Thera-Plus) 5 ml DAILY GTB Last administered on 10/02/16 10:31 ; Admin Dose 5 ML; Start 09/27/16 at 09:00 Mupirocin (Bactroban) 1 applic BID TOP Last administered on 10/02/16 09:00; Admin Dose 1 APPLIC; Start 09/27/16 at 15:00 Diphenhydramine HCl (Benadryl) 25 mg Q4H PRN IV itching Last administered on 18:29; Admin Dose 25 MG; Start 09/28/16 at 04:00 Linezolid (Zyvox) 600 mg BID PEG Last administered on 10/02/16 10:33; Admin Dose 600 MG; Start 09/28/16 at 21:00 Insulin Glargine (Lantus) 15 unit DAILY@20 SC Last administered on 10/01/16 20 :19; Admin Dose 15 UNIT; Start 09/29/16 at 20:00 Famotidine (Pepcid) 20 mg DAILY PO Last administered on 10/02/16 10:33; Admin Dose 20 MG; Start 09/30/16 at 09:00 Nystatin 1 applic 1 applic DAILY TOP Last administered on 10/02/16 09:00; Admin Dose 1 APPLIC; Start 10/01/16 at 09:00 Meropenem (Merrem 500 Mg/ 100 ml (Pmx)) 100 ml @ 200 mls/hr Q12 IVPB Last administered on 10/02/16 10:38; Admin Dose 200 MLS/HR; Start 10/01/16 at 21:00 Loratadine (Claritin) 10 mg DAILY PO Last administered on 10/02/16 10:33; Admin Dose 10 MG; Start 10/01/16 at 13:30 Triamcinolone (Kenalog 0.1% Lotion) 1 applic TID TOP Last administered on 12:15; Admin Dose 1 APPLIC; Start 10/01/16 at 21:00 ANITA DIAZ Oct 02, 2016 16:14
[2016-10-02] MEDS: METHYLPREDNISOLONE 40 MG INJ IV SCH ×2 (17:16→23:58)
[2016-10-02] MEDS: 1/2 NS + KCL 20 MEQ 1,000 ML IV SCH (17:16)
[2016-10-02] MEDS: INSULIN GLARGINE [LANtus] 3 ML PEN SC SCH (20:26)
[2016-10-02] MEDS: LATANOPROST 0.005% 2.5 ML OPH BOTH EYES SCH (20:42)
[2016-10-02 20:50] VITALS: BP 146/65; RESP 20
[2016-10-03] MEDS: Insulin NOVOLOG SS MILD Algorithm (NPO/TPN/ENTERAL FEEDS) SC SCH ×5 (00:07→16:48)
[2016-10-03] MEDS: METHYLPREDNISOLONE 40 MG INJ IV SCH ×3 (05:11→17:20)
[2016-10-03 08:18] VITALS: BP 151/67; RESP 16
[2016-10-03] MEDS: ALBUTEROL/IPRATROPIUM (NEB) 3 ML AMP HHN SCH ×3 (08:30→17:02)
[2016-10-03] MEDS: COLISTIMETHATE (25 MG/ML INHAL SYG) NEB SCH (08:44)
[2016-10-03] MEDS ORDERED: MED4DP PO (09:25)
[2016-10-03] MEDS: FAMOTIDINE 20 MG TAB PO SCH (09:37)
[2016-10-03] MEDS: FERROUS SULFATE 60 MG/ML 5ML CUP GTB SCH (09:37)
[2016-10-03] MEDS: ZYVOX 600 MG TAB PEG SCH (09:37)
[2016-10-03] MEDS: LORATADINE 10 MG TAB PO SCH (09:37)
[2016-10-03] MEDS: MULTIVITAMINS 5 ML CUP GTB SCH (09:37)
[2016-10-03] MEDS: BENAZEPRIL 5 MG TAB GTB SCH (09:39)
[2016-10-03] MEDS: ENOXAPARIN 40 MG/0.4 ML SYG SC SCH (09:42)
[2016-10-03] MEDS: TRIAMCINOLONE ACET 0.1% 60 ML LOT TOP SCH ×2 (09:43→12:58)
[2016-10-03] MEDS: MUPIROCIN 2% 22 GM OINT TOP SCH (09:43)
[2016-10-03] MEDS: NYSTATIN 30 GM POWDER BTL TOP SCH (09:43)
[2016-10-03] MEDS: MEROPENEM 500 MG/100 ML (PMX) 100 ML IVPB SCH (09:46)
[2016-10-03] MEDS: LEVETIRACETAM 500 MG (PMX) 100 ML IVPB SCH (09:46)
[2016-10-03] MEDS: 1/2 NS + KCL 20 MEQ 1,000 ML IV SCH (09:46)
--- NOTE | 2016-10-03 14:41 | CONS ---
Date/Time of Note Date/Time of Note DATE: 10/03/16 TIME: 14:41 Assessment/Plan Assessment/Plan Chief Complaint/Hosp Course SUBJECTIVE: No acute changes overnight. No fevers. Pt is sleeping, looks comfortable MICROBIOLOGY: Sputum culture grew E. coli ESBL, MRSA, nares swab came back positive for MRSA. Blood cultures remain negative. Urine culture grew E. coli. Stool for C. diff negative. ANTIMICROBIALS: The patient is on Merrem and Zyvox. PHYSICAL EXAMINATION: GENERAL: This is a well-developed, elderly woman who is in no distress. HEENT: Head atraumatic, normocephalic. Sclerae anicteric. Buccal mucosa dry. NECK: Supple, trachea midline. CHEST: Rise symmetrical. Breath sounds diminished. HEART: S1, S2. ABDOMEN: Soft. Bowel tones present. EXTREMITIES: Without cyanosis. ASSESSMENT: 1. Resolving sepsis. 2. Pneumonia. 3. Right parotitis with facial and neck cellulitis, improving. 4. Urinary tract infection. 5. Rash, status post Elimite and ivermectin. 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 PLAN: The patient remains stable, R sided facial/neck erythema improving, continue abx, antihistamines, monitor for SZ, continue antiSZ Rx [facility] staff Problems: Consultation Date/Type/Reason Admit Date/Time Sep 27, 2016 at 14:07 Type of Consultation: id Exam/Review of Systems Vital Signs Vitals Vital Signs Date Time Temp Pulse Resp B/P Pulse Ox O2 Delivery O2 Flow Rate FiO2 10/03/16 10:13 Nasal Cannula 2.0 10/03/16 08:46 88 18 97 10/03/16 08:18 97.4 151/67 Intake and Output 10/02/16 10/02/16 10/03/16 15:00 23:00 07:00 Intake Total 200 ml 1420 ml 1470 ml Balance 200 ml 1420 ml 1470 ml Results Result Diagram: 09/30/16 0417 09/30/16 0417 Results 24 hrs Laboratory Tests Test 10/02/16 16:50 10/02/16 20:16 10/03/16 00:01 10/03/16 04:46 Bedside Glucose 155 261 H 284 H 285 H Test 10/03/16 07:37 10/03/16 12:18 Bedside Glucose 290 H 378 H Medications Medications Current Medications Acetaminophen/ Hydrocodone Bitart ([place] (5/325)) 1 tab Q4H PRN PO PAIN LEVEL 4 -7; Start 09/25/16 at 16:30 Acetaminophen/ Hydrocodone Bitart ([place] (5/325)) 2 tab Q4H PRN PO PAIN LEVEL 7 -10; Start 09/25/16 at 16:30 Hydromorphone HCl (Dilaudid) 0.5 mg Q2 PRN IV PAIN; Start 09/25/16 at 16:30 Hydromorphone HCl (Dilaudid) 1 mg Q2 PRN IV PAIN; Start 09/25/16 at 16:30 Docusate Sodium (Colace) 100 mg BID PRN PO CONSTIPATION; Start 09/25/16 at 16:30 Bisacodyl (Dulcolax Supp) 10 mg BID PRN [place] CONSTIPATION; Start 09/25/16 at 16:30 Sodium Biphosphate/ Sodium Phosphate (Fleet Enema) 133 ml BID PRN [place] CONSTIPATION; Start 09/25/16 at 16:30 Enoxaparin Sodium (Lovenox) 40 mg DAILY SC Last administered on 10/03/16 09:42 ; Admin Dose 40 MG; Start 09/26/16 at 09:00 Hydralazine HCl (Apresoline) 10 mg Q6H PRN IV SBP>160; Start 09/25/16 at 16:30 Insulin Aspart (Adult SC Insulin - Mild Algorithm)... Q4 SC Last administered on 10/03/16 12:58; Admin Dose 7 UNIT; Start 09/25/16 at 17:00 Levetiracetam (Keppra 500 Mg/ 100ml (Pmx)) 100 ml @ 400 mls/hr Q12 IVPB Last administered on 10/03/16 09:46; Admin Dose 400 MLS/HR; Start 09/25/16 at 21:00 Miscellaneous Information This patient muhammad... PRN PRN XX WOUND CARE; Start at 19:30 Potassium Chloride/Sodium Chloride (1/2 NS + KCl 20 Meq) 1,000 ml @ 50 mls/hr Q20H IV Last administered on 10/03/16 09:46; Admin Dose 50 MLS/HR; Start at 22:00 Miscellaneous Information 1 ea NOTE XX ; Start 09/26/16 at 07:00 Glucose (Glutose) 15 gm Q15M PRN PO DECREASED GLUCOSE; Start 09/26/16 at 07:00 Glucose (Glutose) 22.5 gm Q15M PRN PO DECREASED GLUCOSE; Start 09/26/16 at 07:00 Dextrose (D50w Syringe) 25 ml Q15M PRN IV DECREASED GLUCOSE; Start 09/26/16 at 07:00 Dextrose (D50w Syringe) 50 ml Q15M PRN IV DECREASED GLUCOSE; Start 09/26/16 at 07:00 Glucagon (Glucagen) 1 mg Q15M PRN IM DECREASED GLUCOSE; Start 09/26/16 at 07:00 Glucose (Glutose) 15 gm Q15M PRN BUCCAL DECREASED GLUCOSE; Start 09/26/16 at 07: 00 Acetaminophen (Tylenol Tab) 500 mg Q6H PRN PO PAIN AND OR ELEVATED TEMP Last administered on 09/27/16 08:28; Admin Dose 500 MG; Start 09/26/16 at 15:30 Benazepril HCl (Lotensin) 5 mg BID GTB Last administered on 10/03/16 09:39; Admin Dose 5 MG; Start 09/26/16 at 21:00 Carvedilol (Coreg) 12.5 mg BID GTB Last administered on 10/03/16 09:39; Admin Dose 12.5 MG; Start 09/26/16 at 21:00 Ferrous Sulfate (Feosol Liquid Cup) 300 mg DAILY GTB Last administered on 09:37; Admin Dose 300 MG; Start 09/27/16 at 09:00 Latanoprost (Xalatan) 1 drop QHS BOTH EYES Last administered on 10/02/16 20:42 ; Admin Dose 1 DROP; Start 09/26/16 at 21:00 Multivitamins (Thera-Plus) 5 ml DAILY GTB Last administered on 10/03/16 09:37 ; Admin Dose 5 ML; Start 09/27/16 at 09:00 Mupirocin (Bactroban) 1 applic BID TOP Last administered on 10/03/16 09:43; Admin Dose 1 APPLIC; Start 09/27/16 at 15:00 Diphenhydramine HCl (Benadryl) 25 mg Q4H PRN IV itching Last administered on 18:29; Admin Dose 25 MG; Start 09/28/16 at 04:00 Linezolid (Zyvox) 600 mg BID PEG Last administered on 10/03/16 09:37; Admin Dose 600 MG; Start 09/28/16 at 21:00 Insulin Glargine (Lantus) 15 unit DAILY@20 SC Last administered on 10/02/16 20 :26; Admin Dose 15 UNIT; Start 09/29/16 at 20:00 Famotidine (Pepcid) 20 mg DAILY PO Last administered on 10/03/16 09:37; Admin Dose 20 MG; Start 09/30/16 at 09:00 Nystatin 1 applic 1 applic DAILY TOP Last administered on 10/03/16 09:43; Admin Dose 1 APPLIC; Start 10/01/16 at 09:00 Meropenem (Merrem 500 Mg/ 100 ml (Pmx)) 100 ml @ 200 mls/hr Q12 IVPB Last administered on 10/03/16 09:46; Admin Dose 200 MLS/HR; Start 10/01/16 at 21:00 Loratadine (Claritin) 10 mg DAILY PO Last administered on 10/03/16 09:37; Admin Dose 10 MG; Start 10/01/16 at 13:30 Triamcinolone (Kenalog 0.1% Lotion) 1 applic TID TOP Last administered on 12:58; Admin Dose 1 APPLIC; Start 10/01/16 at 21:00 Methylprednisolone Sodium Succinate (Solu-Medrol) 20 mg Q6 IV Last administered on 10/03/16 11:47; Admin Dose 20 MG; Start 10/02/16 at 18:00 MEL OLEARY NP Oct 03, 2016 14:41
--- NOTE | 2016-10-03 20:18 | CONS ---
Date/Time of Note Date/Time of Note DATE: 10/03/16 TIME: 20:17 Assessment/Plan Assessment/Plan Additional Assessment/Plan Resolving parotitis. -Cleared for return to SNF from ENT standpoint Consultation Date/Type/Reason Admit Date/Time Sep 27, 2016 at 14:07 Type of Consultation: ENT Reason for Consultation f/u for parotitis 24 HR Interval Summary Subjective hx not possible: pt non-verbal Exam/Review of Systems Vital Signs Vitals Vital Signs Date Time Temp Pulse Resp B/P Pulse Ox O2 Delivery O2 Flow Rate FiO2 10/03/16 17:00 95 22 90 Nasal Cannula 2.0 10/03/16 08:18 97.4 151/67 Intake and Output 10/02/16 10/02/16 10/03/16 15:00 23:00 07:00 Intake Total 200 ml 1420 ml 1470 ml Balance 200 ml 1420 ml 1470 ml Exam Constitutional: alert ENMT: other (Significant improvement in cellulitis and induration of parotid region) Results Result Diagram: 09/30/16 0417 09/30/16 0417 Results 24 hrs Laboratory Tests Test 10/03/16 00:01 10/03/16 04:46 10/03/16 07:37 10/03/16 12:18 Bedside Glucose 284 H 285 H 290 H 378 H Test 10/03/16 16:44 Bedside Glucose 335 H ART GROVER MD Oct 03, 2016 20:18
--- NOTE | 2016-10-04 16:01 | PN ---
Date/Time of Note Date/Time of Note DATE: 10/03/16 TIME: 15:59 Assessment/Plan Lines/Catheters IV Catheter Type (from [facility]): PICC Line Assessment/Plan Assessment/Plan [facility] Progress Note (late entry) Date of Service: 10/03/16 Today's Impression & Plan: Overall stable and improving. No output from old tube site and should continue to heal without surgery. R face also improved. Ok from my standpoint for patient to d/c. Patient will follow up with me as an outpatient for her abdominal old drain site. With above assessment, I've recommended the following for today: 1. D/C 4. Follow up with my office in 2-3 weeks Thank you again for your great care of this very pleasant patient and wonderful family. If there are any questions, please feel free to call me at [phone]. TOTAL VISIT TIME: 20 minutes of which more than half was spent in [id number] discussion with the patient, possibly including family, as well as coordination of care between multiple physicians and providers. Disclaimer: Inadvertent spelling or grammatical errors are likely due to EHR/ dictation software use and do not reflect on the overall quality of patient care. UPDATED CLINICAL HISTORY: The patient is a very pleasant but unfortunate 66- year-old lady with comorbidities including a BMI of 16.5 as well as history of chronic encephalopathy and debility who was found to have a G-tube placement, unfortunately, into her transverse colon when she was seen in our emergency department today for replacement of a displaced G-tube. S/p PEG 09/13/16. Readmitted to the hospital electively 09/25/2016 for removal of old percutaneous tube that was in the transverse colon (done by me at bedside on 09/25/2016). White blood cell count elevation noted with swollen right side of the face and broad-spectrum antimicrobials and workup started. Head and neck CT scan demonstrated enlarged glands in the right side of the face and possibility of malignancy could not be ruled out but it was more consistent with an infection. Patient's white blood cell count came down with initiation of broad-spectrum antimicrobial coverage. Nodularities in lung freeman were noted on the neck CT and therefore chest CT was ordered. Patient started having some stool drainage from the prior percutaneous tube placement site but abdomen remained benign. Sig improvement with broad spec antimicrobial management. COMORBIDITIES: 1. BMI 16.5. 2. Chronic encephalopathy. 3. Diabetes mellitus type 2. 4. Dysphagia. 5. Essential hypertension. 6. Pulmonary hypertension. 7. Chronic kidney disease. 8. Coronary artery disease. 9. Subdural hematoma. 10. Seizure disorder. 11. Chronic encephalopathy. Subjective: No major reported events or complaints; no abd pain with no drainage (no staining of the dressing and no flow outside noted from the old drain site); no n/v/d; no sob or cp; + signs of bowel activity; - activity Objective: Vitals: See below Exam: GENERAL: On exam, the patient was laying in bed and otherwise appeared to be comfortable and in no acute distress. ABDOMEN: Soft, nontender and nondistended. Site of previous percutaneous drain with no staining on the dressings. Skin around it less erythematous. There are no peritoneal signs or guarding. SKIN: Skin appears to be pink and feels warm to touch. NEUROLOGIC: Patient is awake, and alert. Right side of face appears to be less swollen and skin not erythematous. Exam/Review of Systems Vital Signs Vitals Vital Signs Date Time Temp Pulse Resp B/P Pulse Ox O2 Delivery O2 Flow Rate FiO2 10/03/16 17:00 95 22 90 Nasal Cannula 2.0 10/03/16 08:18 97.4 151/67 Intake and Output 10/03/16 10/03/16 10/04/16 15:00 23:00 07:00 Intake Total 1050 ml 1920 ml Output Total 750 ml Balance 1050 ml 1170 ml Results Result Diagram: 09/30/16 0417 09/30/16 0417 YOSEPH TALAMANTES M.D. Oct 04, 2016 16:01
--- NOTE | 2016-10-06 17:53 | DS ---
Date/Time of Note Date/Time of Note DATE: 10/06/16 TIME: 17:50 Discharge Summary Admission/Discharge Info Admit Date/Time Sep 27, 2016 at 14:07 Discharge Date/Time Oct 03, 2016 at 18:35 Final Diagnosis 1. Sepsis secondary to UTI and aspiration pneumonia along with right parotitis. 2. Aspiration pneumonia with sputum culture with ESBL and MRSA. 3. Right parotitis and right neck cellulitis. 4. Malpositioned G-tube. 5. Essential hypertension. C 6. Opacification of left lung with underlying consolidation and atelectasis 7. Dysphagia. 8. Type 2 diabetes. A1c was noted at 8.2. 9. CKD. 10. Seizure disorder. 11. MRSA of the nares. 12. History of pulmonary hypertension. 13. Iron deficiency anemia. 14. Chronic encephalopathy. Patient Condition: Stable Consults 1. Dr. Yunior Louis 2. Dr. Xavier Alexander 3. Dr. Scooter Gutierrez 4. Dr. Anmol Doan Hospital Course There is a 66-year-old female with history of chronic encephalopathy who is bedbound and also has dysphagia status post PEG tube placement also hypertension and type 2 diabetes and pulmonary hypertension, CKD, seizure disorder, left hemiparesis secondary to subdural hematoma, came to [facility] due to reports of malpositioned G-tube. Of note patient did have her G-tube initially placed at [facility] on September 02, 2016. It was reported that that G-tube was found to be in the transverse colon. As such she came to [facility] for removal of misplaced PEG tube. Patient was seen by surgeon. And she did have her PEG tube replaced. Further workup showed her to have sepsis secondary to UTI as well as aspiration pneumonia. On physical exam she was also noted with swelling of her right side of the face and was diagnosed with right parotitis. She was seen by ENT physician. No further surgical intervention will be needed by ENT at this time and we did optimize her with antibiotics per ID recommendations and she did have good response. She was remained on aspiration precautions and a sputum culture of her did show ESBL and MRSA for which she was placed on appropriate medication and antibiotics. She was also seen by batteryman for her pneumonia. She did have CPT and did have good response from this as well. We were able to use a PEG tube for feeding after it was replaced. She was otherwise otherwise medically. She was continued on insulin for type 2 diabetes. She did have CKD and her medications were renally dosed. She was also continued on anticonvulsants for her seizure disorder. She did have history of pulmonary hypertension and as such was placed on O2. She was resumed on iron supplement for her iron deficiency anemia. Patient still remained chronically encephalopathic and we did resume her on aspiration precautions. We also did check her every 2 hours for pressure ulcer prevention. During the course of stay she did improve. [facility] was [facility] in [facility] condition Discussed plan of care with Dr. Young Discharge process time: 40 minutes Home Meds Active Scripts Methylprednisolone* (Medrol* DOSE PACK) 4 Mg/Dose-Pack Tab.ds.pk, 4 MG PO . DIRECTED, #1 PACKET Prov:ANITA DIAZ 10/03/16 Triamcinolone Acetonide (Triamcinolone Acetonide) 0.1% - 60 Ml Lotion, 1 APPLIC TOP TID for 30 Days Prov:ANITA DIAZ 10/02/16 [Pending Collagenase Order] 1 EA EACH No Conflict Check, 0 EA XX PRN Y for WOUND CARE for 30 Days Prov:ANITA DIAZ 10/02/16 Nystatin* (Nystop*) 15 Gm Powder, 1 APPLIC TOP DAILY for 14 Days Prov:ANITA DIAZ 10/02/16 Mupirocin* (Bactroban*) 2% -22 Gram Oint...g., 1 APPLIC TOP BID for 7 Days Prov:ANITA DIAZ 10/02/16 Meropenem (MEROPENEM) 500 Mg Vial, 500 MG IV BID for 7 Days, VIAL Prov:ANITA DIAZ 10/02/16 Multivitamins* (Multi-Delyn* Liq) 473 Ml Liquid, 5 ML GTB DAILY for 30 Days Prov:ANITA DIAZ 10/02/16 Loratadine* (Loratadine*) 10 Mg Tablet, 10 MG PO DAILY for 30 Days, TAB Prov:ANITA DIAZ 10/02/16 Linezolid (Linezolid) 600 Mg Tablet, 600 MG PEG BID for 7 Days, TAB Prov:ANITA DIAZ 10/02/16 Ipratropium-Albuterol (Ipratropium-Albuterol) 0.5-3 Mg/3 Ml Ampul.neb, 3 ML HHN Q4HWA RESP THERAPY for 30 Days Prov:ANITA DIAZ 10/02/16 Latanoprost (Latanoprost) 2.5 Ml Drops, 1 DROP BOTH EYES QHS for 30 Days, BOTTLE Prov:ANITA DIAZ 10/02/16 Insulin Glargine* (Lantus*) 100 Unit/Ml Soln, 15 UNIT SC DAILY@20 for 30 Days Prov:ANITA DIAZ 10/02/16 Insulin Aspart* (Novolog Insulin Pen*) 100 Unit/Ml Soln, 0 UNIT SC Q4 for 30 Days Prov:ANITA DIAZ 10/02/16 Hydrocodone Bit-Acetaminophen (Hydrocodone Bit-APAP) 5-325MG Tablet, 1 TAB PO Q4H Y for PAIN LEVEL 4-7, #30 TAB Prov:ANITA DIAZ 10/02/16 Ferrous Sulfate (Ferrous Sulfate) 300 Mg/5 Ml Liquid, 300 MG GTB DAILY for 30 Days Prov:ANITA DIAZ 10/02/16 Enoxaparin Sodium* (Enoxaparin Sodium*) 40 Mg/0.4 Ml Syringe, 40 MG SC DAILY for 30 Days Prov:ANITA DIAZ 10/02/16 Colistin (Colistimethate Na) (Colistimethate) 150 Mg Vial, 75 MG NEB BID RESP THERAPY for 30 Days, VIAL Prov:ANITA DIAZ 10/02/16 Carvedilol* (Carvedilol*) 12.5 Mg Tablet, 12.5 MG GTB BID for 30 Days, TAB Prov:ANITA DIAZ 10/02/16 Benazepril Hcl* (Benazepril Hcl*) 5 Mg Tablet, 5 MG GTB BID for 30 Days, TAB Prov:ANITA DIAZ 10/02/16 Reported Medications Amino Acids/Protein Hydrolys (PRO-STAT LIQUID) 30 Ml Liquid.pkt, 30 ML GTB TID 09/11/16 Clonidine Hcl* (Clonidine Hcl*) 0.1 Mg Tab, 0.1 MG GTB Q6 Y for ELEVATED BLOOD PRESSURE, TAB 09/11/16 Bisacodyl* (Bisacodyl*) 10 Mg Supp, 10 MG [place] PRN Y for CONSTIPATION, SUPP 09/11/16 Lactobacillus Acidophilus/Pect (Acidophilus-Pectin Capsule) 1 Each Capsule, 1 EACH GTB DAILY, CAP 09/11/16 Na Phos,M-B/Na Phos,Di-Ba (ENEMA READY TO USE) 135 Ml Enema, 135 ML RC EVERY 2 DAYS Y for CONSTIPATION, ENEMA 09/11/16 Levetiracetam* (Keppra*) 500 Mg Tablet, 500 MG GTB BID, TAB 09/11/16 Magnesium Hydroxide* (Milk Of Magnesia*) 400 Mg/5 Ml Oral.susp, 30 ML PO QHS Y for CONSTIPATION, ML 09/11/16 Multivitamins* (Theragran*) 1 Tab Tab, 1 TAB GTB DAILY, TAB 09/11/16 Omeprazole* (Omeprazole*) 20 Mg Capsule.dr, 20 MG GTB DAILY, #30 CAP 09/11/16 Acetaminophen* (Acetaminophen*) 650 Mg Tablet, 650 MG GTB Q4 Y for PAIN AND OR ELEVATED TEMP, #30 TAB 09/11/16 Ondansetron Hcl* (Ondansetron Hcl* Liq) 4 Mg/5 Ml Solution, 4 MG IV* Q6H Y for NAUSEA AND/OR VOMITING, ML 03/28/16 Docusate Sodium* (Colace*) 100 Mg Capsule, 100 MG GTB BID, #30 CAP 08/17/15 Discontinued Reported Medications Ferrous Sulfate (Ferrous Sulfate) 220 Mg/5 Ml Elixir, 330 MG GTB DAILY, BOTTLE 09/11/16 Acetaminophen* (Acetaminophen*) 500 MG Extra Strength Tablet, 1000 MG GTB Q4 Y for MODERATE PAIN LEVEL 4-6, TAB 09/11/16 Cranberry Extract (Cranberry) 425 Mg Capsule, 425 MG GTB BID, CAP 09/11/16 Famotidine* (Famotidine*) 20 Mg Tablet, 20 MG GTB DAILY, #30 TAB 09/11/16 Benazepril Hcl* (Benazepril Hcl*) 5 Mg Tablet, 5 MG GTB BID, #60 TAB 09/11/16 Cran/Vitc/Mannose/Inulin/Brom (Uti-Stat Liquid) 3,875 Mg/30 Ml Liquid, 3875 MG GTB BID 09/11/16 Latanoprost (Xalatan) 2.5 Ml Drops, 1 DROP BOTH EYES QHS, #1 BOTTLE 09/11/16 Insulin Lispro (Humalog) 100 Unit/1 Ml Cartridge, 0 SQ QID 150-200=2units 201-250=4units 251-300=6units 301-350=8units 351-400=10units 400=12units 03/28/16 Insulin Glargine* (Lantus*) 100 Unit/Ml Soln, 9 UNIT SC QHS, #1 VIAL 03/28/16 Indapamide* (Indapamide*) 2.5 Mg Tablet, 2.5 MG GTB DAILY, TAB 03/28/16 Heparin Sodium,Porcine/Pf (Heparin 1,000 Unit/10 (100/ml)) 1,000 Unit/10 Ml Syringe, 5000 UNIT IV BID 03/28/16 Minoxidil* (Lonitin*) 2.5 Mg Tab, 2.5 MG GTB DAILY, TAB HOLD IF SBP BELOW 110, HR BELOW 60 1TAB 08/17/15 Carvedilol* (Carvedilol*) 12.5 Mg Tablet, 12.5 MG GTB BID, #60 TAB 08/17/15 Follow-up Plan CONDITION Patient Condition: Stable HOME CARE INSTRUCTIONS: Special Diet: tube feeding FOLLOW UP/APPOINTMENTS Appointments 1. follow up with Dr. Yunior Louis in 2-3 weeks 2. Follow up with Dr. Anmol Doan in 1-2 weeks OTHER ORDERS: Other Orders: WOUND CARE RECOMMENDATIONS: - Left lower abdomen old PEG site: Clean with normal saline. Pat dry. Dust peristoma skin with Nystatin powder. Then, seal with No Sting Skin Barrier. Cover with plaint alginate. and dry dressing. Change daily. - Continue low air loss surface. - Pillow between knee. Float heels off bed with pillows. - Reposition every 2 hours. ANITA DIAZ Oct 06, 2016 17:53
== END 2016-10-03 18:35 | DRG 871 ==
LOC: PP2 09-25 12:16 → INTOOBSV 09-25 12:16 → OBSVTOIN 09-27 14:07
PROVIDERS: ADMIT Transplant Surgery; ATTEND Transplant Surgery
PROC: 0CJS8ZZ Inspection of Larynx, Via Natural or Artificial Opening Endoscopic (ICD-10-PCS; 2016-09-27)
PROC: 02HV33Z Insertion of Infusion Device into Superior Vena Cava, Percutaneous Approach (ICD-10-PCS; principal; 2016-09-29)
DX: A41.51 Sepsis due to Escherichia coli [E. coli] (principal); J69.0 Pneumonitis due to inhalation of food and vomit; G93.40 Encephalopathy, unspecified; E11.8 Type 2 diabetes mellitus with unspecified complications; I27.2 Other secondary pulmonary hypertension; R13.10 Dysphagia, unspecified; L03.90 Cellulitis, unspecified; N39.0 Urinary tract infection, site not specified; I69.954 Hemiplegia and hemiparesis following unspecified cerebrovascular disease affecting left non-dominant side; K11.20 Sialoadenitis, unspecified; B96.20 Unspecified Escherichia coli [E. coli] as the cause of diseases classified elsewhere; B95.62 Methicillin resistant Staphylococcus aureus infection as the cause of diseases classified elsewhere; I12.9 Hypertensive chronic kidney disease with stage 1 through stage 4 chronic kidney disease, or unspecified chronic kidney disease; N18.9 Chronic kidney disease, unspecified; G40.909 Epilepsy, unspecified, not intractable, without status epilepticus; Z22.322 Carrier or suspected carrier of Methicillin resistant Staphylococcus aureus; D50.9 Iron deficiency anemia, unspecified; R21 Rash and other nonspecific skin eruption; K56.41 Fecal impaction
CPT/HCPCS: 36569; 70450; 70490; 71010; 71250; 74176; 76937; 80048; 80053; 82962; 83605; 83735; 83880; 84100; 85025; 85610; 85730; 87040; 87070; 87075; 87081; 87086; 94640; 94664; 94667; 94668; G0378; J1170; J1200; J1650; J1815; J1953; J2185; J2543; J2920; J3370; J3475; J3480; J7050

== ENCOUNTER 2016-10-30 14:43 | Outpatient (CLI) | payer MEDICARE, OTHER ==
[~2016-10-30 14:43] MED LIST changes: -ACET-141 GTB; +COLI150V7 NEB; -CRAN3875 GTB; -CRAN425C GTB; +ENOX40DI2 SC; -FAMO20TA18 GTB; -FERR220S3 GTB; -HEPA100D39 IV; +HYDR-3498 PO; -INDA2.5T GTB; -INSU100C SQ; +IPRA3AMP HHN; +LATA2.5D2 BOTH EYES; -LATA2.5D9 BOTH EYES; +LINE600T6 PEG; +LORA10TA3 PO; +MED4DP PO; +MERO500V2 IV; -MINO2.5T16 GTB; +MULT473L10 GTB; +MUPI22OI2 TOP; +NOVO3I SC; +NYST15PO4 TOP; +Pending Collagenase Order XX; +TR1B60 TOP; +UDFER GTB
[2016-10-30 14:54] VITALS: BP 160/72; PULSE 66; RESP 20
--- NOTE | 2016-10-30 15:26 | PN ---
Date/Time of Note Date/Time of Note DATE: 10/30/16 TIME: 15:07 Assessment/Plan Assessment/Plan Assessment/Plan [facility] Progress Note Date of Service: 10/30/16 Today's Impression & Plan: Overall stable and much improved. Old tube site completely healed. R face also improved. No further surgical issues at this time. With above assessment, I've recommended the following for today: 1. Continue cares per primary team 2. F/u with us prn Thank you again for your great care of this very pleasant patient and wonderful family. If there are any questions, please feel free to call me at [phone]. TOTAL VISIT TIME: 20 minutes of which more than half was spent in [id number] discussion with the patient, as well as coordination of care between multiple physicians and providers. Disclaimer: Inadvertent spelling or grammatical errors are likely due to EHR/ dictation software use and do not reflect on the overall quality of patient care. UPDATED CLINICAL HISTORY: The patient is a very pleasant but unfortunate 66- year-old lady with comorbidities including a BMI of 16.5 as well as history of chronic encephalopathy and debility who was found to have a G-tube placement, unfortunately, into her transverse colon when she was seen in our emergency department today for replacement of a displaced G-tube. S/p PEG 09/13/16. Readmitted to the hospital electively 09/25/2016 for removal of old percutaneous tube that was in the transverse colon (done by me at bedside on 09/25/2016). White blood cell count elevation noted with swollen right side of the face and broad-spectrum antimicrobials and workup started. Head and neck CT scan demonstrated enlarged glands in the right side of the face and possibility of malignancy could not be ruled out but it was more consistent with an infection. Patient's white blood cell count came down with initiation of broad-spectrum antimicrobial coverage. Nodularities in lung freeman were noted on the neck CT and therefore chest CT was ordered. Patient started having some stool drainage from the prior percutaneous tube placement site but abdomen remained benign. Sig improvement with broad spec antimicrobial management. COMORBIDITIES: 1. BMI 16.5. 2. Chronic encephalopathy. 3. Diabetes mellitus type 2. 4. Dysphagia. 5. Essential hypertension. 6. Pulmonary hypertension. 7. Chronic kidney disease. 8. Coronary artery disease. 9. Subdural hematoma. 10. Seizure disorder. 11. Chronic encephalopathy. Subjective: No major reported events or complaints; no abd pain and no drainage from old drain site; area completely healed; no n/v/d; no sob or cp; + signs of bowel activity; - activity Objective: Vitals: See below Exam: GENERAL: On exam, the patient was sitting in a chair and otherwise appeared to be comfortable and in no acute distress. ABDOMEN: Soft, nontender and nondistended. Site of previous percutaneous drain completely healed without any e/e/d/h. Skin around it less erythematous. There are no peritoneal signs or guarding. SKIN: Skin appears to be pink and feels warm to touch. NEUROLOGIC: Patient is awake, and alert. Right side of face appears to be less swollen and skin not erythematous. Exam/Review of Systems Vital Signs Vitals Vital Signs Date Time Temp Pulse Resp B/P Pulse Ox O2 Delivery O2 Flow Rate FiO2 10/30/16 14:54 97.8 66 20 160/72 96 Room Air YOSEPH TALAMANTES M.D. October 30, 2016 15:26
== END 2016-10-30 16:30 | disposition home or self-care (01) ==
LOC: HPC 14:43
PROVIDERS: ATTEND Transplant Surgery
DX: Z09 Encounter for follow-up examination after completed treatment for conditions other than malignant neoplasm (principal); G93.49 Other encephalopathy; E11.22 Type 2 diabetes mellitus with diabetic chronic kidney disease; I12.9 Hypertensive chronic kidney disease with stage 1 through stage 4 chronic kidney disease, or unspecified chronic kidney disease; N18.9 Chronic kidney disease, unspecified; R13.10 Dysphagia, unspecified; I27.2 Other secondary pulmonary hypertension; I25.10 Atherosclerotic heart disease of native coronary artery without angina pectoris; S06.5X0D Traumatic subdural hemorrhage without loss of consciousness, subsequent encounter; X58.XXXD Exposure to other specified factors, subsequent encounter; G40.909 Epilepsy, unspecified, not intractable, without status epilepticus
CPT/HCPCS: G0463

== ENCOUNTER 2017-06-25 10:49 | Emergency (ER) | END 2017-06-25 16:00 | disposition home or self-care (01) ==

== ENCOUNTER 2018-03-13 18:12 | Inpatient (IN) | END 2018-03-15 17:35 | DRG 64 ==

== ENCOUNTER 2018-10-24 05:49 | Inpatient (IN) | payer MEDICARE, OTHER ==
[~2018-10-24] VITALS: Ht 149.9 cm; Wt 36.4 kg
[~2018-10-24 05:49] MED LIST changes: -AMIN30LI GTB; -BENA5TAB2 GTB; +BENA5TAB33 GTB; -COLI150V7 NEB; -DOCU-144 GTB; -ENOX40DI2 SC; -HYDR-3498 PO; -IPRA3AMP HHN; +IPRA3AMP29 HHN; -LACT1CAP4 GTB; -LINE600T6 PEG; -LORA10TA3 PO; -MAGN400O4 PO; -MED4DP PO; -MERO500V2 IV; -MULT473L10 GTB; -MULTI GTB; -MUPI22OI2 TOP; -NA P135E RC; -NYST15PO4 TOP; -OMEP20CA16 GTB; -ONDA4SOL IV*; -Pending Collagenase Order XX; -TR1B60 TOP
[2018-10-24 05:59] VITALS: Ht 149.9 cm; Wt 36.4 kg
--- NOTE | 2018-10-24 06:29 | ERD ---
ER Documentation Chief Complaint Chief Complaint [id number],from [facility],"more altered than usual",hx CVA HPI This is a 68-year-old female with a past medical history of hypertension, diabetes, coronary artery disease, CHF, previous stroke with left-sided deficits, nonambulatory, nonverbal who is presenting from [facility] "more altered than usual." The patient was reportedly sticking her tongue out more than usual. It is unclear if she seemed more agitated. According to family, the patient waxes and wanes in mentation chronically. She does appear more sleepy than usual. That said, she is awake and alert. Her eyes are open. She moans and withdraws to pain on the right. History and physical is limited secondary to altered mentation. ROS Limited secondary to chronic altered mental status Medications Home Meds Active Scripts Ipratropium-Albuterol (Ipratropium-Albuterol) 0.5-3 Mg/3 Ml Ampul.neb, 3 ML HHN Q4HWA RESP THERAPY for 30 Days Prov:ANITA DIAZ 10/02/16 Latanoprost (Latanoprost) 2.5 Ml Drops, 1 DROP BOTH EYES QHS for 30 Days, BOTTLE Prov:ANITA DIAZ 10/02/16 Insulin Glargine* (Lantus*) 100 Unit/Ml Soln, 15 UNIT SC DAILY@20 for 30 Days Prov:ANITA DIAZ 10/02/16 Insulin Aspart* (Novolog Insulin Pen*) 100 Unit/Ml Soln, 0 UNIT SC Q4 for 30 Days Prov:ANITA DIAZ 10/02/16 Ferrous Sulfate (Ferrous Sulfate) 300 Mg/5 Ml Liquid, 300 MG GTB DAILY for 30 Days Prov:ANITA DIAZ 10/02/16 Carvedilol* (Carvedilol*) 12.5 Mg Tablet, 12.5 MG GTB BID for 30 Days, TAB Prov:ANITA DIAZ 10/02/16 Benazepril Hcl* (Benazepril Hcl*) 5 Mg Tablet, 5 MG GTB BID for 30 Days, TAB Prov:ANITA DIAZ 10/02/16 Reported Medications Clonidine Hcl* (Clonidine Hcl*) 0.1 Mg Tab, 0.1 MG GTB Q6 PRN for ELEVATED BLOOD PRESSURE, TAB 09/11/16 Bisacodyl* (Bisacodyl*) 10 Mg Supp, 10 MG [place] PRN PRN for CONSTIPATION, SUPP 09/11/16 Levetiracetam* (Keppra*) 500 Mg Tablet, 500 MG GTB BID, TAB 09/11/16 Acetaminophen* (Acetaminophen*) 650 Mg Tablet, 650 MG GTB Q4 PRN for PAIN AND OR ELEVATED TEMP, #30 TAB 09/11/16 Allergies Allergies: Coded Allergies: No Known Drug Allergy (Verified Allergy, Mild, 06/25/17) PMhx/Soc History of Surgery: No Anesthesia Reaction: No Hx Neurological Disorder: Yes (CVA, chronic encephalopathy, Epilepsy) Hx Respiratory Disorders: No Hx Cardiac Disorders: Yes (CAD, ) Hx Psychiatric Problems: No Hx Miscellaneous Medical Probl: Yes (G-TUBE) Hx Alcohol Use: No Hx Substance Use: No Hx Tobacco Use: No Smoking Status: Never smoker FmHx Family History: diabetes Physical Exam Vitals Vital Signs Date Temp Pulse Resp B/P (MAP) Pulse Ox O2 O2 Flow FiO2 Time Delivery Rate 10/24/18 87 19 127/59 99 Nasal 2.0 06:16 (81) Cannula 10/24/18 98.9 88 20 117/67 96 05:59 (84) Physical Exam Const: No apparent distress, well-developed, well-nourished Head: Normocephalic, Atraumatic Eyes: Normal Conjunctiva. Pupils equal, round and reactive to light ENT: Normal External Ears, Nose and Mouth. Neck: Full range of motion. No meningismus. Resp: Clear to auscultation bilaterally, No wheezes, rales or rhonchi Cardio: Regular rate and rhythm. No murmurs, rubs or gallops Abd: Soft, non tender, non distended. Normal bowel sounds. G-tube present. Skin: No petechiae or rashes Ext: No cyanosis. Extremity atrophy. Left upper extremity and bilateral lower extremity contractures. Neur: Awake and alert. Nonverbal, moans. Eyes open spontaneously. Left- sided hemiplegia. Result Diagram: 10/24/18 0704 10/24/18 0703 Results 24 hrs Laboratory Tests Test 10/24/18 06:14 10/24/18 07:03 10/24/18 07:04 Bedside Glucose 166 mg/dL Sodium Level 169 mmol/L Potassium Level 3.8 mmol/L Chloride Level 136 mmol/L Carbon Dioxide Level 30 mmol/L Anion Gap 3 Blood Urea Nitrogen 90 mg/dl Creatinine 1.50 mg/dl Est Glomerular Filtrat Rate mL/min 35 mL/min Glucose Level 159 mg/dl Calcium Level 9.4 mg/dl Total Bilirubin 0.3 mg/dl Direct Bilirubin 0.00 mg/dl Indirect Bilirubin 0.3 mg/dl Aspartate Amino Transf (AST/SGOT) 31 IU/L Alanine Aminotransferase (ALT/SGPT) 24 IU/L Alkaline Phosphatase 98 IU/L Total Protein 6.8 g/dl Albumin 3.4 g/dl Globulin 3.40 g/dl Albumin/Globulin Ratio 1.00 White Blood Count 9.8 10^3/ul Red Blood Count 4.49 10^6/ul Hemoglobin 14.4 g/dl Hematocrit 49.1 % Mean Corpuscular Volume 109.4 fl Mean Corpuscular Hemoglobin 32.1 pg Mean Corpuscular Hemoglobin Concent 29.3 g/dl Red Cell Distribution Width 14.8 % Platelet Count 102 10^3/UL Mean Platelet Volume fl Immature Granulocytes % 0.200 % Neutrophils % 54.6 % Lymphocytes % 35.2 % Monocytes % 6.3 % Eosinophils % 3.3 % Basophils % 0.4 % Nucleated Red Blood Cells % 0.4 /100WBC Immature Granulocytes # 0.020 10^3/ul Neutrophils # 5.4 10^3/ul Lymphocytes # 3.5 10^3/ul Monocytes # 0.6 10^3/ul Eosinophils # 0.3 10^3/ul Basophils # 0.0 10^3/ul Nucleated Red Blood Cells # 0.0 10^3/ul Current Medications Medications Dose Sig/Candace Start Time Status Last (Trade) Ordered Route PRN Stop Time Admin Dose Reason Admin Dextrose 1,000 ml @ Q10H IV 10/24/18 100 mls/hr 09:00 Ondansetron 4 mg ER BRIDGE 10/24/18 HCl (Zofran PRN IV 09:00 10/25/18 Inj) NAUSEA/VOMITI 08:59 NG 650 mg ER BRIDGE 10/24/18 Acetaminophen PRN PO 09:00 10/25/18 (Tylenol .MILD PAIN 08:59 Tab) 1-3 OR TEMP Procedures/MDM MDM The patient's presentation warrants further investigation. Previous medical records, if available, were reviewed. LABS The patient's laboratory testing was obtained and reviewed. No emergent treat ment was required unless described below. CBC: No E/o systemic infection. Macrocytosis without anemia. Mild thrombocytopenia. Chemistry: Severe hypernatremia which will require treatment. Elevated BUN and creatinine, concerning for GLADIS and dehydration. No E/o severe acidosis or alkalosis or liver disease or diabetic ketoacidosis Urine: Pending EKG EKG read by me: Rate/Rhythm: Regular rate and rhythm at a rate of 89bpm Intervals: Normal [place]: Right axis deviation Impression: No evidence of acute ischemia or arrhythmia IMAGING Imaging and Radiology interpretation reviewed. CXR FINDINGS: The heart is enlarged. The lungs are clear. There is no pleural effusion or pneumothorax. The bones and soft tissue show no acute change. IMPRESSION: Cardiomegaly. Electronically viewed and signed by Physician Yrn on 10/24/2018 08:43 CT Head COMPARISON: MR 03/14/2018; CT BRAIN 03/13/2018 FINDINGS: CALVARIUM: Regional bones are intact. SINUSES: The sphenoid sinuses are completely opacified and there is associated wall thickening indicating chronic inflammation. Frontal, ethmoid and maxillary sinuses are clear. BRAIN: There is a large area of encephalomalacia involving the superolateral right frontal lobe, lateral right parietal lobe and posterior right temporal lobe. There is associated ex vacuo dilatation of the right lateral ventricle. Patchy diminished attenuation in the periventricular white matter compatible with chronic small vessel ischemic changes. Atherosclerotic calcifications noted at the carotid siphons. There is a 2 mm hyperdense focus within the right cerebellum adjacent to the fourth ventricle which corresponds to foci of micro hemorrhage identified on previous MRI and is favored to represent calcification. There is otherwise no evidence for acute hemorrhage. Ventricular prominence is similar compared with previous imaging and there is associated widening of cortical sulci indicating generalized volume loss. Basilar cisterns are patent. IMPRESSION: 1. No acute intracranial abnormality. 2. Large area of encephalomalacia corresponding to the right MCA vascular territory. 3. Punctate 2 mm hyperdense focus within the right basal ganglia favored to represent calcification, location corresponds with site of previous micro hemorrhage identified on MRI of 03/14/2018. 4. Generalized volume loss, atherosclerosis, moderate chronic small vessel ischemic changes. Electronically viewed and signed by Physician Peter on 10/24/2018 09:09 TREATMENT/DISPOSITION The patient reportedly presents more altered than usual. She is sticking her tongue out, which is apparently unusual for her. The patient's family reports that the patient waxes and wanes in mentation, and this could be common for her, though she does seem more sleepy than his usual. The patient is severely hypernatremic, which could be the etiology of her symptoms. The patient does also have evidence of acute kidney injury. I am concerned about significant dehydration. The patient was started on D5-water in the emergency department. There is evidence of chronic ischemia and encephalomalacia on the right, corresponding with her deficits. I do not see evidence of acute ischemia. There was no trauma or injury. There is no personal or family history of cerebral aneurysm. I have decreased suspicion for SAH or other ICH. I have low suspicion for temporal arteritis, cavernous venous thrombosis, subdural hematoma, epidural hematoma, meningitis. The patient has no signs of emergent or symptomatic anemia. I have decrease suspicion for a thyroid disorder. The patient is not toxic appearing. I have decreased suspicion for an infectious etiology of symptoms. The patient's EKG is reassuring. I have low suspicion for acute coronary syndrome. I do not see evidence of any emergent cardiac arrhythmia, which includes but is not limited to heart block, Brugada syndrome or WPW. The patient has no heart murmurs or rales. There is no evidence of cardiomegaly on exam or chest xray. I have low suspicion for hypertrophic cardiomyopathy. I do not see evidence of CHF. The patient does not endorse any chest or pleuritic pain. The history is negative for bleeding or clotting disorders. The patient has not been involved in any recent prolonged trips or surgeries or hospitalizations. The patient has no calf tenderness or swelling. I have decreased suspicion for PE as the etiology of symptoms. I doubt an infectious etiology of symptoms. That said, urinalysis is currently pending to us evaluate for a possible UTI as the etiology of her symptoms. I do not see any evidence of pneumonia. ADMISSION At this time, I feel that the patient requires admission for further evaluation and management. The patient will be admitted to Panel in accordance with the patient's insurance. The patient was accepted by Dr. Agudelo at 8:38AM on 10/24/2018. Departure Diagnosis: Primary Impression: Hypernatremia Additional Impressions: Altered level of consciousness Acute kidney injury History of CVA (cerebrovascular accident) Macrocytosis Dehydration Condition: Serious WILLIAM LAZARO MD October 24, 2018 06:29
[2018-10-24] MEDS ORDERED: ONDANSETRON 4 MG INJ IV PRN (09:00)
[2018-10-24] MEDS ORDERED: ACETAMINOPHEN 325 MG TAB PO PRN (09:00)
[2018-10-24] MEDS ORDERED: INSU100I33 SC (09:26)
[2018-10-24] MEDS ORDERED: BENA5TAB33 GTB (09:27)
[2018-10-24] MEDS ORDERED: CARV12.579 GTB (09:28)
[2018-10-24] MEDS ORDERED: DOCU-144 GTB (09:29)
[2018-10-24] MEDS ORDERED: SDSNEV BOTH EYES (09:30)
[2018-10-24] MEDS ORDERED: CRAN425C6 GTB (09:30)
[2018-10-24] MEDS ORDERED: KEP100S GTB (09:31)
[2018-10-24] MEDS ORDERED: CRAN3875 GTB (09:32)
[2018-10-24] MEDS ORDERED: ACET325T45 GTB (09:34)
[2018-10-24] MEDS ORDERED: ACET-2047 GTB (09:34)
[2018-10-24] MEDS ORDERED: ACET-141 GTB (09:34)
[2018-10-24] MEDS ORDERED: ATOR20TA38 GTB (09:35)
[2018-10-24] MEDS ORDERED: LATA2.5D2 BOTH EYES (09:35)
[2018-10-24 10:20] VITALS: PULSE 93
[2018-10-24] MEDS ORDERED: NACL 0.9% 3 ML SYG IV SCH (11:00)
[2018-10-24] MEDS ORDERED: SOD CHLORIDE 0.9% 1,000 ML IV ONE (11:00)
[2018-10-24 11:10] VITALS: BP 152/75; PULSE 93; RESP 19
--- NOTE | 2018-10-24 11:29 | HP ---
Date/Time of Note Date/Time of Note DATE: 10/24/18 TIME: 11:12 Assessment/Plan VTE Prophylaxis SCD applied (from Nsg): Yes Pharmacological prophylaxis: heparin Lines/Catheters IV Catheter Type (from Nrsg): Saline Lock Assessment/Plan Hospital Course 68 yo female with h/o vascular dementia s/p CVA, DMII who is bed bound and PEG tube dependent [facility]/encephelopathy. Found to have severe hypernatremia and GLADIS GLADIS: - Very likely prerenal by history and exam. Will bolus isotonic fluids first Hypernatremia - Will bolus NS first, then correct FW deficit of about 5 liters Vascular dementia: - Stable Acute encephelopathy: - Likely from electrolyte imbalances. Monitor mentation as this improves Discharge to SNF when stable Result Diagram: 10/24/18 0704 10/24/18 0703 Results 24hrs Laboratory Tests Test 10/24/18 06:14 10/24/18 07:03 10/24/18 07:04 10/24/18 09:09 Bedside Glucose 166 Sodium Level 169 *H Potassium Level 3.8 Chloride Level 136 H Carbon Dioxide 30 Level Anion Gap 3 L Blood Urea 90 H Nitrogen Creatinine 1.50 H Est Glomerular 35 L Filtrat Rate mL/min Glucose Level 159 Calcium Level 9.4 Total Bilirubin 0.3 Direct Bilirubin 0.00 Indirect Bilirubin 0.3 Aspartate Amino 31 Transf (AST/SGOT) Alanine 24 Aminotransferase ( ALT/SGPT) Alkaline 98 Phosphatase Total Protein 6.8 Albumin 3.4 Globulin 3.40 H Albumin/Globulin 1.00 Ratio White Blood Count 9.8 Red Blood Count 4.49 Hemoglobin 14.4 Hematocrit 49.1 #H Mean Corpuscular 109.4 H Volume Mean Corpuscular 32.1 Hemoglobin Mean Corpuscular 29.3 L Hemoglobin Concent Red Cell 14.8 H Distribution Width Platelet Count 102 #L Mean Platelet Volume Immature 0.200 Granulocytes % Neutrophils % 54.6 Lymphocytes % 35.2 Monocytes % 6.3 Eosinophils % 3.3 Basophils % 0.4 Nucleated Red 0.4 H Blood Cells % Immature 0.020 Granulocytes # Neutrophils # 5.4 Lymphocytes # 3.5 H Monocytes # 0.6 Eosinophils # 0.3 Basophils # 0.0 Nucleated Red 0.0 Blood Cells # Urine Color YELLOW Urine Clarity SLIGHTLY CLOUDY A Urine pH 5.0 Urine Specific 1.024 [place] Urine Ketones TRACE A Urine Nitrite NEGATIVE Urine Bilirubin NEGATIVE Urine Urobilinogen NEGATIVE Urine Leukocyte NEGATIVE Esterase Urine Microscopic 1 RBC Urine Microscopic 2 WBC Urine Hemoglobin NEGATIVE Urine Glucose 3+ H Urine Total 3+ H Protein HPI/ROS Admit Date/Time Admit Date/Time October 24, 2018 at 08:46 Hx of Present Illness 68 yo female with h/o DMII, hypertension, CVA and vascular dementia who sent from senior living for lethargy Patient suffered a CVA many years ago according to her son. She has been bedbound and G tube dependent since then. Has been in [facility] for last 4 years. Family was visiting and noticed the patient to be much more lethargic and less responsive than usual. Unclear the chronicity of this. She was subsequently brought to the ED where found to have severe hypernatremia. Her son noticed she was not received any "liquids" at the facility, but she was receiving tube feeds. patient is unable to respond to questioning ROS Constitutional: no complaints, improved Eyes: no complaints ENT: no complaints Respiratory: no complaints Cardiovascular: no complaints Gastrointestinal: no complaints Genitourinary: no complaints Musculoskeletal: no complaints Skin: no complaints Neurologic: no complaints Endocrine: no complaints Lymphatic: no complaints Psychological: no complaints, nl mood/affect Immunologic: no complaints PMH/Family/Social Past Medical History CVA Stroke Dementia Medical History: diabetes Medications Current Medications Dextrose 1,000 ml @ 100 mls/hr Q10H IV ; Start 10/24/18 at 09:00 Ondansetron HCl (Zofran Inj) 4 mg ER BRIDGE PRN IV NAUSEA/VOMITING; Start at 09:00; Stop 10/25/18 at 08:59 Acetaminophen (Tylenol Tab) 650 mg ER BRIDGE PRN PO .MILD PAIN 1-3 OR TEMP; Start 10/24/18 at 09:00; Stop 10/25/18 at 08:59 Sodium Chloride 1,000 ml @ 1,000 mls/hr Q1H ONCE IV ; Start 10/24/18 at 11:00; Stop 10/24/18 at 11:59 IV Flush (NS 3 ml) 3 ml PER PROTOCOL IV ; Start 10/24/18 at 11:00 Heparin Sodium (Porcine) (Heparin (5000 Units/1ml)) 5,000 unit Q12 SC ; Start 10/24/18 at 21:00 Latanoprost (Xalatan) 1 drop QHS BOTH EYES ; Start 10/24/18 at 21:00 Levetiracetam (Keppra Liquid) 500 mg BID GTB ; Start 10/24/18 at 21:00 Nepafenac (Nevanac Oph) 1 drop QAM BOTH EYES ; Start 10/25/18 at 09:00 Coded Allergies: No Known Drug Allergy (Verified Allergy, Mild, 10/24/18) Past Surgical History Past Surgical Hx: no surgical history Family History Significant Family History: no pertinent family hx Social History Alcohol Use: none Smoking Status: Never smoker Drug Use: none Exam/Review of Systems Vital Signs Vitals Vital Signs Date Temp Pulse Resp B/P (MAP) Pulse Ox O2 O2 Flow FiO2 Time Delivery Rate 10/24/18 97.4 93 19 152/75 99 Nasal 2.0 11:10 (100) Cannula Exam Exam Chronically ill appearing Lethargic Minimally responsive to noxious stimlui Nonverbal Pupils reactive but sluggish RRR Breathing comfortably Abdomen soft nt Ext contracted, no edema, warm Stage II pressure ulcer on buttock ERIKA MALHOTRA MD October 24, 2018 11:28
[2018-10-24] MEDS ORDERED: GLUCOSE GEL 15 GRAM TUBE PO PRN ×2 (12:00)
[2018-10-24] MEDS ORDERED: GLUCAGON 1 MG INJ IM PRN (12:00)
[2018-10-24] MEDS ORDERED: GLUCOSE GEL 15 GRAM TUBE BUCCAL PRN (12:00)
[2018-10-24] MEDS ORDERED: DEXTROSE 50% 50 ML SYRINGE IV PRN ×2 (12:00)
[2018-10-24] MEDS: DEXTROSE 5% 1,000 ML IV SCH ×2 (12:02→18:05)
[2018-10-24 12:07] VITALS: PULSE 90
[2018-10-24] MEDS: INSULIN GLARGINE [LANTus] (100 UNITS/ML) SYG SC SCH (14:50)
[2018-10-24] MEDS: INSULIN ASPART [NOVOLOG] 3 ML PEN SC SCH ×2 (14:50→18:31)
[2018-10-24 15:30] VITALS: BP 150/69; PULSE 95; RESP 19
[2018-10-24 16:24] VITALS: PULSE 95
[2018-10-24] MEDS ORDERED: INSULIN ASPART [NOVOLOG] 3 ML PEN SC ONE (19:00)
[2018-10-24] MEDS ORDERED: ACCU-CHEK XX ONE (19:00)
[2018-10-24] MEDS ORDERED: INSULIN GLARGINE [LANTus] (100 UNITS/ML) SYG SC ONE (19:30)
[2018-10-24 20:00] VITALS: BP 166/72; PULSE 88; PULSE 89; RESP 16
[2018-10-24] MEDS ORDERED: INSULIN ASPART [NOVOLOG] 3 ML PEN SC SCH (21:00)
[2018-10-24] MEDS: LEVETIRACETAM (100 MG/ML) 5ML CUP GTB SCH (22:01)
[2018-10-24] MEDS: metFORMIN 500 MG TAB GTB SCH (22:01)
[2018-10-24] MEDS: LATANOPROST 0.005% 2.5 ML OPH BOTH EYES SCH (22:01)
[2018-10-24] MEDS: HEPARIN 5,000 UNIT/1 ML VIAL SC SCH (22:06)
[2018-10-25] VITALS (10 sets, daily range): BP systolic 145–172; BP diastolic 56–75; PULSE 78–87; RESP 16–19
[2018-10-25] MEDS ORDERED: INSULIN ASPART [NOVOLOG] 3 ML PEN SC SCH (04:30)
[2018-10-25] MEDS: INSULIN ASPART [NOVOLOG] 3 ML PEN SC SCH ×3 (06:17→17:44)
[2018-10-25] MEDS: LEVETIRACETAM (100 MG/ML) 5ML CUP GTB SCH ×2 (09:11→20:34)
[2018-10-25] MEDS: metFORMIN 500 MG TAB GTB SCH ×2 (09:12→17:23)
[2018-10-25] MEDS: NEPAFENAC 0.1% 3 ML OPH BOTH EYES SCH (09:12)
[2018-10-25] MEDS: INSULIN GLARGINE [LANTus] (100 UNITS/ML) SYG SC SCH (09:25)
[2018-10-25] MEDS: HEPARIN 5,000 UNIT/1 ML VIAL SC SCH ×2 (09:26→20:35)
[2018-10-25] MEDS ORDERED: SOD CHLORIDE 0.9% 1,000 ML IV ONE (10:30)
--- NOTE | 2018-10-25 12:28 | PN ---
Date/Time of Note Date/Time of Note DATE: 10/25/18 TIME: 12:24 Assessment/Plan VTE Prophylaxis Risk score (from Ns)>0 risk: 7 SCD applied (from Ns): Yes Pharmacological prophylaxis: heparin Lines/Catheters [facility] Saline Lock Urinary Cath still in place: Yes Reason Cath still needed: urinary retention Assessment/Plan Problems: (1) Altered level of consciousness Status: Acute Comment: It is unclear where we are with her overall status given what her baseline is. Continue treatment. Please note and will send cultures on her (2) Encephalopathy chronic Status: Chronic Comment: Noted. That is post CVA with imaging studies showing left middle cerebral artery infarction (3) Dehydration Status: Acute Comment: She is still quite dehydrated. While she is not hypotensive fortunately I am going to give her some fluid bolus, as well as some extra free water to try and get this straightened out. (4) Acute kidney injury Status: Acute Comment: imProving. (5) Hypernatremia Status: Acute Comment: This is improved somewhat. Give more free water to try and help correct this. He will take at least 2-3 more days to get balance (6) History of CVA (cerebrovascular accident) Status: Acute Comment: Noted. (7) Status post insertion of percutaneous endoscopic gastrostomy (PEG) tube Status: Chronic Comment: Noted. The patient's actually receiving nutrition via this presently (8) Mild diastolic dysfunction Status: Chronic Comment: Noted. (9) Mild aortic stenosis by prior echocardiogram Status: Chronic Comment: Noted. (10) Coronary artery disease Status: Chronic Comment: Quiescent at this time Qualifiers: Coronary Disease-Associated Artery/Lesion type: [place] artery [place] vs. transplanted heart: [place] heart Associated angina: without angina Qualified Codes: I25.10 - Atherosclerotic heart disease of [place] coronary artery without angina pectoris (11) Diabetes mellitus type 2 in nonobese Status: Chronic Comment: Adequate control. Please note on and try to get the renal function straight now since she is on full dose metformin. (12) Hyperlipidemia associated with type 2 diabetes mellitus Status: Chronic Comment: Noted. Given the overall situation would not be aggressive with statin drug (13) Essential hypertension Status: Chronic Comment: Adequate control Result Diagram: 10/25/18 0550 10/25/18 0550 Results 24hrs Laboratory Tests Test 10/24/18 14:22 10/24/18 18:07 10/24/18 21:56 10/24/18 22:10 Sodium Level 165 *H 157 H Potassium Level 4.5 3.8 Chloride Level 135 H 128 H Carbon Dioxide Level 27 26 Anion Gap 3 L 3 L Blood Urea Nitrogen 84 H 72 H Creatinine 1.34 H 1.14 H Est Glomerular Filtrat 39 L 48 L Rate mL/min Glucose Level 262 #H 416 #*H Calcium Level 8.0 L 7.9 L Bedside Glucose 401 *H 426 *H Test 10/24/18 23:57 10/25/18 05:50 10/25/18 05:54 10/25/18 08:13 Bedside Glucose 365 H 174 160 White Blood Count 8.7 Red Blood Count 3.94 L Hemoglobin 12.6 Hematocrit 42.5 Mean Corpuscular Volume 107.9 H Mean Corpuscular 32.0 Hemoglobin Mean Corpuscular 29.6 L Hemoglobin Concent Red Cell Distribution 13.7 Width Platelet Count 92 L Mean Platelet Volume 15.2 #H Immature Granulocytes % 0.300 Neutrophils % 57.9 Lymphocytes % 32.4 Monocytes % 5.2 Eosinophils % 4.0 Basophils % 0.2 Nucleated Red Blood 0.0 Cells % Immature Granulocytes # 0.030 Neutrophils # 5.0 Lymphocytes # 2.8 Monocytes # 0.5 Eosinophils # 0.4 Basophils # 0.0 Nucleated Red Blood 0.0 Cells # Sodium Level 158 H Potassium Level 3.8 Chloride Level 127 H Carbon Dioxide Level 28 Anion Gap 3 L Blood Urea Nitrogen 65 H Creatinine 1.14 H Est Glomerular Filtrat 48 L Rate mL/min Glucose Level 164 # Hemoglobin A1c 10.2 H Calcium Level 8.4 Total Bilirubin 0.7 Direct Bilirubin 0.00 Indirect Bilirubin 0.7 Aspartate Amino 33 Transf (AST/SGOT) Alanine 35 Aminotransferase (ALT/SG PT) Alkaline Phosphatase 89 Total Protein 6.3 Albumin 3.0 L Globulin 3.30 H Albumin/Globulin Ratio 0.90 Test 10/25/18 12:06 Bedside Glucose 174 Subjective 24 Hr Interval Summary Free Text/Dictation Patient is nonverbal but does look at me he does not follow commands requests Subjective hx not possible: pt non-verbal Exam/Review of Systems Exam Vitals Vital Signs Date Temp Pulse Resp B/P (MAP) Pulse Ox O2 O2 Flow FiO2 Time Delivery Rate 10/25/18 100.1 82 19 153/66 99 11:43 (95) 10/24/18 Nasal 2.0 15:30 Cannula Intake and Output 10/24/18 10/24/18 10/25/18 1515:00 23:00 07:00 IntakeIntake Total 2410 ml 1300 ml OutputOutput Total 500 ml 450 ml BalanceBalance 1910 ml 850 ml Constitutional: non-verbal Respiratory: clear to auscultation, normal air movement Cardiovascular: regular rate and rhythm, nl pulses Results Results 24hrs Laboratory Tests Test 10/24/18 14:22 10/24/18 18:07 10/24/18 21:56 10/24/18 22:10 Sodium Level 165 *H 157 H Potassium Level 4.5 3.8 Chloride Level 135 H 128 H Carbon Dioxide Level 27 26 Anion Gap 3 L 3 L Blood Urea Nitrogen 84 H 72 H Creatinine 1.34 H 1.14 H Est Glomerular Filtrat 39 L 48 L Rate mL/min Glucose Level 262 #H 416 #*H Calcium Level 8.0 L 7.9 L Bedside Glucose 401 *H 426 *H Test 10/24/18 23:57 10/25/18 05:50 10/25/18 05:54 10/25/18 08:13 Bedside Glucose 365 H 174 160 White Blood Count 8.7 Red Blood Count 3.94 L Hemoglobin 12.6 Hematocrit 42.5 Mean Corpuscular Volume 107.9 H Mean Corpuscular 32.0 Hemoglobin Mean Corpuscular 29.6 L Hemoglobin Concent Red Cell Distribution 13.7 Width Platelet Count 92 L Mean Platelet Volume 15.2 #H Immature Granulocytes % 0.300 Neutrophils % 57.9 Lymphocytes % 32.4 Monocytes % 5.2 Eosinophils % 4.0 Basophils % 0.2 Nucleated Red Blood 0.0 Cells % Immature Granulocytes # 0.030 Neutrophils # 5.0 Lymphocytes # 2.8 Monocytes # 0.5 Eosinophils # 0.4 Basophils # 0.0 Nucleated Red Blood 0.0 Cells # Sodium Level 158 H Potassium Level 3.8 Chloride Level 127 H Carbon Dioxide Level 28 Anion Gap 3 L Blood Urea Nitrogen 65 H Creatinine 1.14 H Est Glomerular Filtrat 48 L Rate mL/min Glucose Level 164 # Hemoglobin A1c 10.2 H Calcium Level 8.4 Total Bilirubin 0.7 Direct Bilirubin 0.00 Indirect Bilirubin 0.7 Aspartate Amino 33 Transf (AST/SGOT) Alanine 35 Aminotransferase (ALT/SG PT) Alkaline Phosphatase 89 Total Protein 6.3 Albumin 3.0 L Globulin 3.30 H Albumin/Globulin Ratio 0.90 Test 10/25/18 12:06 Bedside Glucose 174 Medications Medication Current Medications IV Flush (NS 3 ml) 3 ml PER PROTOCOL IV ; Start 10/24/18 at 11:00 Heparin Sodium (Porcine) (Heparin (5000 Units/1ml)) 5,000 unit Q12 SC Last administered on 10/25/18at 09:26; Admin Dose 5,000 UNIT; Start 10/24/18 at 21:00 Latanoprost (Xalatan) 1 drop QHS BOTH EYES Last administered on 10/24/18at 22:01; Admin Dose 1 DROP; Start 10/24/18 at 21:00 Levetiracetam (Keppra Liquid) 500 mg BID GTB Last administered on 10/25/18at 09:11; Admin Dose 500 MG; Start 10/24/18 at 21:00 Nepafenac (Nevanac Oph) 1 drop QAM BOTH EYES Last administered on 10/25/18at 09:12; Admin Dose 1 DROP; Start 10/25/18 at 09:00 Miscellaneous Information 1 ea NOTE XX ; Start 10/24/18 at 12:00 Glucose (Glutose) 15 gm Q15M PRN PO DECREASED GLUCOSE; Start 10/24/18 at 12:00 Glucose (Glutose) 22.5 gm Q15M PRN PO DECREASED GLUCOSE; Start 10/24/18 at 12:00 Dextrose (D50w Syringe) 25 ml Q15M PRN IV DECREASED GLUCOSE; Start 10/24/18 at 12:00 Dextrose (D50w Syringe) 50 ml Q15M PRN IV DECREASED GLUCOSE; Start 10/24/18 at 12:00 Glucagon (Glucagen) 1 mg Q15M PRN IM DECREASED GLUCOSE; Start 10/24/18 at 12:00 Glucose (Glutose) 15 gm Q15M PRN BUCCAL DECREASED GLUCOSE; Start 10/24/18 at 12:00 Metformin HCl (Glucophage) 1,000 mg BID WITH MEALS GTB Last administered on 10/25/18at 09:12; Admin Dose 1,000 MG; Start 10/24/18 at 19:00 Insulin Aspart (Novolog Insulin Pen) NOVOLOG *MODERATE* ALGORI... Q6H SC Last administered on 10/25/18at 12:09; Admin Dose 2 UNIT; Start 10/25/18 at 06:00 Insulin Glargine (Lantus) 15 units DAILY@0800 SC ; Start 10/26/18 at 08:00 KIRAN CASANOVA MD October 25, 2018 12:28
[2018-10-25] MEDS ORDERED: DEXTROSE 5% 1,000 ML IV ONE (12:30)
[2018-10-25] MEDS ORDERED: LACTATED RINGER'S 500 ML IV ONE (12:30)
[2018-10-25] MEDS: DEXTROSE 5%-0.225% NACL 1,000 ML IV SCH (16:23)
[2018-10-25] MEDS: LATANOPROST 0.005% 2.5 ML OPH BOTH EYES SCH (23:45)
[2018-10-26] VITALS: BP 157/68; PULSE 84; RESP 18
[2018-10-26] MEDS: INSULIN ASPART [NOVOLOG] 3 ML PEN SC SCH ×5 (00:35→23:59)
[2018-10-26] MEDS: DEXTROSE 5%-0.225% NACL 1,000 ML IV SCH ×2 (01:50→09:21)
[2018-10-26 08:16] VITALS: BP 177/69; PULSE 87; RESP 20
[2018-10-26] MEDS: metFORMIN 500 MG TAB GTB SCH ×2 (09:21→17:24)
[2018-10-26] MEDS: INSULIN GLARGINE [LANTus] (100 UNITS/ML) SYG SC SCH (09:24)
[2018-10-26] MEDS: HEPARIN 5,000 UNIT/1 ML VIAL SC SCH ×2 (09:24→20:35)
[2018-10-26] MEDS: NEPAFENAC 0.1% 3 ML OPH BOTH EYES SCH (09:25)
[2018-10-26] MEDS: LEVETIRACETAM (100 MG/ML) 5ML CUP GTB SCH ×2 (11:35→20:34)
[2018-10-26 13:42] VITALS: BP 135/64; PULSE 74; RESP 18
--- NOTE | 2018-10-26 14:51 | PN ---
Date/Time of Note Date/Time of Note DATE: 10/26/18 TIME: 14:49 Assessment/Plan VTE Prophylaxis Risk score (from Ns)>0 risk: 4 SCD applied (from Ns): Yes Pharmacological prophylaxis: heparin Lines/Catheters IV [facility] (from [facility]): Peripheral IV Assessment/Plan Hospital Course 68 yo female with h/o vascular dementia s/p CVA, DMII who is bed bound and PEG tube dependent [facility]. Found to have severe hypernatremia and GLADIS GLADIS secondary to dehydration-resolved -Status post fluids Hypernatremia-improving -Continue IV fluids Vascular dementia: - Stable Acute on chronic encephalopathy secondary to electrolyte imbalance on stroke -Continue IV fluids Prophylaxis: Heparin DC planning: Continue fluids as sodium still elevated, anticipate DC back to facility 1 to 2 days Result Diagram: 10/25/18 0550 10/26/18 0608 Results 24hrs Laboratory Tests Test 10/25/18 17:19 10/25/18 22:12 10/25/18 23:43 10/26/18 06:08 Bedside Glucose 457 *H 428 *H Sodium Level 146 H 147 H Potassium Level 4.1 3.8 Chloride Level 117 H 119 H Carbon Dioxide Level 22 25 Anion Gap 7 3 L Blood Urea Nitrogen 48 H 41 H Creatinine 0.94 0.97 Est Glomerular Filtrat 59 L 57 L Rate mL/min Glucose Level 364 #H 239 #H Calcium Level 8.1 L 8.4 Test 10/26/18 06:41 10/26/18 09:20 10/26/18 12:07 Bedside Glucose 245 H 166 145 Subjective 24 Hr Interval Summary Subjective hx not possible: pt non-verbal Exam/Review of Systems Exam Vitals Vital Signs Date Temp Pulse Resp B/P (MAP) Pulse Ox O2 O2 Flow FiO2 Time Delivery Rate 10/26/18 98.1 74 18 135/64 99 Nasal 13:42 (87) Cannula 10/26/18 2.0 08:30 Intake and Output 10/25/18 10/25/18 10/26/18 1414:59 22:59 06:59 IntakeIntake Total 440 ml 822 ml OutputOutput Total 1600 ml BalanceBalance -1160 ml 822 ml Constitutional: non-verbal Respiratory: clear to auscultation Cardiovascular: regular rate and rhythm Gastrointestinal: soft; No distended Musculoskeletal: nl extremities to inspection Results Results 24hrs Laboratory Tests Test 10/25/18 17:19 10/25/18 22:12 10/25/18 23:43 10/26/18 06:08 Bedside Glucose 457 *H 428 *H Sodium Level 146 H 147 H Potassium Level 4.1 3.8 Chloride Level 117 H 119 H Carbon Dioxide Level 22 25 Anion Gap 7 3 L Blood Urea Nitrogen 48 H 41 H Creatinine 0.94 0.97 Est Glomerular Filtrat 59 L 57 L Rate mL/min Glucose Level 364 #H 239 #H Calcium Level 8.1 L 8.4 Test 10/26/18 06:41 10/26/18 09:20 10/26/18 12:07 Bedside Glucose 245 H 166 145 Medications Medication Current Medications IV Flush (NS 3 ml) 3 ml PER PROTOCOL IV ; Start 10/24/18 at 11:00 Heparin Sodium (Porcine) (Heparin (5000 Units/1ml)) 5,000 unit Q12 SC Last administered on 10/26/18at 09:24; Admin Dose 5,000 UNIT; Start 10/24/18 at 21:00 Latanoprost (Xalatan) 1 drop QHS BOTH EYES Last administered on 10/25/18at 23:45; Admin Dose 1 DROP; Start 10/24/18 at 21:00 Levetiracetam (Keppra Liquid) 500 mg BID GTB Last administered on 10/26/18at 11:35; Admin Dose 500 MG; Start 10/24/18 at 21:00 Nepafenac (Nevanac Oph) 1 drop QAM BOTH EYES Last administered on 10/26/18at 09:25; Admin Dose 1 DROP; Start 10/25/18 at 09:00 Miscellaneous Information 1 ea NOTE XX ; Start 10/24/18 at 12:00 Glucose (Glutose) 15 gm Q15M PRN PO DECREASED GLUCOSE; Start 10/24/18 at 12:00 Glucose (Glutose) 22.5 gm Q15M PRN PO DECREASED GLUCOSE; Start 10/24/18 at 12:00 Dextrose (D50w Syringe) 25 ml Q15M PRN IV DECREASED GLUCOSE; Start 10/24/18 at 12:00 Dextrose (D50w Syringe) 50 ml Q15M PRN IV DECREASED GLUCOSE; Start 10/24/18 at 12:00 Glucagon (Glucagen) 1 mg Q15M PRN IM DECREASED GLUCOSE; Start 10/24/18 at 12:00 Glucose (Glutose) 15 gm Q15M PRN BUCCAL DECREASED GLUCOSE; Start 10/24/18 at 12:00 Metformin HCl (Glucophage) 1,000 mg BID WITH MEALS GTB Last administered on 10/26/18 09:21; Admin Dose 1,000 MG; Start 10/24/18 at 19:00 Insulin Aspart (Novolog Insulin Pen) NOVOLOG *MODERATE* ALGORI... Q6H SC Last administered on 10/26/18 12:11; Admin Dose 2 UNIT; Start 10/25/18 at 06:00 Insulin Glargine (Lantus) 15 units DAILY@0800 SC Last administered on 10/26/18 09:24; Admin Dose 15 UNITS; Start 10/26/18 at 08:00 Dextrose/Sodium Chloride 1,000 ml @ 75 mls/hr [id number] IV Last administered on 10/26/18 09:21; Admin Dose 75 MLS/HR; Start 10/25/18 at 12:30 CHRISTOPHER CERNA October 26, 2018 14:51
[2018-10-26 20:08] VITALS: BP 155/68; PULSE 91; RESP 18
[2018-10-26] MEDS: LATANOPROST 0.005% 2.5 ML OPH BOTH EYES SCH (20:33)
[2018-10-26] MEDS: BALSAM PERU/CASTOR OIL 60 GM TUBE TOP SCH (20:35)
[2018-10-26] MEDS: COLLAGENASE 5 GM (UD JAR) TOP SCH (23:59)
[2018-10-27 02:36] VITALS: BP 170/74; PULSE 83; RESP 18
[2018-10-27] MEDS: DEXTROSE 5%-0.225% NACL 1,000 ML IV SCH ×2 (04:30→17:28)
[2018-10-27] MEDS: INSULIN ASPART [NOVOLOG] 3 ML PEN SC SCH ×4 (05:50→23:26)
[2018-10-27 08:02] VITALS: BP 168/71; PULSE 94; RESP 18
[2018-10-27] MEDS: COLLAGENASE 5 GM (UD JAR) TOP SCH ×2 (08:03→20:23)
[2018-10-27] MEDS: metFORMIN 500 MG TAB GTB SCH ×2 (08:03→17:36)
[2018-10-27] MEDS: LEVETIRACETAM (100 MG/ML) 5ML CUP GTB SCH ×2 (08:04→20:23)
[2018-10-27] MEDS: INSULIN GLARGINE [LANTus] (100 UNITS/ML) SYG SC SCH (08:05)
[2018-10-27] MEDS ORDERED: COLLAGENASE 5 GM (UD JAR) TOP SCH (09:00)
[2018-10-27] MEDS ORDERED: BALSAM PERU/CASTOR OIL 60 GM TUBE TOP SCH (09:00)
[2018-10-27] MEDS: BALSAM PERU/CASTOR OIL 60 GM TUBE TOP SCH ×2 (09:11→20:23)
[2018-10-27] MEDS: LATANOPROST 0.005% 2.5 ML OPH BOTH EYES SCH (09:12)
[2018-10-27] MEDS: HEPARIN 5,000 UNIT/1 ML VIAL SC SCH ×2 (09:13→20:25)
[2018-10-27] MEDS: NEPAFENAC 0.1% 3 ML OPH BOTH EYES SCH (09:18)
--- NOTE | 2018-10-27 14:08 | PN ---
Date/Time of Note Date/Time of Note DATE: 10/27/18 TIME: 14:07 Assessment/Plan VTE Prophylaxis Risk score (from Ns)>0 risk: 4 SCD applied (from Ns): Yes Pharmacological prophylaxis: heparin Lines/Catheters IV C[facility]ter Type (from [facility]): Peripheral IV Assessment/Plan Hospital Course 68 yo female with h/o vascular dementia s/p CVA, DMII who is bed bound and PEG tube dependent [facility]. Found to have severe hypernatremia and GLADIS GLADIS secondary to dehydration-resolved -Status post fluids Hypernatremia-improving -Have increased free water via G-tube Vascular dementia: - Stable Acute on chronic encephalopathy secondary to electrolyte imbalance on stroke -Continue IV fluids Prophylaxis: Heparin DC planning: Continue fluids via PEG, anticipate DC tomorrow Result Diagram: 10/25/18 0550 10/27/18 0548 Results 24hrs Laboratory Tests Test 10/26/18 17:20 10/26/18 23:57 10/27/18 05:45 10/27/18 05:48 Bedside Glucose 160 149 188 Sodium Level 149 H Potassium Level 4.1 Chloride Level 117 H Carbon Dioxide Level 27 Anion Gap 5 Blood Urea Nitrogen 31 H Creatinine 0.83 Est Glomerular Filtrat > 60 Rate mL/min Glucose Level 170 Calcium Level 8.5 Test 10/27/18 07:57 10/27/18 12:28 Bedside Glucose 210 299 H Subjective 24 Hr Interval Summary Subjective hx not possible: pt non-verbal Exam/Review of Systems Exam Vitals Vital Signs Date Temp Pulse Resp B/P (MAP) Pulse Ox O2 O2 Flow FiO2 Time Delivery Rate 10/27/18 98.2 94 18 168/71 93 Room Air 08:02 (103) 10/26/18 2.0 20:10 Intake and Output 10/26/18 10/26/18 10/27/18 1515:00 23:00 07:00 IntakeIntake Total 1510 ml 760 ml 1460 ml OutputOutput Total 500 ml BalanceBalance 1510 ml 260 ml 1460 ml Constitutional: non-verbal Respiratory: clear to auscultation Cardiovascular: regular rate and rhythm Gastrointestinal: soft; No distended Musculoskeletal: nl extremities to inspection Results Results 24hrs Laboratory Tests Test 10/26/18 17:20 10/26/18 23:57 10/27/18 05:45 10/27/18 05:48 Bedside Glucose 160 149 188 Sodium Level 149 H Potassium Level 4.1 Chloride Level 117 H Carbon Dioxide Level 27 Anion Gap 5 Blood Urea Nitrogen 31 H Creatinine 0.83 Est Glomerular Filtrat > 60 Rate mL/min Glucose Level 170 Calcium Level 8.5 Test 10/27/18 07:57 10/27/18 12:28 Bedside Glucose 210 299 H Medications Medication Current Medications IV Flush (NS 3 ml) 3 ml PER PROTOCOL IV ; Start 10/24/18 at 11:00 Heparin Sodium (Porcine) (Heparin (5000 Units/1ml)) 5,000 unit Q12 SC Last administered on 10/27/18at 09:13; Admin Dose 5,000 UNIT; Start 10/24/18 at 21:00 Latanoprost (Xalatan) 1 drop QHS BOTH EYES Last administered on 10/27/18at 09:12; Admin Dose 1 DROP; Start 10/24/18 at 21:00 Levetiracetam (Keppra Liquid) 500 mg BID GTB Last administered on 10/27/18 08:04; Admin Dose 500 MG; Start 10/24/18 at 21:00 Nepafenac (Nevanac Oph) 1 drop QAM BOTH EYES Last administered on 10/27/18 09:18; Admin Dose 1 DROP; Start 10/25/18 at 09:00 Miscellaneous Information 1 ea NOTE XX ; Start 10/24/18 at 12:00 Glucose (Glutose) 15 gm Q15M PRN PO DECREASED GLUCOSE; Start 10/24/18 at 12:00 Glucose (Glutose) 22.5 gm Q15M PRN PO DECREASED GLUCOSE; Start 10/24/18 at 12:00 Dextrose (D50w Syringe) 25 ml Q15M PRN IV DECREASED GLUCOSE; Start 10/24/18 at 12:00 Dextrose (D50w Syringe) 50 ml Q15M PRN IV DECREASED GLUCOSE; Start 10/24/18 at 12:00 Glucagon (Glucagen) 1 mg Q15M PRN IM DECREASED GLUCOSE; Start 10/24/18 at 12:00 Glucose (Glutose) 15 gm Q15M PRN BUCCAL DECREASED GLUCOSE; Start 10/24/18 at 12:00 Metformin HCl (Glucophage) 1,000 mg BID WITH MEALS GTB Last administered on 10/27/18 08:03; Admin Dose 1,000 MG; Start 10/24/18 at 19:00 Insulin Aspart (Novolog Insulin Pen) NOVOLOG *MODERATE* ALGORI... Q6H SC Last administered on 10/27/18 12:31; Admin Dose 8 UNIT; Start 10/25/18 at 06:00 Insulin Glargine (Lantus) 15 units DAILY@0800 SC Last administered on 10/27/18 08:05; Admin Dose 15 UNITS; Start 10/26/18 at 08:00 Dextrose/Sodium Chloride 1,000 ml @ 75 mls/hr [id number] IV Last administered on 10/26/18 09:21; Admin Dose 75 MLS/HR; Start 10/25/18 at 12:30 Collagenase (Santyl) 1 applic BID TOP Last administered on 10/27/18 08:03; Admin Dose 1 APPLIC; Start 10/26/18 at 21:00 CHRISTOPHER CERNA October 27, 2018 14:08
[2018-10-27 14:11] VITALS: BP 150/65; PULSE 94; RESP 18
[2018-10-27 19:52] VITALS: BP 168/77; PULSE 96; RESP 18
[2018-10-27 21:15] VITALS: BP 149/69; PULSE 87; RESP 18
[2018-10-28 02:16] VITALS: BP 169/72; PULSE 88; RESP 18
[2018-10-28] MEDS: INSULIN ASPART [NOVOLOG] 3 ML PEN SC SCH ×3 (05:11→17:39)
[2018-10-28 05:40] VITALS: BP 181/72; PULSE 87; RESP 18
[2018-10-28] MEDS ORDERED: hydrALAzine 20 MG INJ IV ONE ×3 (06:05→15:00)
[2018-10-28 06:36] VITALS: BP 151/71; PULSE 97; RESP 18
[2018-10-28 07:40] VITALS: BP 146/97; PULSE 98; RESP 18
[2018-10-28] MEDS: LEVETIRACETAM (100 MG/ML) 5ML CUP GTB SCH (08:42)
[2018-10-28] MEDS: metFORMIN 500 MG TAB GTB SCH ×2 (08:42→17:37)
[2018-10-28] MEDS: COLLAGENASE 5 GM (UD JAR) TOP SCH (08:42)
[2018-10-28] MEDS: INSULIN GLARGINE [LANTus] (100 UNITS/ML) SYG SC SCH (08:43)
[2018-10-28] MEDS: BALSAM PERU/CASTOR OIL 60 GM TUBE TOP SCH (08:45)
[2018-10-28] MEDS: HEPARIN 5,000 UNIT/1 ML VIAL SC SCH (08:45)
[2018-10-28] MEDS: NEPAFENAC 0.1% 3 ML OPH BOTH EYES SCH (08:55)
[2018-10-28] MEDS: DEXTROSE 5%-0.225% NACL 1,000 ML IV SCH (11:16)
[2018-10-28 14:09] VITALS: BP 174/93; PULSE 93; RESP 18
--- NOTE | 2018-10-28 14:18 | DS ---
Date/Time of Note Date/Time of Note DATE: 10/28/18 TIME: 14:15 Discharge Summary Admission/Discharge Info Admit Date/Time October 24, 2018 at 08:46 Discharge Date/Time October 28, 2018 Discharge Diagnosis GLADIS secondary to dehydration-resolved -Status post fluids Hypernatremia-resolved -Status post IV fluids and increased free water via G-tube Vascular dementia: -DC back to [facility] Acute on chronic encephalopathy secondary to electrolyte imbalance on stroke -Improved with fluids Patient Condition: Fair Hospital Course Patient is a 68 yo female with h/o vascular dementia s/p CVA, DMII who is bed bound and PEG tube dependent [facility]. Found to have severe hypernatremia and GLADIS which improved with IV fluids and increase free water via PEG tube. Patient mentation did appear to improve with resolution of hypernatremia, patient was stable for DC back to [facility], on the day of discharge patient's vitals, labs and physical exam are stable. Home Meds Reported Medications Latanoprost (Latanoprost) 2.5 Ml Drops, 1 DROP BOTH EYES QHS, #1 BOTTLE 10/24/18 Atorvastatin Calcium* (Atorvastatin Calcium*) 20 Mg Tablet, 20 MG GTB QHS, #30 TAB 10/24/18 Acetaminophen* (Acetaminophen*) 650 Mg Tablet, 650 MG GTB Q4 PRN for MILD PAIN LEVEL 1-3, #30 TAB 10/24/18 Acetaminophen* (Acetaminophen*) 500 MG Extra Strength Tablet, 1000 MG GTB Q4 PRN for MODERATE PAIN LEVEL 4-6, TAB 10/24/18 Acetaminophen* (Acetaminophen*) 325 Mg Tablet, 650 MG GTB BID PRN for PAIN LUIGI GEMENT PRIOR TO TX, #30 TAB 10/24/18 Cran/Vitc/Mannose/Inulin/Brom (Uti-Stat Liquid) 3,875 Mg/30 Ml Liquid, 3875 MG GTB BID 10/24/18 Levetiracetam* (Keppra* (Ped)) 100 Mg/Ml Liq, 500 MG GTB BID for 30 Days, BOTTLE 10/24/18 Nepafenac* (Nevanac* 0.1% Oph (3ml)) 1 Drop Susp, 1 DROP BOTH EYES QAM, EA 10/24/18 Cranberry Extract (Cranberry) 425 Mg Capsule, 425 MG GTB DAILY, CAP 10/24/18 Docusate Sodium* (Colace*) 100 Mg Capsule, 200 MG GTB Q24H PRN for CONSTIPATION, #30 CAP 10/24/18 Carvedilol* (Carvedilol*) 12.5 Mg Tablet, 12.5 MG GTB BID, #60 TAB hold if sbp below 110 or hr below 60min 10/24/18 Benazepril Hcl* (Benazepril Hcl*) 5 Mg Tablet, 5 MG GTB DAILY, #30 TAB hold if sbp below 110 or hr below 60/min 10/24/18 Insulin Glargine,Hum.rec.anlog (Basaglar Kwikpen U-100) 100 Unit/1 Ml Insuln.pen, 17 UNIT SC QHS, EA 10/24/18 Discontinued Reported Medications Clonidine Hcl* (Clonidine Hcl*) 0.1 Mg Tab, 0.1 MG GTB Q6 PRN for ELEVATED BLOOD PRESSURE, TAB 09/11/16 Bisacodyl* (Bisacodyl*) 10 Mg Supp, 10 MG VT PRN PRN for CONSTIPATION, SUPP 09/11/16 Levetiracetam* (Keppra*) 500 Mg Tablet, 500 MG GTB BID, TAB 09/11/16 Acetaminophen* (Acetaminophen*) 650 Mg Tablet, 650 MG GTB Q4 PRN for PAIN AND OR ELEVATED TEMP, #30 TAB 09/11/16 Discontinued Scripts Ipratropium-Albuterol (Ipratropium-Albuterol) 0.5-3 Mg/3 Ml Ampul.neb, 3 ML HHN Q4HWA RESP THERAPY for 30 Days Prov:ANITA DIAZ 10/02/16 Latanoprost (Latanoprost) 2.5 Ml Drops, 1 DROP BOTH EYES QHS for 30 Days, BOTTLE Prov:ANITA DIAZ 10/02/16 Insulin Glargine* (Lantus*) 100 Unit/Ml Soln, 15 UNIT SC DAILY@20 for 30 Days Prov:ANITA DIAZ 10/02/16 Insulin Aspart* (Novolog Insulin Pen*) 100 Unit/Ml Soln, 0 UNIT SC Q4 for 30 Days Prov:ANITA DIAZ 10/02/16 Ferrous Sulfate (Ferrous Sulfate) 300 Mg/5 Ml Liquid, 300 MG GTB DAILY for 30 Days Prov:ANITA DIAZ 10/02/16 Carvedilol* (Carvedilol*) 12.5 Mg Tablet, 12.5 MG GTB BID for 30 Days, TAB Prov:ANITA DIAZ 10/02/16 Benazepril Hcl* (Benazepril Hcl*) 5 Mg Tablet, 5 MG GTB BID for 30 Days, TAB Prov:ANITA DIAZ 10/02/16 Follow-up Plan Follow with physicians at [facility] Primary Care Provider Simon Graff MD Time spent on discharge: > 30 minutes CHRISTOPHER CERNA October 28, 2018 14:18
[2018-10-28 16:12] VITALS: BP 97/63; PULSE 90; RESP 14
== END 2018-10-28 18:10 | DRG 682 ==
LOC: E/R 05:49 → TEL 08:46 → 5EC 10-26 03:43
PROVIDERS: ADMIT Internal Medicine; ATTEND Internal Medicine
DX: N17.9 Acute kidney failure, unspecified (principal); E43 Unspecified severe protein-calorie malnutrition; G93.40 Encephalopathy, unspecified; E87.0 Hyperosmolality and hypernatremia; I69.354 Hemiplegia and hemiparesis following cerebral infarction affecting left non-dominant side; Z68.1 Body mass index [BMI] 19.9 or less, adult; L89.302 Pressure ulcer of unspecified buttock, stage 2; I11.0 Hypertensive heart disease with heart failure; I50.9 Heart failure, unspecified; E86.0 Dehydration; Z93.1 Gastrostomy status; F01.50 Vascular dementia, unspecified severity, without behavioral disturbance, psychotic disturbance, mood disturbance, and anxiety; G40.909 Epilepsy, unspecified, not intractable, without status epilepticus; I25.10 Atherosclerotic heart disease of native coronary artery without angina pectoris; E11.9 Type 2 diabetes mellitus without complications; E78.5 Hyperlipidemia, unspecified; I35.0 Nonrheumatic aortic (valve) stenosis; Z79.4 Long term (current) use of insulin; Z74.01 Bed confinement status
CPT/HCPCS: 36415; 70450; 71045; 80048; 80053; 81001; 82962; 83036; 85025; 87081; 87086; 93005; J0360; J1644; J1815; J7030; J7070; J7120